=== PATIENT | female | born 1995 | race Caucasian/White ===

== ENCOUNTER 2020-09-24 20:55 | Emergency (ER) | payer MEDICAID, SELFPAY ==
[2020-09-24 21:46] VITALS: BP 121/84; PULSE 84; RESP 16; TEMP 36; O2SAT 100; BMI 32.3
--- NOTE | 2020-09-24 23:03 | ED.FEMALEGU ---
HPI - Female Genitourinary General Chief complaint: Urogenital-Female Stated complaint: Abd Pain Time Seen by Provider: 09/24/20 22:23 Source: patient Mode of arrival: ambulatory Limitations: no limitations History of Present Illness HPI Narrative: this is a 25-year-old female who presents with complaints of urinary burning for approximately 1 week and states that she was told today by a sexual partner she had 1 week ago that he noted he had some burning on urination and patient endorses that the sexual encounter was unprotected and wishes to be tested for UTI and as well as being treated for STI. Related Data Allergies Allergy/AdvReac Type Severity Reaction Status Date / Time No Known Allergies Allergy Verified 09/24/20 22:12 [No Known Allergies*] Review of Systems Review of Systems: Pertinent positives and negatives as stated in HPI 10 point review of systems is otherwise negative. PMFSH Past Medical History Source: nursing notes reviewed Medical History No known health problems Social History Social History Alcohol intake: never Smoking Status: Current every day smoker Smoked in Last 30 Days: No Use of substances other than those prescribed or required for medical reasons: No Advance Directives: No Advance Directives Information Provided: Yes Physical Exam Vital Signs: Vital Signs: Last Vital Signs Temp 96.8 F 09/24/20 21:46 Pulse 84 09/24/20 21:46 Resp 16 09/24/20 21:46 BP 121/84 09/24/20 21:46 Pulse Ox 100 09/24/20 21:46 Body Mass Index 32.3 VITAL SIGNS: Reviewed. GENERAL: Well developed, well nourished, in no acute distress. HEAD: Normocephalic/atraumatic, EYES: PERRLA, EOMI intact without pain, no nystagmus/pallor/icterus noted EARS: Ext canals without abnormality, TMs non-bulging and non-erythematous NOSE: Nares patent bilateral OROPHARYNX: no oral lesions noted, posterior pharynx clear and non-erythematous without noted tonsillar enlargement/erythema/exudates NECK: Supple, no adenopathy LUNGS: Normal breath sounds. No adventitious sounds or accessory muscle use. SpO2<100> CARDIOVASCULAR: Regular rate and rhythm without noted murmurs, no JVD or lower extremity edema. ABDOMEN: Soft, non-tender, non-distended with bowel sounds. No rigidity. No guarding. No palpable masses or hernias noted MUSCULOSKELETAL: No tenderness, deformities, or effusions noted on gross inspection. EXTREMITIES: No cyanosis, clubbing or edema. SKIN: Inspection of the skin reveals no rashes, ulcerations, jaundice, pallor, or petechiae. NEUROLOGIC: Alert and oriented x 4. Strength and sensation to light touch were grossly intact x 4. Course Course Course Narrative: This is a 25-year-old female with history and clinical presentation concerning for UTI, STI, but less likely ectopic however will rule out . Patient will be empirically treated for STI. Review of all investigations is negative for evidence of or UTI. [facility] - Female Genitourinary Lab Data Labs: Lab Results 09/24/20 Range/Units 23:28 Urine Color STRAW Urine Appearance CLEAR Urine pH 6.0 (5.0-8.0) Ur Specific [place] 1.010 (1.005-1.025) Urine Protein NEG (NEG-TRACE) MG/DL Urine Glucose (UA) NEG (NEG) MG/DL Urine Ketones NEG (NEG) MG/DL Urine Blood 1+ H (NEG) Urine Nitrite NEG (NEG) Ur Leukocyte Esterase NEG (NEG) Urine RBC 0 (0) /HPF Urine WBC 0-2 (0-4) /HPF Ur Squamous Epith Cells 2+ /LPF Urine Bacteria 1+ /LPF Urine Test NEGATIVE (NEGATIVE) Discharge Plan Discharge Clinical Impression: Dysuria Patient Disposition: Home, Self-Care Instructions: Dysuria (ED), Sexually Transmitted Diseases (ED) Additional Instructions: 1. You have been empirically treated for a sexually transmitted infection today. 2. You should not engage in any sexual activity until you have been called with the results of your tests from today. 3. You must notify any sexual partners if you are found to be positive. 4. This is strongly recommended that you follow-up with your primary care provider by calling the office to set up an appointment. The patient and/or family acknowledge understanding of results (as applicable), diagnosis, treatment plan, need for follow up, and symptoms that should prompt a return to the emergency room. Referrals: Eduardo Wallace MD [Primary Care Provider] - 2 days ( Follow-up on STI results)
[2020-09-24 23:35] LABS: Glucose Urine UA NEG (NEG); Leukocyte Esterase Urine NEG (NEG); Nitrite Urine NEG (NEG); Urine Blood 1+ (NEG); Urine Ketones NEG (NEG); Urine Protein NEG (NEG-TRACE)
[2020-09-24 23:39] LABS: Appearance Urine CLEAR; Color Urine STRAW; UPreg QC Valid YES; Urine Pregnancy NEGATIVE (NEGATIVE)
[2020-09-24] MEDS: Azithromycin 500 MG TABLET 1000 MG PO (23:43)
[2020-09-24 23:44] LABS: Bacteria Urine 1+ /LPF; RBC Urine 0 /HPF (0); Squamous Epithelial Cell Urine 2+ /LPF; WBC Urine 0-2 /HPF (0-4)
[2020-09-24] MEDS: cefTRIAXone sodium 250 MG, Lidocaine HCl 1 % MPF 0.9 ML IM (23:44)
[2020-09-25 01:40] LABS: CT PCR DETECTED (Not Detect.); NG PCR NOT DETECTED (Not Detect.)
== END 2020-09-25 00:07 | disposition home or self-care (01) ==
PROVIDERS: Emergency Provider Student in an Organized Health Care Education/Training Program; PCP Family Medicine
DX: R30.0 Dysuria (principal); F17.200 Nicotine dependence, unspecified, uncomplicated; Z71.6 Tobacco abuse counseling; Z20.2 Contact with and (suspected) exposure to infections with a predominantly sexual mode of transmission
CPT/HCPCS: 81001; 81025; 87491; 87591; 96372; 99284; J0696

== ENCOUNTER → 2021-01-11 10:39 | Outpatient (BNVA) | payer MEDICAID, SELFPAY | PROVIDERS: PCP General Practice; Visit Provider Psychiatry & Neurology Neurology ==

== ENCOUNTER → 2021-01-23 19:44 | Outpatient (REF) | payer MEDICAID, SELFPAY | LOC: HO.SL 19:44 | PROVIDERS: PCP General Practice; Visit Provider Psychiatry & Neurology Neurology | DX: Z13.89 Encounter for screening for other disorder (principal) ==

== ENCOUNTER 2023-03-23 17:02 | Emergency (ER) | payer OTHER, MEDICAID, SELFPAY ==
[2023-03-23 17:11] VITALS: BP 126/76; PULSE 96; RESP 20; TEMP 36.7; O2SAT 99; BMI 32.0
--- NOTE | 2023-03-23 17:14 | ED_ITS ---
HPI - General Adult General Chief complaint: Psychiatric Symptoms Stated complaint: Panic attack, SI, Hard time breathing Time Seen by Provider: 03/23/23 17:35 Source: patient Mode of arrival: ambulatory Limitations: no limitations History of Present Illness HPI narrative: 27-year-old female as medical history of insomnia, anxiety, depression, and panic attacks presents to the ED with suicidal ideation after panic attack today. She reports that she has had suicidal thoughts in the past that she has never done anything to hurt herself in the past. Reports that she is overwhelmed with work and there is a lot going on and relationships right now. She reports that if she were to go home she has things at home like knives and scissors that she would be to slit her wrists with in order to kill herself. Reports that she takes Cymbalta daily and she sees a therapist once a month. Denies visual, auditory or tactile hallucinations. Denies tobacco, drug or alcohol use. Reports she feels safe at home, lives with her parents and her sibling. No medical complaints Related Data Home Medications Medication Instructions Recorded Confirmed bupropion HCl 150 mg 24 hr tablet, 150 mg PO DAILY 03/23/23 03/23/23 extended release duloxetine 60 mg capsule,delayed 60 mg PO DAILY 03/23/23 03/23/23 release Allergies Allergy/AdvReac Type Severity Reaction Status Date / Time No Known Allergies Allergy Verified 03/23/23 17:18 [No Known Allergies*] Review of Systems Review of Systems: Constitutional : No Fever, No Chills ENT/Mouth : No Ear Pain, No Nasal Congestion, No sore throat Eyes: No Eye Pain, No Swelling, No Redness Cardiovascular : No Chest Pain, No SOB Respiratory : No Cough, No Sputum, No Dyspnea Gastrointestinal : No Nausea, No Vomiting, No Diarrhea, No Hematochezia, No Melena Genitourinary : No Dysuria, No Urinary Frequency, No Hematuria Musculoskeletal : No Myalgias Skin : No Skin Lesions, No rash Neuro : No Weakness, No Numbness, No Paresthesias, No Dizziness, No Headache Psych : positive Anxiety, positive Depression, positive SI/HI Heme/Lymph: No Lymphadenopathy Endocrine : No Polyuria, No Polydipsia All other systems reviewed and are negative Yes all other systems are reviewed and are negative PMFSH Past Medical History Attestation statement: The following information was validated with the patient. Source: old records reviewed and nursing notes reviewed Medical History No known health problems Social History Social History Alcohol intake: never Advance Directives: No Advance Directives Information Provided: Yes Healthcare Proxy: No Guardian: No Physical Exam ED Vital Signs: Vital Signs - 24 hr 03/23/23 17:11 Temperature 98.1 F Pulse Rate 96 Respiratory Rate 20 Blood Pressure 126/76 Pulse Oximetry 99 Oxygen Delivery Method Room Air BMI result Body Mass Index 32.0 VSS Appearance: Alert.? Oriented X3.? No acute distress.? Head: Normocephalic, atraumatic, no step-offs or deformities Eyes: Pupils equal, round and reactive to light.? CVS: Normal heart rate and rhythm.? Pulses normal.? Respiratory: No respiratory distress.? Breath sounds normal.? Abdomen: Soft and nontender.? Skin: Skin warm and dry.? Normal skin color.? Normal skin turgor.? Extremities: No lower extremity edema.? No calf ttp. 5/5 strength to bilateral upper and lower extremities Neuro: Oriented X 3.? No motor deficit.? No sensory deficit. CN 2-12 intact Const General: cooperative, well developed, alert and awake Nutritional Appearance: average body habitus Orientation/consciousness: patient oriented x3 Neuro General: patient oriented x3 Psych Mental Status: mental status grossly normal Speech and movement: Normal speech and movement present Affect: Sad affect present Attitude: cooperative Thought process: Normal thought process present Thought content: Suicidality present Insight: Good insight present (Psych) Judgement: Good judgement present (Psych) Course Course Course Narrative: RME triage 27 years old female with past medical history of depression, insomnia, panic attacks is here today for worsening symptoms and anxiety, feels overwhelmed. Reports thoughts of hurting self without actual plan. Patient feels very overwhelmed. Sees psychologist at [facility]. Called her provider today and never received call back for appointment. Patient is tearful. Patient denies any HI. Will walk patient to [facility] part. Will order basic lab work urine and drug screen. Patient is cooperative Reevaluation(s) Reevaluation #1: CBC within normal limits. Chemistry unremarkable. UA clean. Urine negative. Urine toxicology negative. Ethanol negative. COVID negative. At this time patient will be discharged home was evaluated by chest from the care team will set up outpatient providers, through [facility] with urgent referral to psych and therapy. Patient will be staying at her parent's house. At this time denies suicidal and homicidal ideation, feeling better. Reports good support system at home excited to go home. Agree with plan. Educated patient on diagnosis and treatment plan, answered all question, patient verbalizes understanding. At this time patient will be discharged home, advised to return with new or worsening symptoms. Educated on worrisome signs and symptoms and when to return. At this time I feel comfortable discharge home. Time: 22:11 Medical Decision Making Medical Decision Making [facility] Narrative: 27 year old female presents to the ED after a panic attack that promtped suicidal ideation. Denies V/A/T hallucinations or HI. PE: Oriented X 3.? No motor deficit.? No sensory deficit. CN 2-12 intact. Self reported SI with a plan. Ddx: suicidal ideation, panic disorder, anxiety, depression, bipolar disorder, mood disorder. Unlikely metabolic derangement Plan medical clearance and eval by care team Differential Diagnosis Differential Diagnoses: The differential diagnosis associated with the presentat ion includes Suicidal ideation, panic disorder, anxiety, depression, bipolar disorder, mood disorder. Unlikely metabolic derangement Admission/Observation Consideration of admission/observation: Escalation of care including a dmission/observation considered Lab Data [facility] Lab Attestation statement: I reviewed the patient's lab results. 03/23/23 18:24 03/23/23 18:24 Labs: Lab Results 03/23/23 03/23/23 03/23/23 Range/Units 18:24 18:24 19:14 WBC 7.1 (4.8-10.8) X10*3/uL RBC 4.55 (4.20-5.50) X10*6/uL Hgb 14.2 (12.0-16.0) g/dl Hct 40.9 (37.0-47.0) % MCV 89.9 (80.0-98.0) fL MCH 31.2 (27.0-33.0) pg MCHC 34.7 (31.0-35.0) g/dl RDW 12.9 (11.0-16.0) % Plt Count 310 (160-400) X10*3/uL MPV 9.9 (9.4-12.3) fL Immature Gran % (Auto) 0.4 (0.0-0.4) % Neut % (Auto) 54.6 (45-73) % Lymph % (Auto) 22.8 (20-40) % [place] % (Auto) 15.3 H (2-11) % Eos % (Auto) 6.1 H (0-4) % Baso % (Auto) 0.8 (0-2) % Lymph # (Auto) 1.6 (1.2-4.9) X10*3/uL [place] # (Auto) 1.1 (0.1-1.2) X10*3/uL Eos # (Auto) 0.4 (0.0-0.4) X10*3/uL Baso # (Auto) 0.1 (0.0-0.2) X10*3/uL Abs Immat Gran (auto) 0.03 (0.00-0.03) X10*3/uL Absolute Neuts (auto) 3.9 (2.0-8.3) x10*3/uL Absolute Nucleated RBC 0.000 (0.0-0.012) X10*3/uL Nucleated RBC % (auto) 0.0 (0.0-0.2) /100WBC Sodium 141 (135-145) mmol/L Potassium 4.5 (3.3-5.1) mmol/L Chloride 107 (96-108) mmol/L Carbon Dioxide 26 (22-29) mmol/L Anion Gap 13 (12-20) BUN 6 L (9-16) mg/dL Creatinine 0.74 (0.5-1.4) mg/dL Estim Creat Clear Calc 148.3 Estimated GFR > 60 Random Glucose 82 (60-115) mg/dL Calcium 9.8 (8.4-10.2) mg/dL Urine Color Yellow Urine Appearance Clear Urine pH 6.0 (5.0-9.0) Ur Specific [place] 1.010 (1.005-1.025) Urine Protein Negative (Neg-Trace) mg/dL Urine Glucose (UA) Negative (Negative) mg/dL Urine Ketones Negative (Negative) mg/dL Urine Blood Small (1+) H (Negative) Urine Nitrite Negative (Negative) Ur Leukocyte Esterase Negative (Negative) Urine RBC 0-2 (0-2) /HPF Urine WBC 0-5 (0-5) /HPF Ur Squamous Epith Cells 0-2 (0-2) /HPF Urine Bacteria None Seen (None Seen) Hyaline Casts 0-2 (0-2) /LPF Urine Test (NEGATIVE) Urine Opiates Screen (Not Detect) Urine Fentanyl Screen (Not Detect) Ur Barbiturates Screen (Not Detect) Ur Phencyclidine Scrn (Not Detect) Ur Amphetamines Screen (Not Detect) U Benzodiazepines Scrn (Not Detect) Urine Cocaine Screen (Not Detect) U Marijuana (THC) Screen (Not Detect) Ethyl Alcohol < 10 mg/dL COVID-19 ([place]) (Negative) COVID-19 Clin Com 03/23/23 03/23/23 03/23/23 Range/Units 19:14 19:14 19:15 WBC (4.8-10.8) X10*3/uL RBC (4.20-5.50) X10*6/uL Hgb (12.0-16.0) g/dl Hct (37.0-47.0) % MCV (80.0-98.0) fL MCH (27.0-33.0) pg MCHC (31.0-35.0) g/dl RDW (11.0-16.0) % Plt Count (160-400) X10*3/uL MPV (9.4-12.3) fL Immature Gran % (Auto) (0.0-0.4) % Neut % (Auto) (45-73) % Lymph % (Auto) (20-40) % [place] % (Auto) (2-11) % Eos % (Auto) (0-4) % Baso % (Auto) (0-2) % Lymph # (Auto) (1.2-4.9) X10*3/uL [place] # (Auto) (0.1-1.2) X10*3/uL Eos # (Auto) (0.0-0.4) X10*3/uL Baso # (Auto) (0.0-0.2) X10*3/uL Abs Immat Gran (auto) (0.00-0.03) X10*3/uL Absolute Neuts (auto) (2.0-8.3) x10*3/uL Absolute Nucleated RBC (0.0-0.012) X10*3/uL Nucleated RBC % (auto) (0.0-0.2) /100WBC Sodium (135-145) mmol/L Potassium (3.3-5.1) mmol/L Chloride (96-108) mmol/L Carbon Dioxide (22-29) mmol/L Anion Gap (12-20) BUN (9-16) mg/dL Creatinine (0.5-1.4) mg/dL Estim Creat Clear Calc Estimated GFR Random Glucose (60-115) mg/dL Calcium (8.4-10.2) mg/dL Urine Color Urine Appearance Urine pH (5.0-9.0) Ur Specific [place] (1.005-1.025) Urine Protein (Neg-Trace) mg/dL Urine Glucose (UA) (Negative) mg/dL Urine Ketones (Negative) mg/dL Urine Blood (Negative) Urine Nitrite (Negative) Ur Leukocyte Esterase (Negative) Urine RBC (0-2) /HPF Urine WBC (0-5) /HPF Ur Squamous Epith Cells (0-2) /HPF Urine Bacteria (None Seen) Hyaline Casts (0-2) /LPF Urine Test NEGATIVE (NEGATIVE) Urine Opiates Screen Not Detected (Not Detect) Urine Fentanyl Screen Not Detected (Not Detect) Ur Barbiturates Screen Not Detected (Not Detect) Ur Phencyclidine Scrn Not Detected (Not Detect) Ur Amphetamines Screen Not Detected (Not Detect) U Benzodiazepines Scrn Not Detected (Not Detect) Urine Cocaine Screen Not Detected (Not Detect) U Marijuana (THC) Screen Not Detected (Not Detect) Ethyl Alcohol mg/dL COVID-19 ([place]) Negative (Negative) COVID-19 Clin Com See Note Core Measures AMI core measures followed: Yes Measure exclusions: not indicated Discharge Plan Discharge Clinical Impression: Depression, Acute anxiety Patient Disposition: Admitted As Inpatient Additional Instructions: Take your medications as prescribed. If you were prescribed antibiotics today, it is important that you take your medication to their entirety, do not skip any doses, do not finish them early. Follow-up with your primary care provider this week. Return to the emergency department with new or worsening symptoms. Such as fevers, chills, chest pain, shortness of breath, nausea, vomiting, dizziness, headache, vision changes, lethargy In case of emergency call 911 Interventions: [place]-Suicide Risk Severity Scale Last Done: 03/23/23 22:10 ED Discharge Assessment Last Done: 03/23/23 22:10 Discharge Date/Time: 03/23/23 22:21
[2023-03-23 18:29] LABS: MANUAL DIFF FLAG NO
[2023-03-23 18:43] LABS: Anion Gap 13 (12-20); Blood Urea Nitrogen 6 mg/dL (9-16); Calcium 9.8 mg/dL (8.4-10.2); Carbon Dioxide 26 mmol/L (22-29); Chloride 107 mmol/L (96-108); Creatinine Clr Calc Pharmacy 148.3; Estimated Glomerular Filt Rate > 60; Glucose Random 82 mg/dL (60-115); Potassium 4.5 mmol/L (3.3-5.1); Sodium 141 mmol/L (135-145)
[2023-03-23 19:02] LABS: Basophils Absolute Auto 0.1 X10*3/uL (0.0-0.2); Basophils Percent Auto 0.8 % (0-2); Eosinophils Absolute Auto 0.4 X10*3/uL (0.0-0.4); Eosinophils Percent Auto 6.1 % (0-4); Hematocrit 40.9 % (37.0-47.0); Hemoglobin 14.2 g/dl (12.0-16.0); Imm Gran Abs Auto 0.03 X10*3/uL (0.00-0.03); Imm Gran Pct Auto 0.4 % (0.0-0.4); Lymphocytes Absolute Auto 1.6 X10*3/uL (1.2-4.9); Lymphocytes Percent Auto 22.8 % (20-40); Mean Corpuscular HGB Conc 34.7 g/dl (31.0-35.0); Mean Corpuscular Hemoglobin 31.2 pg (27.0-33.0); Mean Corpuscular Volume 89.9 fL (80.0-98.0); Mean Platelet Volume 9.9 fL (9.4-12.3); Monocytes Absolute Auto 1.1 X10*3/uL (0.1-1.2); Monocytes Percent Auto 15.3 % (2-11); Neutrophils Absolute Auto 3.9 x10*3/uL (2.0-8.3); Neutrophils Percent Auto 54.6 % (45-73); Platelet Count 310 X10*3/uL (160-400); Red Blood Count 4.55 X10*6/uL (4.20-5.50); Red Cell Distribution Width 12.9 % (11.0-16.0); White Blood Count 7.1 X10*3/uL (4.8-10.8)
[2023-03-23 19:37] LABS: Amphetamine Screen Urine Not Detected (Not Detect); Barbiturates, Urine Not Detected (Not Detect); Benzodiazepines Screen Urine Not Detected (Not Detect); Cannabinoid Screen Urine Not Detected (Not Detect); Cocaine Screen Urine Not Detected (Not Detect); Fentanyl, urine Not Detected (Not Detect); Opiate Screen Urine Not Detected (Not Detect); Phencyclidine Screen Urine Not Detected (Not Detect)
[2023-03-23 19:40] LABS: COVID-19 Test Negative (Negative); IDNOW Serial# 08D9AD1C
[2023-03-23 19:41] LABS: Ethanol < 10 mg/dL
[2023-03-23 19:48] LABS: UPreg QC Valid YES
[2023-03-23 19:49] LABS: Appearance Urine Clear; Color Urine Yellow; Glucose Urine UA Negative (Negative); Leukocyte Esterase Urine Negative (Negative); Nitrite Urine Negative (Negative); UMIC TRIGGER UA YES; Urine Blood Small (1+) (Negative); Urine Ketones Negative (Negative); Urine Protein Negative (Neg-Trace)
[2023-03-23 19:50] LABS: Urine Pregnancy NEGATIVE (NEGATIVE)
[2023-03-23 20:17] LABS: Bacteria Urine None Seen (None Seen); Hyaline Casts Urine 0-2 /LPF (0-2); RBC Urine 0-2 /HPF (0-2); Squamous Epithelial Cell Urine 0-2 /HPF (0-2); WBC Urine 0-5 /HPF (0-5)
--- NOTE | 2023-03-24 13:19 | MHC.CARE ---
CARE Team completed follow up call
--- NOTE | 2023-03-26 15:16 | MHC.CARE ---
care team attempted to complete follow up call. no answer
== END 2023-03-23 22:21 | disposition admitted as inpatient to this hospital (09) ==
PROVIDERS: Nurse Practitioner Family; Physician Assistant; Emergency Provider Internal Medicine; PCP General Practice
DX: R45.851 Suicidal ideations (principal); F32.A Depression, unspecified; F41.9 Anxiety disorder, unspecified; Z20.822 Contact with and (suspected) exposure to COVID-19; Z79.899 Other long term (current) drug therapy
CPT/HCPCS: 36415; 80048; 80307; 81001; 81025; 85025; 87635; 99283; 99284; S9485

== ENCOUNTER 2023-05-09 13:08 | Outpatient (REF) | payer MEDICAID, SELFPAY ==
--- NOTE | ~2023-05-09 | US_ITS ---
EXAMINATION: US DIAGNOSTIC ULTRASOUND BREAST, LEFT CLINICAL INFORMATION: 27-year-old with palpable area posterior outer left breast for approximately one month. No prior breast imaging. COMPARISON: None available. TECHNIQUE: Ultrasound left breast is targeted to the area of clinical concern using grayscale imaging and color Doppler without and with harmonics. Patient is able to point to the area of palpable fullness at time of imaging. FINDINGS: There is a solid circumscribed macrolobulated mass 3:00 position 9 cm from nipple corresponding to the palpable concern. The lesion measures approximately 2.7 x 2.2 cm. There is scattered internal color flow. No architectural abnormality or focal duct ectasia. Results are discussed with the patient at time of visit. Ultrasound-guided core sampling is recommended to confirm probable benign fibroadenoma. Results and recommendation called to medical social consultant (Lesly) for Agusto Nguyen NP on 05/09/2023. 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 ASSESSMENT: BI-RADS 4: Suspicious (subcategory 4A: Low suspicion for malignancy) RECOMMENDATION: Ultrasound-guided core sampling left breast mass. This patient's information was entered into a reminder system with a target due date for their next mammogram.
== END 2023-05-09 13:09 | disposition home or self-care (01) ==
LOC: HO.MAMMO 13:08
PROVIDERS: PCP General Practice; Visit Provider Emergency Medicine
DX: N63.21 Unspecified lump in the left breast, upper outer quadrant (principal)
CPT/HCPCS: 76642

== ENCOUNTER → 2023-05-16 15:27 | Outpatient (BNVA) | payer MEDICAID, SELFPAY | PROVIDERS: PCP General Practice; Visit Provider Surgery | DX: N63.25 Unspecified lump in the left breast, overlapping quadrants (principal); Z80.3 Family history of malignant neoplasm of breast | CPT/HCPCS: 99202 ==

== ENCOUNTER 2023-06-03 20:43 | Emergency (ER) | payer MEDICAID, SELFPAY ==
--- NOTE | ~2023-06-03 | CT_ITS ---
EXAMINATION: CT ABDOMEN AND PELVIS WITHOUT CONTRAST CLINICAL INFORMATION: Lower abdominal pain COMPARISON: None available. TECHNIQUE: Multidetector volumetric imaging was performed from the superior aspect of the liver through the pubic symphysis. Sagittal and coronal reformatted images were obtained on the technologist's workstation. This CT examination was performed using dose optimization techniques as appropriate, variously including the following: *Automated exposure control *Adjustment of mA and/or kV according to patient size (this includes techniques or standardized protocols for targeted exams where dose is matched to indication/reason for exam; i.e. extremities or head) *Use of iterative reconstruction technique DLP: 774 mGy-cm FINDINGS: LUNG BASES: The visualized lung bases are unremarkable. LIVER, GALLBLADDER, AND BILIARY TREE: The liver is normal in size, shape, and attenuation. No focal hepatic lesion or biliary ductal dilatation is present. The gallbladder is unremarkable with no evidence of radiopaque gallstones, gallbladder wall thickening, or obvious pericholecystic inflammatory changes. PANCREAS: Unremarkable. SPLEEN: Unremarkable. ADRENAL GLANDS: Unremarkable. KIDNEYS AND URETERS: The kidneys are normal in size, shape, and attenuation. Mild fullness of the right collecting system. There is no definite calculus seen cannot exclude a 0.1 cm calculus in the mid to lower ureter at the S1 level. BLADDER: Unremarkable. GASTROINTESTINAL TRACT: The stomach is unremarkable. Normal caliber small bowel. No obstruction. No colonic wall thickening or inflammation. Diminutive appendix. No free air or free fluid. ABDOMINAL WALL: No significant hernia is appreciated. LYMPH NODES: Normal. VASCULAR: Unremarkable. PELVIC VISCERA: The uterus and adnexa are unremarkable. OSSEOUS STRUCTURES: No acute or suspicious osseous abnormality. CT/CT abdomen pelvis wo IV con IMPRESSION: Mild fullness of the right collecting system. Cannot exclude a 0.1 cm calculus in the mid to lower ureter at the S1 level. Otherwise unremarkable CT. Fleischner guidelines were followed.
[2023-06-03 20:46] VITALS: BP 128/71; PULSE 108; RESP 18; TEMP 36.9; O2SAT 98; BMI 32.3
--- NOTE | 2023-06-03 20:46 | ED_ITS ---
HPI - Abdominal Pain General Chief Complaint: Abdominal Pain Stated Complaint: abdominal and back pain Time Seen by Provider: 06/03/23 22:24 Related Data Home Medications Medication Instructions Recorded Confirmed bupropion HCl 150 mg 24 hr tablet, 150 mg PO DAILY 03/23/23 05/16/23 extended release duloxetine 60 mg capsule,delayed 60 mg PO DAILY 03/23/23 05/16/23 release Allergies Allergy/AdvReac Type Severity Reaction Status Date / Time No Known Allergies Allergy Verified 05/16/23 15:47 [No Known Allergies*] FOR[facility]LY [facility] Past Medical History Medical History Family history of breast cancer Left breast mass No known health problems Social History Social History Alcohol intake: never Smoked in Last 30 Days: No Use of substances other than those prescribed or required for medical reasons: No Advance Directives: No Advance Directives Information Provided: Yes Physical Exam ED Vital Signs: BMI result Body Mass Index 32.3 Course Course Course Narrative: This is an RME: Additional HPI, ROS, PE not included below will be deferred to primary provider. Patient is a 27-year-old female who presents emergency for evaluation diffuse lower back pain x 2 weeks, yesterday began with lower ab dominal pain and urinary frequency. Denies fevers or chills. 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 last menstrual period 05/24/2023 Plan: Labs, urinalysis, hCG Medical Decision Making Lab Data 06/03/23 20:55 06/03/23 20:55 Labs: Lab Results 06/03/23 06/03/23 06/03/23 Range/Units 20:55 20:55 22:17 WBC 9.5 (4.8-10.8) X10*3/uL RBC 4.26 (4.20-5.50) X10*6/uL Hgb 13.3 (12.0-16.0) g/dl Hct 38.2 (37.0-47.0) % MCV 89.7 (80.0-98.0) fL MCH 31.2 (27.0-33.0) pg MCHC 34.8 (31.0-35.0) g/dl RDW 12.3 (11.0-16.0) % Plt Count 357 (160-400) X10*3/uL MPV 9.1 L (9.4-12.3) fL Immature Gran % (Auto) 0.3 (0.0-0.4) % Neut % (Auto) 65.9 (45-73) % Lymph % (Auto) 21.4 (20-40) % [place] % (Auto) 9.3 (2-11) % Eos % (Auto) 2.5 (0-4) % Baso % (Auto) 0.6 (0-2) % Lymph # (Auto) 2.0 (1.2-4.9) X10*3/uL [place] # (Auto) 0.9 (0.1-1.2) X10*3/uL Eos # (Auto) 0.2 (0.0-0.4) X10*3/uL Baso # (Auto) 0.1 (0.0-0.2) X10*3/uL Abs Immat Gran (auto) 0.03 (0.00-0.03) X10*3/uL Absolute Neuts (auto) 6.3 (2.0-8.3) x10*3/uL Absolute Nucleated RBC 0.000 (0.0-0.012) X10*3/uL Nucleated RBC % (auto) 0.0 (0.0-0.2) /100WBC Sodium 140 (135-145) mmol/L Potassium 3.8 (3.3-5.1) mmol/L Chloride 106 (96-108) mmol/L Carbon Dioxide 26 (22-29) mmol/L Anion Gap 12 (12-20) BUN 9 (9-16) mg/dL Creatinine 0.78 (0.5-1.4) mg/dL Estim Creat Clear Calc 141.3 Estimated GFR > 60 Random Glucose 107 (60-115) mg/dL Calcium 9.7 (8.4-10.2) mg/dL Total Bilirubin 0.5 (0.0-1.0) mg/dL AST 11 (5-31) U/L ALT 9 (0-31) U/L Alkaline Phosphatase 124 H (39-117) U/L Total Protein 7.3 (6.5-8.0) g/dL Albumin 4.3 (3.5-5.0) g/dL Lipase 31 (8-78) U/L Urine Color Yellow Urine Appearance Clear Urine pH 5.5 (5.0-9.0) Ur Specific [place] 1.020 (1.005-1.025) Urine Protein Negative (Neg-Trace) mg/dL Urine Glucose (UA) Negative (Negative) mg/dL Urine Ketones Negative (Negative) mg/dL Urine Blood Trace H (Negative) Urine Nitrite Negative (Negative) Ur Leukocyte Esterase Negative (Negative) Urine RBC 6-10 H (0-2) /HPF Urine WBC 0-5 (0-5) /HPF Ur Squamous Epith Cells 3-5 (0-2) /HPF Urine Bacteria Trace (None Seen) Hyaline Casts 0-2 (0-2) /LPF Urine Test (NEGATIVE) 06/03/23 Range/Units 22:17 WBC (4.8-10.8) X10*3/uL RBC (4.20-5.50) X10*6/uL Hgb (12.0-16.0) g/dl Hct (37.0-47.0) % MCV (80.0-98.0) fL MCH (27.0-33.0) pg MCHC (31.0-35.0) g/dl RDW (11.0-16.0) % Plt Count (160-400) X10*3/uL MPV (9.4-12.3) fL Immature Gran % (Auto) (0.0-0.4) % Neut % (Auto) (45-73) % Lymph % (Auto) (20-40) % [place] % (Auto) (2-11) % Eos % (Auto) (0-4) % Baso % (Auto) (0-2) % Lymph # (Auto) (1.2-4.9) X10*3/uL [place] # (Auto) (0.1-1.2) X10*3/uL Eos # (Auto) (0.0-0.4) X10*3/uL Baso # (Auto) (0.0-0.2) X10*3/uL Abs Immat Gran (auto) (0.00-0.03) X10*3/uL Absolute Neuts (auto) (2.0-8.3) x10*3/uL Absolute Nucleated RBC (0.0-0.012) X10*3/uL Nucleated RBC % (auto) (0.0-0.2) /100WBC Sodium (135-145) mmol/L Potassium (3.3-5.1) mmol/L Chloride (96-108) mmol/L Carbon Dioxide (22-29) mmol/L Anion Gap (12-20) BUN (9-16) mg/dL Creatinine (0.5-1.4) mg/dL Estim Creat Clear Calc Estimated GFR Random Glucose (60-115) mg/dL Calcium (8.4-10.2) mg/dL Total Bilirubin (0.0-1.0) mg/dL AST (5-31) U/L ALT (0-31) U/L Alkaline Phosphatase (39-117) U/L Total Protein (6.5-8.0) g/dL Albumin (3.5-5.0) g/dL Lipase (8-78) U/L Urine Color Urine Appearance Urine pH (5.0-9.0) Ur Specific [place] (1.005-1.025) Urine Protein (Neg-Trace) mg/dL Urine Glucose (UA) (Negative) mg/dL Urine Ketones (Negative) mg/dL Urine Blood (Negative) Urine Nitrite (Negative) Ur Leukocyte Esterase (Negative) Urine RBC (0-2) /HPF Urine WBC (0-5) /HPF Ur Squamous Epith Cells (0-2) /HPF Urine Bacteria (None Seen) Hyaline Casts (0-2) /LPF Urine Test NEGATIVE (NEGATIVE) Discharge Plan Discharge Clinical Impression: Abdominal pain Patient Disposition: Elopement Prescriptions: No Action bupropion HCl 150 mg tablet extended release 24 hr 150 mg PO DAILY duloxetine 60 mg capsule,delayed release(DR/EC) 60 mg PO DAILY Stand Alone Forms: Against Medical Advice Interventions: ED Discharge Assessment Last Done: 06/03/23 23:17 Discharge Date/Time: 06/03/23 23:17
[2023-06-03 20:58] LABS: MANUAL DIFF FLAG NO
[2023-06-03 20:59] LABS: Basophils Absolute Auto 0.1 X10*3/uL (0.0-0.2); Basophils Percent Auto 0.6 % (0-2); Eosinophils Absolute Auto 0.2 X10*3/uL (0.0-0.4); Eosinophils Percent Auto 2.5 % (0-4); Hematocrit 38.2 % (37.0-47.0); Hemoglobin 13.3 g/dl (12.0-16.0); Imm Gran Abs Auto 0.03 X10*3/uL (0.00-0.03); Imm Gran Pct Auto 0.3 % (0.0-0.4); Lymphocytes Percent Auto 21.4 % (20-40); Mean Corpuscular HGB Conc 34.8 g/dl (31.0-35.0); Mean Corpuscular Hemoglobin 31.2 pg (27.0-33.0); Mean Corpuscular Volume 89.7 fL (80.0-98.0); Mean Platelet Volume 9.1 fL (9.4-12.3); Monocytes Absolute Auto 0.9 X10*3/uL (0.1-1.2); Monocytes Percent Auto 9.3 % (2-11); Neutrophils Absolute Auto 6.3 x10*3/uL (2.0-8.3); Neutrophils Percent Auto 65.9 % (45-73); Platelet Count 357 X10*3/uL (160-400); Red Blood Count 4.26 X10*6/uL (4.20-5.50); Red Cell Distribution Width 12.3 % (11.0-16.0); White Blood Count 9.5 X10*3/uL (4.8-10.8)
[2023-06-03 21:14] LABS: Alanine Aminotransferase 9 U/L (0-31); Albumin Level 4.3 g/dL (3.5-5.0); Alkaline Phosphatase 124 U/L (39-117); Anion Gap 12 (12-20); Aspartate Amino Transferase 11 U/L (5-31); Bilirubin Total 0.5 mg/dL (0.0-1.0); Blood Urea Nitrogen 9 mg/dL (9-16); Calcium 9.7 mg/dL (8.4-10.2); Carbon Dioxide 26 mmol/L (22-29); Chloride 106 mmol/L (96-108); Creatinine Clr Calc Pharmacy 141.3; Estimated Glomerular Filt Rate > 60; Glucose Random 107 mg/dL (60-115); Potassium 3.8 mmol/L (3.3-5.1); Sodium 140 mmol/L (135-145); Total Protein 7.3 g/dL (6.5-8.0)
[2023-06-03 22:24] LABS: UPreg QC Valid YES; Urine Pregnancy NEGATIVE (NEGATIVE)
[2023-06-03 22:25] LABS: Appearance Urine Clear; Color Urine Yellow; Glucose Urine UA Negative (Negative); Leukocyte Esterase Urine Negative (Negative); Nitrite Urine Negative (Negative); PH 5.5 (5.0-9.0); UMIC TRIGGER UACC YES; Urine Blood Trace (Negative); Urine Ketones Negative (Negative); Urine Protein Negative (Neg-Trace)
[2023-06-03 22:27] LABS: Bacteria Urine Trace (None Seen); Hyaline Casts Urine 0-2 /LPF (0-2); WBC Urine 0-5 /HPF (0-5)
--- NOTE | 2023-06-03 22:29 | PC.NURSE ---
Pt refusing IV at this time, aware.
--- NOTE | 2023-06-03 22:35 | ED.ABDPAIN ---
HPI - Abdominal Pain General Chief Complaint: Abdominal Pain Stated Complaint: abdominal and back pain Time Seen by Provider: 06/03/23 22:24 Source: patient Mode of arrival: ambulatory Limitations: no limitations History of Present Illness HPI narrative: 27-year-old female came in for evaluation of back pain for 2 weeks, bilateral abdominal pain x1 day. Lower abdominal pain for 1 day, no nausea, no vomiting, no fever, no chills, declined chance of being , no vaginal bleeding, no vaginal discharge, patient recently diagnosed with BV that patient is receiving antibiotic. Related Data Home Medications Medication Instructions Recorded Confirmed bupropion HCl 150 mg 24 hr tablet, 150 mg PO DAILY 03/23/23 05/16/23 extended release duloxetine 60 mg capsule,delayed 60 mg PO DAILY 03/23/23 05/16/23 release Allergies Allergy/AdvReac Type Severity Reaction Status Date / Time No Known Allergies Allergy Verified 05/16/23 15:47 [No Known Allergies*] Review of Systems Review of Systems All other systems are reviewed and are negative Constitutional: Reports as per HPI and Reports no additional constitutional complaints Eyes: Reports as per HPI and Reports no additional eye complaints Reports system reviewed and no additional complaints, except as documented Cardiovascular: Reports as per HPI and Reports no additional cardiovascular complaints Respiratory: Reports as per HPI and Reports no additional respiratory complaints Gastrointestinal: Reports as per HPI and Reports no additional gastrointestinal complaints Genitourinary: Reports no additional female genitourinary complaints Musculoskeletal: Reports no additional musculoskeletal complaints Skin/Breast: Reports system reviewed and no additional complaints, except as docu Psychiatric: Reports no additional psychiatric complaints Endocrine: Reports no additional endocrine complaints Hematologic/Lymphatic: Reports no additional hematologic/lymphatic complaints Allergic/Immunologic: Reports no additional allergic/immunologic complaints Reports system reviewed and no additional complaints, except as documented and Reports Abnormal speech present [facility] Past Medical History Medical History Family history of breast cancer Left breast mass No known health problems Social History Social History Alcohol intake: never Smoked in Last 30 Days: No Use of substances other than those prescribed or required for medical reasons: No Advance Directives: No Advance Directives Information Provided: Yes Physical Exam ED Vital Signs: Vital Signs - 24 hr 06/03/23 20:46 Temperature 98.4 F Pulse Rate 108 H Respiratory Rate 18 Blood Pressure 128/71 Pulse Oximetry 98 Oxygen Delivery Method Room Air BMI result Body Mass Index 32.3 Vital signs have been reviewed as appeared to be correct. Blood pressure normal. Heart rate normal. Respiration rate normal. Temperature normal. Oxygen saturation normal. Appearance: Alert. Oriented X3. No acute distress. Head: Normal external exam. Normocephalic. Atraumatic. No Nogueira signs noted. No raccoon eyes noted Eyes: PERRLA. EOMI. Conjunctiva and sclera normal. Eyelids normal. ENT: TM's Normal. Pharynx normal. Uvula midline. Moist mucous membranes. No trismus noted. No drooling noted. No muffled voice noted. Neck: Normal inspection. Neck supple. FROM. No adenopathy. Thyroid Normal. No meningeal signs. No neck mass noted. CVS: Normal heart rate and rhythm. Heart sound normal. No murmurs noted. Pulses normal throughout. Respiratory: No respiratory distress. Painless inspiration. Breath sounds normal. No wheezes/rales/rhonchi noted. Chest nontender. No accessory muscle usage noted or decreased air movement noted. Abdomen: Soft, left lower quadrant tenderness, no guarding, no rebound tenderness Bowel sounds normal in all 4 quadrants. No distention noted. No organomegaly noted. No visible injury noted. Back: No CVA tenderness. Full range of motion noted. Skin: Skin warm and dry. Normal skin color. Normal skin turgor. No rashes/lesions/lacerations noted. Extremities: No lower extremity edema. Extremities exhibit normal range of motion. Extremities nontender. Neuro: Oriented X 3. Cranial nerve exam: II-XII are grossly intact No motor deficit. No sensory deficit. Reflexes normal. Course Course Course Narrative: 27-year-old female came in for evaluation of lower abdominal pain x1 day with unremarkable labs, patient left AMA before the results of the CT, CT abdomen pelvis was unremarkable. Medical Decision Making Differential Diagnosis Differential Diagnoses: The differential diagnosis associated with the presentation includes (Acute colitis, acute diverticulitis, acute appendicitis, renal stone, electrolyte abnormalities, severe anemia.) Admission/Observation Consideration of admission/observation: Escalation of care including admission/observation considered Lab Data MDM Lab Attestation statement: I reviewed the patient's lab results. 06/03/23 20:55 06/03/23 20:55 Labs: Lab Results 06/03/23 06/03/23 06/03/23 Range/Units 20:55 20:55 22:17 WBC 9.5 (4.8-10.8) X10*3/uL RBC 4.26 (4.20-5.50) X10*6/uL Hgb 13.3 (12.0-16.0) g/dl Hct 38.2 (37.0-47.0) % MCV 89.7 (80.0-98.0) fL MCH 31.2 (27.0-33.0) pg MCHC 34.8 (31.0-35.0) g/dl RDW 12.3 (11.0-16.0) % Plt Count 357 (160-400) X10*3/uL MPV 9.1 L (9.4-12.3) fL Immature Gran % (Auto) 0.3 (0.0-0.4) % Neut % (Auto) 65.9 (45-73) % Lymph % (Auto) 21.4 (20-40) % Real % (Auto) 9.3 (2-11) % Eos % (Auto) 2.5 (0-4) % Baso % (Auto) 0.6 (0-2) % Lymph # (Auto) 2.0 (1.2-4.9) X10*3/uL Real # (Auto) 0.9 (0.1-1.2) X10*3/uL Eos # (Auto) 0.2 (0.0-0.4) X10*3/uL Baso # (Auto) 0.1 (0.0-0.2) X10*3/uL Abs Immat Gran (auto) 0.03 (0.00-0.03) X10*3/uL Absolute Neuts (auto) 6.3 (2.0-8.3) x10*3/uL Absolute Nucleated RBC 0.000 (0.0-0.012) X10*3/uL Nucleated RBC % (auto) 0.0 (0.0-0.2) /100WBC Sodium 140 (135-145) mmol/L Potassium 3.8 (3.3-5.1) mmol/L Chloride 106 (96-108) mmol/L Carbon Dioxide 26 (22-29) mmol/L Anion Gap 12 (12-20) BUN 9 (9-16) mg/dL Creatinine 0.78 (0.5-1.4) mg/dL Estim Creat Clear Calc 141.3 Estimated GFR > 60 Random Glucose 107 (60-115) mg/dL Calcium 9.7 (8.4-10.2) mg/dL Total Bilirubin 0.5 (0.0-1.0) mg/dL AST 11 (5-31) U/L ALT 9 (0-31) U/L Alkaline Phosphatase 124 H (39-117) U/L Total Protein 7.3 (6.5-8.0) g/dL Albumin 4.3 (3.5-5.0) g/dL Lipase 31 (8-78) U/L Urine Color Yellow Urine Appearance Clear Urine pH 5.5 (5.0-9.0) Ur Specific [place] 1.020 (1.005-1.025) Urine Protein Negative (Neg-Trace) mg/dL Urine Glucose (UA) Negative (Negative) mg/dL Urine Ketones Negative (Negative) mg/dL Urine Blood Trace H (Negative) Urine Nitrite Negative (Negative) Ur Leukocyte Esterase Negative (Negative) Urine RBC 6-10 H (0-2) /HPF Urine WBC 0-5 (0-5) /HPF Ur Squamous Epith Cells 3-5 (0-2) /HPF Urine Bacteria Trace (None Seen) Hyaline Casts 0-2 (0-2) /LPF Urine Test (NEGATIVE) 06/03/23 Range/Units 22:17 WBC (4.8-10.8) X10*3/uL RBC (4.20-5.50) X10*6/uL Hgb (12.0-16.0) g/dl Hct (37.0-47.0) % MCV (80.0-98.0) fL MCH (27.0-33.0) pg MCHC (31.0-35.0) g/dl RDW (11.0-16.0) % Plt Count (160-400) X10*3/uL MPV (9.4-12.3) fL Immature Gran % (Auto) (0.0-0.4) % Neut % (Auto) (45-73) % Lymph % (Auto) (20-40) % Real % (Auto) (2-11) % Eos % (Auto) (0-4) % Baso % (Auto) (0-2) % Lymph # (Auto) (1.2-4.9) X10*3/uL Real # (Auto) (0.1-1.2) X10*3/uL Eos # (Auto) (0.0-0.4) X10*3/uL Baso # (Auto) (0.0-0.2) X10*3/uL Abs Immat Gran (auto) (0.00-0.03) X10*3/uL Absolute Neuts (auto) (2.0-8.3) x10*3/uL Absolute Nucleated RBC (0.0-0.012) X10*3/uL Nucleated RBC % (auto) (0.0-0.2) /100WBC Sodium (135-145) mmol/L Potassium (3.3-5.1) mmol/L Chloride (96-108) mmol/L Carbon Dioxide (22-29) mmol/L Anion Gap (12-20) BUN (9-16) mg/dL Creatinine (0.5-1.4) mg/dL Estim Creat Clear Calc Estimated GFR Random Glucose (60-115) mg/dL Calcium (8.4-10.2) mg/dL Total Bilirubin (0.0-1.0) mg/dL AST (5-31) U/L ALT (0-31) U/L Alkaline Phosphatase (39-117) U/L Total Protein (6.5-8.0) g/dL Albumin (3.5-5.0) g/dL Lipase (8-78) U/L Urine Color Urine Appearance Urine pH (5.0-9.0) Ur Specific [place] (1.005-1.025) Urine Protein (Neg-Trace) mg/dL Urine Glucose (UA) (Negative) mg/dL Urine Ketones (Negative) mg/dL Urine Blood (Negative) Urine Nitrite (Negative) Ur Leukocyte Esterase (Negative) Urine RBC (0-2) /HPF Urine WBC (0-5) /HPF Ur Squamous Epith Cells (0-2) /HPF Urine Bacteria (None Seen) Hyaline Casts (0-2) /LPF Urine Test NEGATIVE (NEGATIVE) Independent Interpretation I performed an independent interpretation of an: CT Scan (Abdomen and pelvis: No acute intra-abdominal pathology.) Radiology Impression Discussion of test interpretation with radiology: I have reviewed the radiologist's reading. Discharge Plan Discharge Clinical Impression: Abdominal pain Patient Disposition: Left Against Medical Advice Prescriptions: No Action bupropion HCl 150 mg tablet extended release 24 hr 150 mg PO DAILY duloxetine 60 mg capsule,delayed release(DR/EC) 60 mg PO DAILY Stand Alone Forms: Against Medical Advice Interventions: ED Discharge Assessment Last Done: 06/03/23 23:17 Discharge Date/Time: 06/03/23 23:17
[2023-06-03 22:42] LABS: Lipase 31 U/L (8-78)
== END 2023-06-03 23:17 | disposition left against medical advice (07) ==
PROVIDERS: Nurse Practitioner Family; Emergency Provider Emergency Medicine; PCP General Practice
DX: R10.30 Lower abdominal pain, unspecified (principal); Z79.899 Other long term (current) drug therapy
CPT/HCPCS: 36415; 74176; 80053; 81001; 81025; 83690; 85025; 99284

== ENCOUNTER 2023-06-22 07:41 | Outpatient (REF) | payer MEDICAID, SELFPAY ==
--- NOTE | ~2023-06-22 | US_ITS ---
PROCEDURE: ULTRASOUND-GUIDED LEFT BREAST BIOPSY CLINICAL INFORMATION: Mass left breast 3:00 axis, 9 cm from the nipple, for which biopsy was recommended. COMPARISON: 05/01/2023. TECHNIQUE: The details of the procedure, as well as the risks, benefits, and alternatives to the procedure were explained to the patient in detail and all of her questions were answered, after which, written informed consent was obtained. PROCEDURE: Prior to the procedure, sonography revealed a hypoechoic round circumscribed solid mass in the left breast 3:00 axis, 9 cm from the nipple, measuring 2.5 x 2.1 x 2.6 cm, with good through transmission and internal vascularity. A time-out was performed, the lesion intended for biopsy was targeted and the skin of the left breast was then prepped and draped in the usual sterile fashion. Using sonographic guidance, sterile technique, and 1% lidocaine without epinephrine for local anesthesia, a total of 3 adequate cores were obtained through the targeted area with a 14-gauge spring loaded achieve biopsy device. Due to the patient's age, and conspicuity of the mass, a biopsy clip was not placed. An appropriate sample was obtained. The patient tolerated the procedure well and, after assuring adequate hemostasis, was discharged in good condition after reviewing postbiopsy breast care instructions. Final pathology results are pending. US/US breast ndl core biopsy LT IMPRESSION: 1. Uncomplicated sonographically-guided core biopsy of the left breast 3:00 mass. 2. Final pathology results are pending. A separate report with final recommendations will be issued once these results are made available.
[2023-06-22] MEDS: Lidocaine HCl 1 % 20 ML VIAL 10 ML SUBCUT (08:54)
[2023-06-22] MEDS: Sodium Bicarbonate 8.4% 50 MEQ/50 ML VIAL SUBCUT (08:55)
== END 2023-06-22 07:42 | disposition home or self-care (01) ==
LOC: HO.MAMMO 07:41
PROVIDERS: PCP General Practice; Visit Provider Surgery
DX: N63.25 Unspecified lump in the left breast, overlapping quadrants (principal)
CPT/HCPCS: 19083; 88305

== ENCOUNTER → 2023-06-22 08:00 | Outpatient (BNV) | payer MEDICAID, SELFPAY | PROVIDERS: PCP General Practice; Visit Provider Radiology Diagnostic Radiology | DX: N63.20 Unspecified lump in the left breast, unspecified quadrant (principal) | CPT/HCPCS: 19083 ==

== ENCOUNTER 2023-06-26 08:40 | Outpatient (REF) | payer MEDICAID, SELFPAY ==
--- NOTE | ~2023-06-26 | XR_ITS ---
EXAMINATION: XR LUMBOSACRAL SPINE 2-3 views CLINICAL INFORMATION: Low back pain COMPARISON: None available. TECHNIQUE: Three views of the lumbosacral spine. FINDINGS: No evidence for acute lumbar compression fracture. There is disc space narrowing at L5-S1. Sacrum grossly intact. Pedicles and transverse processes appear unremarkable. XR/XR lumbar spine 2-3V IMPRESSION: No acute compression fracture. Disc space narrowing L5-S1.
== END 2023-06-26 08:41 | disposition home or self-care (01) ==
LOC: HO.HHCX 08:40
PROVIDERS: Visit Provider Internal Medicine Geriatric Medicine
DX: M54.50 Low back pain, unspecified (principal)
CPT/HCPCS: 72100

== ENCOUNTER 2023-11-08 13:10 | Outpatient (REF) | payer MEDICAID, SELFPAY ==
[2023-11-08 16:37] LABS: HCG Quantitative 53 mIU/mL
== END 2023-11-08 13:11 | disposition home or self-care (01) ==
LOC: HO.HHCL 13:10
PROVIDERS: Visit Provider Emergency Medicine
DX: N91.2 Amenorrhea, unspecified (principal)
CPT/HCPCS: 36415; 84702

== ENCOUNTER 2023-11-27 13:32 | Outpatient (REF) | payer MEDICAID, SELFPAY ==
[2023-11-27 16:01] LABS: MANUAL DIFF FLAG NO
[2023-11-27 16:05] LABS: Basophils Absolute Auto 0.1 X10*3/uL (0.0-0.2); Basophils Percent Auto 0.6 % (0-2); Eosinophils Absolute Auto 0.2 X10*3/uL (0.0-0.4); Eosinophils Percent Auto 1.9 % (0-4); Hematocrit 36.1 % (37.0-47.0); Hemoglobin 12.5 g/dl (12.0-16.0); Imm Gran Abs Auto 0.06 X10*3/uL (0.00-0.03); Imm Gran Pct Auto 0.5 % (0.0-0.4); Lymphocytes Absolute Auto 1.9 X10*3/uL (1.2-4.9); Lymphocytes Percent Auto 15.9 % (20-40); Mean Corpuscular HGB Conc 34.6 g/dl (31.0-35.0); Mean Corpuscular Hemoglobin 31.4 pg (27.0-33.0); Mean Corpuscular Volume 90.7 fL (80.0-98.0); Mean Platelet Volume 10.5 fL (9.4-12.3); Monocytes Percent Auto 8.6 % (2-11); Neutrophils Absolute Auto 8.8 x10*3/uL (2.0-8.3); Neutrophils Percent Auto 72.5 % (45-73); Platelet Count 312 X10*3/uL (160-400); Red Blood Count 3.98 X10*6/uL (4.20-5.50); Red Cell Distribution Width 12.6 % (11.0-16.0); White Blood Count 12.1 X10*3/uL (4.8-10.8)
[2023-11-27 16:27] LABS: Anion Gap 11 (12-20); Blood Urea Nitrogen 8 mg/dL (9-16); Calcium 9.4 mg/dL (8.4-10.2); Carbon Dioxide 23 mmol/L (22-29); Chloride 104 mmol/L (96-108); Estimated Glomerular Filt Rate > 60; Glucose Random 85 mg/dL (60-115); Potassium 3.2 mmol/L (3.3-5.1); Sodium 135 mmol/L (135-145)
[2023-11-27 16:47] LABS: TSH reflex Free T4 1.71 uIU/mL (0.32-4.0)
== END 2023-11-27 13:33 | disposition home or self-care (01) ==
LOC: HO.HHCL 13:32
PROVIDERS: Visit Provider Internal Medicine
DX: O26.891 Other specified pregnancy related conditions, first trimester (principal); R53.1 Weakness; Z3A.01 Less than 8 weeks gestation of pregnancy
CPT/HCPCS: 36415; 80048; 84443; 85025

== ENCOUNTER 2023-12-18 18:14 | Outpatient (REF) | payer OTHER, SELFPAY ==
[2023-12-20 00:08] LABS: C. trachomatis RNA TMA NOT DETECTED (NOT DETECTED); Candida glabrata RNA NOT DETECTED (NOT DETECTED); Candida species RNA NOT DETECTED (NOT DETECTED); N. gonorrhoeae RNA TMA NOT DETECTED (NOT DETECTED); Trichomonas vaginalis RNA NOT DETECTED (NOT DETECTED)
== END 2023-12-18 18:15 | disposition home or self-care (01) ==
LOC: HO.HHCLNP 18:14
PROVIDERS: Visit Provider General Practice
DX: N89.8 Other specified noninflammatory disorders of vagina (principal)
CPT/HCPCS: 36415; 81513; 87481; 87491; 87591; 87661

== ENCOUNTER 2024-03-27 19:46 | Outpatient (REF) | payer OTHER, SELFPAY | END 2024-03-27 19:47 | disposition home or self-care (01) | LOC: HO.HHCLNP 19:46 | PROVIDERS: Visit Provider Emergency Medicine | DX: R30.0 Dysuria (principal) | CPT/HCPCS: 87086 ==

== ENCOUNTER 2024-04-18 17:29 | Outpatient (REF) | payer MEDICAID, OTHER, SELFPAY | END 2024-04-18 17:30 | disposition home or self-care (01) | LOC: HO.HHCLNP 17:29 | PROVIDERS: Visit Provider Emergency Medicine | DX: O26.891 Other specified pregnancy related conditions, first trimester (principal); R30.0 Dysuria | CPT/HCPCS: 87086 ==

== ENCOUNTER 2024-09-08 14:37 | Outpatient (REF) | payer OTHER, SELFPAY ==
--- NOTE | ~2024-09-08 | US_ITS ---
EXAMINATION: US DIAGNOSTIC ULTRASOUND BREAST, RIGHT CLINICAL INFORMATION: 29-year-old female, Provider felt right breast lumps at 5:00 and 7:00. Patient is from 07/10/2024. Not currently breast feeding. COMPARISON: None relevant. TECHNIQUE: Ultrasound of the right breast is performed with real-time grande scale imaging and color Doppler. Right breast was examined from the 4:00 to 8:00 axis, to include the 2 areas of palpable concern, as indicated by the patient. FINDINGS: In the 5:00 axis right breast, 3 cm from the nipple, there is a complex heterogeneous partially cystic and isoechoic mass, cyst with low-level specular echoes within, and a suggestion of fat fluid levels. This measures 5.0 x 4.3 x 2.8 cm is most consistent with a galactocele by imaging appearance. There is good through transmission. It is wider than tall. There is scant internal color Doppler flow. This should involute overtime, and follow-up in 6 months recommended to ensure proper evolution. At the 7:00 axis, 6 cm from the nipple right breast, there is a smaller oval lesion with similar imaging characteristics as the above, measuring 2.0 x 2.0 x 0.7 cm. This is also consistent with a small galactocele. Six-month follow-up also recommended. There are no suspicious masses, architectural distortion, or abnormal shadowing. No additional cystic findings. US/US breast RT limited mamm only IMPRESSION: -Areas of palpable concern right breast 5:00 and 7:00 axes are consistent with galactoceles as described above. Recommend six-month follow-up targeted right breast ultrasound to ensure appropriate evolution/resolution. -No findings suspicious for malignancy. ASSESSMENT: BI-RADS 3: Probably Benign RECOMMENDATION: Diagnostic right ultrasound in 6 months. This patient's information was entered into a reminder system with a target due date for their next mammogram. Electronically signed by: Alen Perez MD 09/09/2024 09:46 AM EDT
== END 2024-09-08 14:38 | disposition home or self-care (01) ==
LOC: HO.MAMMO 14:37
PROVIDERS: PCP General Practice; Visit Provider General Practice
DX: N63.14 Unspecified lump in the right breast, lower inner quadrant (principal)
CPT/HCPCS: 76642

== ENCOUNTER → 2024-09-08 15:00 | Outpatient (BNV) | payer OTHER, SELFPAY | PROVIDERS: PCP General Practice; Visit Provider Radiology Diagnostic Radiology | DX: N63.15 Unspecified lump in the right breast, overlapping quadrants (principal) | CPT/HCPCS: 76642 ==

== ENCOUNTER 2024-10-21 08:15 | Outpatient (REF) | payer OTHER, SELFPAY ==
[2024-10-21 11:50] LABS: MANUAL DIFF FLAG NO
[2024-10-21 11:57] LABS: Basophils Absolute Auto 0.1 X10*3/uL (0.0-0.2); Basophils Percent Auto 0.8 % (0-2); Eosinophils Absolute Auto 0.2 X10*3/uL (0.0-0.4); Eosinophils Percent Auto 2.9 % (0-4); Hematocrit 38.2 % (37.0-47.0); Hemoglobin 13.3 g/dl (12.0-16.0); Imm Gran Abs Auto 0.03 X10*3/uL (0.00-0.03); Imm Gran Pct Auto 0.4 % (0.0-0.4); Lymphocytes Absolute Auto 1.6 X10*3/uL (1.2-4.9); Lymphocytes Percent Auto 20.3 % (20-40); Mean Corpuscular HGB Conc 34.8 g/dl (31.0-35.0); Mean Corpuscular Hemoglobin 30.7 pg (27.0-33.0); Mean Corpuscular Volume 88.2 fL (80.0-98.0); Mean Platelet Volume 10.1 fL (9.4-12.3); Monocytes Absolute Auto 0.5 X10*3/uL (0.1-1.2); Monocytes Percent Auto 7.1 % (2-11); Neutrophils Absolute Auto 5.3 x10*3/uL (2.0-8.3); Neutrophils Percent Auto 68.5 % (45-73); Platelet Count 339 X10*3/uL (160-400); Red Blood Count 4.33 X10*6/uL (4.20-5.50); Red Cell Distribution Width 13.6 % (11.0-16.0); White Blood Count 7.7 X10*3/uL (4.8-10.8)
[2024-10-21 12:13] LABS: Estimated Average Glucose 94 mg/dL; Hemoglobin A1C 99.5324 umol/L; Hemoglobin A1c % 4.9 % (<6.0); Total Hemoglobin (HGBA1C) 3340.8063 umol/L
[2024-10-21 12:31] LABS: Alanine Aminotransferase 38 U/L (0-31); Albumin Level 4.6 g/dL (3.5-5.0); Alkaline Phosphatase 122 U/L (39-117); Anion Gap 13 (12-20); Aspartate Amino Transferase 23 U/L (5-31); Bilirubin Total 1.1 mg/dL (0.0-1.0); Blood Urea Nitrogen 9 mg/dL (9-16); Calcium 9.7 mg/dL (8.4-10.2); Carbon Dioxide 25 mmol/L (22-29); Chloride 108 mmol/L (96-108); Estimated Glomerular Filt Rate > 60; Glucose Random 82 mg/dL (60-115); Lipase 23 U/L (8-78); Potassium 3.7 mmol/L (3.3-5.1); Sodium 142 mmol/L (135-145); Total Protein 7.6 g/dL (6.5-8.0)
[2024-10-22 08:17] LABS: HBS Num1 136.03 mIU/mL (0-7.99); HBc Num1 0.08 S/CO (0.00-0.79); HBsAGNum1 0.45 S/CO (0.00-0.99); HIV AB/AG Nonreactive (Nonreactive); HIV Num 1 0.05 S/CO (0.00-0.99); Hepatitis B Core Antibody Nonreactive (Nonreactive); Hepatitis B Surface Antigen Negative (Negative); ~HepC Num1 0.11 S/CO (0.00-0.79); ~Hepatitis B Surface Antibody REACTIVE (Nonreactive); ~Hepatitis C Antibody Nonreactive (Nonreactive)
[2024-10-22 08:26] LABS: Hepatitis A Antibody IgG Nonreactive (Nonreactive); ~Hepatitis A Antibody IgG 0.24 S/CO (0.00-0.99)
== END 2024-10-21 08:16 | disposition home or self-care (01) ==
LOC: HO.HHCL 08:15
PROVIDERS: Visit Provider Emergency Medicine
DX: R11.0 Nausea (principal); Z13.1 Encounter for screening for diabetes mellitus
CPT/HCPCS: 36415; 80053; 83036; 83690; 85025; 86704; 86706; 86708; 86803; 87340; 87389

== ENCOUNTER 2024-12-30 15:00 | Outpatient (REF) | payer OTHER, SELFPAY ==
--- NOTE | ~2024-12-30 | CT_ITS ---
EXAMINATION: CT HEAD WITHOUT CONTRAST CLINICAL INFORMATION: Persistent headache after head injury. COMPARISON: None available. TECHNIQUE: Contiguous axial imaging was performed from the skull base to vertex without intravenous administration of contrast. This CT examination was performed using dose optimization techniques as appropriate, variously including the following: *Automated exposure control *Adjustment of mA and/or kV according to patient size (this includes techniques or standardized protocols for targeted exams where dose is matched to indication/reason for exam; i.e. extremities or head) *Use of iterative reconstruction technique FINDINGS: There is no evidence of intracranial hemorrhage or extra-axial fluid collection. There is no mass effect, or edema. No CT evidence of acute territorial infarct. Ventricles, sulci, and cisterns are normal in size and configuration for patient age. No hydrocephalus. No midline shift. Negative hyperdense MCA sign. Negative insular ribbon sign. No significant white matter abnormality. Normal pituitary. Globes and orbital contents image normally. No extracranial soft tissue abnormalities. The paranasal sinuses, mastoid air cells, and tympanic cavities are normally aerated. No suspicious bony abnormalities. There are no acute fractures evident. CT/CT head/brain wo IV con IMPRESSION: No acute intracranial abnormality. No fracture evident. Electronically signed by: Alen Perez MD 12/30/2024 03:29 PM EST
--- OUTSIDE RECORDS SUMMARY | 2024-12-30 15:56 | XMS_ITS | Encounter Summary ---
Author Organization [employer] Address [address] [place] [address] Care Team Providers Care Transportation Supervisor Name Role Phone Faviola Da Silva MD Primary Care Provider [phone] Encounter Details Date Type Department Care Team (Late st Contact Info) Description 10/24/2024 Orders Only [facility] [address] [place], [place] [phone] Bon Arreaga MD [address] [place], [place] [phone] Elevated LFTs (Primary Dx) Social History Tobacco Use Types Packs/Day Years Used Date Smoking Tobacco: Never Smokeless Tobacco: Never Alcohol Use Standard Drinks/Week Comments Never 0 (1 standard drink = 0.6 oz pur e alcohol) Depression Answer Date Recorded Patient Health Questionnaire-9 Score 11 10/08/2024 Patient Health Questionnaire-9 Score 11 10/08/2024 Last PHQ-9: Questionnaire Data Not on file 1 12/08/2023 Housing Stability Answer Date Recorded What is your housing situation today? I have coral lezama 12/07/[address] you li ve. Do you have problems with any of the following? None of the above 12/07/2023 Food Insecurity Answer Date Recorded Within the past 12 months, y ou worried that your food would run out before you got money to buy more: Never True 12/07/2023 Within the past 12 months,th e food you bought just didn't last and you didn't have enough money to get more: Never True Transportation Answer Date Recorded In the past 12 months, has l ack of transportation kept you from medical appts, meetings, work or from getting things needed for daily living? Yes, it has kept me from medical appointments or getting medications. 12/18/2023 Utilities Answer Date Recorded In the past 12 months, has t he electric, gas, oil or water company threatened to shut off services in your home? No 12/07/2023 Depression Answer Date Recorded Patient Health Questionnaire-2 Score 4 10/08/2024 Comments No Sex and Gender Information Value Date Recorded Sex Assigned at Female 09/11/2022 10:16 AM EDT Legal Sex Female 10:16 AM EDT Gender Identity Female 09/11/2022 10:16 AM EDT Sexual Orientation Straight 09/11/2022 10 :16 AM EDT documented as of this encounter Plan of Treatment Upcoming Encounters Date Type Department Care Team (Late st Contact Info) Description 01/26/2025 2:00 PM EDT Office Visit [facility] MEDICINE [address] [place] [id number] Faviola Da Silva MD [address] [place] [phone] Scheduled Orders Name Type Priority Associated Diagnoses Orde r Schedule Hepatic Function Panel Lab Routine Elevated LFTs Expected: 10/24/2024 (Approximate), Expires: 10/24/2025 documented as of this encounter Visit Diagnoses Diagnosis Elevated LFTs- Primary Other abnormal blood chemistry documented in this encounter Additional Health Concerns Assessment Noted Time PHQ-9 Depression Total Score: 11 024 2:36 PM EST documented as of this encounter Care Teams Transportation Supervisor Relationship Specialty Start Date End Date Faviola Da Silva MD [address] [place] [phone] PCP - General Family Medicine 09/23/20 documented as of this encounter
--- OUTSIDE RECORDS SUMMARY | 2024-12-30 15:56 | XMS_ITS | Encounter Summary ---
Author Organization [employer] Address [address] [place] [address] Care Team Providers Care Repairer Typewriter Name Role Phone Faviola Da Silva MD Primary Care Provider [phone] Encounter Details Date Type Department Care Team (Late st Contact Info) Description 11/01/2022 Orders Only [facility] [address] [place], [place] [phone] Bon Arreaga MD [address] [facility] [place] [address] Bacterial vaginosis (Primary Dx); Candidal vulvovaginitis Social History Tobacco Use Types Packs/Day Years Used Date Smoking Tobacco: Never Smokeless Tobacco: Never Alcohol Use Standard Drinks/Week Comments Never 0 (1 standard drink = 0.6 oz pur e alcohol) Depression Answer Date Recorded Patient Health Questionnaire-2 Score 0 10/23/2022 Comments Unknown Sex and Gender Information Value Date Recorded Sex Assigned at Female 09/11/2022 10:16 AM EDT Legal Sex Female 10:16 AM EDT Gender Identity Female 09/11/2022 10:16 AM EDT Sexual Orientation Straight 09/11/2022 10 :16 AM EDT COVID-19 Exposure Response Date Recorded In the last 10 days, have yo u been in contact with someone who was confirmed or suspected to have Coronavirus/COVID-19? No / Unsure 10/23/2022 1:37 PM EST documented as of this encounter Plan of Treatment Upcoming Encounters Date Type Department Care Team (Late st Contact Info) Description 01/26/2025 2:00 PM EDT Office Visit [facility] [address] [place] [address] Faviola Da Silva MD [address] [place] [address] documented as of this encounter Visit Diagnoses Diagnosis Bacterial vaginosis- Primary Unspecified vaginitis and vulvovaginitis Candidal vulvovaginitis Candidiasis of vulva and vagina documented in this encounter Care Teams Repairer Typewriter Relationship Specialty Start Date End Date Faviola Da Silva MD [address] [place] [address] PCP - General Family Medicine 09/23/20 documented as of this encounter
--- OUTSIDE RECORDS SUMMARY | 2024-12-30 15:56 | XMS_ITS | Encounter Summary ---
Author Organization [employer] Address [address] [place] [address] Care Team Providers Care Sprinkler Fitter Name Role Phone Faviola Da Silva MD Primary Care Provider [phone] Encounter Details Date Type Department Care Team ([facility] st Contact Info) Description 10/01/[address] [facility] MED[facility] [address] [place], [place] [phone] Faviola Da Silva MD [address] [place], [place] [phone] Social History Tobacco Use Types Packs/Day Years Used Date Smoking Tobacco: Never Smokeless Tobacco: Never Alcohol Use Standard Drinks/Week Comments Never 0 (1 standard drink = 0.6 oz pur e alcohol) Depression Answer Date Recorded Patient Health Questionnaire-9 Score 0 12/18/2023 Patient Health Questionnaire-9 Score 0 12/18/2023 Last PHQ-9: Questionnaire Data Not on file 0 12/18/2023 Housing Stability Answer Date Recorded What is [...] Date Recorded Patient Health Questionnaire-2 Score 0 12/18/2023 Comments No Sex and Gender Information Value [...] Description 01/26/2025 2:00 PM EDT Office Visit [facility] [address] [place] [phone] Faviola Da Silva MD [address] [place] [phone] documented as of this encounter Visit Diagnoses Not on filedocumented in this encounter Additional Health Concerns Assessment Noted Time PHQ-9 Depression Total Score: 0 12/18/19 24 10:46 AM EST documented as of this encounter Care Teams Sprinkler Fitter Relationship Specialty Start Date End Date Faviola Da Silva MD [address] [place] [phone] PCP - General Family Medicine 09/23/20 documented as of this encounter
--- OUTSIDE RECORDS SUMMARY | 2024-12-30 15:56 | XMS_ITS | Encounter Summary ---
Author Organization [employer] Address [address] [place] [address] Care Team Providers Care Concrete Products Machine Operator Name Role Phone Faviola Da Silva MD Primary Care Provider [phone] Encounter Details Date Type Department Care Team ([facility] st Contact Info) Description 09/03/2023 Orders Only [facility] [address] [place], [place] [phone] Faviola Da Silva MD [address] [place], [place] [phone] Social History Tobacco Use Types Packs/Day Years Used Date Smoking Tobacco: Never Smokeless Tobacco: Never Alcohol Use Standard Drinks/Week Comments Never 0 (1 standard drink = 0.6 oz pur e alcohol) Housing Stability Answer Date Recorded What is your housing situation today? I have coral lezama 08/27/[address] you li ve. Do you have problems with any of the following? None of the above 08/27/2023 Food Insecurity Answer Date Recorded Within the past 12 months, y ou worried that your food would run out before you got money to buy more: Never True 08/27/2023 Within the past 12 months,th e food you bought just didn't last and you didn't have enough money to get more: Never True Transportation Answer Date Recorded In the past 12 months, has l ack of transportation kept you from medical appts, meetings, work or from getting things needed for daily living? No 08/27/2023 Utilities Answer Date Recorded In the past 12 months, has t he electric, gas, oil or water company threatened to shut off services in your home? No 08/27/2023 Depression Answer Date Recorded Patient Health Questionnaire-2 [...] Description 01/26/2025 2:00 PM EDT Office Visit [facility] [address] [place] [address] Faviola Da Silva MD [address] [place] [phone] documented as of this encounter Visit Diagnoses Not on filedocumented in this encounter Care Teams Concrete Products Machine Operator Relationship Specialty Start Date End Date Faviola Da Silva MD [address] [place] [phone] PCP - General Family Medicine 09/23/20 documented as of this encounter
--- OUTSIDE RECORDS SUMMARY | 2024-12-30 15:57 | XMS_ITS | Encounter Summary ---
Author Organization [employer] Address [address] 7[address] [place] [address] Care Team Providers Care Hearing Impaired Teacher Name Role Phone Faviola Da Silva MD Primary Care Provider [phone] Encounter Details Date Type Department Care Team (Late st Contact Info) Description 12/10/2024 3:40 PM EST Office Visit [facility] [address] [place], [place] [phone] Bon Arreaga MD [address] [place], [place] [phone] Influenza-like symptoms (Primary Dx); Viral URI Social History Tobacco Use Types Packs/Day Years [...] Patient Health Questionnaire-2 Score 4 10/08/2024 Comments Unknown Sex and Gender Information Value Date Recorded Sex Assigned at Female 09/11/2022 10:16 AM EDT Legal Sex Female 10:16 AM EDT Gender Identity Female 09/11/2022 10:16 AM EDT Sexual Orientation Straight 09/11/2022 10 :16 AM EDT documented as of this encounter Last Filed Vital Signs Vital Sign Reading Time Taken Comments Blood Pressure 111/67 12/10/2024 3:45 PM EST Pulse 118 12/10/2024 3:45 PM EST Temperature 37.9 ??C (100.3 ??F) 12/10/2024 4:[address] Respiratory Rate 18 12/10/2024 3:45 PM EST Oxygen Saturation 98% 12/10/2024 3:45 PM EST Inhaled Oxygen Concentration - - Weight 103 kg (227 lb 9.6 oz) 12/10/2024 3:45 PM EST Height - - Body Mass Index 32.66 11/24/2024 2:36 PM EST documented in this encounter Progress Notes * Bon Arreaga MD - 12/10/2024 3:40 PM EST Subjective Patient ID: Abby Monte is a 29 y.o. female. HPI Last night Abby had onset of abd pain; at 2AM had nausea and vomited stomach contents. This AM when she woke she had soft stool. Has persistent nausea today with no further vomiting or abd pain; drinking liquids. Tactile fever. Has headache now, feels generalized weakness. No cough, sore throat, UTI sx.. 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 LMP=now. Has Nexplanon. Works at [facility] [employer] [employer] [employer]. Never smoked. The following portions of the chart were reviewed this encounter and updated as appropriate: Tobacco Allergies Meds Problems Med Hx Surg Hx Fam Hx Review of Systems Constitutional: Positive for fatigue and fever. Respiratory: Negative for shortness of breath. Cardiovascular: Negative for chest pain. Gastrointestinal: Positive for abdominal pain, nausea and vomiting. Skin: Negative for rash. Neurological: Positive for headaches. Objective Physical Exam Constitutional: Appearance: Normal appearance. HENT: Right Ear: Tympanic membrane, ear canal and external ear normal. Left Ear: Tympanic membrane, ear canal and external ear normal. Nose: Nose normal. Mouth/Throat: Mouth: Mucous membranes are moist. Pharynx: Oropharynx is clear. Eyes: Conjunctiva/sclera: Conjunctivae normal. Pupils: Pupils are equal, round, and reactive to light. Cardiovascular: Rate and Rhythm: Normal rate and regular rhythm. Heart sounds: No murmur heard. Pulmonary: Effort: Pulmonary effort is normal. Breath sounds: Normal breath sounds. Abdominal: General: Abdomen is flat. Palpations: Abdomen is soft. Tenderness: There is abdominal tenderness (minimal RUQ). Musculoskeletal: General: Normal range of motion. Cervical back: No tenderness. Skin: Findings: No rash. Neurological: Mental Status: She is alert. Gait: Gait is intact. Psychiatric: Mood and Affect: Mood normal. Behavior: Behavior normal. Procedures Assessment/Plan Diagnoses and all orders for this visit: Influenza-like symptoms Negative rapid Covid, RSV, and Influenza tests. Presumptive viral illness. Cholecystitis appears unlikely. Given acetaminophen and Zofran in [facility]. Prescribed ac - acetaminophen (Tylenol) tablet 975 mg - ondansetron ODT (Zofran-ODT) disintegrating tablet 4 mg Viral URI - POCT Rapid COVID Ag - POCT RSV (ID NOW rapid molecular) - Influenza A (ID NOW Rapid Molecular) - Influenza B (ID NOW Rapid Molecular) Other orders - acetaminophen (Tylenol) 325 MG tablet; Take 2 tablets (650 mg) by mouth every 6 (six) hours if needed for moderate pain, headaches or fever. documented in this encounter Plan of Treatment Upcoming Encounters Date Type Department Care Team (Late st Contact Info) Description 01/26/2025 2:00 PM EDT Office Visit [facility] [address] [place] [address] Faviola Da Silva MD [address] [place] [address] documented as of this encounter Procedures Procedure Name Priority Date/Time Associated Diagnosis Comments POCT INFLUENZA B (ID NOW RAPID MOLECULAR) Routine 12/10/2024 3:39 PM EST Viral URI POCT INFLUENZA A (ID NOW RAPID MOLECULAR) Routine 12/10/2024 3:39 PM EST Viral URI POCT RAPID COVID ANTIGEN Routine 12/10/2024 3:39 PM EST Viral URI POCT RSV (ID NOW RAPID MOLECULAR) Routine 12/10/2024 3:39 PM EST Viral URI documented in this encounter Results * Influenza B (ID NOW Rapid Molecular) (12/10/2024 3:39 PM EST[facility] Negative Negative, Indeterminate [facility] Swab 12/10/2024 3:39 PM EST Bon Arreaga MD POINT OF CARE TEST ENTER/EDIT OR DERABLES Final Result [facility] [address] [place] [phone] * Influenza A (ID NOW Rapid Molecular) (12/10/2024 3:39 PM EST) [facility] Influenza A Negative Negative, Indeterminate [facility] Swab 12/10/2024 3:39 PM EST Bon Arreaga MD POINT OF CARE TEST ENTER/EDIT OR DERABLES Final Result Performing Organization Address [facility] Co de Phone Number [facility] [address] [place] [phone] * POCT RSV (ID NOW rapid molecular) (12/10/2024 3:39 PM EST) RSV Rapid Ag POC Negative Negative [facility] Swab 12/10/2024 3:39 PM EST us oBn Arreaga MD POINT OF CARE TEST ENTER/EDIT OR DERABLES Final Result Performing Organization Address [facility] Co de Phone Number [facility] [address] [place] [phone] * POCT Rapid COVID Ag (12/10/2024 3:39 PM EST) Rapid COVID Ag Negative [facility] Swab 12/10/2024 3:39 PM EST Bon Arreaga MD POINT OF CARE TEST ENTER/EDIT OR DERABLES Final Result Performing Organization Address [facility] de Phone Number [facility] [address] [place] [phone] documented in this encounter Visit Diagnoses Diagnosis Influenza-like symptoms- Primary Other general symptoms Viral URI Acute upper respiratory infections of unspecified site documented in this encounter Administered Medications Inactive Administered Medications - up to 3 most recent administrations Medication Order MAR Action Action Date Dose Rate Site acetaminophen (Tylenol) tablet 975 mg 975 mg, Oral, Once, On Sun12/10/24 at 1630, For 1 doseIndications:Influenza-like symptoms Given 12/10/2024 4:30 PM EST 975 mg ondansetron ODT (Zofran-ODT) disintegrating tablet 4 mg 4 mg, Oral, Once, On Sun12/10/24 at 1630, For 1 doseIndications:Influenza-like symptoms Given 12/10/2024 4:30 PM EST 4 mg documented in this encounter Additional Health Concerns Assessment Noted Time PHQ-9 Depression Total Score: 11 024 2:36 PM EST documented as of this encounter Care Teams Hearing Impaired Teacher Relationship Specialty Start Date End Date Faviola Da Silva MD [address] [place] [address] PCP - General Family Medicine 09/23/20 documented as of this encounter
--- OUTSIDE RECORDS SUMMARY | 2024-12-30 15:57 | XMS_ITS | Clinical Summary ---
Author Organization [employer] Address [address] [place] [address] Care Team Providers Care Wicker Molded Candles Name Role Phone Faviola Da Silva MD Primary Care Provider [phone] Surgical History Surgery Date Site/Laterality Comments OTHER SURGICAL HISTORY Left PROCEDURE: BREAST MASS CORE BIOPSY SPCMN PATHOLGY EXAM Medical History Medical History Date Comments Left breast mass DX:Left breast mass; COMMENT: biopsy fibroadenoma Maternal varicella, non-immune D X:Maternal varicella, non-immune Family History Relation Name Status Comments Father Alive Mother Alive Social History Tobacco Use Types Packs/Day Years Used Date Smoking Tobacco: Never Smokeless Tobacco: Never Alcohol Use Standard Drinks/Week Comments Not Currently 0 (1 standard drink = 0.6 oz pur e alcohol) Comments Unknown Sex and Gender Information Value Date Recorded Sex Assigned at Not on file Legal Sex Female 1:37 PM EDT Gender Identity Not on file Sexual Orientation Not on file Obstetrics History Plan of Treatment Health Maintenance Due Date Last Done Comments DTaP,Tdap,and Td Vaccines (1 - Tdap) 2015 Hepatitis B Vaccines (1 of 3 - 19+ 3-dose series) 2015 Cervical Cancer Screening: P ap Smear 2017 Cholesterol Screening (Lipid Panel) 06/04/2024 Depression Screening 06/04/2024 HIV Screening 06/04/2024 Hepatitis C Screening 06/04/2024 Social Influencers of Health Screening 06/04/2024 COVID-19 Vaccine ( - 2023-2 5 season) 2024 Influenza Vaccine (#1) 2024 Varicella Vaccines Aged Out 2024 No longer eligible based on patient's age to complete this topic HIB Vaccines Aged Out No longer eligi ble based on patient's age to complete this topic HPV Vaccines Aged Out No longer eligi ble based on patient's age to complete this topic Hepatitis A Vaccines Aged Out No long er eligible based on patient's age to complete this topic IPV Vaccines Aged Out No longer eligi ble based on patient's age to complete this topic MMR Vaccines Aged Out No longer eligi ble based on patient's age to complete this topic Meningococcal ACWY Vaccine Aged Out N o longer eligible based on patient's age to complete this topic Meningococcal B Vacine Aged Out No lo nger eligible based on patient's age to complete this topic Pneumococcal Vaccine: Pediat rics (0 to 5 Years) and At-Risk Patients (6 to 64 Years) Aged Out No longer eligi ble based on patient's age to complete this topic RSV Immunization Patients Un heather 20 months Aged Out No longer eligible b ased on patient's age to complete this topic Care Teams Wicker Molded Candles Relationship Specialty Start Date End Date Faviola Da Silva MD [address] [place] [phone] PCP - General 06/27/24
--- OUTSIDE RECORDS SUMMARY | 2024-12-30 15:57 | XMS_ITS | Encounter Summary ---
Author Organization [employer] Address [address]t [place] [address] Care Team Providers Care Filing Writer Name Role Phone Faviola Da Silva MD Primary Care Provider [phone] Encounter Details Date Type Department Care Team (Late st Contact Info) Description 12/30/2024 Telephone [facility] [address] [place], [place] [phone] Bon Arreaga MD [address] [place], [place] [phone] Social History Tobacco Use Types Packs/Day Years [...] AM EDT documented as of this encounter Miscellaneous Notes * Telephone Encounter - Bon Arreaga MD - 12/30/2024 3:51 PM EST I notified Abby of today's normal head CT scan report. documented in this encounter Plan of Treatment Upcoming Encounters Date Type Department Care Team (Late st Contact Info) Description 01/26/2025 2:00 PM EDT Office Visit [facility] [address] [place], [place] [phone] Faviola Da Silva MD [address] [place] [address] documented as of this encounter Visit Diagnoses Not on filedocumented in this encounter Additional Health Concerns Assessment Noted Time PHQ-9 Depression Total Score: 11 024 2:36 PM EST documented as of this encounter Care Teams Filing Writer Relationship Specialty Start Date End Date Faviola Da Silva MD [address] [place], [place] [phone] PCP - General Family Medicine 09/23/20 documented as of this encounter
--- OUTSIDE RECORDS SUMMARY | 2024-12-30 15:57 | XMS_ITS | Encounter Summary ---
Author Organization [employer] [facility] Address [address] 7t [place] [address] Care Team Providers Care Tool Chaser Name Role Phone Faviola Da Silva MD Primary Care Provider [phone] Reason for Referral * Imaging (Urgent) - Authorized Specialty Diagnoses / Procedures Referred By Contac t Referred To Contact Radiology Diagnoses Concussion without loss of consciousness, initial encounter Procedures CT Head w/o Contrast Bon Coronel MD [address] [place] [address] Phone: tel: fax: [address] Phone: tel: fax: Referral ID Status Reason Start Date Expiration Date V isits Requested Visits Authorized [id number] Authorized 12/15/2024 12/15/2025 1 1 Encounter Details Date Type Department Care Team (Late st Contact Info) Description 12/03/2024 Orders Only [facility] [address] [place] [address] [phone] Bon Coronel MD [address] [place] [address] [phone] Concussion without loss of consciousness, initial encounter (Primary Dx) Social History Tobacco Use Types [...] Description 01/26/2025 2:00 PM EDT Office Visit [facility] [address] [place] [address] Faviola Da Silva MD [address] [place] [address] documented as of this encounter Procedures Procedure Name Priority Date/Time Associated Diagnosis Comments CT HEAD WO CONTRAST Urgent 12/30/2024 3 :07 PM EST Concussion without loss of consciousness, initial encounter documented in this encounter Results * CT Head w/o Contrast (12/30/2024 3:07 PM EST) Anatomical Region Laterality Modality Head, Neck Computed Tomogra phy 12/30/2024 3:07 PM EST Narrative 12/30/2024 3:32 PM EST ? [facility] ?[address] ?[place] [address] ? CT Scan Report ? Signed ? Patient: Monte,Abby M ?MR#: [id number] ?? [id number] ? : 1995 ?Acct:[id number] ? Age/Sex: 29 / F ?ADM Date: 12/30/24 ? Loc: HO.CT ? Attending Dr: Bon Coronel MD ? Ordering Physician: BON CORONEL MD ?? Date of Service: 12/30/24 ?? Procedure(s): CT head/brain wo IV con ?? Accession Number(s): [id number] ? cc: BON CORONEL MD; Faviola Da Silva ? Report Number: ?? [id number]: Total DLP = ??790.00 mGy-cm ?? EXAMINATION: ?? CT HEAD WITHOUT CONTRAST ? CLINICAL INFORMATION: ?? Persistent headache after head injury. ? COMPARISON: ?? None available. ? TECHNIQUE: ?? Contiguous axial imaging was performed from the skull base to vertex ?? without intravenous administration of contrast. ? This CT examination was performed using dose optimization techniques as ?? appropriate, variously including the following: ?? *Automated exposure control ?? *Adjustment of mA and/or kV according to patient size (this includes ?? techniques or standardized protocols for targeted exams where dose is ?? matched to indication/reason for exam; i.e. extremities or head) ?? *Use of iterative reconstruction technique ? FINDINGS: ?? There is no evidence of intracranial hemorrhage or extra-axial fluid ?? collection. ?? There is no mass effect, or edema. No CT evidence of acute territorial ?? infarct. ?? Ventricles, sulci, and cisterns are normal in size and configuration ?? for patient age. No hydrocephalus. No midline shift. ?? Negative hyperdense MCA sign. Negative insular ribbon sign. ? No significant white matter abnormality. ?? Normal pituitary. ? Globes and orbital contents image normally. ?? No extracranial soft tissue abnormalities. ? The paranasal sinuses, mastoid air cells, and tympanic cavities are ?? normally aerated. ?? No suspicious bony abnormalities. There are no acute fractures evident. ? CT/CT head/brain wo IV con ?? IMPRESSION: ?? No acute intracranial abnormality. No fracture evident. ? Electronically signed by: ??Alen Perez MD ??12/30/2024 03:29 PM EST RP ? Dictated By: ?Alen Perez MD ? Signed By: ?<Electronically signed by Alen Perez MD in OV> ?12/30/24 1529 ? DD/ 1507 ? TD/TT: 12/30/24 1521 ? Binder [employer]ch: ? Procedure Note [employer], Image - 12/30/[address] [place] [address] [address] Scan Report Signed Patient: Abby Monte MMR#: [id number] : 1995Acct:[id number] Age/Sex: 29 / FADM Date: 12/30/24 Loc: HO.CT Attending Dr: Bon Coronel MD Ordering Physician: BON CORONEL MD Date of Service: 12/30/24 Procedure(s): CT head/brain wo IV con Accession Number(s): [id number] cc: BNO CORONEL MD; Faviola Da Silva Report Number: [id number]: Total DLP = 790.00 mGy-cm EXAMINATION: CT HEAD WITHOUT CONTRAST CLINICAL INFORMATION: Persistent headache after head injury. COMPARISON: None available. TECHNIQUE: Contiguous axial imaging was performed from the skull base to vertex without intravenous administration of contrast. This CT examination was performed using dose optimization techniques as appropriate, variously including the following: *Automated exposure control *Adjustment of mA and/or kV according to patient size (this includes techniques or standardized protocols for targeted exams where dose is matched to indication/reason for exam; i.e. extremities or head) *Use of iterative reconstruction technique FINDINGS: There is no evidence of intracranial hemorrhage or extra-axial fluid collection. There is no mass effect, or edema. No CT evidence of acute territorial infarct. Ventricles, sulci, and cisterns are normal in size and configuration for patient age. No hydrocephalus. No midline shift. Negative hyperdense MCA sign. Negative insular ribbon sign. No significant white matter abnormality. Normal pituitary. Globes and orbital contents image normally. No extracranial soft tissue abnormalities. The paranasal sinuses, mastoid air cells, and tympanic cavities are normally aerated. No suspicious bony abnormalities. There are no acute fractures evident. CT/CT head/brain wo IV con IMPRESSION: No acute intracranial abnormality. No fracture evident. Electronically signed by: Alen Perez MD 12/30/2024 03:29 PM EST RP Dictated By: Alen Perez MD Signed By: <Electronically signed by Alen Perez MD in OV> 12/30/24 1529 DD/ 1507 TD/TT: 12/30/24 1521 [employer]ch: Bon Coronel MD IMG CT PROCEDURES Edited Result - Final documented in this encounter Visit Diagnoses Diagnosis Concussion without loss of consciousness, initial encounter- Primary documented in this encounter Additional Health Concerns Assessment Noted Time PHQ-9 Depression Total Score: 11 024 2:36 PM EST documented as of this encounter Care Teams Tool Chaser Relationship Specialty Start Date End Date Faviola Da Silva MD [address] [place] [address] PCP - General Family Medicine 09/23/20 documented as of this encounter
--- OUTSIDE RECORDS SUMMARY | 2024-12-30 15:57 | XMS_ITS | Encounter Summary ---
Author Organization [employer] Address [address] [place] [address] Care Team Providers Care Director On Air Name Role Phone Faviola Da Silva MD Primary Care Provider [phone] Encounter Details Date Type Department Care Team (Latest Contact Info) Description 12/10/2024 Travel Social History Tobacco Use Types Packs/Day Years [...] is your housing situation today? I have coralaudelia lezama 12/07/[address] you [...] Description 01/26/2025 2:00 PM EDT Office Visit [facility] [address] [place] [address] Faviola Da Silva MD [address] [place] [address] documented as of this encounter Visit Diagnoses Not on filedocumented in this encounter Additional Health Concerns Assessment Noted Time PHQ-9 Depression Total Score: 11 024 2:36 PM EST documented as of this encounter Care Teams Director On Air Relationship Specialty Start Date End Date Faviola Da Silva MD [address] [place] [address] [phone] PCP - General Family Medicine 09/23/20 documented as of this encounter
--- OUTSIDE RECORDS SUMMARY | 2024-12-30 15:57 | XMS_ITS | Encounter Summary ---
Author Organization [employer] Address [address] [place] [address] Care Team Providers Care Field Professional Name Role Phone Faviola Da Silva MD Primary Care Provider [phone] Encounter Details Date Type Department Care Team (Late st Contact Info) Description 08/27/[address] [facility] [address] [place], [place] [phone] Faviola Da Silva MD [address] [place], [place] [phone] Social History Tobacco Use Types Packs/Day Years [...] 01/26/2025 2:00 PM EDT Office Visit [facility] [address] [place], [place] [phone] Faviola Da Silva MD [address] [place] [phone] documented as of this encounter Procedures Procedure Name Priority Date/Time Associated Diagnosis Comments US BREAST BIOPSY LEFT Routine 06/22/2023 documented in this encounter Results * US Breast Biopsy Left (06/22/2023) Anatomical Region Laterality Modality Ultrasound Narrative 06/22/2023 While a fibroadenoma is favored, a phyllodes tumor cannot entirely be ruled out due to the prominent stromal component; no atypia or malignancy is identified us Historical Provider MD VILLASENOR US PROCEDURES Final R esult documented in this encounter Visit Diagnoses Not on filedocumented in this encounter Care Teams Field Professional Relationship Specialty Start Date End Date Faviola Da Silva MD [address] [place] [phone] PCP - General Family Medicine 09/23/20 documented as of this encounter
--- OUTSIDE RECORDS SUMMARY | 2024-12-30 15:57 | XMS_ITS | Encounter Summary ---
Author Organization [facility] Address [address] [place] [address] [address] [place] [address] Care Team Providers Care Cork Tipper Name Role Phone Faviola Da Silva MD Primary Care Provider [phone] Reason for Visit * Reason Comments Chart update mammo Encounter Details Date Type Department Care Team (Late st Contact Info) Description 07/04/2023 Abstract [facility] [address] [place] [address] [phone] Lesly Win Social History Tobacco Use Types Packs/Day Years [...] Description 01/26/2025 2:00 PM EDT Office Visit [facility] [address] [place] [address] [phone] Faviola Da Silva MD [address] [place] [address] [phone] documented as of this encounter Visit Diagnoses Not on filedocumented in this encounter Care Teams Cork Tipper Relationship Specialty Start Date End Date Faviola Da Silva MD [address] [place] [address] PCP - General Family Medicine 09/23/20 documented as of this encounter
--- OUTSIDE RECORDS SUMMARY | 2024-12-30 15:57 | XMS_ITS | Clinical Summary ---
Author Organization [employer] Address [address] [facility] [address] [place] [address] Care Team Providers Care Business Relations Manager Name Role Phone Faviola Da Silva MD Primary Care Provider [phone] Allergies No known active allergies Medications * This document contains information received from the source organization and may not represent a complete record from that organization. Spacer/Aero-Hold ing Chambers (OptiChamber Violet) [facility] OptiChamber Violet [facility] spacer Q4h prn 022 Active hydrocortisone (Anusol-HC) 2.5 % rectal cream Insert 1 application into the rectum in the morning. 022 Active loratadine (Claritin) 10 MG tabletIndication s:Nasal congestion Take 1 tablet (10 mg) by mouth in the morning. 30 tablet 023 Active Vit-Fe Fumarate-FA ( Vitamins) 28-0.8 MG tabletIndication s:7 weeks gestation of Take 1 tablet by mouth Once per day. 90 tablet 3 024 Active acetaminophen (Tylenol 8 Hour) 650 MG ER tablet Take 1 tablet (650 mg) by mouth every 8 (eight) hours if needed for mild pain. Do not crush, chew, or split. 60 tablet 024 Active buPROPion SR (Wellbutrin SR) 200 MG 12 hr tablet Take 1 tablet (200 mg) by mouth 2 times daily. Do not crush, chew, or split. 180 tablet 3 024 2024 Active etonogestrel-elu ting (Nexplanon) 68 mg contraceptive implant 1 each by Implant route 1 (one) time. Active cyclobenzaprine (Flexeril) 10 MG tablet Take 1 tablet (10 mg) by mouth 3 times daily for 10 days. 30 tablet 025 Active naproxen (Naprosyn) 500 MG tablet Take 1 tablet (500 mg) by mouth 2 times daily. Take at the first sign of bleeding 60 tablet 2 025 2024 Active ibuprofen 600 MG tablet Take 1 tablet (600 mg) by mouth if needed in the morning, at noon, and at bedtime for moderate pain, fever or headaches. 90 tablet 025 Active acetaminophen (Tylenol) 325 MG tablet Take 2 tablets (650 mg) by mouth every 6 (six) hours if needed for moderate pain, headaches or fever. 40 tablet 025 Active acetaminophen (Tylenol) 325 MG tablet Take 650 mg by mouth every 6 (six) hours if needed. 024 2024 Discontinued(R eorder (will not trigger notification to Pharmacy)) Hospital, Clinic, or Other Facility Administered Medication Ordered Dose Route Frequency Start Date End Date Status acetaminophen (Tylenol) tablet 975 mgIndications:Influenza-lik e symptoms 975 mg PO Once 12/10/2024 12/10/2024 Ended ondansetron ODT (Zofran-ODT) disintegrating tablet 4 mgIndications:Influenza-lik e symptoms 4 mg PO Once 12/10/2024 12/10/2024 Ended Active Problems Problem Noted Date Diagnosed Date Severe episode of recurrent major depressive disorder, without psychotic features 08/21/2024 Mass of lower inner quadrant of right breast 08/2024 Vaginal discharge 12/18/2023 Routine physical examination 12/18/2023 Weakness 11/27/2023 Assessment & Plan (11/27/2023 1:36 PM EST): Likely due to Work up ordered today , patient will be contacted with results Acne vulgaris 07/18/2023 Assessment & Plan (07/18/2023 3:04 PM EDT): With current intentions, will avoid oral medications as many of them are contra-indicated during , or will hinder (such as OCP) - benzoyl peroxide 10% wash - Clindamycin lotion twice daily - continue PNV daily H/O left breast biopsy 05/23/2023 Post depression 05/23/2023 Assessment & Plan (10/13/2024 12:02 PM EST): Increase Wellbutrin dose to 200mg BID from 150mg BID Begin treatment at 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 Patient will benefit from continuing to engage in psychopharmacology service and engage in therapy once it begins. At this time Abby Monte meets criteria for Visit Diagnoses: Problem List Items Addressed This Visit Other Major depressive disorder with single episode, in partial remission (CMS/HCC) Patient ready to address current needs Yes Strengths include reaching out for help. PLAN: 1. Follow up with [facility]: Not recommended for follow-up 2. Patient goal is to engage in services. 3. Behavioral Recommendations a. Patient will communicate with psychiatrist b. Patient will utilize [facility], if symptoms worsen c. 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 Date Type Department Care Team Description 12/30/2024 Telephone [facility] [address] [place] [phone] Bon Coronel MD 12/10/2024 3:40 PM EST Office Visit [facility] [address] [place] [phone] Bon Coronel MD Influenza-like symptoms (Primary Dx); Viral URI 12/10/2024 Travel 12/03/2024 Orders Only [facility] [address] [address] Bon Coronel MD Concussion without loss of consciousness, initial encounter (Primary Dx) 11/24/2024 2:30 PM EST Office Visit [address] [address] Faviola Da Silva MD Severe episode of recurrent major depressive disorder, without psychotic features (CMS/HCC) 11/24/2024 Travel 11/21/2024 Orders Only [facility] [address] [address] Bon Coronel MD 11/14/2024 Orders Only [facility] [address] [place] [phone] Rose Tompkins MD 10/24/2024 Orders Only [facility] [address] [address] Bon Coronel MD Elevated LFTs (Primary Dx) 10/20/2024 8:40 AM EST Office Visit [facility] [address] [address] Bon Coronel MD Nausea (Primary Dx); Insomnia, unspecified type 10/20/2024 Travel 10/13/2024 11:30 AM EST Office Visit [address] [address] Faviola Da Silva MD Post depression (Primary Dx) 10/13/2024 Travel 10/02/2024 2:05 PM EST Immunization [address] [address] Fadumo Barcenas LPN Encounter for immunization (Primary Dx) 10/01/2024 Orders Only [address] [address] Faviola Da Silva MD from Last 3 Months Immunizations Name Administration Dates Next Due DTaP 07/13/2000, 7,01/15/1997,11/18,1996 HPV, Quadrivalent 06/03/2008,02/07/2008,11/30/19 08 Hep B, Adolescent or Pediatric 02/12/1997,1995,1996 Hep B, adult 06/06/2019,01/27/2019,12/27/2018 Hib (HbOC) 10/24/1997, 7,1996,09/12 Influenza Injectable Quadriv alant Preservative Free IIV4 MDCK 08/07/2023,08/01/2022,08/02/2021,07/21 Influenza injectable quadriv alent preservative free 10/11/2016 Influenza live intranasal qu adrivalent LIAV4 09/29/2014 Influenza, Split (incl. joy fied surface antigen) 08/15/2013 Influenza, seasonal, injecta ble, preservative free 10/02/2024 MMR 07/13/2000,08/12/1997 Meningococcal MCV4P ACYW-135 03/14/2013,11/18/19 08 Moderna Covid-19 Vaccine 12+ 09/23/2021,12/01/19 21,11/03/2020 OPV 07/13/2000, 7,1996,09/12 TD (adult), 2 Lf tetanus tox oid, preservative free, adsorbed 12/06/2018,11/18/2007 Tdap 10/20/2016,11/18/2007 Varicella 2024,08/15/2013,09/14/1997 Social History Tobacco Use Types Packs/Day Years Used Date Smoking Tobacco: Never Smokeless Tobacco: Never Tobacco Cessation:Counseling Given: Not Answered Alcohol Use Standard Drinks/Week Comments Never 0 [...] Orientation Straight 09/11/2022 10 :16 AM EDT Last Filed Vital Signs Vital Sign Reading [...] 9.6 oz) 12/10/2024 3:45 PM EST Height 177.8 cm (5' 10 ) 11/24/2024 2:36 PM EST Body Mass Index 32.66 11/24/2024 2:36 PM EST Plan of Treatment Upcoming Encounters Date Type Department Care Team (Late st Contact Info) Description 01/26/2025 2:00 PM EDT Office Visit [facility] [address] [place] [address] Faviola Da Silva MD [address] [place] [address] Health Maintenance Due Date Last Done Comments Alcohol/Substance Use Screening 2008 Pap Smear 2017 COVID-19 Vaccine ( season) 2024 09/23/2021, 12/01/2020, 11/03/2020 Diagnostic Breast Imaging 10/09/20242023, 05/09/2023, 05/09/2023, Additional history exists Mammogram 10/09/2024 09/08/2024, 04/13, 05/09/2023, Additional history exists SDOH Screening 12/18/2024 12/18/2023 Depression Monitoring (PHQ-9) 04/07/2025 10/08/2024, 10/08/2024 Family Planning (PISQ) 09/04/2025 09/04/2024 Depression Screening 10/08/2025 10/08/2024, 07/31/20 24 Tobacco Screening 12/10/2025 12/10/2024 DTaP/Tdap/Td Vaccines (10 - Td or Tdap) 12/06/2028 12/06/2018, 10/20/2016, 11/18/2007, Additional history exists Zoster Vaccines (1 of 2) 2046 RSV Patients and Patients Aged 60 years or older (1 - 1-dose 75+ series) 2071 HIB Vaccines Completed 10/24/1997, 01/10, 1996, Additional history exists IPV Vaccines Completed 07/13/2000, 04/1997, 1996, Additional history exists HPV Vaccines Completed 06/03/2008, 01/11, 11/30/2007 Meningococcal Vaccine Completed 03/14/2013, 008 Hepatitis B Vaccines Completed 06/06/2019, 01/27/2019, 12/27/2018, Additional history exists Influenza Vaccine Completed 10/02/2024, , 08/01/2022, Additional history exists HIV Screening Completed 10/21/2024 Hepatitis C Screening Completed 10/21/2024, 020 Hepatitis A Vaccines Aged Out No long er eligible based on patient's age to complete this topic Pneumococcal Vaccine: Pediatrics (0 to 5 Years) and At-Risk Patients (6 to 49) Years) Aged Out No longer eligible based on patient's age to complete this topic RSV under 20 months Aged Out No longe r eligible based on patient's age to complete this topic Rotavirus Vaccines Aged Out No longer eligible based on patient's age to complete this topic Procedures Procedure Name Priority Date/Time Associated Diagnosis Comments CT HEAD WO CONTRAST Urgent 12/30/2024 3 :07 PM EST Concussion without loss of consciousness, initial encounter POCT INFLUENZA B (ID NOW RAPID MOLECULAR) Routine 12/10/2024 3:39 PM EST Viral URI POCT INFLUENZA A (ID NOW RAPID MOLECULAR) Routine 12/10/2024 3:39 PM EST Viral URI POCT RSV (ID NOW RAPID MOLECULAR) Routine 12/10/2024 3:39 PM EST Viral URI POCT RAPID COVID ANTIGEN Routine 12/10/2024 3:39 PM EST Viral URI HIV 1/2 ANTIGEN/ANTIBODY, FOURTH GENERATION W/RFL Routine 10/21/2024 8:20 AM EST Nausea HEPATITIS C AB W/REFL TO HCV RNA, QN, PCR Routine 10/21/2024 8:20 AM EST Nausea HEPATITIS B SURFACE ANTIGEN, EIA Routine 10/21/2024 8:20 AM EST Nausea HEPATITIS B SURFACE ANTIBODY, QUALITATIVE Routine 10/21/2024 8:20 AM EST Nausea HEPATITIS A ANTIBODY, TOTAL Routine 10/21/2024 8:20 AM EST Nausea HEPATITIS B CORE AB TOTAL Routine 10/21/2024 8:20 AM EST Nausea HEMOGLOBIN A1C Routine 10/21/2024 8:20 AM EST Nausea LIPASE Routine 10/21/2024 8:20 AM EST Nausea COMPREHENSIVE METABOLIC PANEL Routine 10/21/2024 8:20 AM EST Nausea CBC WITH AUTO DIFFERENTIAL Routine 10/21/2024 8:20 AM EST Nausea BI US BREAST LIMITED RIGHT Routine 09/08/2024 3:00 PM EDT from Last 3 Months or Most Recently Relevant to Health Maintenance Results * CT Head w/o Contrast (12/30/2024 3:07 PM EST) Anatomical Region Laterality Modality Head, Neck Computed Tomogra phy 12/30/2024 3:07 PM EST Narrative 12/30/2024 3:32 PM EST ? [facility] ?[address] ?[place] [address] ? CT Scan Report ? Signed ? Patient: Abby Monte ?MR#: [id number] ?? [id number] ? : 1995 ?Acct:[id number] ? Age/Sex: 29 / F ?ADM Date: 12/30/24 ? Loc: HO.CT ? Attending Dr: Bon Coronel MD ? Ordering Physician: BON CORONEL MD ?? Date of Service: 12/30/24 ?? Procedure(s): CT head/brain wo IV con ?? Accession Number(s): [id number] ? cc: BON CORONEL MD; Faviola Da Silva ? Report Number: ?? [id number]: Total DLP = ??790.00 mGy-cm ?? EXAMINATION: [...] DD/ 1507 ? TD/TT: 12/30/24 1521 ? Medical Leader: ? Procedure Note Rodney, Image - 12/30/[address] [address] [address] Scan Report Signed Patient: Abby Monte MMR#: [id number] : 1995Acct:[id number] Age/Sex: 29 / FADM Date: 12/30/24 Loc: HO.CT Attending Dr: Bon Coronel MD Ordering Physician: BON CORONEL MD Date of Service: 12/30/24 Procedure(s): CT head/brain wo IV con Accession Number(s): [id number] cc: BON CORONEL MD; Faviola Da Silva Report Number: [id number]: Total DLP = 790.00 mGy-cm EXAMINATION: CT [...] Alen Perez MD 12/30/2024 03:29 PM EST Dictated By: Alen Perez MD Signed By: <Electronically signed by Alen Perez MD in OV> 12/30/24 1529 DD/ 1507 TD/TT: 12/30/24 1521 Medical Leader: us Bon Coronel MD IMG CT PROCEDURES Edited Result - Final * Influenza B (ID NOW Rapid Molecular) (12/10/2024 3:39 PM EST) Influenza B Negative Negative, Indeterminate [facility] Swab 12/10/2024 3:3 9 PM EST us Bon Coronel MD POINT OF CARE TEST ENTER/EDIT OR DERABLES Final Result [facility] [address] [place] [phone] * Influenza A (ID NOW Rapid Molecular) (12/10/2024 3:39 PM EST) [facility] Influenza A Negative Negative, Indeterminate [facility] Swab 12/10/2024 3:39 PM EST us Bon Coronel MD POINT OF CARE TEST ENTER/EDIT OR DERABLES Final Result Performing Organization Address [facility] Co de Phone Number [facility] [address] [place] [address] [phone] * POCT Rapid COVID Ag (12/10/2024 3:39 PM EST) [facility] Rapid COVID Ag Negative [facility] Swab 12/10/2024 3:39 PM EST us Bon Coronel MD POINT OF CARE TEST ENTER/EDIT OR DERABLES Final Result Performing Organization Address [facility] Co de Phone Number [facility] [address] [place] [phone] * POCT RSV (ID NOW rapid molecular) (12/10/2024 3:39 PM EST) [facility] RSV Rapid Ag POC Negative Negative [facility] Swab 12/10/2024 3:39 PM EST us Bon Coronel MD POINT OF CARE TEST ENTER/EDIT OR DERABLES Final Result Performing Organization Address [facility] de Phone Number [facility] [address] [place] [phone] * CBC auto differential (10/21/2024 8:20 AM EST) [facility] White Blood Count 7.7 4.8 - 10.8 X10*3/uL [facility] Red Blood Count 4.33 4.20 - 5.50 X10*6/uL [facility] Hemoglobin 13.3 12.0 - 16.0 g/dl [facility] Hematocrit 38.2 37.0 - 47.0 % [facility] Mean Corpuscular Volume 88.2 80.0 - 98.0 fL [facility] Mean Corpuscular Hemoglobin 30.7 27.0 - 33.0 pg [facility] Mean Corpuscular HGB Conc 34.8 31.0 - 35.0 g/dl [facility] Red Cell Distribution Width 13.6 11.0 - 16.0 % [facility] Platelet Count 339 160 - 400 X10*3/uL [facility] Mean Platelet Volume 10.1 9.4 - 12.3 fL [facility] Neutrophils Percent Auto 68.5 45 - 73 % [facility] Imm Gran Pct Auto 0.4 0.0 - 0.4 % [facility] Lymphocytes Percent Auto 20.3 20 - 40 % [facility] Monocytes Percent Auto 7.1 2 - 11 % [facility] Eosinophils Percent Auto 2.9 0 - 4 % [facility] Basophils Percent Auto 0.8 0 - 2 % [facility] NRBC Pct Auto 0.0 0.0 - 0.2 /100WBC [facility] Neutrophils Absolute Auto 5.3 2.0 - 8.3 x10*3/uL [facility] Imm Gran Abs Auto 0.03 0.00 - 0.03 X10*3/uL [facility] Lymphocytes Absolute Auto 1.6 1.2 - 4.9 X10*3/uL [facility] Monocytes Absolute Auto 0.5 0.1 - 1.2 X10*3/uL [facility] Eosinophils Absolute Auto 0.2 0.0 - 0.4 X10*3/uL [facility] Basophils Absolute Auto 0.1 0.0 - 0.2 X10*3/uL [facility] NRBC Abs Auto 0.000 0.0 - 0.012 X10*3/uL [facility] Blood Venous blood specimen / Unknown 10/21/2024 8:20 AM EST 10/21/2024 11:46 AM EST us Bon Coronel MD LAB BLOOD ORDERABLES Final Resul t Performing Organization Address [facility] Phone Number [facility] [address] [place] [phone] * Hepatitis C Antibody with Reflex to HCV, RNA, Quantitative, Real-Time PCR (10/21/2024 8:20 AM EST) Hepatitis C Antibody Nonreactive Nonreactive [facility] Comment:Antibodies to HCV no t detected; does not exclude early acuteHCV infection. Blood Venous blood specimen / Unknown 10/21/2024 8:20 AM EST 10/21/2024 11:46 AM EST us Bon Coronel MD LAB BLOOD ORDERABLES Final Resul t Performing Organization Address [facility] Phone Number [facility] [address] [place] [phone] * Hepatitis A Antibody, Total (10/21/2024 8:20 AM EST) Hepatitis A Antibody IgG Nonreactive Nonreactive [facility] Blood Venous blood specimen / Unknown 10/21/2024 8:20 AM EST 10/21/2024 11:46 AM EST us Bon Coronel MD LAB BLOOD ORDERABLES Final Resul t Performing Organization Address [facility] Phone Number [facility] [address] [place] [phone] * Hepatitis B surface antigen, EIA (10/21/2024 8:20 AM EST) Hepatitis B Surface Ag Negative Negative [facility] Blood Venous blood specimen / Unknown 10/21/2024 8:20 AM EST 10/21/2024 11:46 AM EST Result Mabel Coronel MD LAB BLOOD ORDERABLES Final Resul t Performing Organization Address [facility] Co de Phone Number [facility] [address] [place] [phone] * Hepatitis B Core Antibody, Total (10/21/2024 8:20 AM EST) Hepatitis B Core Antibody Nonreactive Nonreactive [facility] Blood Venous blood specimen / Unknown 10/21/2024 8:20 AM EST 10/21/2024 11:46 AM EST us Bon Coronel MD LAB BLOOD ORDERABLES Final Resul t Performing Organization Address [facility] de Phone Number [facility] [address] [place] [phone] * HIV-1/2 Antigen and Antibodies, Fourth Generation, with Reflexes (10/21/2024 8:20 AM EST) HIV AB/AG Nonreactive Nonreactive [facility] Comment:HIV-1 p24 Ag and/or HIV-1/HIV-2 Ab not detected.A test result that is nonreactive does not exclude thepossibility of exposure to or infection with HIV-1 and/orHIV-2. Nonreactive results in this assay for individualswith prior exposure to HIV-1 and/or HIV-2 may be due toantigen and antibody levels that are below the limit ofdetection of this assay.The ForeSeeniApprenda HIV Ag/Ab Combo assay result andsupplemental assay results should be interpreted inconjunction with the patient's clinical presentation,history and other laboratory results. If the results areinconsistent with clinical evidence, additional testing issuggested to confirm the result. Blood Venous blood specimen / Unknown 10/21/2024 8:20 AM EST 10/21/2024 11:46 AM EST us Bon Coronel MD LAB BLOOD ORDERABLES Final Resul t Performing Organization Address [facility] Co de Phone Number [facility] [address] [place] [phone] * Hepatitis B Surface Antibody, Qualitative (10/21/2024 8:20 AM EST) ~Hepatitis B Surface Antibody REACTIVE Nonreactive [facility] Comment:REACTIVE: > 11.99 mI U/mL Blood Venous blood specimen / Unknown 10/21/2024 8:20 AM EST 10/21/2024 11:46 AM EST us Bon Coronel MD LAB BLOOD ORDERABLES Final Resul t Performing Organization Address [facility] de Phone Number [facility] [address] [place] [phone] * Lipase (10/21/2024 8:20 AM EST) Lipase 23 8 - 78 U/L [facility] Blood Venous blood specimen / Unknown 10/21/2024 8:20 AM EST 10/21/2024 11:46 AM EST us Bon Coronel MD LAB BLOOD ORDERABLES Final Resul t Performing Organization Address [facility] Phone Number [facility] [address] [place] [phone] * Hemoglobin A1c (10/21/2024 8:20 AM EST) Hemoglobin A1c 4.9 <6.0 % [facility] Comment:Hemoglobin A1C Refer ence Range Adults: 4.8 - 6.0 % Non diabetic: < 6.0 % Goal: < 7.0 %Additional Action Suggested: > 8.0 %Note: Hemoglobin A1c results are invalid for patients with abnormal amounts of HbF. Blood transfusions may impact the HbA1c concentration in the patient sample. Estimated Average Glucose 94 mg/dL [facility] Comment:eAG = Estimated ave rage glucose which is %A1C expressed asaverage glucose, using the formula of the A2E-EokzfhwWrgesjn Glucose study (ADAG), Diabetes Care, Vol.31,#8,2007 Blood Venous blood specimen / Unknown 10/21/2024 8:20 AM EST 10/21/2024 11:46 AM EST us Bon Coronel MD LAB BLOOD ORDERABLES Final Resul t [facility] [address] [place] [phone] * (ABNORMAL) Comprehensive Metabolic Panel (10/21/2024 8:20 AM EST) Sodium 142 135 - 145 mmol/L [facility] Potassium 3.7 3.3 - 5.1 mmol/L [facility] Chloride 108 96 - 108 mmol/L [facility] Carbon Dioxide 25 22 - 29 mmol/L [facility] Anion Gap 13 12 - 20 [facility] Urea Nitrogen (BUN) 9 9 - 16 mg/dL [facility] Creatinine, Serum 0.84 0.5 - 1.4 mg/dL [facility] Estimated Glomerular Filt Rate >60 [facility] Comment:Chronic Kidney Disea se: Estimated GFR < 60 mL/min/[id number] Kidney Disease: Estimated GFR < 15 mL/min/1.73m2 Glucose 82 60 - 115 mg/dL [facility] Calcium 9.7 8.4 - 10.2 mg/dL [facility] Bilirubin, Total 1.1(H) 0.0 - 1.0 mg/dL [facility] Aspartate Amino Transferase 23 5 - 31 U/L [facility] Alanine Aminotransferase 38(H) 0 - 31 U/L [facility] Total Protein 7.6 6.5 - 8.0 g/dL [facility] Albumin Level 4.6 3.5 - 5.0 g/dL [facility] Alkaline Phosphatase 122(H) 39 - 117 U/L [facility] Blood Venous blood specimen / Unknown 10/21/2024 8:20 AM EST 10/21/2024 11:46 AM EST us Bon Coronel MD LAB BLOOD ORDERABLES Final Resul t [facility] [address] [place] [address] [phone] * BI US Breast Limited Right (09/08/2024 3:00 PM EDT) Anatomical Region Laterality Modality Breast Right Ultrasound 09/08/2024 3:00 PM EDT Narrative 09/09/2024 9:49 AM EDT ? [facility] [place] ? [address] ?[place] [address] ? Ultrasound Report ? Signed ? Patient: Monte,Abby M ?MR#: [id number] ?? [id number] ? : 1995 ?Acct:[id number] ? Age/Sex: 29 / F ?ADM Date: 09/08/24 ? Loc: HO.MAMMO ? Attending Dr: Faviola Da Silva MD ? Ordering Physician: Faviola Da Silva ?? Date of Service: 09/08/24 ?? Procedure(s): US breast RT limited mamm only ?? Accession Number(s): [id number] ? cc: Faviola Da Silva ? EXAMINATION: ?? US DIAGNOSTIC ULTRASOUND BREAST, RIGHT ? CLINICAL INFORMATION: ? 29-year-old female, Provider felt right breast lumps at 5:00 and 7:00. ?? Patient is from 07/10/2024. Not currently breast feeding. ? COMPARISON: ?? None relevant. ? TECHNIQUE: ?? Ultrasound of the right breast is performed with real-time grande scale ?? imaging and color Doppler. Right breast was examined from the 4:00 to ?? 8:00 axis, to include the 2 areas of palpable concern, as indicated by ?? the patient. ? FINDINGS: ?? In the 5:00 axis right breast, 3 cm from the nipple, there is a complex ?? heterogeneous partially cystic and isoechoic mass, cyst with low-level ?? specular echoes within, and a suggestion of fat fluid levels. This ?? measures 5.0 x 4.3 x 2.8 cm is most consistent with a galactocele by ?? imaging appearance. There is good through transmission. It is wider ?? than tall. There is scant internal color Doppler flow. This should ?? involute overtime, and follow-up in 6 months recommended to ensure ?? proper evolution. ? At the 7:00 axis, 6 cm from the nipple right breast, there is a smaller ?? oval lesion with similar imaging characteristics as the above, ?? measuring 2.0 x 2.0 x 0.7 cm. This is also consistent with a small ?? galactocele. Six-month follow-up also recommended. ? There are no suspicious masses, architectural distortion, or abnormal ?? shadowing. No additional cystic findings. ? US/US breast RT limited mamm only ?? IMPRESSION: ?? -Areas of palpable concern right breast 5:00 and 7:00 axes are ?? consistent with galactoceles as described above. Recommend six-month ?? follow-up targeted right breast ultrasound to ensure appropriate ?? evolution/resolution. ? -No findings suspicious for malignancy. ? ASSESSMENT: ? BI-RADS 3: Probably Benign ? RECOMMENDATION: ?? Diagnostic right ultrasound in 6 months. ? This patient's information was entered into a reminder system with a ?? target due date for their next mammogram. ? Electronically signed by: ??Alen Perez MD ??09/09/2024 09:46 AM EDT RP ? Dictated By: ?Alen Perez MD ? Signed By: ?<Electronically signed by Alen Perez MD in OV> ?09/09/24 0946 ? DD/ 1500 ? TD/TT: 09/08/24 1511 ? Medical Leader: ? Procedure Note Marimar Stevens - 09/09/2024 [facility] [address] [place] [address] Ultrasound Report Signed Patient: Abby Monte MMR#: [id number] : 1995Acct:[id number] Age/Sex: 29 / FADM Date: 09/08/24 Loc: [facility] Attending Dr: Faviola Da Silva MD Ordering Physician: Faviola Da Silva Date of Service: 09/08/24 Procedure(s): US breast RT limited mamm only Accession Number(s): [id number] cc: Faviola Da Silva EXAMINATION: US DIAGNOSTIC ULTRASOUND BREAST, RIGHT CLINICAL INFORMATION: 29-year-old female, Provider felt right breast lumps at 5:00 and 7:00. Patient is from 07/10/2024. Not currently breast feeding. COMPARISON: None relevant. TECHNIQUE: Ultrasound of the right breast is performed with real-time grande scale imaging and color Doppler. Right breast was examined from the 4:00 to 8:00 axis, to include the 2 areas of palpable concern, as indicated by the patient. FINDINGS: In the 5:00 axis right breast, 3 cm from the nipple, there is a complex heterogeneous partially cystic and isoechoic mass, cyst with low-level specular echoes within, and a suggestion of fat fluid levels. This measures 5.0 x 4.3 x 2.8 cm is most consistent with a galactocele by imaging appearance. There is good through transmission. It is wider than tall. There is scant internal color Doppler flow. This should involute overtime, and follow-up in 6 months recommended to ensure proper evolution. At the 7:00 axis, 6 cm from the nipple right breast, there is a smaller oval lesion with similar imaging characteristics as the above, measuring 2.0 x 2.0 x 0.7 cm. This is also consistent with a small galactocele. Six-month follow-up also recommended. There are no suspicious masses, architectural distortion, or abnormal shadowing. No additional cystic findings. US/US breast RT limited mamm only IMPRESSION: -Areas of palpable concern right breast 5:00 and 7:00 axes are consistent with galactoceles as described above. Recommend six-month follow-up targeted right breast ultrasound to ensure appropriate evolution/resolution. -No findings suspicious for malignancy. ASSESSMENT: BI-RADS 3: Probably Benign RECOMMENDATION: Diagnostic right ultrasound in 6 months. This patient's information was entered into a reminder system with a target due date for their next mammogram. Electronically signed by: Alen Perez MD 09/09/2024 09:46 AM EDT Dictated By: Alen Perez MD Signed By: <Electronically signed by Alen Perez MD in OV> 09/09/24 0946 DD/ 1500 TD/TT: 09/08/24 1511 Medical Leader: us Faviola Da Silva MD [facility] US PROCEDURES Edited Resul t - Final from Last 3 Months or Most Recently Relevant to Health Maintenance Insurance [facility] [id number] , [address] [place] [address] [place] [address] [place] [facility] [address] [place], [place] Care Teams Business Relations Manager Relationship Specialty Start Date End Date Faviola Da Silva MD [address] [place] [address] PCP - General Family Medicine 11/12/20
--- OUTSIDE RECORDS SUMMARY | 2024-12-30 15:57 | XMS_ITS | Encounter Summary ---
Author Organization [employer] Address [address] [facility] 7t [place] [address] Care Team Providers Care Rural Sociologist Name Role Phone Faviola Da Silva MD Primary Care Provider [phone] Reason for Visit * Reason Comments [facility] Encounter Details Date Type Department Care Team (Late Contact Info) Description 05/09/2023 Abstract [facility] [address] [place] [address] [phone] Faviola Da Silva MD [address] [place] [address] [phone] Social History Tobacco Use Types Packs/Day Years [...] suspected to have Coronavirus/COVID-19? No / Unsure 04/16/2023 11:38 AM EDT documented as of this encounter Plan of Treatment Upcoming Encounters Date Type Department Care Team (Late Contact Info) Description 01/26/2025 2:00 PM EDT Office Visit [facility] [address] [place] [address] [place] [address] Faviola Da Silva MD [address] [place] [address] documented as of this encounter Visit Diagnoses Not on filedocumented in this encounter Care Teams Rural Sociologist Relationship Specialty Start Date End Date Faviola Da Silva MD [address] [place] [address] PCP - General Family Medicine 09/23/20 documented as of this encounter
--- OUTSIDE RECORDS SUMMARY | 2024-12-30 15:57 | XMS_ITS | Encounter Summary ---
Author Organization [employer] [facility] Address [address] [place] [address] 7t [place] [address] Care Team Providers Care Supervisor Hand Workers Name Role Phone Faviola Da Silva MD Primary Care Provider [phone] Encounter Details Date Type Department Care Team (Late st Contact Info) Description 06/05/2023 Abstract [facility] [address] [place] [address] [phone] Faviola Da Silva MD [address] [place] [address] [phone] Social History Tobacco Use Types Packs/Day Years [...] Description 01/26/2025 2:00 PM EDT Office Visit [facility] [address] [place] [address] [phone] Faviola Da Silva MD [address] [place] [phone] documented as of this encounter Visit Diagnoses Not on filedocumented in this encounter Care Teams Supervisor Hand Workers Relationship Specialty Start Date End Date Faviola Da Silva MD [address] [place] [address] PCP - General Family Medicine 09/23/20 documented as of this encounter
== END 2024-12-30 15:01 | disposition home or self-care (01) ==
LOC: HO.CT 15:00
PROVIDERS: PCP General Practice; Visit Provider Emergency Medicine
DX: S06.0X0A Concussion without loss of consciousness, initial encounter (principal)
CPT/HCPCS: 70450

== ENCOUNTER → 2024-12-30 15:01 | Outpatient (BNV) | payer OTHER, SELFPAY | PROVIDERS: PCP General Practice; Visit Provider Radiology Diagnostic Radiology | DX: R51.9 Headache, unspecified (principal); S09.90XA Unspecified injury of head, initial encounter | CPT/HCPCS: 70450 ==

== ENCOUNTER 2025-01-26 08:26 | Outpatient (REF) | payer OTHER, SELFPAY ==
--- NOTE | ~2025-01-26 | XR_ITS ---
EXAMINATION: XR SACRUM COCCYX 2 OR MORE VIEWS HISTORY: fall COMPARISON: There are no prior studies for comparison. FINDINGS: Three views of the sacrum and coccyx are submitted. Osseous mineralization is normal. No fracture or lytic lesion is seen. The sacroiliac joints are maintained. XR/XR sacrum coccyx min 2V IMPRESSION: Unremarkable examination of the sacrum and coccyx. Electronically signed by: Wes Johnson MD 01/26/2025 08:46 AM EDT
--- OUTSIDE RECORDS SUMMARY | 2025-01-26 08:43 | XMS_ITS | Clinical Summary ---
Author Organization [employer] Address [address] [facility] 7t [place] [address] Care Team Providers Care Procedure Tech Name Role Phone Faviola Da Silva MD Primary Care Provider [phone] Allergies No known active allergies Medications * This document contains information received from the source organization and may not represent a complete record from that organization. Spacer/Aero-Hold ing Chambers (OptiChamber Violet) [facility]Ch[facility] Violet [facility] spacer Q4h prn 022 Active hydrocortisone (Anusol-HC) 2.5 % rectal cream Insert 1 application into the rectum in the morning. 022 Active buPROPion SR (Wellbutrin SR) 200 MG 12 hr tablet Take 1 tablet (200 mg) by mouth 2 times daily. Do not crush, chew, or split. 180 tablet 3 024 2024 Active etonogestrel-elu ting (Nexplanon) 68 mg contraceptive implant 1 each by Implant route 1 (one) time. Active ibuprofen 600 MG tablet Take 1 tablet (600 mg) by mouth if needed in the morning, at noon, and at bedtime for moderate pain, fever or headaches. 90 tablet 025 Active acetaminophen (Tylenol) 325 MG tablet Take 2 tablets (650 mg) by mouth every 6 (six) hours if needed for moderate pain, headaches or fever. 40 tablet 025 Active diclofenac (Cataflam) 50 MG tabletIndication s:Pain in the coccyx Take 1 tablet (50 mg) by mouth 3 times daily. May take 2 tablets for loading dose on day 1, then TID dosing 90 tablet 025 2024 Active acetaminophen (Tylenol 8 Hour) 650 MG ER tabletIndication s:Pain in the coccyx Take 1 tablet (650 mg) by mouth every 8 (eight) hours if needed for mild pain. Do not crush, chew, or split. 60 tablet 025 Active loratadine (Claritin) 10 MG tabletIndication s:Nasal congestion Take 1 tablet (10 mg) by mouth in the morning. 30 tablet 023 2024 Discontinued(M ed list cleanup (will not trigger notification to Pharmacy)) Vit-Fe Fumarate-FA ( Vitamins) 28-0.8 MG tabletIndication s:7 weeks gestation of Take 1 tablet by mouth Once per day. 90 tablet 3 024 2024 Discontinued(M ed list cleanup (will not trigger notification to Pharmacy)) acetaminophen (Tylenol 8 Hour) 650 MG ER tablet Take 1 tablet (650 mg) by mouth every 8 (eight) hours if needed for mild pain. Do not crush, chew, or split. 60 tablet 024 2024 Discontinued(R eorder (will not trigger notification to Pharmacy)) cyclobenzaprine (Flexeril) 10 MG tablet Take 1 tablet (10 mg) by mouth 3 times daily for 10 days. 30 tablet 025 2024 Discontinued(M ed list cleanup (will not trigger notification to Pharmacy)) naproxen (Naprosyn) 500 MG tablet Take 1 tablet (500 mg) by mouth 2 times daily. Take at the first sign of bleeding 60 tablet 2 025 2024 Discontinued Active Problems Problem Noted Date Diagnosed Date [...] BID from 150mg BID Begin treatment at [facility] for OP Located PPD support group and [...] for help. PLAN: 1. Follow up with C: Not recommended for follow-up 2. Patient goal is to engage in services. 3. Behavioral Recommendations a. Patient will communicate with psychiatrist b. Patient will utilize [facility], if symptoms worsen c. 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 Overview (10/13/2022): Non immune to hepatitis B and non immune to hepatitis A per previous EHR Overweight 12/09/2018 Intermittent vertigo 04/05/2018 Weight gain 04/05/2018 Encounters Date Type Department Care Team Description 01/19/2025 1:40 PM EDT Office Visit [facility] [address] [address] Carter Bryan MD Nasal congestion (Primary Dx); COVID-19 01/08/2025 4:00 PM EST [facility] [address] [address] Brook Aguilera NP Pain in the coccyx (Primary Dx) 12/30/2024 Telephone [facility] [address] [address] Bon Coronel MD 12/10/2024 3:40 PM EST [facility] [address] [address] Bon Coronel MD Influenza-like symptoms (Primary Dx); Viral URI 12/10/2024 Travel 12/03/2024 Orders Only [facility] [address] [address] Bon Coronel MD Concussion without loss of consciousness, initial encounter (Primary Dx) 11/24/2024 2:30 PM EST Office Visit [address] [address] Faviola Da Silva MD Severe episode of recurrent major depressive disorder, without psychotic features (CMS/[facility]) 11/24/2024 Travel 11/21/2024 [facility] [address] [address] Bon Coronel MD 11/14/2024 Orders Only [facility] [address] [place], [place] [phone] Rose Tompkins MD from Last 3 Months Immunizations Name [...] your housing situation today? I have coral sing 12/07/[address] you li [...] Sign Reading Time Taken Comments Blood Pressure 116/74 01/19/2025 12:58 PM EDT Pulse 112 01/19/2025 12:58 PM EDT Temperature 36.9 ??C (98.4 ??F) 01/19/2025 12:58 PM E DT Respiratory Rate 19 01/19/2025 12:58 PM EDT Oxygen Saturation 99% 01/19/2025 12:58 PM EDT Inhaled Oxygen Concentration - - Weight 107 kg (236 lb) 01/08/2025 3:37 PM EST Height 177.8 cm (5' 10 ) 01/08/2025 3:37 PM EST Body Mass Index 33.86 01/08/2025 3:37 PM EST Plan of Treatment Health Maintenance Due Date Last Done Comments Alcohol/Substance Use Screening 2008 Pap Smear 2017 COVID-19 Vaccine ( season) 2024 09/23/2021, 12/01/2020, 11/03/2020 Diagnostic Breast Imaging 10/09/20242023, 05/09/2023, 05/09/2023, Additional history exists Mammogram 10/09/2024 09/08/2024, 04/13, 05/09/2023, Additional history exists SDOH Screening 12/18/2024 12/18/2023 Depression Monitoring (PHQ-9) 04/07/2025 10/08/2024, 10/08/2024 Family Planning (PISQ) 09/04/2025 09/04/2024 Depression Screening 10/08/2025 10/08/2024, 07/31/20 Tobacco Screening 12/10/2025 12/10/2024 DTaP/Tdap/Td Vaccines (10 [...] Routine 12/10/2024 3:39 PM EST Viral URI HEPATITIS C AB W/REFL TO HCV RNA, QN, PCR Routine 10/21/2024 8:20 AM EST Nausea HIV 1/2 ANTIGEN/ANTIBODY, FOURTH GENERATION W/RFL Routine 10/21/2024 8:20 AM EST Nausea BI US BREAST LIMITED RIGHT Routine 09/08/2024 3:00 PM EDT from Last 3 Months or Most Recently Relevant to Health Maintenance Results * CT Head w/o Contrast (12/30/2024 3:07 PM EST) Anatomical Region Laterality Modality Head, Neck Computed Tomogra phy 12/30/2024 3:07 PM EST Narrative 12/30/2024 3:32 PM EST ? [facility] ?[address] ?[place] [address] ? CT Scan Report ? Signed ? Patient: Abby Monte ?MR#: [id number] ?? [id number] ? : 1995 ?Acct:[id number] ? Age/Sex: 29 / F ?ADM Date: 12/30/ ? Loc: HO.CT ? Attending Dr: Bon Coronel MD ? Ordering Physician: BON CORONEL MD ?? Date of Service: 12/30/24 ?? Procedure(s): CT head/brain wo IV con ?? Accession Number(s): [id number] ? cc: BON CORONEL MD; Faviola Da Silva ? Report Number: ?? [id number]: Total DLP = ??790.00 mGy-cm ?? EXAMINATION: [...] DD/ 1507 ? TD/TT: 12/30/24 1521 ? Menhaden Vessel Pilot: ? Procedure Note Marimar Stevens - 12/30/[address] [address] [place] Scan Report Signed Patient: Abby Mnote [facility]#: [id number] : 1995Acct:[id number] Age/Sex: 29 / FADM Date: 12/30/24 Loc: HO.CT Attending Dr: Bon Coronel MD Ordering Physician: BON CORONEL MD Date of Service: 12/30/24 Procedure(s): CT head/brain wo IV con Accession Number(s): [id number] cc: BON CORONEL MD; Faviola Da Silva Report Number: [id number]: Total DLP = 790.00 mGy-cm EXAMINATION: CT [...] 12/30/24 1529 DD/ 1507 TD/TT: 12/30/24 1521 Menhaden Vessel Pilot: Bon Coronel MD IM CT PROCEDURES Edited Result - Final * Influenza B (ID NOW Rapid Molecular) (12/10/2024 3:39 PM EST) Pathologist [facility] Influenza B Negative Negative, Indeterminate [facility] Swab 12/10/2024 3:39 PM EST us Bon Coronel MD POINT OF CARE TEST ENTER/EDIT OR DERABLES Final Result Performing Organization Address [facility] Co de Phone Number [facility] [address] [place] [phone] * Influenza A (ID NOW Rapid Molecular) (12/10/2024 3:39 PM EST) Influenza A Negative Negative, Indeterminate [facility] Swab 12/10/2024 3:39 PM EST us Bon Coronel MD POINT OF CARE TEST ENTER/EDIT OR DERABLES Final Result Performing Organization Address [facility] Co de Phone Number [facility] [address] [place] [phone] * POCT Rapid COVID Ag (12/10/2024 3:39 PM EST) Rapid COVID Ag Negative [facility] Swab 12/10/2024 3:39 PM EST us Bon Coronel MD POINT OF CARE TEST ENTER/EDIT OR DERABLES Final Result Performing Organization Address [facility] Co de Phone Number [facility] [address] [place] [phone] * POCT RSV (ID NOW rapid molecular) (12/10/2024 3:39 PM EST) RSV Rapid Ag POC Negative Negative [facility] Swab 12/10/2024 3:39 PM EST us Bon Coronel MD POINT OF CARE TEST ENTER/EDIT OR DERABLES Final Result Performing Organization Address [facility] Co de Phone Number [facility] [address] [place] [phone] * Hepatitis C Antibody with Reflex [...] ORDERABLES Final Resul t Performing Organization Address [facility]/ZIP Co de Phone Number [facility] [address] [place] [phone] * HIV-1/2 Antigen and Antibodies, Fourth Generation, with Reflexes (10/21/2024 8:20 AM EST) HIV AB/AG Nonreactive Nonreactive [facility] Comment:HIV-1 p24 Ag and/or HIV-1/HIV-2 Ab not detected.A test result that is nonreactive does not exclude thepossibility of exposure to or infection with HIV-1 and/orHIV-2. Nonreactive results in this assay for individualswith prior exposure to HIV-1 and/or HIV-2 may be due toantigen and antibody levels that are below the limit ofdetection of this assay.[employer] HIV Ag/Ab Combo assay result andsupplemental assay results should be interpreted inconjunction with the patient's clinical presentation,history and other laboratory results. If the results areinconsistent with clinical evidence, additional testing issuggested to confirm the result. Blood Venous blood specimen / Unknown 10/21/2024 8:20 AM EST 10/21/2024 11:46 AM EST us Bon Coronel MD LAB BLOOD ORDERABLES Final Resul t Performing Organization Address City/[facility]/ZIP Co de Phone Number [facility] [address] [place] [phone] * BI US Breast Limited Right (09/08/2024 3:00 PM EDT) Anatomical Region Laterality Modality Breast Right Ultrasound 09/08/2024 3:00 PM EDT Narrative 09/09/2024 9:49 AM EDT ? [facility] ? [address] ?[place], [place] [address] ? Ultrasound Report ? Signed ? Patient: Monte,Abby M ?MR#: [id number] ?? [id number] ? : 1995 ?Acct:[id number] ? Age/Sex: 29 / F ?ADM Date: 09/08/24 ? Loc: HO.MAMMO ? Attending Dr: Faviola Da Silva MD ? Ordering Physician: Faviola Da Silva ?? Date of Service: 09/08/24 ?? Procedure(s): US breast RT limited mamm only ?? Accession Number(s): [id number] ? cc: Faviola Da Silva ? EXAMINATION: [...] DD/ 1500 ? TD/TT: 09/08/24 1511 ? Menhaden Vessel Pilot: ? Procedure Note Rodney, Image - 09/09/2024 [place] [facility] [address] [place] [address] Ultrasound Report Signed Patient: Abby Monte [facility]#: [id number] : 1995Acct:[id number] Age/Sex: 29 / FADM Date: 09/08/24 Loc: HO.MAMMO Attending Dr: Faviola Da Silva MD Ordering Physician: Faviola Da Silva Date of Service: 09/08/24 Procedure(s): US breast RT limited mamm only Accession Number(s): [id number] cc: Faviola Da Silva EXAMINATION: US DIAGNOSTIC [...] 09/09/24 0946 DD/ 1500 TD/TT: 09/08/24 1511 [place] Vessel Pilot: us Faviola Da Silva MD IMG US PROCEDURES Edited Resul t - Final from Last 3 Months or Most Recently Relevant to Health Maintenance Insurance [facility] [address] [place] Care Teams Procedure Tech Relationship Specialty Start Date End Date Faviola Da Silva MD [address] [place] [address] [place] [address] PCP - General Family Medicine 09/23/20
--- OUTSIDE RECORDS SUMMARY | 2025-01-26 08:43 | XMS_ITS | Encounter Summary ---
Author Organization [employer] Address [address] [facility] 7t [place] [address] Care Team Providers Care Stiff Leg Derrick Operator Name Role Phone Faviola Da Silva MD Primary Care Provider [phone] Encounter Details Date Type Department Care Team ([facility] st Contact Info) Description 11/01/2022 Orders Only [facility] [address] [place], [place] [phone] Bon Arreaga MD [address] [place] [address] Bacterial vaginosis (Primary Dx); Candidal vulvovaginitis Social [...] as of this encounter Plan of Treatment Not on file documented as of this encounter Visit Diagnoses Diagnosis Bacterial vaginosis- Primary Unspecified vaginitis and vulvovaginitis Candidal vulvovaginitis Candidiasis of vulva and vagina documented in this encounter Care Teams Stiff Leg Derrick Operator Relationship Specialty Start Date End Date Faviola Da Silva MD [address] [place] [address] PCP - General Family Medicine 09/23/20 documented as of this encounter
--- OUTSIDE RECORDS SUMMARY | 2025-01-26 08:43 | XMS_ITS | Encounter Summary ---
Author Organization [employer] Address [address] 7[address] [place] [address] Care Team Providers Care Mender Hand Name Role Phone Faviola Da Silva MD Primary Care Provider [phone] Encounter Details Date Type Department Care Team (Late st Contact Info) Description 10/24/2024 Orders Only [facility] 230 [place], [place] [phone] Bon Arreaga MD [address] [place], [place] [phone] Elevated LFTs (Primary Dx) Social History Tobacco [...] as of this encounter Plan of Treatment Scheduled Orders Name Type Priority Associated Diagnoses Orde r Schedule Hepatic Function Panel Lab Routine Elevated LFTs Expected: 10/24/2024 (Approximate), Expires: 10/24/2025 documented as of this encounter Visit Diagnoses Diagnosis Elevated LFTs- Primary Other abnormal blood chemistry documented in this encounter Additional Health Concerns Assessment Noted Time PHQ-9 Depression Total Score: 11 024 2:36 PM EST documented as of this encounter Care Teams Mender Hand Relationship Specialty Start Date End Date Faviola Da Silva MD [address] [place] [address] PCP - General Family Medicine 09/23/20 documented as of this encounter
--- OUTSIDE RECORDS SUMMARY | 2025-01-26 08:43 | XMS_ITS | Encounter Summary ---
Author Organization [employer] Address [address] 7[address] [place] [address] Care Team Providers Care Decorating Machine Tender Name Role Phone Faviola Da Silva MD Primary Care Provider [phone] Encounter Details Date Type Department Care Team ([facility] st Contact Info) Description 09/03/2023 Orders Only [facility] 230 [place], [place] [phone] Faviola Da Silva MD 230 [place], [place] [phone] Social History Tobacco Use Types Packs/Day Years [...] on filedocumented in this encounter Care Teams Decorating Machine Tender Relationship Specialty Start Date End Date Faviola Da Silva MD [address] [place] [id number] PCP - General Family Medicine 09/23/20 documented as of this encounter
--- OUTSIDE RECORDS SUMMARY | 2025-01-26 08:43 | XMS_ITS | Encounter Summary ---
Author Organization [employer] Address [address] [facility] 7t [place] [address] Care Team Providers Care Senior Application Programmer Name Role Phone Faviola Da Silva MD Primary Care Provider [phone] Reason for Visit * Reason Comments Nasal Congestion Encounter Details Date Type Department Care Team ([facility] st Contact Info) Description 01/19/2025 1:40 PM EDT Office Visit [facility] [address] [place] [phone] Name, MD Carter 230 [place], [place] [phone] Nasal congestion (Primary Dx); COVID-19 Social History Tobacco Use Types Packs/Day Years [...] EDT Inhaled Oxygen Concentration - - Weight - - Height - - Body Mass Index - - documented in this encounter Progress Notes * Carter Bryan MD - 01/19/2025 1:40 PM EDT Subjective Patient ID: Abby Monte is a 29 y.o. female who presents for Nasal Congestion. Patient comes for a sick visit. She has nasal congestion and malaise since of last week. She explains to me her baby tested positive for COVID on Sunday and she tested positive for COVID today. She does not have any fever, chills, sore throat, cough, chest pain, shortness of breath. Her only symptoms so far have been nasal congestion and sneezing. Review of Systems Constitutional: Positive for fatigue. Negative for chills and fever. HENT: Positive for rhinorrhea. Negative for sore throat. Respiratory: Negative for cough, shortness of breath and wheezing. Cardiovascular: Negative for chest pain, palpitations and leg swelling. Visit Vitals BP 116/74 (BP Location: Left arm, Patient Position: Sitting, BP Cuff Size: Large adult) Pulse (!) 112 Temp 98.4 ??F (36.9 ??C) (Oral) Resp 19 SpO2 99% OB Status Unknown Smoking Status Never Objective Physical Exam Constitutional: Appearance: Normal appearance. Cardiovascular: Rate and Rhythm: Normal rate and regular rhythm. Heart sounds: No murmur heard. No gallop. Pulmonary: Effort: Pulmonary effort is normal. No respiratory distress. Breath sounds: Normal breath sounds. No wheezing. Musculoskeletal: Right lower leg: No edema. Left lower leg: No edema. Neurological: Mental Status: She is alert. Assessment/Plan Diagnoses and all orders for this visit: Nasal congestion Comments: Patient with exposure to COVID. Mild symptoms. She is not interested in Paxlovid. I recommended fluids, rest, Tylenol at home if needed, I will give her a note for work. She is recommended to mask athome until she test negative for COVID. She has home testing to check daily. She will return to work when she is COVID-negative. COVID-19 documented in this encounter Plan of Treatment Not on file documented as of this encounter Visit Diagnoses Diagnosis Nasal congestion- Primary Other diseases of nasal cavity and sinuses COVID-19 documented in this encounter Additional Health Concerns Assessment Noted Time PHQ-9 Depression Total Score: 11 10/08/ 024 2:36 PM EST documented as of this encounter Care Teams Senior Application Programmer Relationship Specialty Start Date End Date Faviola Da Silva MD [address] [place] [id number] PCP - General Family Medicine 09/23/20 documented as of this encounter
--- OUTSIDE RECORDS SUMMARY | 2025-01-26 08:43 | XMS_ITS | Encounter Summary ---
Author Organization [employer] Address [address] [facility] 7t [place] [address] Care Team Providers Care Dental Secretary Name Role Phone Faviola Da Silva MD Primary Care Provider [phone] Encounter Details Date Type Department Care Team ([facility] st Contact Info) Description 10/01/2024 Orders Only [facility] 230 [place], [place] [phone] Faviola Da Silva MD 230 [place], [place] [phone] Social History Tobacco Use Types Packs/Day Years [...] documented as of this encounter Care Teams Dental Secretary Relationship Specialty Start Date End Date Faviola Da Silva MD [address] [place] [address] PCP - General Family Medicine 09/23/20 documented as of this encounter
--- OUTSIDE RECORDS SUMMARY | 2025-01-26 08:43 | XMS_ITS | Encounter Summary ---
Author Organization [employer] Address [address] [facility] 7t [place] [address] Care Team Providers Care Manager Port Name Role Phone Faviola Da Silva MD Primary Care Provider [phone] Reason for Visit * Reason Comments Back Pain Encounter Details Date Type Department Care Team ([facility] st Contact Info) Description 01/08/2025 4:00 PM EST Office Visit [facility] 230 [place], [place] [phone] Brook Aguilera NP [address] [place], [place] [phone] Pain in the coccyx (Primary Dx) Social History Tobacco Use Types [...] Sign Reading Time Taken Comments Blood Pressure 125/72 01/08/2025 3:37 PM EST Pulse 87 01/08/2025 3:37 PM EST Temperature 36.8 ??C (98.2 ??F) 01/08/2025 3:37 PM ES T Respiratory Rate 16 01/08/2025 3:37 PM EST Oxygen Saturation 98% 01/08/2025 3:37 PM EST Inhaled Oxygen Concentration - - Weight 107 kg (236 lb) 01/08/2025 3:37 PM EST Height 177.8 cm (5' 10 ) 01/08/2025 3:37 PM EST Body Mass Index 33.86 01/08/2025 3:37 PM EST documented in this encounter Progress Notes * Brook Aguilera NP - 01/08/2025 4:00 PM EST SUBJECTIVE: Abby Monte is a 29 y.o. female who presents to the [facility] for a sick visit. Denies recent illness, injury, or hospitalization. Back Pain Pertinent negatives include no abdominal pain, chest pain, dysuria, fever, headaches or weakness. Abby reports falling down stairs cascading down stairs on her buttocks on 12/28. She has been taking naproxen 500 mg two times daily, tried warm and cold compress, and icy hot with very minimal relief. Pain is aching 8/10 at its worst, usually by the end of the day after sitting and walking most of the day. Denies presence of pain when she arises in the morning. Has pain with both sitting and walking. Denies pain in her lower back and changes in urinary or bowel habits. Review of Systems Constitutional: Negative. Negative for chills and fever. Respiratory: Negative for chest tightness and shortness of breath. Cardiovascular: Negative for chest pain. Gastrointestinal: Negative for abdominal pain, constipation, diarrhea and nausea. Genitourinary: Negative for dysuria. Musculoskeletal: Positive for back pain. Negative for arthralgias, myalgias and neck pain. Skin: Negative. Negative for rash and wound. Neurological: Negative for weakness, light-headedness and headaches. Psychiatric/Behavioral: Negative for behavioral problems, confusion, decreased concentration and suicidal ideas. OBJECTIVE: Visit Vitals BP 125/72 (BP Location: Left arm, Patient Position: Sitting, BP Cuff Size: Large adult) Pulse 87 Temp 98.2 ??F (36.8 ??C) (Temporal) Resp 16 Ht 5' 10 (1.778 m) Wt 236 lb (107 kg) SpO2 98% BMI 33.86 kg/m?? OB Status Unknown Smoking Status Never BSA 2.3 m?? Patient Active Problem List Diagnosis Intermittent vertigo [...] of lower inner quadrant of right breast Physical Exam Vitals reviewed. Constitutional: General: She is not in acute distress. Appearance: Normal appearance. She is not ill-appearing. HENT: Head: Normocephalic and atraumatic. Right Ear: External ear normal. Left Ear: External ear normal. Nose: Nose normal. Eyes: General: No scleral icterus. Extraocular Movements: Extraocular movements intact. Pulmonary: Effort: Pulmonary effort is normal. No respiratory distress. Musculoskeletal: General: Normal range of motion. Cervical back: Normal range of motion. Comments: Reports of pain with palpation of sacral region Neurological: General: No focal deficit present. Mental Status: She is alert and oriented to person, place, and time. Gait: Gait normal. Psychiatric: Mood and Affect: Mood normal. Behavior: Behavior normal. Assessment/Plan Diagnoses and all orders for this visit: Pain in the coccyx Comments: -x-ray ordered to r/o fracture given pain resulting from trauma -trial diclofenac in lieu of naproxen supplementing with tylenol. medication side effects were reviewed -pain may be due to soft tissue bruising resulting from fall as well -red flags and ED precautions reviewed -consider PT for sacroiliac joint strengthing with persistent pain Orders: - diclofenac (Cataflam) 50 MG tablet; Take 1 tablet (50 mg) by mouth 3 times daily. May take 2 tablets for loading dose on day 1, then TID dosing - XR Sacrum Coccyx 2+ Views; Future - acetaminophen (Tylenol 8 Hour) 650 MG ER tablet; Take 1 tablet (650 mg) by mouth every 8 (eight) hours if needed for mild pain. Do not crush, chew, or split. documented in this encounter Plan of Treatment Scheduled Orders Name Type Priority Associated Diagnoses Orde r Schedule XR Sacrum Coccyx 2+ Views Imaging Routine Pain in the coccyx Expected: 01/08/2025, Expires: 01/08/2026 documented as of this encounter Visit Diagnoses Diagnosis Pain in the coccyx- Primary Other disorder of coccyx documented in this encounter Additional Health Concerns Assessment Noted Time PHQ-9 Depression Total Score: 11 024 2:36 PM EST documented as of this encounter Care Teams Manager Port Relationship Specialty Start Date End Date Faviola Da Silva MD [address] [place] [phone] PCP - General Family Medicine 09/23/20 documented as of this encounter
--- OUTSIDE RECORDS SUMMARY | 2025-01-26 08:44 | XMS_ITS | Encounter Summary ---
Author Organization [employer] Address [address] [place] [address] 7 [place] [address] Care Team Providers Care Navy Airspace Officer Name Role Phone Faviola Da Silva MD Primary Care Provider Encounter Details Date Type Department Care Team (Late st Contact Info) Description 06/05/2023 [facility] 230 [place], [place] [phone] Faviola Da Silva MD 230 [place], [place] [phone] Social History Tobacco Use Types Packs/Day Years [...] on filedocumented in this encounter Care Teams Navy Airspace Officer Relationship Specialty Start Date End Date Faviola Da Silva MD 230 [place] [address] PCP - General Family Medicine 09/23/20 documented as of this encounter
--- OUTSIDE RECORDS SUMMARY | 2025-01-26 08:44 | XMS_ITS | Encounter Summary ---
Author Organization [employer] [facility] Address [address] [place] [address] 7 [place] [address] Care Team Providers Care Commercial Collections Specialist Name Role Phone Faviola Da Silva MD Primary Care Provider [phone] Reason for Visit * Reason Comments Chart update mammo Encounter Details Date Type Department Care Team ([facility] st Contact Info) Description 07/04/2023 Abstract [facility] 230 [place], [place] [phone] Lesly Win Social History Tobacco Use Types [...] on filedocumented in this encounter Care Teams Commercial Collections Specialist Relationship Specialty Start Date End Date Faviola Da Silva MD 230 [place], [place] [phone] PCP - General Family Medicine 09/23/20 documented as of this encounter
--- OUTSIDE RECORDS SUMMARY | 2025-01-26 08:44 | XMS_ITS | Clinical Summary ---
Author Organization [employer] Address [address] [place] [address] Care Team Providers Care Machine Featheredger And Reducer Name Role Phone Faviola Da Silva MD Primary Care Provider [phone] Surgical History Surgery Date Site/Laterality Comments OTHER [...] age to complete this topic Care Teams Machine Featheredger And Reducer Relationship Specialty Start Date End Date Faviola Da Silva MD [address] [place] [id number] PCP - General 06/27/24
--- OUTSIDE RECORDS SUMMARY | 2025-01-26 08:44 | XMS_ITS | Encounter Summary ---
Author Organization [employer] Address [address] 7t [place] [address] Care Team Providers Care Qual Research Manager Name Role Phone Faviola Da Silva MD Primary Care Provider [phone] Encounter Details Date Type Department Care Team (Late st Contact Info) Description 12/30/2024 Telephone [facility] [address] [place], [place] [phone] Bon Arreaga MD 230 [place], [place] [phone] Social History Tobacco Use Types Packs/Day Years [...] documented as of this encounter Care Teams Qual Research Manager Relationship Specialty Start Date End Date Faviola Da Silva MD 230 [place] [address] PCP - General Family Medicine 09/23/20 documented as of this encounter
--- OUTSIDE RECORDS SUMMARY | 2025-01-26 08:44 | XMS_ITS | Encounter Summary ---
Author Organization [employer] Address [address] [facility] [facility] [facility] [address] [place] [address] Care Team Providers Care Drawbridge Tender Name Role Phone Faviola Da Silva MD Primary Care Provider [phone] Encounter Details Date Type Department Care Team (Late st Contact Info) Description 08/27/2023 Abstract [facility] 230 [place], [place] [phone] Faviola Da Silva MD 230 [place], [place] [phone] Social History Tobacco Use Types Packs/Day Years [...] on file documented as of this encounter Procedures Procedure [...] on filedocumented in this encounter Care Teams Drawbridge Tender Relationship Specialty Start Date End Date Faviola Da Silva MD [address] [place] [id number] PCP - General Family Medicine 09/23/20 documented as of this encounter
--- OUTSIDE RECORDS SUMMARY | 2025-01-26 08:44 | XMS_ITS | Encounter Summary ---
Author Organization [employer] Address [address] [place] [address] 7t [place] [address] Care Team Providers Care Group Activities Aide Name Role Phone Faviola Da Silva MD Primary Care Provider [phone] Reason for Visit * Reason Comments [facility] Encounter Details Date Type Department Care Team ([facility] st Contact Info) Description 05/09/2023 Abstract [facility] 230 [place], [place] [phone] Faviola Da Silva MD 230 [place] [address] Social History Tobacco Use Types Packs/Day Years [...] on filedocumented in this encounter Care Teams Group Activities Aide Relationship Specialty Start Date End Date Faviola Da Silva MD 230 [place] [address] PCP - General Family Medicine 09/23/20 documented as of this encounter
== END 2025-01-26 08:27 | disposition home or self-care (01) ==
LOC: HO.HHCX 08:26
PROVIDERS: Visit Provider Nurse Practitioner
DX: M53.3 Sacrococcygeal disorders, not elsewhere classified (principal)
CPT/HCPCS: 72220

== ENCOUNTER → 2025-01-26 08:26 | Outpatient (BNV) | payer OTHER, SELFPAY | PROVIDERS: Visit Provider Radiology Diagnostic Radiology | DX: M54.50 Low back pain, unspecified (principal); W19.XXXA Unspecified fall, initial encounter | CPT/HCPCS: 72220 ==

== ENCOUNTER 2025-03-09 07:54 | Outpatient (REF) | payer OTHER, SELFPAY ==
--- NOTE | ~2025-03-09 | US_ITS ---
EXAMINATION: US DIAGNOSTIC ULTRASOUND BREAST, RIGHT CLINICAL INFORMATION: 29-year-old female with right breast follow-up ultrasound for 2 solid masses.. COMPARISON: Comparison is made with relevant prior imaging. TECHNIQUE: Ultrasound of the breast is performed with real-time grande scale imaging and color Doppler. FINDINGS: Targeted color Doppler ultrasound scanning in the area of previously seen solid mass at 5:00 3 cm from the nipple demonstrates a hypoechoic oval circumscribed parallel solid mass at 5:00 3 cm from nipple measuring 41 x 19 x 31 mm. Targeted color Doppler ultrasound at 7:00 6 cm from nipple demonstrates a hypoechoic oval parallel circumscribed solid mass measuring 17 x 9 x 18 mm. Both these masses have not significantly changed in size from prior ultrasound 6 months ago but given the large size of the mass at 5:00 3 cm from the nipple ultrasound guided core needle biopsy was recommended and offered to the patient. Results are discussed with the patient at time of visit. US/US breast RT limited mamm only IMPRESSION: Solid irregular masses at 5:00 3 cm from nipple measuring up to 41 mm. Ultrasound guided core needle biopsy was recommended given the large size. The findings and recommendations were discussed with the patient the procedure will be scheduled. Solid mass at 7:00 6 cm from the nipple. Ultrasound guided core needle biopsy versus six-month follow-up was offered to the patient. The patient prefers ultrasound guided core needle biopsy at this time. The findings and recommendations were discussed with patient the procedure will be scheduled. ASSESSMENT: BI-RADS 4: Suspicious RECOMMENDATION: Biopsy Electronically signed by: Krys Garica DO 03/09/2025 10:58 AM EDT
--- OUTSIDE RECORDS SUMMARY | 2025-03-09 07:58 | XMS_ITS | Encounter Summary ---
Author Organization [employer] Address [address] [facility] 7t [place] [address] Care Team Providers Care Early Childhood Aide Classroom Name Role Phone Faviola Da Silva MD Primary Care Provider [phone] Encounter Details Date Type Department Care Team ([facility] st Contact Info) Description 10/01/2024 Orders Only [facility] 230 [place], [place] [phone] Faviola Da Silva MD 230 [place], [place] [phone] Social History Tobacco Use Types Packs/Day Years [...] Care Team (Late st Contact Info) Description 05/04/2025 9:45 AM EDT Office Visit [facility] 230 [place] [address] BagleyDayna FNP 230 [place] [address] documented as of this encounter Visit Diagnoses Not on filedocumented in this encounter Additional Health Concerns Assessment Noted Time PHQ-9 Depression Total Score: 0 12/18/19 24 10:46 AM EST documented as of this encounter Care Teams Early Childhood Aide Classroom Relationship Specialty Start Date End Date Faviola Da Silva MD 230 [place] [address] PCP - General Family Medicine 09/23/20 documented as of this encounter
--- OUTSIDE RECORDS SUMMARY | 2025-03-09 07:58 | XMS_ITS | Clinical Summary ---
Author Organization [employer] Address 75 [facility] 7t [place] [address] Care Team Providers Care Staff Field Engineer Name Role Phone Faviola Da Silva MD Primary Care Provider [phone] Allergies No known active allergies Medications * This document contains information received from the source organization and may not represent a complete record from that organization. Spacer/Aero-Hold ing Chambers (OptiChamber Violet) [facility] Opti[facility]amber Violet [facility] spacer Q4h prn 022 Active hydrocortisone [...] or fever. 40 tablet 025 Active acetaminophen (Tylenol 8 Hour) 650 MG ER tabletIndication s:Pain in the coccyx Take 1 tablet (650 mg) by mouth every 8 (eight) hours if needed for mild pain. Do not crush, chew, or split. 60 tablet 025 Active hydrOXYzine HCl (Atarax) 25 MG tabletIndication s:Anxiety Take 1-2 tablets by oral route as needed up to four times daily for anxiety 90 tablet 1 025 Active diclofenac (Cataflam) 50 MG tabletIndication s:Pain in the coccyx Take 1 tablet (50 mg) by mouth 3 times daily. May take 2 tablets for loading dose on day 1, then TID dosing 90 tablet 025 2024 acetaminophen (Tylenol 8 Hour) 650 MG ER tabletIndication s:Pain in the coccyx Take 1 tablet (650 mg) by mouth every 8 (eight) hours if needed for mild pain. Do not crush, chew, or split. 60 tablet 025 2024 Discontinued(R eorder (will not trigger notification to Pharmacy)) Active Problems Problem Noted Date Diagnosed Date [...] BID from 150mg BID Begin treatment at [facility] for OP Located PPD support group and [...] for help. PLAN: 1. Follow up with [facility]: Not recommended for follow-up 2. Patient goal is to engage in services. 3. Behavioral Recommendations a. Patient will communicate with psychiatrist b. Patient will utilize [facility], if symptoms worsen c. 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 Overview (10/13/2022): Non immune to hepatitis B and non immune to hepatitis A per previous EHR Overweight 12/09/2018 Intermittent vertigo 04/05/2018 Weight gain 04/05/2018 Encounters Date Type Department Care Team Description 02/25/2025 5:20 PM EDT Office Visit [facility] [address] [place] [address] Marydel, DaynaTREE Anxiety (Primary Dx) 02/25/2025 Travel 02/17/2025 Refill [facility] [address] [place] [phone] Brook Aguilera NP Pain in the coccyx 01/19/2025 1:40 PM EDT Office Visit [facility] [address] [place] [phone] Name, MD Carter Nasal congestion (Primary Dx); COVID-19 01/08/2025 4:00 PM EST Office Visit [facility] [address] [place] [address] Brook Aguilera NP Pain in the coccyx (Primary Dx) 12/30/2024 Telephone [facility] [address] [place] [phone] Bon Coronel MD 12/10/2024 3:40 PM EST Office Visit [facility] [address] [place] [address] Bno Coronel MD Influenza-like symptoms (Primary Dx); Viral URI 12/10/2024 Travel from Last 3 Months Immunizations Name Administration [...] 08 Moderna Covid-19 Vaccine 12+ 09/23/2021,12/01/19 21,11/03/2020 OPV, Trivalent 07/13/2000, 7,1996,09/12 TD (adult), 2 Lf tetanus [...] Sign Reading Time Taken Comments Blood Pressure 123/76 02/25/2025 5:17 PM EDT Pulse 91 02/25/2025 5:17 PM EDT Temperature 36.2 ??C (97.1 ??F) 02/25/2025 5:17 PM ED T Respiratory Rate 20 02/25/2025 5:17 PM EDT Oxygen Saturation 99% 02/25/2025 5:17 PM EDT Inhaled Oxygen Concentration - - Weight 108 kg (237 lb) 02/25/2025 5:17 PM EDT Height 177.8 cm (5' 10 ) 02/25/2025 5:17 PM EDT Body Mass Index 34.01 02/25/2025 5:17 PM EDT Plan of Treatment Upcoming Encounters Date Type Department Care Team (Late st Contact Info) Description 05/04/2025 9:45 AM EDT Office Visit [facility] [address] [place] [address] Marydel, Dayna, INSECT CONTROL AIDE [address] [place] [address] Health Maintenance Due Date Last Done Comments Alcohol/Substance Use Screening 2008 Pap Smear 2017 COVID-19 Vaccine ( season) 2024 09/23/2021, 12/01/2020, 11/03/2020 Diagnostic Breast Imaging 10/09/20242023, 05/09/2023, 05/09/2023, Additional history exists Mammogram 10/09/2024 09/08/2024, 04/13, 05/09/2023, Additional history exists SDOH Screening 12/18/2024 12/18/2023 Depression Monitoring 04/07/2025 10/08/2024, 024 Family Planning (PISQ) 09/04/2025 09/04/2024 Depression Screening 10/08/2025 10/08/2024, 07/31/20 24 Tobacco Screening 02/25/2026 02/25/2025 DTaP/Tdap/Td Vaccines (10 - Td or Tdap) [...] Procedure Name Priority Date/Time Associated Diagnosis Comments XR SACRUM COCCYX 2+ VIEWS Routine 01/26/2025 8:26 AM EDT Pain in the coccyx CT HEAD WO CONTRAST Urgent 12/30/2024 3 [...] Recently Relevant to Health Maintenance Results * XR Sacrum Coccyx 2+ Views (01/26/2025 8:26 AM EDT) Anatomical Region Laterality Modality Sacrum, Coccyx Radiographic Constanza ging 01/26/2025 8:26 AM EDT Narrative 01/26/2025 8:49 AM EDT ?[facility] ?[address] ?[place] [address] ?XRay Report ? Signed ? Patient: Abby Monte ?MR#: [id number] ?? [id number] ? : 1995 ?Acct:[id number] ? Age/Sex: 29 / F ?ADM Date: 01/26/25 ? Loc: HO.HHCX ? Attending Acacia Aguilera ? Ordering Physician: Brook Aguilera ?? Date of Service: 01/26/25 ?? Procedure(s): XR sacrum coccyx min 2V ?? Accession Number(s): [id number] ? cc: Brook Aguilera ? EXAMINATION: ??XR SACRUM COCCYX 2 OR MORE VIEWS ? HISTORY: fall ? COMPARISON: There are no prior studies for comparison. ? FINDINGS: ??Three views of the sacrum and coccyx are submitted. Osseous ?? mineralization is normal. No fracture or lytic lesion is seen. The ?? sacroiliac joints are maintained. ? XR/XR sacrum coccyx min 2V ?? IMPRESSION: ?? Unremarkable examination of the sacrum and coccyx. ? Electronically signed by: ??Wes Johnson MD ??01/26/2025 08:46 AM EDT ?? RP ? Dictated By: ?Wes Johnson MD ? Signed By: ?<Electronically signed by Wes Johnson MD in OV> ?01/26/25 0846 ? DD/ 0826 ? TD/TT: 01/26/25 0842 ? Braille Duplicating Machine Operator: ? Procedure Note Donotuseinterpreter, Image - 01/26/[address] [address] XRay Report Signed Patient: Abby Monte MMR#: [id number] : 1995Acct:[id number] Age/Sex: 29 / FADM Date: 01/26/25 Loc: HO.HHCX Attending Dr: Brook Aguilera Ordering Physician: Brook Aguilera Date of Service: 01/26/25 Procedure(s): XR sacrum coccyx min 2V Accession Number(s): [id number] cc: Brook Aguilera EXAMINATION: XR SACRUM COCCYX 2 OR MORE VIEWS HISTORY: fall COMPARISON: There are no prior studies for comparison. FINDINGS: Three views of the sacrum and coccyx are submitted. Osseous mineralization is normal. No fracture or lytic lesion is seen. The sacroiliac joints are maintained. XR/XR sacrum coccyx min 2V IMPRESSION: Unremarkable examination of the sacrum and coccyx. Electronically signed by: Wes Johnson MD 01/26/2025 08:46 AM EDT Dictated By: Wes Johnson MD Signed By: <Electronically signed by Wes Johnson MD in OV> 01/26/25 0846 DD/ 0826 TD/TT: 01/26/25 0842 Braille Duplicating Machine Operator: us Brook Aguilera SALES OPERATIONS ASSISTANT IMG XR PROCEDURES Final Result * CT Head w/o Contrast (12/30/2024 3:07 PM EST) Anatomical Region Laterality Modality Head, Neck Computed Tomogra phy 12/30/2024 3:07 PM EST Narrative 12/30/2024 3:32 PM EST ? [facility] ?[address] ?[place] [address] ? CT Scan Report ? Signed ? Patient: Monte,Abby M ?MR#: [id number] ?? [id number] ? : 1995 ?Acct:[id number] ? Age/Sex: 29 / F ?ADM Date: 12/30/24 ? Loc: HO.CT ? Attending Dr: Bon Coronel MD ? Ordering Physician: BON CORONEL MD ?? Date of Service: 12/30/24 ?? Procedure(s): CT head/brain wo IV con ?? Accession Number(s): [id number] ? cc: BON CORONEL MD; Faviola Da Silva ? Report Number: ?? [id number]: Total DLP = ??790.00 mGy-cm ?? EXAMINATION: [...] DD/ 1507 ? TD/TT: 12/30/24 1521 ? Braille Duplicating Machine Operator: ? Procedure Note Donotuseinterpreter, Image - 12/30/[address] [address] [address] Scan Report Signed Patient: Abby Monte MMR#: [id number] : 1995Acct:[id number] Age/Sex: 29 / FADM Date: 12/30/24 Loc: HO.CT Attending Dr: Bon Coronel MD Ordering Physician: BON CORONEL MD Date of Service: 12/30/24 Procedure(s): CT head/brain wo IV con Accession Number(s): [id number] cc: BON CORONEL MD; Faviola Da Silva Report Number: [id number]: Total DLP = 790.00 mGy-cm EXAMINATION: CT [...] 12/30/24 1529 DD/ 1507 TD/TT: 12/30/24 1521 Braille Duplicating Machine Operator: Bon Coronel MD IMG CT PROCEDURES Edited Result - Final * Influenza B (ID NOW Rapid Molecular) (12/10/2024 3:39 PM EST) Pathologist [facility] Influenza B Negative Negative, Indeterminate [facility] Swab 12/10/2024 3:39 PM EST us Bon Coronel MD POINT OF CARE TEST ENTER/EDIT OR DERABLES Final Result Performing Organization Address [facility] de Phone Number [facility] [address] [place] [phone] * Influenza A (ID NOW Rapid Molecular) (12/10/2024 3:39 PM EST) [facility] Influenza A Negative Negative, Indeterminate [facility] Swab 12/10/2024 3:39 PM EST Bon Coronel MD POINT OF CARE TEST ENTER/EDIT OR DERABLES Final Result Performing Organization Address [facility] Co de Phone Number [facility] [address] [place] [phone] * POCT Rapid COVID Ag (12/10/2024 3:39 PM EST) Rapid COVID Ag Negative [facility] Swab 12/10/2024 3:39 PM EST us Bon Coronel MD POINT OF CARE TEST ENTER/EDIT OR DERABLES Final Result Performing Organization Address [facility] Co de Phone Number [facility] [address] [place] [phone] * POCT RSV (ID NOW rapid molecular) (12/10/2024 3:39 PM EST) [facility] RSV Rapid Ag POC Negative Negative [facility] Swab 12/10/2024 3:39 PM EST us Bon Coronel MD POINT OF CARE TEST ENTER/EDIT OR DERABLES Final Result Performing Organization Address [facility]/ZIP Co de Phone Number [facility] [address] [place] [phone] * Hepatitis C Antibody with Reflex to HCV, RNA, Quantitative, Real-Time PCR (10/21/2024 8:20 AM EST) [facility] Hepatitis C Antibody Nonreactive Nonreactive [facility] Comment:Antibodies to HCV no t detected; does not exclude early acuteHCV infection. Blood Venous blood specimen / Unknown 10/21/2024 8:20 AM EST 10/21/2024 11:46 AM EST us Bon Coronel MD LAB BLOOD ORDERABLES Final Resul t Performing Organization Address [facility] Co de Phone Number [facility] [address] [place] [phone] * HIV-1/2 Antigen and Antibodies, Fourth Generation, with Reflexes (10/21/2024 8:20 AM EST) [facility] HIV AB/AG Nonreactive Nonreactive [facility] Comment:HIV-1 p24 Ag and/or HIV-1/HIV-2 Ab not detected.A test result that is nonreactive does not exclude thepossibility of exposure to or infection with HIV-1 and/orHIV-2. Nonreactive results in this assay for individualswith prior exposure to HIV-1 and/or HIV-2 may be due toantigen and antibody levels that are below the limit ofdetection of this assay.The [employer] HIV Ag/Ab Combo assay result andsupplemental assay results should be interpreted inconjunction with the patient's clinical presentation,history and other laboratory results. If the results areinconsistent with clinical evidence, additional testing issuggested to confirm the result. Blood Venous blood specimen / Unknown 10/21/2024 8:20 AM EST 10/21/2024 11:46 AM EST us Bon Coronel MD LAB BLOOD ORDERABLES Final Resul t [facility] [address] [place] [phone] * BI US Breast Limited Right (09/08/2024 3:00 PM EDT) Anatomical Region Laterality Modality Breast Right Ultrasound 09/08/2024 3:00 PM EDT Narrative 09/09/2024 9:49 AM EDT ? [facility] ? [address] ?[place] [address] ? Ultrasound Report ? Signed ? Patient: Abby Monte ?MR#: [id number] ?? [id number] ? : 1995 ?Acct:[id number] ? Age/Sex: 29 / F ?ADM Date: 09/08/24 ? Loc: HO.MAMMO ? Attending Dr: Faviola Da Silva MD ? Ordering Physician: Faviola Da Silva ?? Date of Service: 09/08/24 ?? Procedure(s): US breast RT limited mamm only ?? Accession Number(s): [id number] ? cc: Faviola Da Silva ? EXAMINATION: [...] DD/ 1500 ? TD/TT: 09/08/24 1511 ? Braille Duplicating Machine Operator: ? Procedure Note Marimar Stevens - 09/09/2024 De[facility] [address] [place], [place] [address] Ultrasound Report Signed Patient: Abby Monte [facility]#: [id number] : 1995Acct:[id number] Age/Sex: 29 / FADM Date: 09/08/24 Loc: HO.MAMMO Attending Dr: Faviola Da Silva MD Ordering Physician: Faviola Da Silva Date of Service: 09/08/24 Procedure(s): US breast RT limited mamm only Accession Number(s): [id number] cc: Faviola Da Silva EXAMINATION: US DIAGNOSTIC [...] 09/09/24 0946 DD/ 1500 TD/TT: 09/08/24 1511 Braille Duplicating Machine Operator: Faviola Da Silva MD [facility] PROCEDURES Edited Resul t - Final from Last 3 Months or Most Recently Relevant to Health Maintenance Insurance [facility] [id number] [place] Care Teams Staff Field Engineer Relationship Specialty Start Date End Date Faviola Da Silva MD [address] [place] [phone] PCP - General Family Medicine 09/23/20
--- OUTSIDE RECORDS SUMMARY | 2025-03-09 07:58 | XMS_ITS | Encounter Summary ---
Author Organization [employer] Address 75 [facility] 7t [place] [address] Care Team Providers Care Foundation Relations Director Name Role Phone Faviola Da Silva MD Primary Care Provider [phone] Encounter Details Date Type Department Care Team (Late st Contact Info) Description 11/01/2022 Orders Only [facility] [address] [place], [place] [phone] Bon Arreaga MD 230 [facility] [place] [address] Bacterial vaginosis (Primary Dx); Candidal vulvovaginitis Social [...] Description 05/04/2025 9:45 AM EDT Office Visit [facility] [address] [place] [address] [place], Dayna, RESUME WRITER [address] [place], [place] [phone] documented as of this encounter Visit Diagnoses Diagnosis Bacterial vaginosis- Primary Unspecified vaginitis and vulvovaginitis Candidal vulvovaginitis Candidiasis of vulva and vagina documented in this encounter Care Teams Foundation Relations Director Relationship Specialty Start Date End Date Faviola Da Silva MD [address] [place] [address] PCP - General Family Medicine 09/23/20 documented as of this encounter
--- OUTSIDE RECORDS SUMMARY | 2025-03-09 07:58 | XMS_ITS | Clinical Summary ---
Author Organization [employer] Address [address] [place] [address] Care Team Providers Care Math Specialist Name Role Phone Faviola Da Silva MD Primary Care Provider [phone] Surgical History Surgery Date Site/Laterality Comments OTHER [...] - 2023-2 5 season) 2024 Influenza Vaccine (Season Ended) 2025 Varicella Vaccines Aged Out 2024 No longer [...] age to complete this topic Meningococcal B Vaccine Aged Out No l onger eligible based on patient's age to complete this topic Pneumococcal Vaccine: Pediat rics (0 to 5 Years) and At-Risk Patients (6 to 64 Years) Aged Out No longer eligi ble based on patient's age to complete this topic RSV Immunization Patients Un heather 20 months Aged Out No longer eligible b ased on patient's age to complete this topic Care Teams Math Specialist Relationship Specialty Start Date End Date Faviola Da Silva MD [address] [place] [address] PCP - General 06/27/24
--- OUTSIDE RECORDS SUMMARY | 2025-03-09 07:58 | XMS_ITS | Encounter Summary ---
Author Organization [employer] Address 75 [facility] 7t [place] [address] Care Team Providers Care Platform Stapler Name Role Phone Faivola Da Silva MD Primary Care Provider [phone] Reason for Visit * Reason Comments [facility] Encounter Details Date Type Department Care Team (Late Contact Info) Description 05/09/2023 Abstract [facility] MEDICINE [address] [place] [phone] Faviola Da Silva MD [address] [place] [address] [phone] Social History Tobacco Use Types Packs/Day Years [...] Department Care Team (Late Contact Info) Description 05/04/2025 9:45 AM EDT Office Visit [facility] [address] [place] [address] [place] [address] HughesDayna, PROJECT ANALYST [address] [place] [address] documented as of this encounter Visit Diagnoses Not on filedocumented in this encounter Care Teams Platform Stapler Relationship Specialty Start Date End Date Faviola Da Silva MD [address] [place] [address] PCP - General Family Medicine 09/23/20 documented as of this encounter
--- OUTSIDE RECORDS SUMMARY | 2025-03-09 07:58 | XMS_ITS | Encounter Summary ---
Author Organization [employer] Address [address] [facility] [address] 7t [place] [address] Care Team Providers Care Consumer Analyst Name Role Phone Faviola Da Silva MD Primary Care Provider [phone] Encounter Details Date Type Department Care Team (Late st Contact Info) Description 08/27/2023 Abstract [facility] [address] [place], [place] [phone] Faviola Da Silva MD [address] [place], [place] [phone] Social History Tobacco Use Types Packs/Day Years [...] Description 05/04/2025 9:45 AM EDT Office Visit [facility] [address] [place] [address] YuriDayna limon FNP [address] [place], [place] [phone] documented as of this encounter Procedures Procedure [...] on filedocumented in this encounter Care Teams Consumer Analyst Relationship Specialty Start Date End Date Faviola Da Silva MD [address] [place] [phone] PCP - General Family Medicine 09/23/20 documented as of this encounter
--- OUTSIDE RECORDS SUMMARY | 2025-03-09 07:58 | XMS_ITS | Encounter Summary ---
Author Organization [facility] Address [address] [place] [address] 7t [place] [address] Care Team Providers Care Tire Spotter Name Role Phone Faviola Da Silva MD Primary Care Provider Encounter Details Date Type Department Care Team (Late st Contact Info) Description 06/05/2023 Abstract [facility] MEDICINE [address] [place], [place] [phone] Faviola Da Silva MD [address] [place], [place] [phone] Social History Tobacco Use Types Packs/Day Years [...] Description 05/04/2025 9:45 AM EDT Office Visit [facility] MEDICINE [address] [place], [place] [phone] [place] Dayna, [facility] [address] [place], [place] [phone] documented as of this encounter Visit Diagnoses Not on filedocumented in this encounter Care Teams Tire Spotter Relationship Specialty Start Date End Date Faviola Da Silva MD [address] [place] [address] PCP - General Family Medicine 09/23/20 documented as of this encounter
--- OUTSIDE RECORDS SUMMARY | 2025-03-09 07:58 | XMS_ITS | Encounter Summary ---
Author Organization [employer] Address [address] [facility] [address] 7t [place] [address] Care Team Providers Care Powerhouse Helper Name Role Phone Faviola Da Silva MD Primary Care Provider [phone] Encounter Details Date Type Department Care Team ([facility] st Contact Info) Description 09/03/2023 Orders Only [facility] MEDICINE [address] [place], [place] [phone] Faviola Da Silva MD [address] [place], [place] [phone] Social History Tobacco Use Types Packs/Day Years [...] Description 05/04/2025 9:45 AM EDT Office Visit [facility] MEDICINE [address] [place] [address] Dayna Welch FNP [address] [place] [address] documented as of this encounter Visit Diagnoses Not on filedocumented in this encounter Care Teams Powerhouse Helper Relationship Specialty Start Date End Date Faviola Da Silva MD [address] [place] [phone] PCP - General Family Medicine 09/23/20 documented as of this encounter
--- OUTSIDE RECORDS SUMMARY | 2025-03-09 07:58 | XMS_ITS | Encounter Summary ---
Author Organization [employer] Address [address] [facility] [address] 7t [place] [address] Care Team Providers Care Stunt Man Name Role Phone Faviola Da Silva MD Primary Care Provider [phone] Encounter Details Date Type Department Care Team (Late st Contact Info) Description 10/24/2024 Orders Only [facility] [address] [place], [place] [phone] Bon Arreaga MD [address] [place], [place] [phone] Elevated LFTs (Primary Dx) Social History Tobacco [...] Description 05/04/2025 9:45 AM EDT Office Visit [facility] [address] [place] [address] [place] Dayna [facility] [address] [place] [address] Scheduled Orders Name Type Priority Associated Diagnoses Orde r Schedule Hepatic Function Panel Lab Routine Elevated LFTs Expected: 10/24/2024 (Approximate), Expires: 10/24/2025 documented as of this encounter Visit Diagnoses Diagnosis Elevated LFTs- Primary Other abnormal blood chemistry documented in this encounter Additional Health Concerns Assessment Noted Time PHQ-9 Depression Total Score: 11 024 2:36 PM EST documented as of this encounter Care Teams Stunt Man Relationship Specialty Start Date End Date Faviola Da Silva MD [address] [place] [address] PCP - General Family Medicine 09/23/20 documented as of this encounter
--- OUTSIDE RECORDS SUMMARY | 2025-03-09 07:58 | XMS_ITS | Encounter Summary ---
Author Organization [employer] [facility] Address [address] [place] [address] 7 [place] [address] Care Team Providers Care Medicaid Business Analyst Name Role Phone Faviola Da Silva MD Primary Care Provider [phone] Reason for Visit * Reason Comments Chart update mammo Encounter Details Date Type Department Care Team (Late st Contact Info) Description 07/04/2023 Abstract [facility] [address] [place] [address] [phone] Lesly Win Social History Tobacco Use Types [...] Description 05/04/2025 9:45 AM EDT Office Visit [facility] [address] [place], [place] [phone] Garro[place]alesDayna limon FNP [address] [place], [place] [phone] documented as of this encounter Visit Diagnoses Not on filedocumented in this encounter Care Teams Medicaid Business Analyst Relationship Specialty Start Date End Date Faviola Da Silva MD [address] [place] [address] PCP - General Family Medicine 09/23/20 documented as of this encounter
== END 2025-03-09 07:55 | disposition home or self-care (01) ==
LOC: HO.MAMMO 07:54
PROVIDERS: PCP General Practice; Visit Provider General Practice
DX: N63.15 Unspecified lump in the right breast, overlapping quadrants (principal)
CPT/HCPCS: 76642

== ENCOUNTER → 2025-03-09 08:00 | Outpatient (BNV) | payer OTHER, SELFPAY | PROVIDERS: PCP General Practice; Visit Provider Internal Medicine | DX: R92.8 Other abnormal and inconclusive findings on diagnostic imaging of breast (principal) | CPT/HCPCS: 76642 ==

== ENCOUNTER 2025-03-25 08:26 | Outpatient (AMB) | payer OTHER, SELFPAY ==
--- OUTSIDE RECORDS SUMMARY | 2025-03-25 08:38 | XMS_ITS | Encounter Summary ---
Author Organization [employer] Address [address] [place] [address] 7 [place] [address] Care Team Providers Care Neurology Physician Assistant Name Role Phone Faviola Da Silva MD Primary Care Provider Reason for Visit * Reason Comments Chart update mammo Encounter Details Date Type Department Care Team (Late st Contact Info) Description 07/04/2023 Abstract [facility] [address] [place], [place] [phone] Lesly Win Social History Tobacco Use Types [...] Description 05/04/2025 9:45 AM EDT Office Visit [facility] [address] [place], [place] [phone] [place] [facility] [address] [place], [place] [phone] documented as of this encounter Visit Diagnoses Not on filedocumented in this encounter Care Teams Neurology Physician Assistant Relationship Specialty Start Date End Date Faviola Da Silva MD [address] [place] [address] PCP - General Family Medicine 09/23/20 documented as of this encounter
--- OUTSIDE RECORDS SUMMARY | 2025-03-25 08:38 | XMS_ITS | Clinical Summary ---
Author Organization [employer] Address [address] [facility] 7t [place] [address] Care Team Providers Care Wheel Assembler Name Role Phone Faviola Da Silva MD Primary Care Provider [phone] Allergies No known active allergies Medications * This document contains information received from the source organization and may not represent a complete record from that organization. Spacer/Aero-Holdi ng Chambers (OptiChamber Violet) [facility] OptiChamber Violet [facility] spacer Q4h prn 2 Active hydrocortisone (Anusol-HC) 2.5 % rectal cream Insert 1 application into the rectum in the morning. 2 Active buPROPion SR (Wellbutrin SR) 200 MG 12 hr tablet Take 1 tablet (200 mg) by mouth 2 times daily. Do not crush, chew, or split. 180 tablet 3 4 025 Active etonogestrel-elut ing (Nexplanon) 68 mg contraceptive implant 1 each by Implant route 1 (one) time. Active ibuprofen 600 MG tablet Take 1 tablet (600 mg) by mouth if needed in the morning, at noon, and at bedtime for moderate pain, fever or headaches. 90 tablet 5 Active acetaminophen (Tylenol) 325 MG tablet Take 2 tablets (650 mg) by mouth every 6 (six) hours if needed for moderate pain, headaches or fever. 40 tablet 5 Active acetaminophen (Tylenol 8 Hour) 650 MG ER tabletIndications :Pain in the coccyx Take 1 tablet (650 mg) by mouth every 8 (eight) hours if needed for mild pain. Do not crush, chew, or split. 60 tablet 5 Active hydrOXYzine HCl (Atarax) 25 MG tabletIndications :Anxiety Take 1-2 tablets by oral route as needed up to four times daily for anxiety 90 tablet 1 5 Active Active Problems Problem Noted Date Diagnosed Date [...] BID from 150mg BID Begin treatment at [facility] for OP Located PPD support group and [...] c. 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 Overview (10/13/2022): Non immune to hepatitis B and non immune to hepatitis A per previous EHR Overweight 12/09/2018 Intermittent vertigo 04/05/2018 Weight gain 04/05/2018 Encounters Date Type Department Care Team Description 03/09/2025 Orders Only [facility] [address] [place] [address] Faviola Da Silva MD 02/25/2025 5:20 PM EDT Office Visit [facility] [address] [address] [place], Dayna, WOODWORKING MACHINE OFFBEARER Anxiety (Primary Dx) 02/25/2025 Travel 02/17/2025 Refill [facility] [address] [address] Brook Aguilera NP Pain in the coccyx 01/19/2025 1:40 PM EDT [facility] [address] [address] Carter Bryan MD Nasal congestion (Primary Dx); COVID-19 01/08/2025 4:00 PM EST [facility] [address] [address] Brook Aguilera NP Pain in the coccyx (Primary Dx) 12/30/2024 Telephone [facility] [address] [address] Bon Coronel MD from Last 3 Months Immunizations Immunization Administration Dates Next Due DTaP 07/13/2000, 7,01/15/1997,11/18,1996 [...] ACYW-135 03/14/2013,11/18/19 08 Moderna Covid-19 Vaccine 12+ 09/23/2021,12/01/19,11/03/2020 OPV, Trivalent 07/13/2000, 7,1996,09/12 TD (adult), 2 [...] Description 05/04/2025 9:45 AM EDT Office Visit [facility] [address] [place] [address] [place] Dayna [facility] [address] [place] [address] Health Maintenance Due Date Last Done Comments Alcohol/Substance Use Screening 2008 Pap Smear 2017 COVID-19 Vaccine ( season) 2024 09/23/2021, 12/01/2020, 11/03/2020 SDOH Screening 12/18/2024 12/18/2023 Diagnostic Breast Imaging 04/08/20252024, 09/08/2024, 05/09/2023, Additional history exists Mammogram 04/08/2025 03/09/2025, 08/13, 05/09/2023, Additional history exists Family Planning (PISQ) 09/04/2025 09/04/2024 Depression Screening [...] Procedure Name Priority Date/Time Associated Diagnosis Comments BI US BREAST LIMITED RIGHT Routine 03/09/2025 8:00 AM EDT XR SACRUM COCCYX 2+ VIEWS Routine 01/26/2025 8:26 AM EDT Pain in the coccyx CT HEAD WO CONTRAST Urgent 12/30/2024 3 :07 PM EST Concussion without loss of consciousness, initial encounter HEPATITIS C AB W/REFL TO HCV RNA, QN, PCR Routine 10/21/2024 8:20 AM EST Nausea HIV 1/2 ANTIGEN/ANTIBODY, FOURTH GENERATION W/RFL Routine 10/21/2024 8:20 AM EST Nausea from Last 3 Months or Most Recently Relevant to Health Maintenance Results * BI US Breast Limited Right (03/09/2025 8:00 AM EDT) Anatomical Region Laterality Modality Breast Right Ultrasound 03/09/2025 8:00 AM EDT Narrative 03/09/2025 11:00 AM EDT ? [facility] [place] ? [address] [facility] ?[place] [address] ? Ultrasound Report ? Signed ? Patient: Monte,Abby M ?MR#: [id number] ?? [id number] ? : 1995 ?Acct:[id number] ? Age/Sex: 29 / F ?ADM Date: 04/28/25 ? Loc: HO.MAMMO ? Attending Dr: Faviola Da Silva MD ? Ordering Physician: Faviola Da Silva ?? Date of Service: 03/09/25 ?? Procedure(s): US breast RT limited mamm only ?? Accession Number(s): [id number] ? cc: Faviola Da Silva ? EXAMINATION: ?? US DIAGNOSTIC ULTRASOUND BREAST, RIGHT ? CLINICAL INFORMATION: ? 29-year-old female with right breast follow-up ultrasound for 2 solid ?? masses.. ? COMPARISON: ?? Comparison is made with relevant prior imaging. ? TECHNIQUE: ?? Ultrasound of the breast is performed with real-time grande scale imaging ?? and color Doppler. ? FINDINGS: ?? Targeted color Doppler ultrasound scanning in the area of previously ?? seen solid mass at 5:00 3 cm from the nipple demonstrates a hypoechoic ?? oval circumscribed parallel solid mass at 5:00 3 cm from nipple ?? measuring 41 x 19 x 31 mm. ? Targeted color Doppler ultrasound at 7:00 6 cm from nipple demonstrates ?? a hypoechoic oval parallel circumscribed solid mass measuring 17 x 9 x ?? 18 mm. ?? Both these masses have not significantly changed in size from prior ?? ultrasound 6 months ago but given the large size of the mass at 5:00 3 ?? cm from the nipple ultrasound guided core needle biopsy was recommended ?? and offered to the patient. ? Results are discussed with the patient at time of visit. ? US/US breast RT limited mamm only ?? IMPRESSION: ?? Solid irregular masses at 5:00 3 cm from nipple measuring up to 41 mm. ?? Ultrasound guided core needle biopsy was recommended given the large ?? size. The findings and recommendations were discussed with the patient ?? the procedure will be scheduled. ? Solid mass at 7:00 6 cm from the nipple. Ultrasound guided core needle ?? biopsy versus six-month follow-up was offered to the patient. The ?? patient prefers ultrasound guided core needle biopsy at this time. The ?? findings and recommendations were discussed with patient the procedure ?? will be scheduled. ? ASSESSMENT: ? BI-RADS 4: Suspicious ? RECOMMENDATION: ?? Biopsy ? Electronically signed by: ??Krys Garcia DO ??03/09/2025 10:58 AM EDT ?? RP ? Dictated By: ?Krys Garcia DO ? Signed By: ?<Electronically signed by Krys Garcia, DO in OV> ? 03/09/25 1058 ? DD/ 0800 ? TD/TT: 03/09/25 0840 ? Machine Hoop Maker: ? Procedure Note Rodney, Marimar - 03/09/2025 [facility] [address] [place], [place] [address] Ultrasound Report Signed Patient: Abby Monte MMR#: [id number] : 1995Acct:[id number] Age/Sex: 29 / FADM Date: 03/09/25 Loc: HO.MAMMO Attending Dr: Faviola Da Silva MD Ordering Physician: Faviola Da Silva Date of Service: 03/09/25 Procedure(s): US breast RT limited mamm only Accession Number(s): [id number] cc: Faviola Da Silva EXAMINATION: US DIAGNOSTIC ULTRASOUND BREAST, RIGHT CLINICAL INFORMATION: 29-year-old female with right breast follow-up ultrasound for 2 solid masses.. COMPARISON: Comparison is made with relevant prior imaging. TECHNIQUE: Ultrasound of the breast is performed with real-time grande scale imaging and color Doppler. FINDINGS: Targeted color Doppler ultrasound scanning in the area of previously seen solid mass at 5:00 3 cm from the nipple demonstrates a hypoechoic oval circumscribed parallel solid mass at 5:00 3 cm from nipple measuring 41 x 19 x 31 mm. Targeted color Doppler ultrasound at 7:00 6 cm from nipple demonstrates a hypoechoic oval parallel circumscribed solid mass measuring 17 x 9 x 18 mm. Both these masses have not significantly changed in size from prior ultrasound 6 months ago but given the large size of the mass at 5:00 3 cm from the nipple ultrasound guided core needle biopsy was recommended and offered to the patient. Results are discussed with the patient at time of visit. US/US breast RT limited mamm only IMPRESSION: Solid irregular masses at 5:00 3 cm from nipple measuring up to 41 mm. Ultrasound guided core needle biopsy was recommended given the large size. The findings and recommendations were discussed with the patient the procedure will be scheduled. Solid mass at 7:00 6 cm from the nipple. Ultrasound guided core needle biopsy versus six-month follow-up was offered to the patient. The patient prefers ultrasound guided core needle biopsy at this time. The findings and recommendations were discussed with patient the procedure will be scheduled. ASSESSMENT: BI-RADS 4: Suspicious RECOMMENDATION: Biopsy Electronically signed by: Krys Garcia DO 03/09/2025 10:58 AM EDT Dictated By: Krys Garcia DO Signed By: <Electronically signed by Krys Garcia DO in OV> 03/09/25 1058 DD/ 0800 TD/TT: 03/09/25 0840 Machine Hoop Maker: us Faviola Da Silva MD IMG US PROCEDURES Final Result * XR Sacrum Coccyx 2+ Views (01/26/2025 8:26 AM EDT) Anatomical Region Laterality Modality Sacrum, Coccyx Radiographic Constanza ging 01/26/2025 8:26 AM EDT Narrative 01/26/2025 8:49 AM EDT ?[facility] ?[address] ?[place] [address] ?XRay Report ? Signed ? Patient: Lavell,Abby Soto ?MR#: [id number] ?? [id number] ? : 1995 ?Acct:[id number] ? Age/Sex: 29 / F ?ADM Date: 01/26/25 ? Loc: HO.HHCX ? Attending Dr: Brook Aguilera ? Ordering Physician: Brook Aguilera ?? Date of Service: 01/26/25 ?? Procedure(s): XR sacrum coccyx min 2V ?? Accession Number(s): [id number] ? cc: Brook Aguilera ? EXAMINATION: ??XR [...] DD/ 0826 ? TD/TT: 01/26/25 0842 ? Machine Hoop Maker: ? Procedure Note Rodney, Image - 03/17/2025 [facility] [address] [place] [address] XRay Report Signed Patient: Abby Monte MMR#: [id number] : 1995Acct:[id number] Age/Sex: 29 / FADM Date: 01/26/25 [facility] Dr: Brook Aguilera Ordering Physician: Brook Aguilera Date of Service: 01/26/25 Procedure(s): XR sacrum coccyx min 2V Accession Number(s): [id number] cc: Brook Aguilera EXAMINATION: XR SACRUM COCCYX [...] Wes Johnson MD 01/26/2025 08:46 AM EDT RP Dictated By: Wes Johnson MD Signed By: <Electronically signed by Wes Johnson MD in OV> 01/26/25 0846 DD/ 0826 TD/TT: 01/26/25 0842 Machine Hoop Maker: Brook Aguilera WAX BLENDER IMG XR PROCEDURES Final Result * CT Head w/o Contrast (12/30/2024 3:07 PM EST) Anatomical Region Laterality Modality Head, Neck Computed Tomogra phy 12/30/2024 3:07 PM EST Narrative 12/30/2024 3:32 PM EST ? [facility] ?[address] ?[place] [address] ? CT Scan Report ? Signed ? Patient: Monte,Abby M ?MR#: [id number] ?? [id number] ? : 1995 ?Acct:[id number] ? Age/Sex: 29 / F ?ADM Date: 02/18/25 ? Loc: HO.CT ? Attending Dr: Bon Coronel MD ? Ordering Physician: BON CORONEL MD ?? Date of Service: 12/30/24 ?? Procedure(s): CT head/brain wo IV con ?? Accession Number(s): [id number] ? cc: BON CORONEL MD; Faviola Da Silva ? Report Number: ?? [id number]: Total DLP = ??790.00 mGy-cm ?? EXAMINATION: [...] DD/ 1507 ? TD/TT: 12/30/24 1521 ? Machine Hoop Maker: ? Procedure Note Donotuseinterpreter, Image - 12/30/[address] [address] CT Scan Report Signed Patient: Abby Monte MMR#: [id number] : 1995Acct:[id number] Age/Sex: 29 / FADM Date: 12/30/24 Loc: HO.CT Attending Dr: Bon Coronel MD Ordering Physician: BON CORONEL MD Date of Service: 12/30/24 Procedure(s): CT head/brain wo IV con Accession Number(s): [id number] cc: BON CORONEL MD; Faviola Da Silva Report Number: [id number]: Total DLP = 790.00 mGy-cm EXAMINATION: CT [...] by: Alen Perez MD 12/30/2024 03:29 PM [facility] Dictated By: Alen Perez MD Signed By: <Electronically signed by Alen Perez MD in OV> 12/30/24 1529 DD/ 1507 TD/TT: 12/30/24 1521 Machine Hoop Maker: us Bon Coronel MD IMG CT PROCEDURES Edited Result - Final * Hepatitis C Antibody with Reflex to HCV, RNA, Quantitative, Real-Time PCR (10/21/2024 8:20 AM EST) Hepatitis C Antibody Nonreactive Nonreactive [facility] Comment:Antibodies to HCV no t detected; does not exclude early acuteHCV infection. Blood Venous blood specimen / Unknown 10/21/2024 8:20 AM EST 10/21/2024 11:46 AM EST us Bon Coronel MD LAB BLOOD ORDERABLES Final Resul t [facility] [address] [place] [phone] * HIV-1/2 Antigen and Antibodies, Fourth Generation, with Reflexes (10/21/2024 8:20 AM EST) HIV AB/AG Nonreactive Nonreactive [facility] Comment:HIV-1 p24 Ag and/or HIV-1/HIV-2 Ab not detected.A test result that is nonreactive does not exclude thepossibility of exposure to or infection with HIV-1 and/orHIV-2. Nonreactive results in this assay for individualswith prior exposure to HIV-1 and/or HIV-2 may be due toantigen and antibody levels that are below the limit ofdetection of this assay.The [employer] HIV Ag/Ab Combo assay result andsupplemental assay results should be interpreted inconjunction with the patient's clinical presentation,history and other laboratory results. If the results areinconsistent with clinical evidence, additional testing issuggested to confirm the result. Blood Venous blood specimen / Unknown 10/21/2024 8:20 AM EST 10/21/2024 11:46 AM EST us Bon Coronel MD LAB BLOOD ORDERABLES Final Resul t [facility] [address] [facility] [place] [address] [phone] from Last 3 Months or Most Recently Relevant to Health Maintenance Insurance [facility] [id number] , [address] [place] [address] [place] Care Teams Wheel Assembler Relationship Specialty Start Date End Date Faviola Da Silva MD [address] [place] [address] [place] [address] PCP - General Family Medicine 09/23/20
--- OUTSIDE RECORDS SUMMARY | 2025-03-25 08:38 | XMS_ITS | Encounter Summary ---
Author Organization [employer] Address [address] [facility] 7t [place] [address] Care Team Providers Care Residential Energy Auditor Name Role Phone Faviola Da Silva MD Primary Care Provider [phone] Encounter Details Date Type Department Care Team (Late st Contact Info) Description 11/01/2022 Orders Only [facility] [address] [place], [place] [phone] Bon Arreaga MD [address] [place], [place] [phone] Bacterial vaginosis (Primary Dx); Candidal vulvovaginitis Social [...] Office Visit [facility] [address] [place] [address] Yuri, Dayna, BRANCH LENDING OFFICER [address] [place], [place] [phone] documented as of this encounter Visit Diagnoses Diagnosis Bacterial vaginosis- Primary Unspecified vaginitis and vulvovaginitis Candidal vulvovaginitis Candidiasis of vulva and vagina documented in this encounter Care Teams Residential Energy Auditor Relationship Specialty Start Date End Date Faviola Da Silva MD [address] [place], [place] [phone] PCP - General Family Medicine 09/23/20 documented as of this encounter
--- OUTSIDE RECORDS SUMMARY | 2025-03-25 08:38 | XMS_ITS | Encounter Summary ---
Author Organization [employer] Address [address] 7t [place] [address] Care Team Providers Care Clothes Separator Name Role Phone Faviola Da Silva MD Primary Care Provider [phone] Encounter Details Date Type Department Care Team ([facility] st Contact Info) Description 10/24/2024 Orders Only [facility] [address] [place], [place] [phone] Bon Arreaga MD [address] [place], [place] [phone] Elevated LFTs (Primary Dx) Social History Tobacco [...] Description 05/04/2025 9:45 AM EDT Office Visit [facility] [address] [place] [address] [place] Dayna, [facility] [address] [place] [address] Scheduled Orders Name Type Priority Associated Diagnoses Orde r Schedule Hepatic Function Panel Lab Routine Elevated LFTs Expected: 10/24/2024 (Approximate), Expires: 10/24/2025 documented as of this encounter Visit Diagnoses Diagnosis Elevated LFTs- Primary Other abnormal blood chemistry documented in this encounter Additional Health Concerns Assessment Noted Time PHQ-9 Depression Total Score: 11 024 2:36 PM EST documented as of this encounter Care Teams Clothes Separator Relationship Specialty Start Date End Date Faviola Da Silva MD [address] [place] [address] PCP - General Family Medicine 09/23/20 documented as of this encounter
--- OUTSIDE RECORDS SUMMARY | 2025-03-25 08:38 | XMS_ITS | Encounter Summary ---
Author Organization [employer] Address [address] [facility] [address] 7t [place] [address] Care Team Providers Care Mason Liner Name Role Phone Faviola Da Silva MD Primary Care Provider [phone] Encounter Details Date Type Department Care Team (Late st Contact Info) Description 08/27/2023 Abstract [facility] [address] [place], [place] [phone] Faviola Da Silva MD [address] [place], [place] [phone] Social History Tobacco Use Types Packs/Day Years [...] Description 05/04/2025 9:45 AM EDT Office Visit [facility] [address] [place] [address] [place] Vista[place] FNP [address] [place], [place] [phone] documented as of this encounter Procedures Procedure [...] on filedocumented in this encounter Care Teams Mason Liner Relationship Specialty Start Date End Date Faviola Da Silva MD [address] [place] [phone] PCP - General Family Medicine 09/23/20 documented as of this encounter
--- OUTSIDE RECORDS SUMMARY | 2025-03-25 08:38 | XMS_ITS | Encounter Summary ---
Author Organization [employer] Address [address] [facility] [address] 7[address] [place] [address] Care Team Providers Care Digital Performance Analyst Name Role Phone Faviola Da Silva MD Primary Care Provider [phone] Encounter Details Date Type Department Care Team ([facility] st Contact Info) Description 10/01/2024 Orders Only [facility] [address] [place], [place] [phone] Faviola Da Silva MD [address] [place], [place] [phone] Social History Tobacco Use Types Packs/Day Years [...] Description 05/04/2025 9:45 AM EDT Office Visit [facility] [address] [place] [address] [place] FNP [address] [place] [address] documented as of this encounter Visit Diagnoses Not on filedocumented in this encounter Additional Health Concerns Assessment Noted Time PHQ-9 Depression Total Score: 0 12/18/19 24 10:46 AM EST documented as of this encounter Care Teams Digital Performance Analyst Relationship Specialty Start Date End Date Faviola Da Silva MD [address] [place] [address] PCP - General Family Medicine 09/23/20 documented as of this encounter
--- OUTSIDE RECORDS SUMMARY | 2025-03-25 08:38 | XMS_ITS | Encounter Summary ---
Author Organization [employer] Address [address] [facility] 7t [place] [address] Care Team Providers Care Station Repairer Name Role Phone Faviola Da Silva MD Primary Care Provider [phone] Reason for Visit * Reason Comments [facility] Encounter Details Date Type Department Care Team (Late st Contact Info) Description 05/09/2023 Abstract [facility] [address] [place] [address] [phone] Faviola Da Silva MD [address] [place] [phone] Social History Tobacco Use Types Packs/Day Years [...] Description 05/04/2025 9:45 AM EDT Office Visit [facility] [address] [place] [phone] PrideDayna, SOCIAL AND HUMAN SERVICES ASSISTANT [address] [place], [place] [phone] documented as of this encounter Visit Diagnoses Not on filedocumented in this encounter Care Teams Station Repairer Relationship Specialty Start Date End Date Faviola Da Silva MD [address] [place], [place] [phone] PCP - General Family Medicine 09/23/20 documented as of this encounter
--- OUTSIDE RECORDS SUMMARY | 2025-03-25 08:38 | XMS_ITS | Encounter Summary ---
Author Organization [employer] Address [address] [facility] 7t [place] [address] Care Team Providers Care Embedded Systems Software Engineer Name Role Phone Faviola Da Silva MD Primary Care Provider [phone] Encounter Details Date Type Department Care Team (Late st Contact Info) Description 06/05/2023 Abstract [facility] [address] [place] [address] [phone] Faviola Da Silva MD [address] [place], [place] [phone] Social History Tobacco Use Types Packs/Day Years [...] Description 05/04/2025 9:45 AM EDT Office Visit [facility] 230 [place] [address] WakefieldDayna FNP 230 [place], [place] [phone] documented as of this encounter Visit Diagnoses Not on filedocumented in this encounter Care Teams Embedded Systems Software Engineer Relationship Specialty Start Date End Date Faviola Da Silva MD 230 [place] [address] PCP - General Family Medicine 09/23/20 documented as of this encounter
--- OUTSIDE RECORDS SUMMARY | 2025-03-25 08:38 | XMS_ITS | Clinical Summary ---
Author Organization [employer] it[employer] Address [address] [place] [address] Care Team Providers Care Leather Sponger Name Role Phone Faviola Da Silva MD Primary Care Provider [phone] Surgical History Surgery Date Site/Laterality Comments OTHER [...] age to complete this topic Care Teams Leather Sponger Relationship Specialty Start Date End Date Faviola Da Silva MD 230 [place] [address] PCP - General 06/27/24
--- OUTSIDE RECORDS SUMMARY | 2025-03-25 08:38 | XMS_ITS | Encounter Summary ---
Author Organization [employer] Address [address] [facility] [address] 7t [place] [address] Care Team Providers Care Handy Man Name Role Phone Faviola Da Silva MD Primary Care Provider [phone] Encounter Details Date Type Department Care Team ([facility] st Contact Info) Description 09/03/2023 Orders Only [facility] 230 [place], [place] [phone] Faviola Da Silva MD 230 [place], [place] [phone] Social History Tobacco Use Types Packs/Day Years [...] Office Visit [facility] 230 [place] [address] KarthausDayna limon FNP 230 [place] [address] documented as of this encounter Visit Diagnoses Not on filedocumented in this encounter Care Teams Handy Man Relationship Specialty Start Date End Date Faviola Da Silva MD [address] [place] [address] PCP - General Family Medicine 09/23/20 documented as of this encounter
[2025-03-25 08:42] VITALS: BP 119/69; PULSE 104; BMI 34.1
--- NOTE | 2025-03-25 08:42 | A.OFFVIS_ITS ---
Vital Signs 03/25/25 08:42 Height 5 ft 10 in Weight 238 lb BMI 34.1 BP 119/69 Blood Pressure Location Rt brachial Position Sitting Pulse 104 H Intake Visit Reasons: Biopsy rt breast, 5'oclock and 7'oclock mass Intake Note: Patient referred by [facility] for Rt br bx, 5 o'clock and 7 o'clock mass. Rt br US: 03-09-2025 Supervisor Public Health Nursing Required: No Accompanied by: Self / Same As Patient Allergies No Known Allergies [No Known Allergies*] Allergy (Verified 03/25/25 08:43) Medication List - Last Reconciled 03/25/25 by Aden Fernández MD bupropion HCl XL 150 mg PO DAILY duloxetine 60 mg PO DAILY HPI HPI Biopsy rt breast, 5'oclock and 7'oclock mass: Details: [age] year old female. She states that she felt a lump on the medial aspect of her right breast near the nipple starting about 9 months ago after she had delivered a baby. She says that this has not increased in size. She describes some discomfort. She denies any skin changes or nipple changes. She had mentioned this to her primary care physician so she was sent for an ultrasound which showed 2 masses in the right breast. An ultrasound biopsy was therefore recommended by the radiologist There was note of a solid irregular mass at the 5 o'clock position 41 x 19 x 31 mm in size. There was a 2nd mass at the 7 o'clock position measuring 17 x 9 x 18 mm. Her menarche was at age of 13. Her 1st was at age of 20. She had 2 pregnancies. She has regular periods She says her maternal grand mother had breast cancer past her 60s. Her grandmother and also had breast cancer around the age. She had a maternal aunt who had breast cancer in her 50s. [facility] Medical History Breast mass, right Family history of breast cancer Left breast mass No known health problems Social History Alcohol intake: never Female Reproductive History Menstrual Age of Menarche: 13 Review of Systems Const Denies chills and Denies fever(s) Card Denies chest pain, Denies dyspnea and Denies dyspnea on exertion Resp Denies cough, Denies dyspnea and Denies dyspnea on exertion GI Denies hematochezia and Denies change in bowel habits Denies hematuria Musc Denies back pain and Denies limited range of motion Neuro Denies focal weakness and Denies convulsions Psych Denies depression and Denies mood swings Physical Exam Vital Signs: Last Vital Signs Pulse 104 H 03/25/25 08:42 BP 119/69 03/25/25 08:42 BMI result Body Mass Index 34.1 Const General: comfortable and no acute distress Nutritional Appearance: obese Orientation/consciousness: patient oriented x3 Neck Neck: Yes no lymphadenopathy Chest Other: Very large and pendulous breasts, I am unable to palpate for the masses seen on the ultrasound on the right breast; no axillary lymphadenopathy; no nipple or skin changes Resp Auscultation: clear to auscultation bilaterally Cardio Rhythm: regular rhythm GI Palpation (GI): Soft to palpation, nontender and no guarding Neuro General: patient oriented x3 Assessment & Plan Assessment & Plan (1) Breast mass, right: Code(s): N63.10 - Unspecified lump in the right breast, unspecified quadrant Category: Medical Plan: She has 2 right breast masses as described above. An ultrasound biopsy had been recommended by the radiologist. I explained to her the technique of this procedure. I we will see her in the office thereafter to review the path re port. She says she understands the plan well. Orders: Orders US breast ndl core biopsy RT 03/24/25 N63.10 - Unspecified lump in the right breast, unspecified quadrant US breast ndl core bio ea add 03/24/25 N63.10 - Unspecified lump in the right breast, unspecified quadrant Coding Level of Care Code New Pt Level 3 (70615) Diagnoses Breast mass, right N63.10
== END 2025-03-25 08:44 | disposition home or self-care (01) ==
LOC: HO.HGS 08:26
PROVIDERS: PCP General Practice; Visit Provider Surgery
DX: N63.10 Unspecified lump in the right breast, unspecified quadrant (principal)
CPT/HCPCS: 99213

== ENCOUNTER 2025-03-25 08:49 | Outpatient (REF) | payer OTHER, SELFPAY ==
--- NOTE | ~2025-03-25 | MM_ITS ---
PROCEDURE: ULTRASOUND-GUIDED RIGHT BREAST BIOPSY CLINICAL INFORMATION: 2 hypoechoic solid masses in the right breast COMPARISON: Prior's on PACS. TECHNIQUE: The details of the procedure, as well as the risks, benefits, and alternatives to the procedure were explained to the patient in detail and all of her questions were answered, after which, written informed consent was obtained. PROCEDURE: Site 1 5:00 3 cm from the nipple: Prior to the procedure, sonography revealed a solid irregular hypoechoic mass at 5:00 3 cm from the nipple measuring up to 41 mm.. A time-out was performed, the lesion intended for biopsy was targeted and the skin of the right breast was then prepped and draped in the usual sterile fashion. Using sonographic guidance, sterile technique, and 1% lidocaine without epinephrine for local anesthesia, a total of 5 cores were obtained through the targeted area with a 14-gauge biopsy device. At the completion of tissue sampling, a single butterfly metallic clip was deposited at the biopsy site. An appropriate sample was obtained. Site 2 mass at 7:00 6 cm from the nipple: Prior to the procedure, sonography revealed solid mass at 7:00 6 7 m from the nipple. A time-out was performed, the lesion intended for biopsy was targeted and the skin of the right breast was then prepped and draped in the usual sterile fashion. Using sonographic guidance, sterile technique, and 1% lidocaine without epinephrine for local anesthesia, a total of 4 cores were obtained through the targeted area with a 14-gauge biopsy device. At the completion of tissue sampling, a single coil metallic clip was deposited at the biopsy site. An appropriate sample was obtained. The postprocedure 2-view direct digital mammogram reveals satisfactory positioning of the biopsy clips. The patient tolerated the procedure well and, after assuring adequate hemostasis, was discharged in good condition after reviewing postbiopsy breast care instructions. Final pathology results are pending. MM/MM tomosynthesis diagnostic RT IMPRESSION: 1. Uncomplicated sonographically-guided core biopsy of the right breast at 2 sites breast. The 2-view direct digital postprocedure mammogram reveals satisfactory positioning of the biopsy clips. 2. Final pathology results are pending. A separate report with final recommendations will be issued once these results are made available. Electronically signed by: Krys Garcia DO 03/25/2025 11:07 AM EDT RP
--- OUTSIDE RECORDS SUMMARY | 2025-03-25 09:11 | XMS_ITS | Encounter Summary ---
Author Organization [employer] Address 75 [facility] 7t [place] [address] Care Team Providers Care Die Cast Patternmaker Name Role Phone Faviola Da Silva MD Primary Care Provider [phone] Reason for Visit * Reason Comments [facility] Encounter Details Date Type Department Care Team (Late st Contact Info) Description 05/09/2023 Abstract [facility] MEDICINE [address] [place] [address] [phone] Faviola Da Silva MD [address] [place] [address] [phone] Social History Tobacco Use Types Packs/Day Years [...] Description 05/04/2025 9:45 AM EDT Office Visit [facility] MED[facility] [address] [place] [address] PittsburghDayna, USER EXPERIENCE RESEARCHER 230 [place], [place] [phone] documented as of this encounter Visit Diagnoses Not on filedocumented in this encounter Care Teams Die Cast Patternmaker Relationship Specialty Start Date End Date Faviola Da Silva MD 230 [place], [place] [phone] PCP - General Family Medicine 09/23/20 documented as of this encounter
--- OUTSIDE RECORDS SUMMARY | 2025-03-25 09:11 | XMS_ITS | Encounter Summary ---
Author Organization [employer] Address [address] [facility] [address] 7t [place] [address] Care Team Providers Care Correctional Treatment Specialist Name Role Phone Faviola Da Silva MD Primary Care Provider [phone] Encounter Details Date Type Department Care Team ([facility] st Contact Info) Description 09/03/2023 Orders Only [facility] MEDICINE 230 [place], [place] [phone] Faviola Da Silva MD 230 [place], [place] [phone] Social History Tobacco Use Types Packs/Day Years [...] [facility] 230 [place] [address] [place]Dayna limon FNP 230 [place] [address] documented as of this encounter Visit Diagnoses Not on filedocumented in this encounter Care Teams Correctional Treatment Specialist Relationship Specialty Start Date End Date Faviola Da Silva MD 230 [place] [address] PCP - General Family Medicine 09/23/20 documented as of this encounter
--- OUTSIDE RECORDS SUMMARY | 2025-03-25 09:11 | XMS_ITS | Encounter Summary ---
Author Organization [employer] Address [address] [facility] [address] 7t [place] [address] Care Team Providers Care Plant Reliability Engineer Name Role Phone Faviola Da Silva MD Primary Care Provider [phone] Encounter Details Date Type Department Care Team ([facility] st Contact Info) Description 10/01/2024 Orders Only [facility] MEDICINE 230 [place], [place] [phone] Faviola Da Silva MD 230 [place], [place] [phone] Social History Tobacco Use Types Packs/Day Years [...] 05/04/2025 9:45 AM EDT Office Visit [facility] 230 [place] [address] [place]Dayna FNP 230 [place] [address] documented as of this encounter Visit Diagnoses Not on filedocumented in this encounter Additional Health Concerns Assessment Noted Time PHQ-9 Depression Total Score: 0 12/18/19 24 10:46 AM EST documented as of this encounter Care Teams Plant Reliability Engineer Relationship Specialty Start Date End Date Faviola Da Silva MD 230 [place] [address] PCP - General Family Medicine 09/23/20 documented as of this encounter
--- OUTSIDE RECORDS SUMMARY | 2025-03-25 09:11 | XMS_ITS | Encounter Summary ---
Author Organization [employer] Address [address] [facility] 7t [place] [address] Care Team Providers Care Nurse Epidemiologist Name Role Phone Faviola Da Silva MD Primary Care Provider [phone] Encounter Details Date Type Department Care Team (Late st Contact Info) Description 11/01/2022 Orders Only [facility] [address] [place], [place] [phone] Bon Arreaga MD 230 [place], [place] [phone] Bacterial vaginosis (Primary Dx); Candidal vulvovaginitis Social [...] 9:45 AM EDT Office Visit [facility]INE 230 [place] [address] Yuri, Dayna, DATA TRANSCRIBER 230 [place], [place] [phone] documented as of this encounter Visit Diagnoses Diagnosis Bacterial vaginosis- Primary Unspecified vaginitis and vulvovaginitis Candidal vulvovaginitis Candidiasis of vulva and vagina documented in this encounter Care Teams Nurse Epidemiologist Relationship Specialty Start Date End Date Faviola Da Silva MD 230 [place], [place] [phone] PCP - General Family Medicine 09/23/20 documented as of this encounter
--- OUTSIDE RECORDS SUMMARY | 2025-03-25 09:11 | XMS_ITS | Clinical Summary ---
Author Organization [employer] Address [address] [place] [address] Care Team Providers Care Dishwasher Name Role Phone Faviola Da Silva MD Primary Care Provider [phone] Surgical History Surgery Date Site/Laterality Comments OTHER [...] age to complete this topic Care Teams Dishwasher Relationship Specialty Start Date End Date Faviola Da Silva MD 230 [place] [address] PCP - General 06/27/24
--- OUTSIDE RECORDS SUMMARY | 2025-03-25 09:11 | XMS_ITS | Clinical Summary ---
Author Organization [employer] Address 75 [facility] 7t [place] [address] Care Team Providers Care Program Mgr Name Role Phone Faviola Da Silva MD Primary Care Provider [phone] Allergies No known active allergies Medications * This document contains information received from the source organization and may not represent a complete record from that organization. Spacer/Aero-Holdi ng Chambers (OptiChamber Violet) [facility] OptiChamber Violet [facility] spacer Q4h prn 2 Active hydrocortisone (Anusol-HC) [...] BID from 150mg BID Begin treatment at [facility] for OP Located PPD support group [...] c. 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 Overview (10/13/2022): Non immune to hepatitis B and non immune to hepatitis A per previous EHR Overweight 12/09/2018 Intermittent vertigo 04/05/2018 Weight gain 04/05/2018 Encounters Date Type Department Care Team Description 03/09/2025 Orders Only [facility] [address] [place] [address] Faviola Da Silva MD 02/25/2025 5:20 PM EDT Office Visit [facility] [address] [address] Harper, Dayna, LEATHER PARTS MATCHER Anxiety (Primary Dx) 02/25/2025 Travel 02/17/2025 Refill [facility] [address] [address] Brook Aguilera NP Pain in the coccyx 01/19/2025 1:40 PM EDT [facility] [address] [address] Carter Bryan MD Nasal congestion (Primary Dx); COVID-19 01/08/2025 4:00 PM EST [facility] [address] [address] Brook Aguilera NP Pain in the coccyx (Primary Dx) 12/30/2024 Telephone [facility] [address] [address] Bon Coronel MD from Last 3 Months [...] Description 05/04/2025 9:45 AM EDT Office Visit [facility] 230 [place] [address] Harper Dayna [facility] 230 [place] [address] Health Maintenance Due Date Last Done Comments [...] EDT Narrative 03/09/2025 11:00 AM EDT ? [facility] [place] ? [facility] ?[place] [address] ? Ultrasound Report ? Signed ? Patient: Monte,Abby M ?MR#: [id number] ?? [id number] ? : 1995 ?Acct:[id number] ? Age/Sex: 29 / F ?ADM Date: 04/28/25 ? Loc: HO.MAMMO ? Attending Dr: Faviola Da Silva MD ? Ordering Physician: Faviola Da Silva ?? Date of Service: 03/09/25 ?? Procedure(s): US breast RT limited mamm only ?? Accession Number(s): [id number] ? cc: Faviola Da Silva ? EXAMINATION: [...] DD/ 0800 ? TD/TT: 03/09/25 0840 ? Maintenance Mechanic Technician: ? Procedure Note Rodney, Marimar - 03/09/2025 [address] [address] [place], [place] [address] Ultrasound Report Signed Patient: Abby Monte MMR#: [id number] : 1995Acct:[id number] Age/Sex: 29 / FADM Date: 03/09/25 Loc: HO.MAMMO Attending Dr: Faviola Da Silva MD Ordering Physician: Faviola Da Silva Date of Service: 03/09/25 Procedure(s): US breast RT limited mamm only Accession Number(s): [id number] cc: Faviola Da Silva EXAMINATION: US DIAGNOSTIC [...] 03/09/25 1058 DD/ 0800 TD/TT: 03/09/25 0840 Maintenance Mechanic Technician: us Faviola Da Silva MD IMG US PROCEDURES Final Result * XR Sacrum Coccyx 2+ Views (01/26/2025 8:26 AM EDT) Anatomical Region Laterality Modality Sacrum, Coccyx Radiographic Constanza ging 01/26/2025 8:26 AM EDT Narrative 01/26/2025 8:49 AM EDT ?[facility] ?[address] ?[place] [address] ?XRay Report ? Signed ? Patient: Lavell,Abby Soto ?MR#: [id number] ?? [id number] ? : 1995 ?Acct:[id number] ? Age/Sex: 29 / F ?ADM Date: 01/26/25 ? Loc: HO.HHCX ? Attending Dr: Brook Aguilera ? Ordering Physician: Brook Aguilera ?? Date of Service: 01/26/25 ?? Procedure(s): XR sacrum coccyx min 2V ?? Accession Number(s): [id number] ? cc: Brook Aguilera ? EXAMINATION: ??XR [...] DD/ 0826 ? TD/TT: 01/26/25 0842 ? Maintenance Mechanic Technician: ? Procedure Note Rodney, Image - 03/17/2025 [facility] [address] [place] [address] XRay Report Signed Patient: Abby Monte MMR#: [id number] : 1995Acct:[id number] Age/Sex: 29 / FADM Date: 01/26/25 [facility] Dr: Brook Aguilera Ordering Physician: Brook Aguilera Date of Service: 01/26/25 Procedure(s): XR sacrum coccyx min 2V Accession Number(s): [id number] cc: Brook Aguilera EXAMINATION: XR SACRUM COCCYX [...] 01/26/25 0846 DD/ 0826 TD/TT: 01/26/25 0842 Maintenance Mechanic Technician: Brook Aguilera LEGAL CASHIER IMG XR PROCEDURES Final Result * CT Head w/o Contrast (12/30/2024 3:07 PM EST) Anatomical Region Laterality Modality Head, Neck Computed Tomogra phy 12/30/2024 3:07 PM EST Narrative 12/30/2024 3:32 PM EST ? [facility] ?[address] ?[place] [address] ? CT Scan Report ? Signed ? Patient: Monte,Abby M ?MR#: [id number] ?? [id number] ? : 1995 ?Acct:[id number] ? Age/Sex: 29 / F ?ADM Date: 02/18/25 ? Loc: HO.CT ? Attending Dr: Bon Coroenl MD ? Ordering Physician: BON CORONEL MD ?? Date of Service: 12/30/24 ?? Procedure(s): CT head/brain wo IV con ?? Accession Number(s): [id number] ? cc: BON CORONEL MD; Faviola Da Silva ? Report Number: ?? [id number]: Total DLP = ??790.00 mGy-cm ?? EXAMINATION: [...] DD/ 1507 ? TD/TT: 12/30/24 1521 ? Maintenance Mechanic Technician: ? Procedure Note Donotuseinterpreter, Image - 12/30/[address] [address] [address] Scan Report Signed Patient: Abby Monte MMR#: [id number] : 1995Acct:[id number] Age/Sex: 29 / FADM Date: 12/30/24 Loc: HO.CT Attending Dr: Bon Coronel MD Ordering Physician: BON CORONEL MD Date of Service: 12/30/24 Procedure(s): CT head/brain wo IV con Accession Number(s): [id number] cc: BON CORONEL MD; Faviola Da Silva Report Number: [id number]: Total DLP = 790.00 mGy-cm EXAMINATION: CT [...] 03:29 PM [facility] Dictated By: Alen Perez MD Signed By: <Electronically signed by Alen Perez MD in OV> 12/30/24 1529 DD/ 1507 TD/TT: 12/30/24 1521 Maintenance Mechanic Technician: us Bon Coronel MD IMG CT PROCEDURES Edited Result - Final * Hepatitis C Antibody with Reflex to HCV, RNA, Quantitative, Real-Time PCR (10/21/2024 8:20 AM EST) Hepatitis C Antibody Nonreactive Nonreactive [facility] Comment:Antibodies to HCV no t detected; does not exclude early acuteHCV infection. Blood Venous blood specimen / Unknown 10/21/2024 8:20 AM EST 10/21/2024 11:46 AM EST us Bon Coronel MD LAB BLOOD ORDERABLES Final Resul t [facility] [address] [place] [phone] * HIV-1/2 Antigen and Antibodies, Fourth Generation, with Reflexes (10/21/2024 8:20 AM EST) HIV AB/AG Nonreactive Nonreactive [facility] Comment:HIV-1 p24 Ag and/or HIV-1/HIV-2 Ab not detected.A test result that is nonreactive does not exclude thepossibility of exposure to or infection with HIV-1 and/orHIV-2. Nonreactive results in this assay for individualswith prior exposure to HIV-1 and/or HIV-2 may be due toantigen and antibody levels that are below the limit ofdetection of this assay.The [employer] HIV Ag/Ab Combo assay result andsupplemental assay results should be interpreted inconjunction with the patient's clinical presentation,history and other laboratory results. If the results areinconsistent with clinical evidence, additional testing issuggested to confirm the result. Blood Venous blood specimen / Unknown 10/21/2024 8:20 AM EST 10/21/2024 11:46 AM EST us Bon Coronel MD LAB BLOOD ORDERABLES Final Resul t [facility] [address] [facility] [place] [address] [phone] from Last 3 Months or Most Recently Relevant to Health Maintenance Insurance [facility] [id number] , [address] [place] [address] [place] Care Teams Program Mgr Relationship Specialty Start Date End Date Faviola Da Silva MD [address] [place] [address] [place] [address] PCP - General Family Medicine 09/23/20
--- OUTSIDE RECORDS SUMMARY | 2025-03-25 09:11 | XMS_ITS | Encounter Summary ---
Author Organization [employer] Address [address] [facility] [address] 7t [place] [address] Care Team Providers Care Metal Sander Name Role Phone Faviola Da Silva MD Primary Care Provider [phone] Encounter Details Date Type Department Care Team ([facility] st Contact Info) Description 10/24/2024 Orders Only [facility] 230 [place], [place] [phone] Bon Arreaga MD 230 [place], [place] [phone] Elevated LFTs (Primary Dx) Social History Tobacco [...] Description 05/04/2025 9:45 AM EDT Office Visit [facility] MEDICINE 230 [place] [address] [place] Dayna, [facility] 230 [place] [address] Scheduled Orders Name Type Priority Associated Diagnoses Orde r Schedule Hepatic Function Panel Lab Routine Elevated LFTs Expected: 10/24/2024 (Approximate), Expires: 10/24/2025 documented as of this encounter Visit Diagnoses Diagnosis Elevated LFTs- Primary Other abnormal blood chemistry documented in this encounter Additional Health Concerns Assessment Noted Time PHQ-9 Depression Total Score: 11 024 2:36 PM EST documented as of this encounter Care Teams Metal Sander Relationship Specialty Start Date End Date Faviola Da Silva MD [address] [place] [address] PCP - General Family Medicine 09/23/20 documented as of this encounter
--- OUTSIDE RECORDS SUMMARY | 2025-03-25 09:12 | XMS_ITS | Encounter Summary ---
Author Organization [employer] Address [address] [place] [address] 7 [place] [address] Care Team Providers Care Income Tax Return Preparer Name Role Phone Faviola Da Silva MD Primary Care Provider [phone] Reason for Visit * Reason Comments Chart update mammo Encounter Details Date Type Department Care Team (Late st Contact Info) Description 07/04/2023 Abstract [facility] MEDICINE 230 [place], [place] [phone] Lesly Win Social History Tobacco Use Types [...] Office Visit [facility] MEDICINE 230 [place], [place] [phone] BaldwinDayna [facility] 230 [place], [place] [phone] documented as of this encounter Visit Diagnoses Not on filedocumented in this encounter Care Teams Income Tax Return Preparer Relationship Specialty Start Date End Date Faviola Da Silva MD 230 [place] [address] PCP - General Family Medicine 09/23/20 documented as of this encounter
--- OUTSIDE RECORDS SUMMARY | 2025-03-25 09:12 | XMS_ITS | Encounter Summary ---
Author Organization [employer] Address [address] [facility] [address] 7t [place] [address] Care Team Providers Care Utility Spray Operator Name Role Phone Faviola Da Silva MD Primary Care Provider [phone] Encounter Details Date Type Department Care Team (Late st Contact Info) Description 08/27/2023 Abstract [facility] MEDICINE [address] [place], [place] [phone] Faviola Da Sliva MD 230 [place], [place] [phone] Social History Tobacco Use Types Packs/Day Years [...] Description 05/04/2025 9:45 AM EDT Office Visit [facility] MEDICINE [address] [place] [address] JalDayna FNP 230 [place], [place] [phone] documented as of this encounter Procedures Procedure [...] on filedocumented in this encounter Care Teams Utility Spray Operator Relationship Specialty Start Date End Date Faviola Da Silva MD [address] [place] [phone] PCP - General Family Medicine 09/23/20 documented as of this encounter
--- OUTSIDE RECORDS SUMMARY | 2025-03-25 09:12 | XMS_ITS | Encounter Summary ---
Author Organization [employer] Address [address] [facility] 7t [place] [address] Care Team Providers Care Chiropractic Assistant Name Role Phone Faviola Da Silva MD Primary Care Provider [phone] Encounter Details Date Type Department Care Team (Late st Contact Info) Description 06/05/2023 Abstract [facility] [address] [place] [address] [phone] Faviola Da Silva MD [address] [place], [place] [phone] Social History Tobacco Use Types Packs/Day Years [...] Description 05/04/2025 9:45 AM EDT Office Visit [facility] 230 [place] [address] [place]Day[place] FNP [address] [place], [place] [phone] documented as of this encounter Visit Diagnoses Not on filedocumented in this encounter Care Teams Chiropractic Assistant Relationship Specialty Start Date End Date Faviola Da Silva MD [address] [place] [address] PCP - General Family Medicine 09/23/20 documented as of this encounter
[2025-03-25] MEDS: Sodium Bicarbonate 8.4% 50 MEQ/50 ML VIAL SUBCUT (10:33)
[2025-03-25] MEDS: Lidocaine HCl 1 % 20 ML VIAL 18 ML SUBCUT (10:34)
== END 2025-03-25 08:50 | disposition home or self-care (01) ==
LOC: HO.MAMMO 08:49
PROVIDERS: PCP General Practice; Visit Provider Surgery
DX: N63.13 Unspecified lump in the right breast, lower outer quadrant (principal); N63.14 Unspecified lump in the right breast, lower inner quadrant
CPT/HCPCS: 19083; 19084; 77061; 77065; 88305; A4648; J2003

== ENCOUNTER → 2025-03-25 10:00 | Outpatient (BNV) | payer OTHER, SELFPAY | PROVIDERS: PCP General Practice; Visit Provider Internal Medicine | DX: N63.15 Unspecified lump in the right breast, overlapping quadrants (principal) | CPT/HCPCS: 19083; 19084; 77065 ==

== ENCOUNTER 2025-04-16 13:41 | Outpatient (AMB) | payer OTHER, SELFPAY ==
--- NOTE | 2025-04-16 13:50 | A.OFFVIS_ITS ---
Vital Signs 04/16/25 14:02 Weight 238 lb BP not taken reason Patient Refused Intake Visit Reasons: s/p Biopsy rt breast, 5'oclock and 7'oclock mass Intake Note: Patient here s/p Rt br bx, 5o'clock and 7o'clock mass from 03-25-2025. Reports bx site healing well. Patient c/o: no concerns. Reports bx site healing well. Orthotic Practitioner Required: No Accompanied by: Self / Same As Patient Allergies No Known Allergies [No Known Allergies*] Allergy (Verified 04/16/25 13:53) Medication List - Last Reconciled 04/16/25 by Aden Fernández MD bupropion HCl XL 150 mg PO DAILY duloxetine 60 mg PO DAILY HPI HPI s/p Biopsy rt breast, 5'oclock and 7'oclock mass: Details: I had seen her in the office last month because of breast masses. I had ordered for an ultrasound guided biopsy for these 2 masses on the right breast She says she tolerated the procedure well. She denies any complaints currently. [facility] Medical History Breast mass, right Family history of breast cancer Left breast mass No known health problems Social History Alcohol intake: never Female Reproductive History Menstrual Age of Menarche: 13 Review of Systems Const Denies chills and Denies fever(s) Card Denies chest pain, Denies dyspnea and Denies dyspnea on exertion Resp Denies cough, Denies dyspnea and Denies dyspnea on exertion GI Denies hematochezia and Denies change in bowel habits Denies hematuria Musc Denies back pain and Denies limited range of motion Neuro Denies focal weakness and Denies convulsions Psych Denies depression and Denies mood swings Physical Exam Const General: comfortable and no acute distress Chest Other: Large pendulous breasts, no obvious palpable mass, no nipple or skin changes Resp Effort & Inspection: normal respiratory effort Assessment & Plan Assessment & Plan (1) Breast mass, right: Code(s): N63.10 - Unspecified lump in the right breast, unspecified quadrant Category: Medical Plan: She had ultrasound biopsy of 2 masses on the right breast last month. Her path report showed dermal fibrosis line by benign epithelium. I explained to her the benign nature of this pathology. 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 She has notices any changes or increasing size, she can come back to the office to be re-evaluated. She is comfortable with the plan. 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
--- OUTSIDE RECORDS SUMMARY | 2025-04-16 16:12 | XMS_ITS | Encounter Summary ---
Author Organization [employer] Address [address] [facility] [address] 7t [place] [address] Care Team Providers Care Windows Application Developer Name Role Phone Faviola Da Silva MD Primary Care Provider [phone] Encounter Details Date Type Department Care Team ([facility] st Contact Info) Description 09/03/2023 Orders Only [facility] [address] [place], [place] [phone] Faviola Da Silva MD 230 [place], [place] [phone] Social History Tobacco Use Types Packs/Day Years [...] Description 05/04/2025 9:45 AM EDT Office Visit [facility] [address] [place] [address] Dayna Welch FNP [address] [place] [address] documented as of this encounter Visit Diagnoses Not on filedocumented in this encounter Care Teams Windows Application Developer Relationship Specialty Start Date End Date Faviola Da Silva MD [address] [place] [phone] PCP - General Family Medicine 09/23/20 documented as of this encounter
== END 2025-04-16 14:01 | disposition home or self-care (01) ==
LOC: HO.HGS 13:41
PROVIDERS: PCP General Practice; Visit Provider Surgery
DX: N63.10 Unspecified lump in the right breast, unspecified quadrant (principal)
CPT/HCPCS: 99213

== ENCOUNTER 2025-06-03 13:21 | Outpatient (REF) | payer OTHER, SELFPAY ==
--- OUTSIDE RECORDS SUMMARY | 2025-06-03 13:52 | XMS_ITS | Clinical Summary ---
Author Organization [employer] Address [address] [place] [address] Care Team Providers Care Single Pointed Operator Name Role Phone Faviola Da Silva MD Primary Care Provider [phone] Surgical History Surgery Date Site/Laterality Comments OTHER [...] Smear 2017 Cholesterol Screening (Lipid Panel) 06/04/2024 HIV Screening 06/04/2024 Hepatitis C Screening 06/04/2024 Social Influencers of Health Screening 06/04/2024 COVID-19 Vaccine ( - 2023-2 5 season) 2024 Depression Screening 11/12/2024 Influenza Vaccine (#1) 2025 Varicella Vaccines Aged Out 2024 No [...] 5 Years) and At-Risk Patients (6 to 49 Years) Aged Out No longer eligi ble based on patient's age to complete this topic RSV Immunization Patients Un heather 20 months Aged Out No longer eligible b ased on patient's age to complete this topic Care Teams Single Pointed Operator Relationship Specialty Start Date End Date Faviola Da Silva MD [address] [place] [address] PCP - General 06/27/24
[2025-06-03 16:34] LABS: MANUAL DIFF FLAG NO
[2025-06-03 16:38] LABS: Hematocrit 37.7 % (37.0-47.0); Hemoglobin 12.8 g/dl (12.0-16.0); Imm Gran Abs Auto 0.04 X10*3/uL (0.00-0.03); Imm Gran Pct Auto 0.4 % (0.0-0.4); Lymphocytes Absolute Auto 2.0 X10*3/uL (1.2-4.9); Mean Corpuscular HGB Conc 34.0 g/dl (31.0-35.0); Mean Corpuscular Hemoglobin 30.3 pg (27.0-33.0); Mean Corpuscular Volume 89.1 fL (80.0-98.0); NRBC Abs Auto 0.000 X10*3/uL (0.0-0.012); NRBC Pct Auto 0.0 /100WBC (0.0-0.2); Platelet Count 357 X10*3/uL (160-400); Red Blood Count 4.23 X10*6/uL (4.20-5.50); White Blood Count 9.1 X10*3/uL (4.8-10.8)
[2025-06-03 16:57] LABS: Alanine Aminotransferase 26 U/L (0-31); Albumin Level 4.7 g/dL (3.5-5.0); Alkaline Phosphatase 124 U/L (39-117); Anion Gap 12 (12-20); Aspartate Amino Transferase 20 U/L (5-31); Blood Urea Nitrogen 9 mg/dL (9-16); Calcium 9.1 mg/dL (8.4-10.2); Carbon Dioxide 26 mmol/L (22-29); Chloride 107 mmol/L (96-108); Estimated Glomerular Filt Rate > 60; Magnesium 2.2 mg/dL (1.6-2.6); Potassium 3.5 mmol/L (3.3-5.1); Sodium 141 mmol/L (135-145); Total Protein 7.1 g/dL (6.5-8.0)
[2025-06-03 17:24] LABS: Folate 7.3 ng/mL (> or = 4.0); Vitamin B12 205 pg/mL (200-900)
== END 2025-06-03 13:22 | disposition home or self-care (01) ==
LOC: HO.HHCL 13:21
PROVIDERS: Emergency Medicine; PCP General Practice; Visit Provider Internal Medicine
DX: R42 Dizziness and giddiness (principal); R79.89 Other specified abnormal findings of blood chemistry
CPT/HCPCS: 36415; 80053; 80076; 82248; 82306; 82607; 82746; 83735; 84443; 85025; 85652

== ENCOUNTER 2025-08-14 10:56 | Outpatient (REF) | payer OTHER, SELFPAY ==
--- NOTE | ~2025-08-14 | US_ITS ---
CLINICAL HISTORY: ELEVATED ALK PHOS --- Additional Notes or Special Instructions: US LIVER per order US abdomen limited Comparison: None provided Findings: The visualized pancreas is normal. The aorta and inferior vena cava are normal caliber. The appearance of the liver suggests fatty infiltration. There is no intrahepatic bile duct dilatation. The common duct is 4.0 mm in diameter. There are gallstones. The gallbladder is otherwise normal. There is no sonographic Allen sign. The main portal vein is antegrade. The right kidney is 12.9 cm in length. No ascites. IMPRESSION: 1. Cholelithiasis. 2. Hepatic steatosis This document has been electronically signed by: Theron Santoyo MD on 08/15/2025 09:11:05
--- OUTSIDE RECORDS SUMMARY | 2025-08-14 12:15 | XMS_ITS | Encounter Summary ---
Author Organization [employer] Address [address] [facility] [address] 7t [place] [address] Care Team Providers Care Weaving Inspector Name Role Phone Faviola Da Silva MD Primary Care Provider [phone] Encounter Details Date Type Department Care Team ([facility] Contact Info) Description 04/17/2025 Orders Only [facility] [address] [place], [place] [phone] Faviola Da Silva MD 230 [place], [place] [phone] Social History Tobacco Use Types Packs/Day Years [...] Care Team (Late st Contact Info) Description 09/14/2025 1:30 PM EST Office Visit [facility] [address] [place] [phone] Faviola Da Silva MD [address] [place] [address] documented as of this encounter Visit Diagnoses Not on filedocumented in this encounter Additional Health Concerns Assessment Noted Time PHQ-9 Depression Total Score: 11 024 2:36 PM EST documented as of this encounter Care Teams Weaving Inspector Relationship Specialty Start Date End Date Faviola Da Silva MD [address] [place] [address] [phone] PCP - General Family Medicine 09/23/20 documented as of this encounter
--- OUTSIDE RECORDS SUMMARY | 2025-08-14 12:15 | XMS_ITS | Clinical Summary ---
Author Organization [employer] Address [address] [place] [address] Care Team Providers Care Broom Handle Dipper Name Role Phone Faviola Da Silva MD Primary Care Provider [phone] Surgical History Surgery Date Site/Laterality Comments OTHER [...] Cervical Cancer Screening: P ap Smear 2017 HPV Vaccines (1 - 3-dose SCD M series) 2023 Cholesterol Screening (Lipid Panel) 06/04/2024 HIV Screening 06/04/2024 Hepatitis C Screening 06/04/2024 Social Influencers of Health Screening 06/04/2024 Depression Screening 11/12/2024 COVID-19 Vaccine ( - 2023-2 5 season) 2025 Influenza Vaccine (#1) 2025 RSV Immunization Adult Patie nts (1 - 1-dose 75+ series) 2071 Varicella Vaccines Aged Out 2024 No longer [...] age to complete this topic Care Teams Broom Handle Dipper Relationship Specialty Start Date End Date Faviola Da Silva MD [address] [place] [phone] PCP - General 06/27/24
--- OUTSIDE RECORDS SUMMARY | 2025-08-14 12:15 | XMS_ITS | Encounter Summary ---
Author Organization [employer] Address [address] [facility] 7t [place] [address] Care Team Providers Care Community Health Outreach Worker Name Role Phone Faviola Da Silva MD Primary Care Provider [phone] Encounter Details Date Type Department Care Team ([facility] Contact Info) Description 11/01/2022 Orders Only [facility] MED & PEDS [address] [place] [address] Bon Arreaga MD [address] [place] [address] Bacterial vaginosis (Primary Dx); Candidal vulvovaginitis Social [...] Upcoming Encounters Date Type Department Care Team ([facility] Contact Info) Description 09/14/2025 1:30 PM EST Office Visit [facility] 230 [place] [address] Faviola Da Silva MD [address] [place] [address] documented as of this encounter Visit Diagnoses Diagnosis Bacterial vaginosis- Primary Unspecified vaginitis and vulvovaginitis Candidal vulvovaginitis Candidiasis of vulva and vagina documented in this encounter Care Teams Community Health Outreach Worker Relationship Specialty Start Date End Date Faviola Da Silva MD [address] [place] [address] PCP - General Family Medicine 09/23/20 documented as of this encounter
--- OUTSIDE RECORDS SUMMARY | 2025-08-14 12:15 | XMS_ITS | Encounter Summary ---
Author Organization [employer] Address [address] [facility] [address] 7t [place] [address] Care Team Providers Care Escalator Attendant Name Role Phone Faviola Da Silva MD Primary Care Provider [phone] Encounter Details Date Type Department Care Team ([facility] Contact Info) Description 08/27/2023 Abstract [facility]INE [address] [place], [place] [phone] Faviola Da Silva MD 230 [place], [place] [phone] Social History Tobacco Use Types Packs/Day Years [...] Description 09/14/2025 1:30 PM EST Office Visit [facility] [address] [place], [place] [phone] Faviola Da Silva MD [address] [place] [address] [phone] documented as of this encounter Procedures Procedure [...] on filedocumented in this encounter Care Teams Escalator Attendant Relationship Specialty Start Date End Date Faviola Da Silva MD [address] [place] [phone] PCP - General Family Medicine 09/23/20 documented as of this encounter
--- OUTSIDE RECORDS SUMMARY | 2025-08-14 12:15 | XMS_ITS | Encounter Summary ---
Author Organization [employer] Address [address] [facility] [address] 7t [place] [address] Care Team Providers Care Business Analysis Specialist Name Role Phone Faviola Da Silva MD Primary Care Provider [phone] Encounter Details Date Type Department Care Team ([facility] Contact Info) Description 09/03/2023 Orders Only [facility]INE 230 [place], [place] [phone] Faviola Da Silva MD [address] [place], [place] [phone] Social History Tobacco Use Types Packs/Day Years [...] Description 09/14/2025 1:30 PM EST Office Visit [facility] [address] [place] [address] Faviola Da Silva MD [address] [place] [address] [phone] documented as of this encounter Visit Diagnoses Not on filedocumented in this encounter Care Teams Business Analysis Specialist Relationship Specialty Start Date End Date Faviola Da Silva MD [address] [place] [phone] PCP - General Family Medicine 09/23/20 documented as of this encounter
--- OUTSIDE RECORDS SUMMARY | 2025-08-14 12:15 | XMS_ITS | Encounter Summary ---
Author Organization [employer] Address [address] [facility] [address] 7t [place] [address] Care Team Providers Care Yard Coupler Name Role Phone Faviola Da Silva MD Primary Care Provider [phone] Encounter Details Date Type Department Care Team ([facility] Contact Info) Description 10/24/2024 Orders Only [facility] 230 [place] [address] Bon Arreaga MD [address] [place] [address] Elevated LFTs (Primary Dx) Social History Tobacco [...] Description 09/14/2025 1:30 PM EST Office Visit [facility]INE [address] [place] [address] Faviola aD Silva MD 230 [place] [address] documented as of this encounter Procedures Procedure Name Priority Date/Time Associated Diagnosis Comments HEPATIC FUNCTION PANEL Routine 06/03/2025 1:28 PM EDT Elevated LFTs documented in this encounter Results * Hepatic Function Panel (06/03/2025 1:28 PM EDT) Bilirubin, Direct 0.2 0.0 - 0.5 mg/dL [facility] Blood Venous blood specimen / Unknown 06/03/2025 1:28 PM EDT 06/03/2025 4:28 PM EDT us Bon Arreaga MD LAB BLOOD ORDERABLES Final Resul t [facility] [address] [place] [address] [phone] documented in this encounter Visit Diagnoses Diagnosis Elevated LFTs- Primary Other abnormal blood chemistry documented in this encounter Additional Health Concerns Assessment Noted Time PHQ-9 Depression Total Score: 11 024 2:36 PM EST documented as of this encounter Care Teams Yard Coupler Relationship Specialty Start Date End Date Faviola Da Silva MD [address] [place] [address] PCP - General Family Medicine 09/23/20 documented as of this encounter
--- OUTSIDE RECORDS SUMMARY | 2025-08-14 12:15 | XMS_ITS | Encounter Summary ---
Author Organization [employer] Address [address] [place] [address] 7 [place] [address] Care Team Providers Care Paper Roll Machine Operator Name Role Phone Faviola Da Silva MD Primary Care Provider [phone] Encounter Details Date Type Department Care Team (Late Contact Info) Description 06/05/2023 Abstract [facility]INE [address] [place] [address] [phone] Faviola Da Silva MD [address] [place] [address] [phone] Social History Tobacco Use Types Packs/Day Years [...] Description 09/14/2025 1:30 PM EST Office Visit [facility] [address] [place] [address] [phone] Faviola Da Silva MD [address] [place] [address] [phone] documented as of this encounter Visit Diagnoses Not on filedocumented in this encounter Care Teams Paper Roll Machine Operator Relationship Specialty Start Date End Date Faviola Da Silva MD 230 [place] [address] PCP - General Family Medicine 09/23/20 documented as of this encounter
--- OUTSIDE RECORDS SUMMARY | 2025-08-14 12:15 | XMS_ITS | Encounter Summary ---
Author Organization [employer] Address [address] [place] [address] [place] [address] Care Team Providers Care Flooring Sales Manager Name Role Phone Faviola Da Silva MD Primary Care Provider [phone] Reason for Visit * Reason Comments Chart update mammo Encounter Details Date Type Department Care Team ([facility] Contact Info) Description 07/04/2023 Abstract [facility] [address] [place] [address] Lesly Win Social History Tobacco Use Types [...] Upcoming Encounters Date Type Department Care Team ([facility] Contact Info) Description 09/14/2025 1:30 PM EST Office Visit [facility] [address] [place] [address] [phone] Faviola Da Silva MD [address] [place] [address] documented as of this encounter Visit Diagnoses Not on filedocumented in this encounter Care Teams Flooring Sales Manager Relationship Specialty Start Date End Date Faviola Da Silva MD [address] [place] [address] PCP - General Family Medicine 09/23/20 documented as of this encounter
--- OUTSIDE RECORDS SUMMARY | 2025-08-14 12:15 | XMS_ITS | Encounter Summary ---
Author Organization [employer] Address [address] [place] [address] 7 [place] [address] Care Team Providers Care Infusion Pharmacist Name Role Phone Faviola Da Silva MD Primary Care Provider [phone] Reason for Visit * Reason Comments [facility] Encounter Details Date Type Department Care Team (Late Contact Info) Description 05/09/2023 Abstract [facility] MEDICINE [address] [place] [phone] Faviola Da Silva MD [address] [place] [address] Social History Tobacco Use Types Packs/Day Years [...] Department Care Team (Late Contact Info) Description 09/14/2025 1:30 PM EST Office Visit [facility] [address] [place] [address] Faviola Da Silva MD [address] [place] [address] documented as of this encounter Visit Diagnoses Not on filedocumented in this encounter Care Teams Infusion Pharmacist Relationship Specialty Start Date End Date Faviola Da Silva MD [address] [place] [address] PCP - General Family Medicine 09/23/20 documented as of this encounter
--- OUTSIDE RECORDS SUMMARY | 2025-08-14 12:15 | XMS_ITS | Encounter Summary ---
Author Organization [employer] Address [address] [place] [address] [place] [address] Care Team Providers Care Information Systems Technician Name Role Phone Faviola Da Silva MD Primary Care Provider [phone] Reason for Referral * Imaging (Routine) - Authorized Specialty Diagnoses / Procedures Referred By Contac t Referred To Contact Radiology Diagnoses Elevated alkaline phosphatase level Procedures US LIVER Denny Plascencia MD [address] [place] [address] Phone: tel: fax: [address] Phone: tel: fax: Referral ID Status Reason Start Date Expiration Date V isits Requested Visits Authorized [id number] Authorized 06/08/2025 06/08/2026 1 1 Encounter Details Date Type Department Care Team (Late st Contact Info) Description 06/08/2025 Orders Only [facility] MED & PEDS [address] [place], [place] [phone] Denny Plascencia MD [address] [place], [place] [phone] Dizziness (Primary Dx); Elevated alkaline phosphatase level Social History Tobacco Use Types Packs/Day Years [...] Description 09/14/2025 1:30 PM EST Office Visit [facility] MEDICINE [address] [place] [address] Faviola Da Silva MD [address] [place] [address] Scheduled Orders Name Type Priority Associated Diagnoses Orde r Schedule Methylmalonic Acid Lab Routine Dizziness Expected: 06/08/2025 (Approximate), Expires: 06/08/2026 Homocysteine Lab Routine Dizziness Expected: 06/08/2025 (Approximate), Expires: 06/08/2026 LIVER Imaging Routine Elevated alkaline phosphatase level Expected: 06/08/2025, Expires: 06/08/2026 documented as of this encounter Visit Diagnoses Diagnosis Dizziness- Primary Dizziness and giddiness Elevated alkaline phosphatase level documented in this encounter Additional Health Concerns Assessment Noted Time PHQ-9 Depression Total Score: 11 10/08/ 024 2:36 PM EST documented as of this encounter Care Teams Information Systems Technician Relationship Specialty Start Date End Date Faviola Da Silva MD [address] [place] [phone] PCP - General Family Medicine 09/23/20 documented as of this encounter
--- OUTSIDE RECORDS SUMMARY | 2025-08-14 12:15 | XMS_ITS | Encounter Summary ---
Author Organization [employer] Address [address] [facility] [address] 7[address] [place] [address] Care Team Providers Care [employer] Name Role Phone Faviola Da Silva MD Primary Care Provider [phone] Encounter Details Date Type Department Care Team ([facility] Contact Info) Description 10/01/2024 Orders Only [facility] MED[facility]INE [address] [place], [place] [phone] Faviola Da Silva MD [address] [place], [place] [phone] Social History Tobacco Use Types Packs/Day Years [...] Description 09/14/2025 1:30 PM EST Office Visit [facility] MED[facility]INE [address] [place] [phone] Faviola Da Silva MD [address] [place] [phone] documented as of this encounter Visit Diagnoses Not on filedocumented in this encounter Additional Health Concerns Assessment Noted Time PHQ-9 Depression Total Score: 0 12/18/19 24 10:46 AM EST documented as of this encounter Care Teams [employer] Relationship Specialty Start Date End Date Faviola Da Silva MD [address] [place] [phone] PCP - General Family Medicine 09/23/20 documented as of this encounter
--- OUTSIDE RECORDS SUMMARY | 2025-08-14 12:15 | XMS_ITS | Clinical Summary ---
Author Organization [employer] Address [address] [facility] [address] [place] [address] Care Team Providers Care Glued Wood Tester Name Role Phone Faviola Da Silva MD Primary Care Provider [phone] Allergies No known active allergies Medications * This document contains information received from the source organization and may not represent a complete record from that organization. buPROPion SR (Wellbutrin SR) 200 MG 12 hr tablet Take 1 tablet (200 mg) by mouth 2 times daily. Do not crush, chew, or split. 180 tablet 3 4 10/13/20 25 Active etonogestrel-eluti ng (Nexplanon) 68 mg contraceptive implant 1 each by Implant route 1 (one) time. Active ibuprofen 600 MG tablet Take 1 tablet (600 mg) by mouth if needed in the morning, at noon, and at bedtime for moderate pain, fever or headaches. 90 tablet 5 Active acetaminophen (Tylenol 8 Hour) 650 MG ER tabletIndications: Pain in the coccyx Take 1 tablet (650 mg) by mouth every 8 (eight) hours if needed for mild pain. Do not crush, chew, or split. 60 tablet 5 Active hydrOXYzine HCl (Atarax) 25 MG tabletIndications: Anxiety Take 1-2 tablets by oral route as needed up to four times daily for anxiety 90 tablet 1 5 Active loratadine (Claritin) 10 MG tablet Take 1 tablet (10 mg) by mouth Once per day. 90 tablet 3 5 04/17/20 26 Active Ibuprofen 200 MG/10ML suspensionIndicati ons:Hand, foot and mouth disease Take 20 mL by mouth every 6 (six) hours if needed (pain). 273 mL 5 Active mineral oil-hydrophilic petrolatum (Aquaphor) ointment Apply topically if needed for dry skin. 396 g 5 05/22/20 26 Active cholecalciferol (Vitamin D-3) 25 MCG (1000 UT) tabletIndications: Vitamin D deficiency Take 1 tablet (25 mcg) by mouth Once per day. 60 tablet 3 5 Active Tirzepatide-Weight Management (Zepbound) 2.5 MG/0.5ML solution auto-injector Inject 0.5 mL (2.5 mg) under the skin 1 (one) time per week. 2.5 mL 2 5 Active Active Problems Problem Noted Date Diagnosed Date Class 1 obesity due to exces s calories with body mass index (BMI) of 34.0 to 34.9 in adult 06/02/2025 Assessment & Plan (06/19/2025 2:45 PM EDT): BMI 34 No weight loss with life style changes Patient interested in weight loss medication Reviewed indications for pharmacotherapy with patient - treatment for patient w/ obesity or a patient with a BMI > 27 w/ CV risk factors who have failed lifestyle modifications alone. are always prescribed in combination with ongoing lifestyle modification; and will be titrated up from the lowest dose. Discussed weight loss medication - Zepbound No contraindications identified: , POCT Urine Negative, no history of thyroid cancer or MEN1 or 2. Reviewed mechanism of action with patient. Discussed side effects with patient: Stomach pain, nausea, vomiting. Recommended to decrease soda and sugary beverage consumption. Recommended at least 20 g per meal of protein to assist with satiety. Recommended at least 150 min/week of moderate intensity exercise. Patient advised to stop medication if become although insurance requests prescription from synthetic filament spinner, there are none in our service area that are accepting referrals for weight management due to lack of availability Severe episode of recurrent major depressive disorder, without psychotic features (CMS/HCC) 08/21/2024 Mass of lower inner quadrant of right breast 08/2024 Acne vulgaris 07/18/2023 Assessment & Plan (07/18/2023 [...] BID from 150mg BID Begin treatment at [facility] for OP Located PPD support group and writing group If desired, we can apply for FMLA for those things under dx of depression Current episode of major dep ressive disorder [...] for help. PLAN: 1. Follow up with [facility]: Not recommended for follow-up 2. Patient goal is to engage in services. 3. Behavioral Recommendations a. Patient will communicate with psychiatrist b. Patient will utilize HC, if symptoms worsen c. 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 10/13/2022 Overview (10/13/2022): Non immune to hepatitis B and non immune to hepatitis A per previous EHR Intermittent vertigo 04/05/2018 Resolved Problems Problem Noted Date Diagnosed Date Resolved Date Vaginal discharge 12/18/2023 05/22/2025 Routine physical examination 12/18/2023 05/22/2025 Weakness 11/27/2023 05/22/2025 Assessment & Plan (11/27/2023 1:36 PM EST): Likely due to Work up ordered today , patient will be contacted with results Candidal vulvovaginitis 11/01/202205/12 Bacterial vaginosis 10/24/2022 05/22/20 Overweight 12/09/2018 06/02/2025 Weight gain 04/05/2018 05/22/2025 Encounters Date Type Department Care Team Description 06/19/2025 8:40 AM EDT Office Visit [facility] [address] [place] [address] [phone] Faviola Da Silva MD Class 1 obesity due to excess calories with serious comorbidity and body mass index (BMI) of 34.0 to 34.9 in adult (Primary Dx) 06/19/2025 Telephone [facility] MEDICINE [address] [place] [address] [phone] Faviola Da Silva MD Prior Authorization ([facility] Request: Zepbound) 06/19/2025 Travel 06/15/2025 Orders Only [facility] [address] [place] [address] [phone] Bon Arreaga MD 06/12/2025 Telephone [facility] [address] [place] [address] [phone] Daniel Polanco MD 06/08/2025 Orders Only [facility] MED & PEDS [address] [place] [address] Denny Plascencia MD Dizziness (Primary Dx); Elevated alkaline phosphatase level 06/01/2025 7:40 PM EDT Office Visit [facility] [address] [place] [address] [phone] Denny Plascencia MD Vitamin D deficiency (Primary Dx); Intermittent vertigo; Dizziness 06/01/2025 Travel 05/22/2025 10:20 AM EDT Office Visit [facility] [address] [place] [phone] Faviola Da Silva MD Hand, foot and mouth disease (Primary Dx) 05/22/2025 Travel from Last 3 Months Immunizations Immunization Administration [...] Sign Reading Time Taken Comments Blood Pressure 130/76 06/19/2025 9:29 AM EDT Pulse 92 06/19/2025 9:29 AM EDT Temperature 36.1 C (97 F) 06/19/2025 9:29 AM EDT Respiratory Rate 17 06/19/2025 9:29 AM EDT Oxygen Saturation 98% 06/19/2025 9:29 AM EDT Inhaled Oxygen Concentration - - Weight 109 kg (240 lb 8 oz) 06/19/2025 9:29 AM E DT Height 177.8 cm (5' 10 ) 06/19/2025 9:29 AM EDT Body Mass Index 34.51 06/19/2025 9:29 AM EDT Plan of Treatment Upcoming Encounters Date Type Department Care Team (Late st Contact Info) Description 09/14/2025 1:30 PM EST Office Visit [facility] MEDICINE [address] [place] [phone] Faviola Da Silva MD [address] [place] [address] Health Maintenance Due Date Last Done Comments Disability Screening 1996 Alcohol/Substance Use Screening 2008 Pap Smear 2017 SDOH Screening 12/18/2024 12/18/2023 Depression Monitoring 04/07/2025 10/08/2024, 024 COVID-19 Vaccine ( season) 2025 09/23/2021, 12/01/2020, 11/03/2020 Influenza Vaccine (#1) 2025 , 08/07/2023, 08/01/2022, Additional history exists Lipid Panel 07/16/2025 07/16/2020 Family Planning (PISQ) 09/04/2025 09/04/2024 Mammogram 03/25/2026 03/25/2025, 02/11, 09/08/2024, Additional history exists Tobacco Screening 06/19/2026 06/19/2025 DTaP/Tdap/Td Vaccines (10 - Td or Tdap) [...] Completed 06/06/2019, 01/27/2019, 12/27/2018, Additional history exists HIV Screening Completed 10/21/2024 Hepatitis C Screening Completed 10/21/2024, 020 Hepatitis A Vaccines Aged Out No long er eligible based on patient's age to complete this topic Meningococcal B Vaccine Aged Out No l onger eligible based on patient's age to complete this topic Pneumococcal Vaccine: Pediatrics (0 to 5 Years) and At-Risk Patients (6 to 49) Years Aged Out No longer eligible based on patient's age to complete this topic RSV under 20 months Aged Out No longe r eligible based on patient's age to complete this topic Rotavirus Vaccines Aged Out No longer eligible based on patient's age to complete this topic Procedures Procedure Name Priority Date/Time Associated Diagnosis Comments MAGNESIUM Routine 06/03/2025 1:28 PM EDT Intermittent vertigo Dizziness SED RATE BY MODIFIED WESTERGREN Routine 06/03/2025 1:28 PM EDT Intermittent vertigo Dizziness VITAMIN B12/FOLATE, SERUM PANEL Routine 06/03/2025 1:28 PM EDT Intermittent vertigo VITAMIN D,25-OH,TOTAL,IA Routine 06/03/2025 1:28 PM EDT Intermittent vertigo TSH W/REFLEX TO FT4 Routine 06/03/2025 1 :28 PM EDT Intermittent vertigo COMPREHENSIVE METABOLIC PANEL Routine 06/03/2025 1:28 PM EDT Intermittent vertigo CBC WITH AUTO DIFFERENTIAL Routine 06/03/2025 1:28 PM EDT Intermittent vertigo HEPATIC FUNCTION PANEL Routine 1:28 PM EDT Elevated LFTs POCT HEMOGLOBIN Routine 06/01/2025 5:50 PM EDT Intermittent vertigo BI MAMMOGRAM DIAGNOSTIC TOMOSYNTHESIS RIGHT Routine 03/25/2025 10:00 AM EDT HEPATITIS C AB W/REFL TO HCV RNA, QN, PCR Routine 10/21/2024 8:20 AM EST Nausea HIV 1/2 ANTIGEN/ANTIBODY, FOURTH GENERATION W/RFL Routine 10/21/2024 8:20 AM EST Nausea LIPID PANEL, STANDARD Routine 07/16/2020 1:59 PM EDT from Last 3 Months or Most Recently Relevant to Health Maintenance Results * (ABNORMAL) Vitamin D, 25-Hydroxy, Total, Immunoassay (06/03/2025 1:28 PM EDT) Vitamin D 25-OH Total 19.4(L) >30 ng/mL [facility] Comment: Health Based Reference Values*< 20 ng/mL Kzmimzdol42-82 ng/mL Insufficient> 30 ng/mL Sufficient*Landon ROMERO. N Engl J Med. 2007;357:266-280There is no well-established upper level of normal vitamin Dlevels. Some laboratories use 50 ng/mL as an upper limit ofnormal. However, toxicity is patient-dependent and may occurat any level. Careful correlation with the patient'spresentation is necessary and, if there is concern forvitamin D toxicity, treatment should be consideredirrespective of the serum level.Care must be taken in interpreting Vitamin D results fromdifferent laboratories and methodologies. Published datademonstrated that results from patients undergoinghemodialysis may show a negative bias when tested withvarious automated 25-OH vitamin D assays when compared toLC-MS/MS.When testing samples from patients whose predominant form ofVitamin D is Vitamin D2, such as patients receiving VitaminD2 supplementation, results that are subtherapeutic shouldbe confirmed with another method such as LC-MS/MS. Blood Venous blood specimen / Unknown 06/03/2025 1:28 PM EDT 06/03/2025 4:28 PM EDT us Denny Plascencia MD LAB BLOOD ORDERABLES Final Result [facility] [address] [place] [address] [phone] * Vitamin B12/Folate, Serum Panel (06/03/2025 1:28 PM EDT) Vitamin B12 205 200 - 900 pg/mL [facility] Comment:NORMAL 200-900 PG/ML INDETERMINATE 160-199 PG/ML DEFICIENT < 160 PG/ML Folate 7.3 > or = 4.0 ng/mL [facility] Comment:Reference Values:> o r = 4.0 ng/mL< 4.0 ng/mL suggests folate deficiency Methotrexate, aminopterin and folinic acid(leucovorin) are chemotherapeutic agents whose molecularstructures are similar to folate; therefore, the Architectfolate assay cannot be used for patients using these drugs. Blood Venous blood specimen / Unknown 06/03/2025 1:28 PM EDT 06/03/2025 4:28 PM EDT Denny Plascencia MD LAB BLOOD ORDERABLES Final Result Performing Organization Address [facility] Co de Phone Number [facility] [address] [place] [address] [phone] * TSH W/Reflex to FT4 (06/03/2025 1:28 PM EDT) [facility] TSH reflex Free T4 1.16 0.32 - 4.0 uIU/mL [facility] Blood Venous blood specimen / Unknown 06/03/2025 1:28 PM EDT 06/03/2025 4:28 PM EDT Denny Plascencia MD LAB BLOOD ORDERABLES Final Result Performing Organization Address City/[facility] Co de Phone Number [facility] [address] [place] [address] [phone] * (ABNORMAL) CBC auto differential (06/03/2025 1:28 PM EDT) [facility] White Blood Count 9.1 4.8 - 10.8 X10*3/uL [facility] Red Blood Count 4.23 4.20 - 5.50 X10*6/uL [facility] Hemoglobin 12.8 12.0 - 16.0 g/dl [facility] Hematocrit 37.7 37.0 - 47.0 % [facility] Mean Corpuscular Volume 89.1 80.0 - 98.0 fL [facility] Mean Corpuscular Hemoglobin 30.3 27.0 - 33.0 pg [facility] Mean Corpuscular HGB Conc 34.0 31.0 - 35.0 g/dl [facility] Red Cell Distribution Width 13.0 11.0 - 16.0 % [facility] Platelet Count 357 160 - 400 X10*3/uL [facility] Mean Platelet Volume 9.9 9.4 - 12.3 fL [facility] Neutrophils Percent Auto 67.0 45 - 73 % [facility] Imm Gran Pct Auto 0.4 0.0 - 0.4 % [facility] Lymphocytes Percent Auto 22.3 20 - 40 % [facility] Monocytes Percent Auto 7.2 2 - 11 % [facility] Eosinophils Percent Auto 2.3 0 - 4 % [facility] Basophils Percent Auto 0.8 0 - 2 % [facility] NRBC Pct Auto 0.0 0.0 - 0.2 /100WBC [facility] Neutrophils Absolute Auto 6.1 2.0 - 8.3 x10*3/uL [facility] Imm Gran Abs Auto 0.04(H) 0.00 - 0.03 X10*3/uL [facility] Lymphocytes Absolute Auto 2.0 1.2 - 4.9 X10*3/uL [facility] Monocytes Absolute Auto 0.7 0.1 - 1.2 X10*3/uL [facility] Eosinophils Absolute Auto 0.2 0.0 - 0.4 X10*3/uL [facility] Basophils Absolute Auto 0.1 0.0 - 0.2 X10*3/uL [facility] NRBC Abs Auto 0.000 0.0 - 0.012 X10*3/uL [facility] Blood Venous blood specimen / Unknown 06/03/2025 1:28 PM EDT 06/03/2025 4:28 PM EDT us Denny Plascencia MD LAB BLOOD ORDERABLES Final Result Performing Organization Address [facility] Co de Phone Number [facility] [address] [place] [address] [phone] * Sed Rate by Modified Nickergren (06/03/2025 1:28 PM EDT) Erythrocyte Sedimentation Rate 13 0 - 20 MM/HR [facility] Comment:Patients with polycy themia and many hemoglobin abnormalitiesmay have depressed sed rates whereas patients with anemiamay have elevated sed rates. Blood Venous blood specimen / Unknown 06/03/2025 1:28 PM EDT 06/03/2025 4:28 PM EDT us Denny Plascencia MD LAB BLOOD ORDERABLES Final Result Performing Organization Address [facility] Co de Phone Number [facility] [address] [place] [address] [phone] * Magnesium (06/03/2025 1:28 PM EDT) Magnesium 2.2 1.6 - 2.6 mg/dL [facility] Blood Venous blood specimen / Unknown 06/03/2025 1:28 PM EDT 06/03/2025 4:28 PM EDT us Denny Plascencia MD LAB BLOOD ORDERABLES Final Result Performing Organization Address [facility] Co de Phone Number [facility] [address] [place] [address] [phone] * Hepatic Function Panel (06/03/2025 1:28 PM EDT) Bilirubin, Direct 0.2 0.0 - 0.5 mg/dL [facility] Blood Venous blood specimen / Unknown 06/03/2025 1:28 PM EDT 06/03/2025 4:28 PM EDT us Bon Arreaga MD LAB BLOOD ORDERABLES Final Resul t Performing Organization Address City/[facility]/ZIP Co de Phone Number [facility] [address] [place] [address] [phone] * (ABNORMAL) Comprehensive Metabolic Panel (06/03/2025 1:28 PM EDT) Sodium 141 135 - 145 mmol/L [facility] Potassium 3.5 3.3 - 5.1 mmol/L [facility] Chloride 107 96 - 108 mmol/L [facility] Carbon Dioxide 26 22 - 29 mmol/L [facility] Anion Gap 12 12 - 20 [facility] Urea Nitrogen (BUN) 9 9 - 16 mg/dL [facility] Creatinine, Serum 0.79 0.5 - 1.4 mg/dL [facility] Estimated Glomerular Filt Rate >60 [facility] Comment:Chronic Kidney Disea se: Estimated GFR < 60 mL/min/[id number] Kidney Disease: Estimated GFR < 15 mL/min/1.73m2 Glucose 74 60 - 115 mg/dL [facility] Calcium 9.1 8.4 - 10.2 mg/dL [facility] Bilirubin, Total 0.6 0.0 - 1.0 mg/dL [facility] Aspartate Amino Transferase 20 5 - 31 U/L [facility] Alanine Aminotransferase 26 0 - 31 U/L [facility] Total Protein 7.1 6.5 - 8.0 g/dL [facility] Albumin Level 4.7 3.5 - 5.0 g/dL [facility] Alkaline Phosphatase 124(H) 39 - 117 U/L [facility] Blood Venous blood specimen / Unknown 06/03/2025 1:28 PM EDT 06/03/2025 4:28 PM EDT us Denny Plascencia MD LAB BLOOD ORDERABLES Final Result Performing Organization Address City/[facility]/ZIP Co de Phone Number [facility] [address] [place] [phone] * POCT Hemoglobin (06/01/2025 5:50 PM EDT) Hemoglobin 13.8 12.0 - 15.0 QC Media Lot # [id number] Lot# Expiration Date [id number] Blood 06/01/2025 5:50 PM EDT Denny Plascencia MD POINT OF CARE TEST ENTER/ED IT ORDERABLES Final Result * BI Mammogram Diagnostic Tomosynthesis Right (03/25/2025 10:00 AM EDT) Anatomical Region Laterality Modality Breast Right Mammography 03/25/2025 10:0 0 AM EDT Narrative 03/25/2025 11:10 AM EDT [address] [place] [address] Mammography Report Signed with Addenda Patient: Abby Monte MR#: [id number] : 1995 Acct:[id number] Age/Sex: 29 / F ADM Date: 03/25/25 Loc: HO.MAMMO Attending Dr: Aden Fernández MD Ordering Physician: Aden Fernández MD Results: 1Neg ative Date of Service: 03/25/25 Follow Up: 1 Year From Orig ina Mammogram Procedure(s): MM tomosynthesis diagnostic RT Accession Number(s): [id number] cc: Faviola Da Silva; Aden Fernández MD ADDENDUM ADDENDUM #1 ADDENDUM: Right breast 5:00 ultrasound guided core needle biopsy mass: Benign breast tissue with stromal fibrosis enlarged spaces lined by benign epithelium. Site 2 right breast 7:00 mass ultrasound guided core needle biopsy: Benign breast tissue with stromal fibrosis and large spaces. lined by benign epithelium. Both masses are benign and concordant. Recommend clinical follow-up. Electronically signed by: Krys Garcia DO 03/31/2025 04:04 PM EDT Addendum Dictated By: Krys Garcia DO Addendum Signed By: <Electronically signed by Krys Garcia DO in OV> 03/31/25 1604 Addendum Cosigned By: DD/ TD/TT: 03/25/25 PROCEDURE: ULTRASOUND-GUIDED RIGHT BREAST BIOPSY CLINICAL INFORMATION: 2 hypoechoic solid masses in the right breast COMPARISON: Prior's on PACS. TECHNIQUE: The details of the procedure, as well as the risks, benefits, and alternatives to the procedure were explained to the patient in detail and all of her questions were answered, after which, written informed consent was obtained. PROCEDURE: Site 1 5:00 3 cm from the nipple: Prior to the procedure, sonography revealed a solid irregular hypoechoic mass at 5:00 3 cm from the nipple measuring up to 41 mm.. A time-out was performed, the lesion intended for biopsy was targeted and the skin of the right breast was then prepped and draped in the usual sterile fashion. Using sonographic guidance, sterile technique, and 1% lidocaine without epinephrine for local anesthesia, a total of 5 cores were obtained through the targeted area with a 14-gauge biopsy device. At the completion of tissue sampling, a single butterfly metallic clip was deposited at the biopsy site. An appropriate sample was obtained. Site 2 mass at 7:00 6 cm from the nipple: Prior to the procedure, sonography revealed solid mass at 7:00 6 7 m from the nipple. A time-out was performed, the lesion intended for biopsy was targeted and the skin of the right breast was then prepped and draped in the usual sterile fashion. Using sonographic guidance, sterile technique, and 1% lidocaine without epinephrine for local anesthesia, a total of 4 cores were obtained through the targeted area with a 14-gauge biopsy device. At the completion of tissue sampling, a single coil metallic clip was deposited at the biopsy site. An appropriate sample was obtained. The postprocedure 2-view direct digital mammogram reveals satisfactory positioning of the biopsy clips. The patient tolerated the procedure well and, after assuring adequate hemostasis, was discharged in good condition after reviewing postbiopsy breast care instructions. Final pathology results are pending. MM/MM tomosynthesis diagnostic RT IMPRESSION: 1. Uncomplicated sonographically-guided core biopsy of the right breast at 2 sites breast. The 2-view direct digital postprocedure mammogram reveals satisfactory positioning of the biopsy clips. 2. Final pathology results are pending. A separate report with final recommendations will be issued once these results are made available. Electronically signed by: Krys Garcia DO 03/25/2025 11:07 AM EDT RP Dictated By: Krys Garcia DO Signed By: <Electronically signed by Krys Garcia DO in OV> 03/25/25 1107 DD/ 1000 TD/TT: 03/25/25 1040 Wire Harness Assembler: Procedure Note Donotuseinterpreter, Image - [facility] [address] [place] [address] Mammography Report Signed with Addenda Patient: Abby Monte [facility]#: [id number] : 1995Acct:[id number] Age/Sex: FADM Date: 03/25/25 Loc: HO.MAMMO Attending Dr: Aden Fernández MD Ordering Physician: Aden Fernández MDResults: 1Neg ative Date of Service: 03/25/25Follow Up: 1 Year From Orig inal Mammogram Procedure(s): MM tomosynthesis diagnostic RT Accession Number(s): [id number] cc: Faviola Da Silva; Aden Fernández MD ADDENDUM ADDENDUM #1 ADDENDUM: Right breast 5:00 ultrasound guided core needle biopsy mass: Benign breast tissue with stromal fibrosis enlarged spaces lined by benign epithelium. Site 2 right breast 7:00 mass ultrasound guided core needle biopsy: Benign breast tissue with stromal fibrosis and large spaces. lined by benign epithelium. Both masses are benign and concordant. Recommend clinical follow-up. Electronically signed by: Krys Garcia DO 03/31/2025 04:04 PM EDT RP Addendum Dictated By: Krys Garcia DO Addendum Signed By: <Electronically signed by DO Miri in OV> 03/31/25 1604 Addendum Cosigned By: DD/ TD/TT: 03/25/25 PROCEDURE: ULTRASOUND-GUIDED RIGHT BREAST BIOPSY CLINICAL INFORMATION: 2 hypoechoic solid masses in the right breast COMPARISON: Prior's on PACS. TECHNIQUE: The details of the procedure, as well as the risks, benefits, and alternatives to the procedure were explained to the patient in detail and all of her questions were answered, after which, written informed consent was obtained. PROCEDURE: Site 1 5:00 3 cm from the nipple: Prior to the procedure, sonography revealed a solid irregular hypoechoic mass at 5:00 3 cm from the nipple measuring up to 41 mm.. A time-out was performed, the lesion intended for biopsy was targeted and the skin of the right breast was then prepped and draped in the usual sterile fashion. Using sonographic guidance, sterile technique, and 1% lidocaine without epinephrine for local anesthesia, a total of 5 cores were obtained through the targeted area with a 14-gauge biopsy device. At the completion of tissue sampling, a single butterfly metallic clip was deposited at the biopsy site. An appropriate sample was obtained. Site 2 mass at 7:00 6 cm from the nipple: Prior to the procedure, sonography revealed solid mass at 7:00 6 7 m from the nipple. A time-out was performed, the lesion intended for biopsy was targeted and the skin of the right breast was then prepped and draped in the usual sterile fashion. Using sonographic guidance, sterile technique, and 1% lidocaine without epinephrine for local anesthesia, a total of 4 cores were obtained through the targeted area with a 14-gauge biopsy device. At the completion of tissue sampling, a single coil metallic clip was deposited at the biopsy site. An appropriate sample was obtained. The postprocedure 2-view direct digital mammogram reveals satisfactory positioning of the biopsy clips. The patient tolerated the procedure well and, after assuring adequate hemostasis, was discharged in good condition after reviewing postbiopsy breast care instructions. Final pathology results are pending. MM/MM tomosynthesis diagnostic RT IMPRESSION: 1. Uncomplicated sonographically-guided core biopsy of the right breast at 2 sites breast. The 2-view direct digital postprocedure mammogram reveals satisfactory positioning of the biopsy clips. 2. Final pathology results are pending. A separate report with final recommendations will be issued once these results are made available. Electronically signed by: Krys Garcia DO 03/25/2025 11:07 AM EDT Dictated By: Krys Garcia DO Signed By: <Electronically signed by Krys Garcia DO in OV> 03/25/25 1107 DD/ 1000 TD/TT: 03/25/25 1040 Wire Harness Assembler: [facility] External Provider IMG BI PROCEDURES Edited Result - Final * Hepatitis C Antibody with Reflex to HCV, RNA, Quantitative, Real-Time PCR (10/21/2024 8:20 AM EST) Hepatitis C Antibody Nonreactive Nonreactive [facility] Comment:Antibodies to HCV no t detected; does not exclude early acuteHCV infection. Blood Venous blood specimen / Unknown 10/21/2024 8:20 AM EST 10/21/2024 11:46 AM EST Bon Arreaga MD LAB BLOOD ORDERABLES Final Resul t [facility] [address] [place] [phone] * HIV-1/2 Antigen and Antibodies, Fourth Generation, with Reflexes (10/21/2024 8:20 AM EST) HIV AB/AG Nonreactive Nonreactive [facility] Comment:HIV-1 p24 Ag and/or HIV-1/HIV-2 Ab not detected.A test result that is nonreactive does not exclude thepossibility of exposure to or infection with HIV-1 and/orHIV-2. Nonreactive results in this assay for individualswith prior exposure to HIV-1 and/or HIV-2 may be due toantigen and antibody levels that are below the limit ofdetection of this assay.The [employer] HIV Ag/Ab Combo assay result andsupplemental assay results should be interpreted inconjunction with the patient's clinical presentation,history and other laboratory results. If the results areinconsistent with clinical evidence, additional testing issuggested to confirm the result. Blood Venous blood specimen / Unknown 10/21/2024 8:20 AM EST 10/21/2024 11:46 AM EST us Bon Arreaga MD LAB BLOOD ORDERABLES Final Resul t [facility] [address] [place] [phone] * (ABNORMAL) LIPID PANEL, STANDARD (07/16/2020 1:59 PM EDT) LDL Cholesterol 60 mg/dL (calc) [facility] Comment: Reference range: <100 Desirable range <100 mg/dL for primary prevention; <70 mg/dL for patients with CHD or diabetic patients with > or = 2 CHD risk factors. LDL-C is now calculated using the Sheron calculation, which is a validated novel method providing better accuracy than the Friedewald equation in the estimation of LDL-C. Holger ARREOLA et al. ALBERTO. 2013;310(19): 1878-2615 (http://education.[employer]/faq/UHV953) Non-HDL Cholesterol 79 <130 mg/dL (calc) [facility] Comment: For patients with diabetes plus 1 major ASCVD risk factor, treating to a non-HDL-C goal of <100 mg/dL (LDL-C of <70 mg/dL) is considered a therapeutic option. Cholesterol, Total 121 <200 mg/dL [facility] Chol/HDLC Ratio 2.9 <5.0 (calc) [facility] Triglycerides 105 <150 mg/dL [facility] HDL Cholesterol 42(L) > OR = 50 mg/dL [facility] Non-HDL Cholesterol 79 <130 mg/dL (calc) [facility] Comment: For patients with diabetes plus 1 major ASCVD risk factor, treating to a non-HDL-C goal of <100 mg/dL (LDL-C of <70 mg/dL) is considered a therapeutic option. Chol/HDLC Ratio 2.9 <5.0 (calc) [facility] Cholesterol, Total 121 <200 mg/dL [facility] LDL Cholesterol 60 mg/dL (calc) [facility] Comment: Reference range: <100 Desirable range <100 mg/dL for primary prevention; <70 mg/dL for patients with CHD or diabetic patients with > or = 2 CHD risk factors. LDL-C is now calculated using the Sheron calculation, which is a validated novel method providing better accuracy than the Friedewald equation in the estimation of LDL-C. Holger ARREOLA et al. ALBERTO. 2013;310(19): 6871-9785 (http://education.[employer]/faq/JVF557) Triglycerides 105 <150 mg/dL [facility] HDL Cholesterol 42(L) > OR = 50 mg/dL [facility] 07/16/2020 1:59 PM EDT us Eduardo Wallace MD LAB BLOOD ORDERABLES Final Resul t [facility] [address] from Last 3 Months or Most Recently Relevant to Health Maintenance Insurance [facility] , [address] [address] Care Teams Glued Wood Tester Relationship Specialty Start Date End Date Faviola Da Silva MD [address] [place] [phone] PCP - General Family Medicine 09/23/20
== END 2025-08-14 10:57 | disposition home or self-care (01) ==
LOC: HO.US 10:56
PROVIDERS: PCP General Practice; Visit Provider Internal Medicine
DX: R74.8 Abnormal levels of other serum enzymes (principal)
CPT/HCPCS: 76705

== ENCOUNTER → 2025-08-14 11:00 | Outpatient (BNV) | payer OTHER, SELFPAY | PROVIDERS: PCP General Practice; Visit Provider Specialist | DX: K80.20 Calculus of gallbladder without cholecystitis without obstruction (principal); K76.0 Fatty (change of) liver, not elsewhere classified | CPT/HCPCS: 76705 ==

== ENCOUNTER 2025-09-14 16:58 | Outpatient (REF) | payer OTHER, SELFPAY ==
--- OUTSIDE RECORDS SUMMARY | 2025-09-14 13:30 | XMS_ITS | Encounter Summary ---
Author Organization [employer] Address [address] [facility] 7 [place] [address] Care Team Providers Care Loading Dock Hand Name Role Phone Faviola Da Silva MD Primary Care Provider [phone] Reason for Visit * Reason Comments Annual Exam Encounter Details Date Type Department Care Team ([facility] st Contact Info) Description 09/14/2025 1:30 PM EST Office Visit [facility] [address] [place] [address] Faviola Da Silva MD [address] [place] [address] Class 1 obesity due to excess calories with serious comorbidity and body mass index (BMI) of 34.0 to 34.9 in adult (Primary Dx); Screening for cervical cancer Social History Tobacco Use Types Packs/Day Years [...] Sign Reading Time Taken Comments Blood Pressure 90/64 09/14/2025 1:49 PM EST Pulse 94 09/14/2025 1:49 PM EST Temperature 37 C (98.6 F) 09/14/2025 1:49 PM EST Respiratory Rate 20 09/14/2025 1:49 PM EST Oxygen Saturation 99% 09/14/2025 1:49 PM EST Inhaled Oxygen Concentration - - Weight 108 kg (238 lb) 09/14/2025 1:49 PM EST Height 177.8 cm (5' 10 ) 09/14/2025 1:49 PM EST Body Mass Index 34.15 09/14/2025 1:49 PM EST documented in this encounter Plan of Treatment Scheduled Orders Name Type Priority Associated Diagnoses Orde r Schedule Lipid Panel, Standard Lab Routine Class 1 obesity due to excess calories with serious comorbidity and body mass index (BMI) of 34.0 to 34.9 in adult Expected: 09/14/2025 (Approximate), Expires: 09/14/2026 HPV DNA (16, 18, Other High Risk), PCR, Vaginal Self-Collected Lab Routine Screening for cervical cancer Expected: 09/14/2025 (Approximate), Expires: 09/14/2026 documented as of this encounter Visit Diagnoses Diagnosis Class 1 obesity due to excess calories with serious comorbidity and body mass index (BMI) of 34.0 to 34.9 in adult- Primary Screening for cervical cancer Screening for malignant neoplasm of the cervix documented in this encounter Additional Health Concerns Assessment Noted Time PHQ-9 Depression Total Score: 11 024 2:36 PM EST documented as of this encounter Care Teams Loading Dock Hand Relationship Specialty Start Date End Date Faviola Da Silva MD [address] [place] [phone] PCP - General Family Medicine 09/23/20 documented as of this encounter
--- OUTSIDE RECORDS SUMMARY | 2025-09-14 17:20 | XMS_ITS | Encounter Summary ---
Author Organization [employer] Address [address] [place] [address] 7 [place] [address] Care Team Providers Care Billing Analyst Name Role Phone Faviola Da Silva MD Primary Care Provider [phone] Encounter Details Date Type Department Care Team (Late st Contact Info) Description 06/05/2023 Abstract [facility] MED[facility]INE [address] [place], [place] [phone] Faviola Da Silva MD [address] [place], [place] [phone] Social History Tobacco Use Types Packs/Day Years [...] on filedocumented in this encounter Care Teams Billing Analyst Relationship Specialty Start Date End Date Faviola Da Silva MD [address] [place], [place] [phone] PCP - General Family Medicine 09/23/20 documented as of this encounter
--- OUTSIDE RECORDS SUMMARY | 2025-09-14 17:20 | XMS_ITS | Encounter Summary ---
Author Organization [employer] Address [address] [facility] [address] 7[address] [place] [address] Care Team Providers Care Naval Architect Name Role Phone Faviola Da Silva MD Primary Care Provider [phone] Encounter Details Date Type Department Care Team (Latest Contact Info) Description 09/14/2025 Travel Social History Tobacco Use Types Packs/Day [...] documented as of this encounter Care Teams Naval Architect Relationship Specialty Start Date End Date Faviola Da Silva MD [address] [place] [address] PCP - General Family Medicine 09/23/20 documented as of this encounter
--- OUTSIDE RECORDS SUMMARY | 2025-09-14 17:20 | XMS_ITS | Encounter Summary ---
Author Organization [employer] Address [address] [facility] 7t [place] [address] Care Team Providers Care Adzing And Boring Machine Operator Name Role Phone Faviola Da Silva MD Primary Care Provider [phone] Encounter Details Date Type Department Care Team ([facility] Contact Info) Description 08/17/2025 Results Follow-Up [facility] [address] [place], [place] [phone] Denny Plascencia MD [address] [place] [address] US Abdomen Limited Social History Tobacco Use Types Packs/Day Years [...] as of this encounter Miscellaneous Notes * Result Encounter Note - Faviola Da Silva MD - 08/17/2025 8:54 AM EDT Good morning Dr. Plascencia! You are welcome to refer her to general surgery and see if they will offer her a venice, and I will also check in with her about how she is feeling. * Result Encounter Note - Denny Plascencia MD - 08/17/2025 8:32 AM EDT Good morning. The US of Ms Abby Monte shows Cholelithiasis. Can I send her to General surgery or would you rather follow up with her? documented in this encounter Plan of Treatment Not on file documented as of this encounter Visit Diagnoses Not on filedocumented in this encounter Additional Health Concerns Assessment Noted Time PHQ-9 Depression Total Score: 11 024 2:36 PM EST documented as of this encounter Care Teams Adzing And Boring Machine Operator Relationship Specialty Start Date End Date Faviola Da Silva MD [address] [place] [address] PCP - General Family Medicine 09/23/20 documented as of this encounter
--- OUTSIDE RECORDS SUMMARY | 2025-09-14 17:20 | XMS_ITS | Encounter Summary ---
Author Organization [employer] Address [address] [facility] [address] [address] [place] [address] Care Team Providers Care Telephone Installer Name Role Phone Faviola Da Silva MD Primary Care Provider [phone] Encounter Details Date Type Department Care Team ([facility] Contact Info) Description 04/17/2025 Orders Only [facility] MED[facility]INE [address] [place], [place] [phone] Faviola Da Silva MD [address] [place], [place] [phone] Social History Tobacco Use Types Packs/Day Years [...] is your housing situation today? I have coarl lezama 12/07/[address] you [...] documented as of this encounter Care Teams Telephone Installer Relationship Specialty Start Date End Date Faviola Da Silva MD [address] [place] [address] PCP - General Family Medicine 09/23/20 documented as of this encounter
--- OUTSIDE RECORDS SUMMARY | 2025-09-14 17:20 | XMS_ITS | Encounter Summary ---
Author Organization [employer] Address [address] [place] [address] 7 [place] [address] Care Team Providers Care Transferrer Name Role Phone Faviola Da Silva MD Primary Care Provider [phone] Reason for Visit * Reason Comments [facility] [place] Encounter Details Date Type Department Care Team ([facility] Contact Info) Description 05/09/2023 Abstract [facility] MEDICINE [address] [place] [address] Faviola Da Silva MD [address] [place] [address] Social History Tobacco Use Types Packs/Day Years [...] on filedocumented in this encounter Care Teams Transferrer Relationship Specialty Start Date End Date Faviola Da Silva MD [address] [place] [address] PCP - General Family Medicine 09/23/20 documented as of this encounter
--- OUTSIDE RECORDS SUMMARY | 2025-09-14 17:20 | XMS_ITS | Encounter Summary ---
Author Organization [employer] Address [address] [facility] [address] [place] [address] Care Team Providers Care Studio Operations Engineer In Charge Name Role Phone Faviola Da Silva MD Primary Care Provider [phone] Encounter Details Date Type Department Care Team ([facility] Contact Info) Description 08/24/2025 Orders Only [facility]INE [address] [place], [place] [phone] Faviola Da Silva MD [address] [place], [place] [phone] Social History Tobacco Use Types Packs/Day Years [...] documented as of this encounter Care Teams Studio Operations Engineer In Charge Relationship Specialty Start Date End Date Faviola Da Silva MD [address] [place] [phone] PCP - General Family Medicine 09/23/20 documented as of this encounter
--- OUTSIDE RECORDS SUMMARY | 2025-09-14 17:20 | XMS_ITS | Encounter Summary ---
Author Organization [employer] Address [address] [place] [address] 7 [place] [address] Care Team Providers Care Semiconductor Wafers Etch Operator Name Role Phone Faviola Da Silva MD Primary Care Provider [phone] Reason for Visit * Reason Comments Chart update mammo Encounter Details Date Type Department Care Team ([facility] Contact Info) Description 07/04/2023 Abstract [facility] [address] [place] [address] Lesly Win Social History Tobacco Use Types [...] on filedocumented in this encounter Care Teams Semiconductor Wafers Etch Operator Relationship Specialty Start Date End Date Faviola Da Silva MD [address] [place], [place] [phone] PCP - General Family Medicine 09/23/20 documented as of this encounter
--- OUTSIDE RECORDS SUMMARY | 2025-09-14 17:20 | XMS_ITS | Encounter Summary ---
Author Organization [employer] Address [address] [facility] [address] [place] [address] Care Team Providers Care Die Designer Apprentice Name Role Phone Faviola Da Silva MD Primary Care Provider [phone] Encounter Details Date Type Department Care Team ([facility] Contact Info) Description 08/27/2023 Abstract [facility] [address] [place], [place] [phone] Faviola Da Silva MD [address] [place], [place] [phone] Social History Tobacco Use Types Packs/Day Years [...] filedocumented in this encounter Care Teams Die Designer Apprentice Relationship Specialty Start Date End Date Faviola Da Silva MD [address] [place] [phone] PCP - General Family Medicine 09/23/20 documented as of this encounter
--- OUTSIDE RECORDS SUMMARY | 2025-09-14 17:20 | XMS_ITS | Clinical Summary ---
Author Organization [employer] Address 75 [facility] 7t [place] [address] Care Team Providers Care Oil Gauger Name Role Phone Faviola Da Silva MD Primary Care Provider [phone] Allergies No known active allergies Medications * This document contains information received from the source organization and may not represent a complete record from that organization. buPROPion SR (Wellbutrin SR) 200 MG 12 hr tablet Take 1 tablet (200 mg) by mouth 2 times daily. Do not crush, chew, or split. 180 tablet 3 10/13/20 24 025 Active etonogestrel-elut ing (Nexplanon) 68 mg contraceptive implant 1 each by Implant route 1 (one) time. Active acetaminophen (Tylenol 8 Hour) 650 MG ER tabletIndications :Pain in the coccyx Take 1 tablet (650 mg) by mouth every 8 (eight) hours if needed for mild pain. Do not crush, chew, or split. 60 tablet 02/19/20 25 Active hydrOXYzine HCl (Atarax) 25 MG tabletIndications :Anxiety Take 1-2 tablets by oral route as needed up to four times daily for anxiety 90 tablet 1 02/26/20 25 Active loratadine (Claritin) 10 MG tablet Take 1 tablet (10 mg) by mouth Once per day. 90 tablet 3 04/17/20 25 026 Active Ibuprofen 200 MG/10ML suspensionIndicat ions:Hand, foot and mouth disease Take 20 mL by mouth every 6 (six) hours if needed (pain). 273 mL 05/22/20 25 Active mineral oil-hydrophilic petrolatum (Aquaphor) ointment Apply topically if needed for dry skin. 396 g 05/22/20 25 026 Active cholecalciferol (Vitamin D-3) 25 MCG (1000 UT) tabletIndications :Vitamin D deficiency Take 1 tablet (25 mcg) by mouth Once per day. 60 tablet 3 06/01/20 25 Active topiramate (Topamax) 25 MG tablet Take 1 tablet (25 mg) by mouth at bedtime. 90 tablet 08/24/20 25 026 Active phentermine 15 MG capsule Take 1 capsule (15 mg) by mouth before breakfast. 30 capsule 08/24/20 25 025 Active ibuprofen 800 MG tabletIndications :Chronic pain of right knee Take 1 tablet (800 mg) by mouth 3 times daily. 90 tablet 09/01/20 25 025 Active Diclofenac Sodium (Voltaren Arthritis Pain) 1 % gelIndications:Ch ronic pain of right knee Apply to affected areas twice daily. 150 g 1 09/01/20 25 Active neomycin-polymyxi n-hydrocortisone (Cortisporin) 3.5-18097-[address] 3 DROPS IN THE LEFT EAR THREE TIMES DAILY FOR 7 DAYS 06/12/20 Active ibuprofen 600 MG tablet Take 1 tablet (600 mg) by mouth if needed in the morning, at noon, and at bedtime for moderate pain, fever or headaches. 90 tablet 12/03/19 025 Discontinued Tirzepatide-Weigh t Management (Zepbound) 2.5 MG/0.5ML solution auto-injector Inject 0.5 mL (2.5 mg) under the skin 1 (one) time per week. 2.5 mL 2 06/19/20 Discontinued acetaminophen (Tylenol Extra Strength) 500 MG tabletIndications :Chronic pain of right knee Take 1 tablet (500 mg) by mouth every 8 (eight) hours if needed for mild pain for up to 10 days. 30 tablet 09/01/20 25 025 Active Problems Problem Noted Date Diagnosed Date [...] if become although insurance requests prescription from stock replenisher, there are none in our service area that are accepting referrals for weight management due to lack of availability Severe episode of recurrent major depressive disorder, without psychotic features ([facility]/HCC) 08/21/2024 Mass of lower inner quadrant of [...] BID from 150mg BID Begin treatment at [facility] for OP Located PPD support group and writing group If desired, we can apply for [place] for those things under dx of depression [...] for help. PLAN: 1. Follow up with [facility]: Not recommended for follow-up 2. Patient goal is to engage in services. 3. Behavioral Recommendations a. Patient will communicate with psychiatrist b. Patient will utilize CB, if symptoms worsen c. Patient will reach [...] Candidal vulvovaginitis 11/01/202205/12 Bacterial vaginosis 10/24/2022 05/22/20 25 Overweight 12/09/2018 06/02/2025 Weight gain 04/05/2018 05/22/2025 Encounters Date Type Department Care Team Description 09/14/2025 1:30 PM EST Office Visit [facility] [address] [place] [address] Faviola Da Silva MD Class 1 obesity due to excess calories with serious comorbidity and body mass index (BMI) of 34.0 to 34.9 in adult (Primary Dx); Screening for cervical cancer 09/14/2025 Travel 09/07/2025 Travel 09/07/2025 Patient Outreach [facility] [address] [place] [address] Faviola Da Silva MD Pre-visit Planning (Pre visit planning LVM ) 09/01/2025 4:40 PM EDT Office Visit [facility] [address] [place] [address] Charissa Wilson CNP Chronic pain of right knee (Primary Dx); Dislocation of right knee, initial encounter 09/01/2025 Travel 08/24/2025 Orders Only [facility] [address] [place] [address] Faviola Da Silva MD 08/21/2025 11:45 AM EDT Immunization [address] [address] Janett Leija RN Encounter for immunization 08/21/2025 Travel 08/17/2025 Results Follow-Up [facility] [address] [place] [address] Denny Plascencia MD US Abdomen Limited 08/14/2025 Orders Only [facility] [address] [place] [address] Denny Plascencia MD 06/19/2025 8:40 AM EDT Office Visit [facility] [address] [address] Faviola Da Silva MD Class 1 obesity due to excess calories with serious comorbidity and body mass index (BMI) of 34.0 to 34.9 in adult (Primary Dx) 06/19/[address] [address] Faviola Da Silva MD Prior Authorization ([facility] Request: Zepbound) 06/19/2025 Travel 06/15/2025 Orders Only [facility] [address] [place] [address] Bon Arreaga MD from Last 3 Months Immunizations Immunization [...] 08/15/2013 Influenza, seasonal, injecta ble, preservative free 08/21/2025,10/02/2024 MMR 07/13/2000,08/12/1997 Meningococcal MCV4P [id number]-135 03/14/2013,11/18/19 08 [...] Mass Index 34.15 09/14/2025 1:49 PM EST Plan of Treatment Health Maintenance Due Date Last Done Comments Alcohol/Substance Use Screening 2008 Family Planning (PISQ) 2011 Pap Smear 2017 SDOH Screening 12/18/2024 12/18/2023 Depression Monitoring 04/07/2025 10/08/2024, 024 COVID-19 Vaccine ( season) 2025 09/23/2021, 12/01/2020, 11/03/2020 Lipid Panel 07/16/2025 07/16/2020 Mammogram 03/25/2026 03/25/2025, 02/11, 09/08/2024, Additional history exists Tobacco Screening 09/01/2026 09/01/2025 Disability Screening 09/07/2026 09/07/2025 DTaP/Tdap/Td Vaccines (10 - Td or Tdap) [...] 10/21/2024 Hepatitis C Screening Completed 10/21/2024, 020 Influenza Vaccine Completed 08/21/2025, , 08/07/2023, Additional history exists Hepatitis A Vaccines Aged Out No long [...] Name Priority Date/Time Associated Diagnosis Comments US ABDOMEN LIMITED Routine 08/15/2025 9: 11 AM EDT BI MAMMOGRAM DIAGNOSTIC TOMOSYNTHESIS RIGHT Routine 03/25/2025 10:00 AM EDT HEPATITIS C AB W/REFL TO HCV RNA, QN, PCR Routine 10/21/2024 8:20 AM EST Nausea HIV 1/2 ANTIGEN/ANTIBODY, FOURTH GENERATION W/RFL Routine 10/21/2024 8:20 AM EST Nausea LIPID PANEL, STANDARD Routine 07/16/2020 1:59 PM EDT from Last 3 Months or Most Recently Relevant to Health Maintenance Results * US Abdomen Limited (08/15/2025 9:11 AM EDT) Anatomical Region Laterality Modality Abdomen Ultrasound 08/15/2025 9:11 AM EDT Narrative 08/15/2025 9:12 AM EDT [place] [address] Ultrasound Report Signed Patient: Abby Monte MR#: [id number] : 1995 Acct:[id number] Age/Sex: 30 / F ADM Date: 08/14/25 Loc: HO.US Attending Dr: Denny Plascencia MD Ordering Physician: Denny Plascencia MD Date of Service: 08/14/25 Procedure(s): US abdomen limited Accession Number(s): [id number] cc: Denny Plascencia MD; Faviola Da Silva Reason for Exam: ELEVATED ALK PHOS CLINICAL HISTORY: ELEVATED ALK PHOS --- Additional Notes or Special Instructions: US LIVER per order US abdomen limited Comparison: None provided Findings: The visualized pancreas is normal. The aorta and inferior vena cava are normal caliber. The appearance of the liver suggests fatty infiltration. There is no intrahepatic bile duct dilatation. The common duct is 4.0 mm in diameter. There are gallstones. The gallbladder is otherwise normal. There is no sonographic Allen sign. The main portal vein is antegrade. The right kidney is 12.9 cm in length. No ascites. IMPRESSION: 1. Cholelithiasis. 2. Hepatic steatosis This document has been electronically signed by: Theron Santoyo MD on 08/15/2025 09:11:05 Dictated By: Theron Santoyo MD Signed By: <Electronically signed by Theron Santoyo MD in OV> 08/15/25911 DD/ 0 TD/TT: 08/15/25910 Wellness Director: Procedure Note Rodney, Image - 08/15/2025 [place] [address] Ultrasound Report Signed Patient: Abby Monte MMR#: [id number] : 1995Acct:[id number] Age/Sex: 30 / FADM Date: 08/14/25 Loc: HO.US Attending Dr: Denny Plascencia MD Ordering Physician: Denny Plascencia MD Date of Service: 08/14/25 Procedure(s): US abdomen limited Accession Number(s): [id number] cc: Denny Plascencia MD; Faviola Da Silva Reason for Exam: ELEVATED ALK PHOS CLINICAL HISTORY: ELEVATED ALK PHOS --- Additional Notes or SpecialInstructions: US LIVER per order US abdomen limited Comparison: None provided Findings: The visualized pancreas is normal. The aorta and inferior vena cava are normal caliber. The appearance of the liver suggests fatty infiltration. There is no intrahepatic bile duct dilatation. The common duct is 4.0 mm in diameter. There are gallstones. The gallbladder is otherwise normal. There is no sonographic Allen sign. The main portal vein is antegrade. The right kidney is 12.9 cm in length. No ascites. IMPRESSION: 1. Cholelithiasis. 2. Hepatic steatosis This document has been electronically signed by: Theron Santoyo MD on 08/15/2025 09:11:05 Dictated By: Theron Santoyo MD Signed By: <Electronically signed by Theron Santoyo MD in OV> 08/15/25911 DD/ 0 TD/TT: 08/15/25910 Wellness Director: us Denny Plascencia MD IMG US PROCEDURES Edited Re sult - Final * BI Mammogram Diagnostic Tomosynthesis Right (03/25/2025 10:00 AM EDT) Anatomical Region Laterality Modality Breast Right Mammography 03/25/2025 10:0 0 AM EDT Narrative 03/25/2025 11:10 AM EDT [facility] [address] [place] [address] Mammography Report Signed with Jeri Patient: Abby Monte MR#: [id number] : 1995 Acct:[id number] Age/Sex: 29 / F ADM Date: 03/25/25 Loc: HO.MAMMO Attending Dr: Aden Fernández MD Ordering Physician: Aden Fernández MD Results: 1Neg ative Date of Service: 03/25/25 Follow Up: 1 Year From Orig inal Mammogram Procedure(s): MM tomosynthesis diagnostic RT Accession Number(s): [id number] cc: Faviola Da Silva; Aden Fernández MD [...] 03/25/25 1107 DD/ 1000 TD/TT: 03/25/25 1040 Wellness Director: Procedure Note Donotuseinterpreter, Image - 03/31/2025 [place] [facility] [address] [place], [place] [address] Mammography Report Signed with Addaravind Patient: Abby Monte [facility]#: [id number] : 1995Acct:[id number] Age/Sex: 29 / FADM Date: 03/25/25 Loc: HO.MAMMO Attending Dr: Aden Fernández MD Ordering Physician: Aden Fernández MDResults: 1Neg ative Date of Service: 03/25/25Follow Up: 1 Year From Orig ina Mammogram Procedure(s): MM tomosynthesis diagnostic RT Accession Number(s): [id number] cc: Faviola Da Silva; Aden Fernández MD [...] Recommend clinical follow-up. Electronically signed by: Krys Gracia DO 03/31/2025 04:04 PM EDT Addendum Dictated [...] 03/25/25 1107 DD/ 1000 TD/TT: 03/25/25 1040 Wellness Director: [facility] External Provider IMG BI PROCEDURES Edited Result - Final * Hepatitis C Antibody with Reflex to HCV, RNA, Quantitative, Real-Time PCR (10/21/2024 8:20 AM EST) Pathologist [facility] Hepatitis C Antibody Nonreactive Nonreactive [facility] Comment:Antibodies to HCV no t detected; does not exclude early acuteHCV infection. Blood Venous blood specimen / Unknown 10/21/2024 8:20 AM EST 10/21/2024 11:46 AM EST us Bon Arreaga MD LAB BLOOD ORDERABLES Final Resul t Performing Organization Address City/[facility]/ZIP Co de Phone Number [facility] [address] [place] [phone] * HIV-1/2 Antigen and Antibodies, Fourth Generation, with Reflexes (10/21/2024 8:20 AM EST) [facility] HIV AB/AG Nonreactive Nonreactive [facility] Comment:HIV-1 p24 Ag and/or HIV-1/HIV-2 Ab not detected.A test result that is nonreactive does not exclude thepossibility of exposure to or infection with HIV-1 and/orHIV-2. Nonreactive results in this assay for individualswith prior exposure to HIV-1 and/or HIV-2 may be due toantigen and antibody levels that are below the limit ofdetection of this assay.The [employer] HIV Ag/Ab Combo assay result andsupplemental assay results should be interpreted inconjunction with the patient's clinical presentation,history and other laboratory results. If the results areinconsistent with clinical evidence, additional testing issuggested to confirm the result. Blood Venous blood specimen / Unknown 10/21/2024 8:20 AM EST 10/21/2024 11:46 AM EST us Bon Arreaga MD LAB BLOOD ORDERABLES Final Resul t Performing Organization Address City/[facility]/ZIP Co de Phone Number [facility] [address] [place] [phone] * (ABNORMAL) LIPID PANEL, STANDARD (07/16/2020 1:59 PM EDT) [facility] LDL Cholesterol 60 mg/dL (calc) [facility] Comment: Reference range: <100 Desirable range <100 mg/dL for primary prevention; <70 mg/dL for patients with CHD or diabetic patients with > or = 2 CHD risk factors. LDL-C is now calculated using the Holger-Macedo calculation, which is a validated novel method providing better accuracy than the Friedewald equation in the estimation of LDL-C. Holger SS et al. ALBERTO. 2013;310(19): 6289-9388 (http://education.[employer]/faq/SZX307) Non-HDL Cholesterol 79 <130 mg/dL (calc) [facility] Comment: For patients with diabetes plus 1 major ASCVD risk factor, treating to a non-HDL-C goal of <100 mg/dL (LDL-C of <70 mg/dL) is considered a therapeutic option. Cholesterol, Total 121 <200 mg/dL [facility] Chol/HDLC Ratio 2.9 <5.0 (calc) [facility] Triglycerides 105 <150 mg/dL [facility] HDL Cholesterol 42(L) > OR [...] factors. LDL-C is now calculated using the Holger-Macedo calculation, which is a validated novel method providing better accuracy than the Friedewald equation in the estimation of LDL-C. Holger SS et al. ALBERTO. 2013;310(19): 8092-0372 (http://education.[employer]/faq/VYZ359) Triglycerides 105 <150 mg/dL [facility] HDL Cholesterol 42(L) > OR = 50 mg/dL [facility] 07/16/2020 1:59 PM EDT us Eduardo Wallace MD LAB BLOOD ORDERABLES Final Resul t [facility] [address] from Last 3 Months or Most Recently Relevant to Health Maintenance Insurance [facility] [id number] , [address] [place] [address] Care Teams Oil Gauger Relationship Specialty Start Date End Date Faviola Da Silva MD [address] [place] [address] PCP - General Family Medicine 09/23/20
--- OUTSIDE RECORDS SUMMARY | 2025-09-14 17:20 | XMS_ITS | Encounter Summary ---
Author Organization [employer] Address [address] [facility] [address] 7[address] [place] [address] Care Team Providers Care Fiber Optic Splicer Name Role Phone Faviola Da Silva MD Primary Care Provider [phone] Encounter Details Date Type Department Care Team ([facility] Contact Info) Description 10/24/2024 Orders Only [facility] [address] [place] [address] Bon Arreaga MD [address] [place] [address] Elevated LFTs (Primary Dx) Social History Tobacco [...] Bilirubin, Direct 0.2 0.0 - 0.5 mg/dL [facility] Blood Venous blood specimen / Unknown 06/03/2025 1:28 PM EDT 06/03/2025 4:28 PM EDT us Bon Arreaga MD LAB BLOOD ORDERABLES Final Resul t [facility] [address] [place] [address] [phone] documented in this encounter Visit Diagnoses Diagnosis Elevated LFTs- Primary Other abnormal blood chemistry documented in this encounter Additional Health Concerns Assessment Noted Time PHQ-9 Depression Total Score: 11 024 2:36 PM EST documented as of this encounter Care Teams Fiber Optic Splicer Relationship Specialty Start Date End Date Faviola Da Silva MD [address] [place] [address] PCP - General Family Medicine 09/23/20 documented as of this encounter
--- OUTSIDE RECORDS SUMMARY | 2025-09-14 17:20 | XMS_ITS | Encounter Summary ---
Author Organization [employer] Address [address] [place] [address] [address] [place] [address] Care Team Providers Care Shirt Closer Name Role Phone Faviola Da Silva MD Primary Care Provider [phone] Reason for Referral * Imaging (Routine) - Closed Specialty Diagnoses / Procedures Referred By Contnereyda franco Referred To Contact Radiology Diagnoses Elevated alkaline phosphatase level Procedures US LIVER Denny Plascencia MD [address] [place] [address] Phone: tel: fax: [address] Phone: tel: fax: Referral ID Status Reason Start Date Expiration Date Visits Re quested Visits Authorized [id number] Closed 06/08/2025 06/08/2026 1 1 Encounter Details Date Type Department Care Team (Late st Contact Info) Description 06/08/2025 Orders Only [facility] [address] [place], [place] [phone] Denny Plascencia MD [address] [place], [place] [phone] Dizziness (Primary Dx); Elevated alkaline phosphatase level [...] Routine Dizziness Expected: 06/08/2025 (Approximate), Expires: 06/08/2026 US LIVER Imaging Routine Elevated alkaline phosphatase level Expected: 06/08/2025, Expires: 06/08/2026 documented as of this encounter Visit Diagnoses Diagnosis Dizziness- Primary Dizziness and giddiness Elevated alkaline phosphatase level documented in this encounter Additional Health Concerns Assessment Noted Time PHQ-9 Depression Total Score: 11 024 2:36 PM EST documented as of this encounter Care Teams Shirt Closer Relationship Specialty Start Date End Date Faviola Da Silva MD [address] [place] [address] PCP - General Family Medicine 09/23/20 documented as of this encounter
--- OUTSIDE RECORDS SUMMARY | 2025-09-14 17:20 | XMS_ITS | Encounter Summary ---
Author Organization [employer] Address [address] [facility] [facility] [address] 7[address] [place] [address] Care Team Providers Care Car Dealer Name Role Phone Faviola Da Silva MD Primary Care Provider [phone] Encounter Details Date Type Department Care Team ([facility] Contact Info) Description 10/01/2024 Orders Only [facility] [address] [place], [place] [phone] Faviola Da Silva MD [address] [place], [place] [phone] Social History Tobacco Use Types Packs/Day Years [...] documented as of this encounter Care Teams Car Dealer Relationship Specialty Start Date End Date Faviola Da Silva MD [address] [place] [phone] PCP - General Family Medicine 09/23/20 documented as of this encounter
--- OUTSIDE RECORDS SUMMARY | 2025-09-14 17:20 | XMS_ITS | Encounter Summary ---
Author Organization [employer] Address [address] [facility] [facility] [address] [place] [address] Care Team Providers Care Web Press Roll Tender Name Role Phone Faviola Da Silva MD Primary Care Provider [phone] Encounter Details Date Type Department Care Team ([facility] Contact Info) Description 09/03/2023 Orders Only [facility] [address] [place], [place] [phone] Faviola Da Silva MD [address] [place], [place] [phone] Social History Tobacco Use Types Packs/Day Years [...] on filedocumented in this encounter Care Teams Web Press Roll Tender Relationship Specialty Start Date End Date Faviola Da Silva MD [address] [place] [phone] PCP - General Family Medicine 09/23/20 documented as of this encounter
--- OUTSIDE RECORDS SUMMARY | 2025-09-14 17:20 | XMS_ITS | Encounter Summary ---
Author Organization [employer] Address [address] [facility] 7t [place] [address] Care Team Providers Care Clerk Travel Reservations Name Role Phone Faviola Da Silva MD Primary Care Provider [phone] Encounter Details Date Type Department Care Team ([facility] Contact Info) Description 11/01/2022 Orders Only [facility] [address] [place] [address] Bon Arreaga MD [address] [place] [address] Bacterial vaginosis (Primary Dx); Candidal vulvovaginitis Social [...] vagina documented in this encounter Care Teams Clerk Travel Reservations Relationship Specialty Start Date End Date Faviola Da Silva MD [address] [place] [address] PCP - General Family Medicine 09/23/20 documented as of this encounter
== END 2025-09-14 16:59 | disposition home or self-care (01) ==
LOC: HO.HHCLNP 16:58
PROVIDERS: Visit Provider General Practice
DX: Z12.4 Encounter for screening for malignant neoplasm of cervix (principal); Z11.51 Encounter for screening for human papillomavirus (HPV)
CPT/HCPCS: 36415; 87626

== ENCOUNTER 2025-09-26 14:14 | Outpatient (REF) | payer OTHER, SELFPAY ==
--- NOTE | ~2025-09-26 | MR_ITS ---
CLINICAL HISTORY: s p R knee dislocation Exam: Nonenhanced MRI of the right knee. Comparison: None. Findings: Menisci: Meniscal signal intensities appear maintained, with no evidence of meniscal tears. Ligaments: Anterior and posterior cruciate ligaments appear intact. Medial and lateral collateral ligaments appear intact. Osseous structures: There is lateral patellar tilting or subluxation. There is reported history of knee dislocation. There is mild bone marrow edema involving the patella both at its medial aspect (15; 14-12), and centrally with subchondral cysts (15; 10). Findings compatible with sequela of patellar chondromalacia and likely transient lateral patellar dislocation. There is no definable impaction injury of the lateral margin of the lateral femoral condyle. Cartilage: There is cartilaginous irregularity and thinning involving the patellar cartilage, compatible with chondromalacia. Remaining cartilage thicknesses appear maintained. Joint space and soft tissues: Dliopxmc-yx-cxexo joint effusion. The medial patellar retinaculum appears to be grossly intact. A popliteal fossa cyst extends over a craniocaudad distance of 3.9 cm and measures up to 15 mm cross-sectional dimension. Impression: 1. Likely sequela of mild transient lateral patellar dislocation or subluxation. No significant impaction injury of the lateral femoral condyle is appreciated. 2. Sequela of patellofemoral chondromalacia. Mfmmfpgg-pi-qplbt joint effusion. This document has been electronically signed by: Myles Alejandre MD on 09/26/2025 15:48:29
== END 2025-09-26 14:15 | disposition home or self-care (01) ==
LOC: HO.MRI 14:14
PROVIDERS: PCP General Practice
DX: S83.104A Unspecified dislocation of right knee, initial encounter (principal)
CPT/HCPCS: 73721

== ENCOUNTER → 2025-09-26 14:21 | Outpatient (BNV) | payer OTHER, SELFPAY | PROVIDERS: PCP General Practice; Visit Provider Radiology Diagnostic Radiology | DX: M22.41 Chondromalacia patellae, right knee (principal); M25.461 Effusion, right knee | CPT/HCPCS: 73721 ==

== ENCOUNTER 2025-10-02 09:10 | Outpatient (REF) | payer OTHER, SELFPAY ==
--- NOTE | ~2025-10-02 | XR_ITS ---
EXAMINATION: XR KNEE, RIGHT CLINICAL INFORMATION: M17.11 - Unilateral primary osteoarthritis, right knee COMPARISON: Right knee MRI September 26, 2025 TECHNIQUE: AP standing bilateral, sunrise, and lateral views of the right knee. FINDINGS: There is mild medial subluxation of distal femur in the knee joint line. There are small marginal osteophytes involving the medial joint line and patellofemoral joint. There is a small amount of joint fluid. There is an osteochondral body measuring 8 x 14 mm in the suprapatellar pouch. On prior MRI, this was seen in the anterior joint line. Joint spaces are preserved. XR/XR knee RT 3V IMPRESSION: Mild x-ray changes of osteoarthritis. There is a loose body. On prior MRI, there was an osteochondral fragment located in the anterior intercondylar notch. On the current x-ray, it is visible in the suprapatellar pouch. It measures approximately 8 x 14 mm. Electronically signed by: Dejan Marrufo MD 10/02/2025 12:28 PM BOB
--- OUTSIDE RECORDS SUMMARY | 2025-10-05 10:07 | XMS_ITS | Encounter Summary ---
Author Organization [employer] Address [address] [facility] 7t [place] [address] Care Team Providers Care Folder Seamer Automatic Name Role Phone Faviola Da Silva MD Primary Care Provider [phone] Encounter Details Date Type Department Care Team ([facility] Contact Info) Description 08/17/2025 Results Follow-Up [facility] CHC MED & PEDS [address], [place] [phone] Denny Plascencia MD [address] [place] [address] US Abdomen Limited Social History Tobacco Use [...] documented as of this encounter Care Teams Folder Seamer Automatic Relationship Specialty Start Date End Date Faviola Da Silva MD [address] [place] [address] PCP - General Family Medicine 09/23/20 documented as of this encounter
--- OUTSIDE RECORDS SUMMARY | 2025-10-05 10:07 | XMS_ITS | Clinical Summary ---
Author Organization [employer] Address [address] [place] [address] Care Team Providers Care Spring Floor Service Worker Name Role Phone Faviola Da Silva MD Primary Care Provider [phone] Surgical History Surgery Date Site/Laterality Comments OTHER [...] age to complete this topic Care Teams Spring Floor Service Worker Relationship Specialty Start Date End Date Faviola Da Silva MD [address] [place] [address] PCP - General 06/27/24
--- OUTSIDE RECORDS SUMMARY | 2025-10-05 10:07 | XMS_ITS | Encounter Summary ---
Author Organization [employer] Address [address] [place] [address] 7 [place] [address] Care Team Providers Care Community Nurse Name Role Phone Faviola Da Silva MD Primary Care Provider [phone] Encounter Details Date Type Department Care Team (Late st Contact Info) Description 06/05/2023 Abstract [facility] MEDICINE 230 [place], [place] [phone] Faviola Da Silva MD 230 [place], [place] [phone] Social History Tobacco Use Types Packs/Day Years [...] on filedocumented in this encounter Care Teams Community Nurse Relationship Specialty Start Date End Date Faviola Da Silva MD [address] [place], [place] [phone] PCP - General Family Medicine 09/23/20 documented as of this encounter
--- OUTSIDE RECORDS SUMMARY | 2025-10-05 10:07 | XMS_ITS | Encounter Summary ---
Author Organization [employer] Address [address] [place] [address] 7 [place] [address] Care Team Providers Care Computer Network Engineer Name Role Phone Faviola Da Silva MD Primary Care Provider [phone] Reason for Referral * Imaging (Routine) - Closed Specialty Diagnoses / Procedures Referred By Contnereyda franco Referred To Contact Radiology Diagnoses Elevated alkaline phosphatase level Procedures US LIVER Denny Plascencia MD [address] [place] [address] Phone: tel: fax: [address] [address] Phone: tel: fax: Referral ID Status Reason Start Date Expiration Date Visits Re quested Visits Authorized [id number] Closed 06/08/2025 06/08/2026 1 1 Encounter Details Date Type Department Care Team (Late st Contact Info) Description 06/08/2025 Orders Only [facility] CH[facility] MED & PEDS [address] [place], [place] [phone] Denny Plascencia MD [address] [place], [place] [phone] Dizziness (Primary Dx); Elevated alkaline phosphatase level [...] documented as of this encounter Care Teams Computer Network Engineer Relationship Specialty Start Date End Date Faviola Da Silva MD 230 [place] [address] PCP - General Family Medicine 09/23/20 documented as of this encounter
--- OUTSIDE RECORDS SUMMARY | 2025-10-05 10:07 | XMS_ITS | Encounter Summary ---
Author Organization [employer] Address [address] [facility] [address] 7t [place] [address] Care Team Providers Care Boiler Repairman Name Role Phone Faviola Da Silva MD Primary Care Provider [phone] Encounter Details Date Type Department Care Team ([facility] Contact Info) Description 08/24/2025 Orders Only [facility] MEDICINE [address] [place], [place] [phone] Faviola Da Silva MD [address] [place], [place] [phone] Social History Tobacco Use Types Packs/Day Years [...] documented as of this encounter Care Teams Boiler Repairman Relationship Specialty Start Date End Date Faviola Da Silva MD [address] [place] [address] PCP - General Family Medicine 09/23/20 documented as of this encounter
--- OUTSIDE RECORDS SUMMARY | 2025-10-05 10:07 | XMS_ITS | Encounter Summary ---
Author Organization [employer] Address [address] [facility] [address] 7t [place] [address] Care Team Providers Care Filter Pulp Washer Name Role Phone Faviola Da Silva MD Primary Care Provider [phone] Encounter Details Date Type Department Care Team ([facility] Contact Info) Description 10/01/2024 Orders Only [facility] MEDICINE [address] [place], [place] [phone] Faviola Da Silva MD [address] [place], [place] [phone] Social History Tobacco Use Types Packs/Day Years [...] documented as of this encounter Care Teams Filter Pulp Washer Relationship Specialty Start Date End Date Faviola Da Silva MD [address] [place] [address] PCP - General Family Medicine 09/23/20 documented as of this encounter
--- OUTSIDE RECORDS SUMMARY | 2025-10-05 10:07 | XMS_ITS | Encounter Summary ---
Author Organization [employer] Address [address] [facility] [address] 7t [place] [address] Care Team Providers Care Scrummaster Name Role Phone Faviola Da Silva MD Primary Care Provider [phone] Encounter Details Date Type Department Care Team ([facility] Contact Info) Description 10/24/2024 Orders Only [facility] [address] [place] [address] oBn Arreaga MD [address] [place] [address] Elevated LFTs (Primary Dx) Social History Tobacco [...] Bilirubin, Direct 0.2 0.0 - 0.5 mg/dL [facility] Blood Venous blood specimen / Unknown 06/03/2025 1:28 PM EDT 06/03/2025 4:28 PM EDT us Bon Arreaga MD LAB BLOOD ORDERABLES Final Resul t [facility] [address] [place] [address] [phone] documented in this encounter Visit Diagnoses Diagnosis Elevated LFTs- Primary Other abnormal blood chemistry documented in this encounter Additional Health Concerns Assessment Noted Time PHQ-9 Depression Total Score: 11 024 2:36 PM EST documented as of this encounter Care Teams Scrummaster Relationship Specialty Start Date End Date Faviola Da Silva MD [address] [place] [address] PCP - General Family Medicine 09/23/20 documented as of this encounter
--- OUTSIDE RECORDS SUMMARY | 2025-10-05 10:07 | XMS_ITS | Encounter Summary ---
Author Organization [employer] Address [address] [place] [address] 7 [place] [address] Care Team Providers Care Wash Driller Helper Name Role Phone Faviola Da Silva MD Primary Care Provider [phone] Reason for Visit * Reason Comments Chart update mammo Encounter Details Date Type Department Care Team ([facility] Contact Info) Description 07/04/2023 Abstract [facility] MEDICINE [address] [place] [address] Lesly Win Social History Tobacco Use Types [...] on filedocumented in this encounter Care Teams Wash Driller Helper Relationship Specialty Start Date End Date Faviola Da Silva MD [address] [place], [place] [phone] PCP - General Family Medicine 09/23/20 documented as of this encounter
--- OUTSIDE RECORDS SUMMARY | 2025-10-05 10:07 | XMS_ITS | Encounter Summary ---
Author Organization [employer] Address [address] [facility] [address] 7t [place] [address] Care Team Providers Care Patent Prosecution Paralegal Name Role Phone Faviola Da Silva MD Primary Care Provider [phone] Encounter Details Date Type Department Care Team ([facility] Contact Info) Description 04/17/2025 Orders Only [facility] MEDICINE [address] [place], [place] [phone] Faviola Da Silva MD [address] [place], [place] [phone] Social History Tobacco Use Types Packs/Day Years [...] documented as of this encounter Care Teams Patent Prosecution Paralegal Relationship Specialty Start Date End Date Faviola Da Silva MD [address] [place] [address] PCP - General Family Medicine 09/23/20 documented as of this encounter
--- OUTSIDE RECORDS SUMMARY | 2025-10-05 10:07 | XMS_ITS | Encounter Summary ---
Author Organization [employer] Address [address] [facility] [facility] [address] 7t [place] [address] Care Team Providers Care Supervisor Heavy Equipment Name Role Phone Faviola Da Silva MD Primary Care Provider [phone] Encounter Details Date Type Department Care Team ([facility] Contact Info) Description 08/27/2023 Abstract [facility] MEDICINE [address] [place], [place] [phone] Faviola Da Silva MD [address] [place], [place] [phone] Social History Tobacco Use Types Packs/Day Years [...] filedocumented in this encounter Care Teams Supervisor Heavy Equipment Relationship Specialty Start Date End Date Faviola Da Silva MD [address] [place] [address] PCP - General Family Medicine 09/23/20 documented as of this encounter
--- OUTSIDE RECORDS SUMMARY | 2025-10-05 10:07 | XMS_ITS | Encounter Summary ---
Author Organization [employer] Address [address] [facility] [address] [facility] [address]t [place] [address] Care Team Providers Care Blocking Machine Tender Name Role Phone Faviola Da Silva MD Primary Care Provider Encounter Details Date Type Department Care Team ([facility] Contact Info) Description 09/03/2023 Orders Only [facility] MEDICINE 230 [place], [place] [phone] Faviola Da Silva MD 230 [place], [place] [phone] Social History Tobacco Use Types Packs/Day Years [...] on filedocumented in this encounter Care Teams Blocking Machine Tender Relationship Specialty Start Date End Date Faviola Da Silva MD [address] [place] [address] PCP - General Family Medicine 09/23/20 documented as of this encounter
--- OUTSIDE RECORDS SUMMARY | 2025-10-05 10:07 | XMS_ITS | Clinical Summary ---
Author Organization [employer] Address [address] [facility] 7t [place] [address] Care Team Providers Care Supervisor Silvering Department Name Role Phone Faviola Da Silva MD Primary Care Provider [phone] Allergies No known active allergies Medications * [...] 09/01/20 25 Active neomycin-polymyx in-hydrocortison e (Cortisporin) 3.5-13361-[address] 3 DROPS IN THE [...] if become although insurance requests prescription from revenue cycle analyst, there are none in our service area [...] BID from 150mg BID Begin treatment at [facility] for OP Located PPD support group and [...] Department Care Team Description 09/28/2025 Results Follow-Up [facility] [address] [place] [address] Charissa Wilson CNP MR Knee w/o Contrast Right 09/15/2025 Telephone [facility] [address] [place] [address] Faviola Da Silva MD Call Back Request 09/14/2025 1:30 PM EST Office Visit [facility] [address] [place] [address] Faviola Da Silva MD Class [...] 09/14/2025 Travel 09/07/2025 Travel 09/07/2025 Patient Outreach [facility] [address] [place] [address] Faviola Da Silva MD Pre-visit Planning (Pre visit planning LVM ) 09/01/2025 4:40 PM EDT Office Visit [facility] [address] [place] [address] hCarissa Wilson CNP Chronic pain of right knee (Primary Dx); Dislocation of right knee, initial encounter 09/01/2025 Travel 08/24/2025 Orders Only [facility] [address] [place] [address] Faviola Da Silva MD 08/21/2025 11:45 AM EDT Immunization [facility] [address] [place] [address] Janett Leija RN Encounter for immunization 08/21/2025 Travel 08/17/2025 Results Follow-Up [facility] [address] [place] [address] Denny Plascencia MD US Abdomen Limited 08/14/2025 Orders Only [facility] [address] [place] [address] Denny Plascencia MD from Last 3 Months [...] PM EST Narrative 09/26/2025 3:50 PM EST [place] [address] Magnetic Resonance Report Signed with Jeri Patient: Abby Monte MR#: [id number] : 1995 Acct:[id number] Age/Sex: 30 / F ADM Date: 09/26/25 Loc: HO.MRI Attending Dr: Charissa Wilson OPERATIONS LEAD Ordering Physician: Charissa Wilson NP Date of Service: 09/26/25 Procedure(s): MR knee RT wo con Accession Number(s): [id number] cc: Faviola Da Silva; Charissa Wilson NP [...] appear maintained. Joint space and soft tissues: Qctdbedd-sk-hcdtm joint effusion. The medial patellar retinaculum appears to be grossly intact. A popliteal fossa cyst extends over a craniocaudad distance of 3.9 cm and measures up to 15 mm cross-sectional dimension. Impression: 1. Likely sequela of mild transient lateral patellar dislocation or subluxation. No significant impaction injury of the lateral femoral condyle is appreciated. 2. Sequela of patellofemoral chondromalacia. Aimaawfl-se-fggjz joint effusion. This document has been electronically signed by: Myles Alejandre MD on 09/26/2025 15:48:29 Dictated By: Myles Alejandre MD Signed By: <Electronically signed by Myles Alejandre MD in OV> 09/26/251548 DD/ 47 TD/TT: 09/26/251547 Grain Drier: Procedure Note Donotuseinterpreter, Image - 09/26/2025 [place] [address] Magnetic Resonance Report Signed with Addenda Patient: Abby Monte [facility]#: [id number] : 1995Acct:[id number] Age/Sex: 30 / FADM Date: 09/26/25 Loc: HO.MRI Attending Dr: Charissa Wilson OPERATIONS LEAD Ordering Physician: Charissa Wilson NP Date of Service: 09/26/25 Procedure(s): MR knee RT wo con Accession Number(s): [id number] cc: Faviola Da Silva; Charissa Wilson NP [...] appear maintained. Joint space and soft tissues: Pjxfeech-be-ugudw joint effusion. The medial patellar retinaculum appears to be grossly intact. A popliteal fossa cyst extends over a craniocaudad distance of 3.9 cm and measures up to 15 mm cross-sectional dimension. Impression: 1. Likely sequela of mild transient lateral patellar dislocation or subluxation. No significant impaction injury of the lateral femoral condyle is appreciated. 2. Sequela of patellofemoral chondromalacia. Yczienek-sq-ginvp joint effusion. This document has been electronically signed by: Myles Alejandre MD on 09/26/2025 15:48:29 Dictated By: Myles Alejandre MD Signed By: <Electronically signed by Myles Alejandre MD in OV> 09/26/25 1549 DD/ 1548 TD/TT: 09/26/25 1548 Grain Drier: Charissa [facility] MRI PROCEDURES Edited Result - Final * HPV DNA (16, 18, Other High Risk), PCR, Vaginal Self-Collected (09/14/2025 2:04 PM EST) HPV 16 DNA Not Detected Not Detected [facility] HPV 18 DNA Not Detected Not Detected [facility] HPV, Other Not Detected Not Detected [facility] Comment:Other HR HPV DNA inc ludes the following genotypes:31,33,35,39,45,51,52,56,58,59,66,68.Methodology: Polymerase Chain Reaction (PCR)THIS TEST WAS PERFORMED AT:[id number] [place] [address]SSNCTVKLENIN GODINEZ MD,PHD ThinPrep vial Vaginal structure / Unknown 09/14/2025 2:04 PM EST 09/16/2025 11:33 AM EST us Faviola Da Silva MD LAB BODY FLUIDS AND STOOLS ORD ERABLES Final Result [facility] [address] [place] [phone] * US Abdomen Limited (08/15/2025 9:11 AM EDT) Anatomical Region Laterality Modality Abdomen Ultrasound 08/15/2025 9:11 AM EDT Narrative 08/15/2025 9:12 AM EDT [address] [address] Ultrasound Report Signed Patient: Abby Monte MR#: [id number] : 1995 Acct:[id number] Age/Sex: 30 / F ADM Date: 08/14/25 Loc: HO.US Attending Dr: Denny Plascencia MD Ordering Physician: Denny Plascencia MD Date of Service: 08/14/25 Procedure(s): US abdomen limited Accession Number(s): [id number] cc: Denny Plascencia MD; Faviola Da Silva [...] in OV> 08/15/25911 DD/ 0 TD/TT: 08/15/25910 Grain Drier: Procedure Note Donotuseinterpreter, Image - 08/15/[address] [address] Ultrasound Report Signed Patient: Abby Monte MMR#: [id number] : 1995Acct:[id number] Age/Sex: 30 / FADM Date: 08/14/25 Loc: HO.US Attending Dr: Denny Plascencia MD Ordering Physician: Denny Plascencia MD Date of Service: 08/14/25 Procedure(s): US abdomen limited Accession Number(s): [id number] cc: Denny Plascencia MD; Faviola Da Silva [...] in OV> 08/15/25911 DD/ 0 TD/TT: 08/15/25910 Grain Drier: Denny Plascencia MD IMG US PROCEDURES Edited Re sult - Final * BI Mammogram Diagnostic Tomosynthesis Right (03/25/2025 10:00 AM EDT) Anatomical Region Laterality Modality Breast Right Mammography 03/25/2025 10:0 0 AM EDT Narrative 03/25/2025 11:10 AM EDT [facility] [address] [place] [address] Mammography Report Signed with Jeri Patient: Abby Monte MR#: [id number] : 1995 Acct:[id number] Age/Sex: 29 / F ADM Date: 03/25/25 Loc: HO.MAMMO Attending Dr: Aden Fernández MD Ordering Physician: Aden Fernández MD Results: 1Neg ative Date of Service: 03/25/25 Follow Up: 1 Year From [facility] Mammogram Procedure(s): MM tomosynthesis diagnostic RT Accession Number(s): [id number] cc: Faviola Da Silva; Aden Fernández MD [...] 03/25/25 1107 DD/ 1000 TD/TT: 03/25/25 1040 Grain Drier: Procedure Note Donotuseinterpreter, Image - 03/31/2025 [facility] [address] [place] [address] Mammography Report Signed with Jeri Patient: Abby Monte MMR#: [id number] : 1995Acct:[id number] Age/Sex: 29 FADM Date: 03/25/25 Loc: HO.MAMMO Attending Dr: Aden Fernández MD Ordering Physician: Aden Fernández MDResults: 1Neg ative Date of Service: 03/25/25Follow Up: 1 Year From Orig inal Mammogram Procedure(s): MM tomosynthesis diagnostic RT Accession Number(s): [id number] cc: Faviola Da Silva; Aden Fernández MD [...] 03/25/25 1107 DD/ 1000 TD/TT: 03/25/25 1040 Grain Drier: [facility] External Provider IMG BI PROCEDURES Edited Result - Final * Hepatitis C Antibody with Reflex to HCV, RNA, Quantitative, Real-Time PCR (10/21/2024 8:20 AM EST) Hepatitis C Antibody Nonreactive Nonreactive [facility] Comment:Antibodies to HCV no t detected; does not exclude early acuteHCV infection. Blood Venous blood specimen / Unknown 10/21/2024 8:20 AM EST 10/21/2024 11:46 AM EST Bon Arreaga MD LAB BLOOD ORDERABLES Final Resul t [facility] [address] [place] [phone] * HIV-1/2 Antigen and Antibodies, Fourth Generation, with Reflexes (10/21/2024 8:20 AM EST) Pathologist [facility] HIV AB/AG Nonreactive Nonreactive [facility] Comment:HIV-1 p24 Ag and/or HIV-1/HIV-2 Ab not detected.A test result that is nonreactive does not exclude thepossibility of exposure to or infection with HIV-1 and/orHIV-2. Nonreactive results in this assay for individualswith prior exposure to HIV-1 and/or HIV-2 may be due toantigen and antibody levels that are below the limit ofdetection of this assay.The [employer] HIV Ag/Ab Combo assay result andsupplemental assay results should be interpreted inconjunction with the patient's clinical presentation,history and other laboratory results. If the results areinconsistent with clinical evidence, additional testing issuggested to confirm the result. Blood Venous blood specimen / Unknown 10/21/2024 8:20 AM EST 10/21/2024 11:46 AM EST us Bon Arreaga MD LAB BLOOD ORDERABLES Final Resul t [facility] [address] [place] [phone] * (ABNORMAL) LIPID PANEL, STANDARD (07/16/2020 1:59 PM EDT) Pathologist [facility] LDL Cholesterol 60 mg/dL (calc) [facility] Comment: Reference range: <100 Desirable range <100 mg/dL for primary prevention; <70 mg/dL for patients with CHD or diabetic patients with > or = 2 CHD risk factors. LDL-C is now calculated using the Holger-Remington calculation, which is a validated novel method providing better accuracy than the Friedewald equation in the estimation of LDL-C. Holger ARREOLA et al. ALBERTO. 2013;310(19): 4999-5343 (http://education.[employer]/faq/EJO198) Non-HDL Cholesterol 79 <130 mg/dL (calc) [facility] Comment: For patients with diabetes [...] LDL-C. Holger SS et al. ALBERTO. 2013;310(19): 5997-3999 (http://education.[employer].com/faq/YMA495) Triglycerides 105 <150 mg/dL [facility] HDL Cholesterol 42(L) > OR = 50 mg/dL [facility] 07/16/2020 1:59 PM EDT us Eduardo Wallace MD LAB BLOOD ORDERABLES Final Resul t [facility] [address] from Last 3 Months or Most Recently Relevant to Health Maintenance Insurance [employer] [id number] [place] [address] Care Teams Supervisor Silvering Department Relationship Specialty Start Date End Date Faviola Da Silva MD [address] [place] [address] PCP - General Family Medicine 09/23/20
--- OUTSIDE RECORDS SUMMARY | 2025-10-05 10:07 | XMS_ITS | Encounter Summary ---
Author Organization [employer] Address [address] [facility] 7t [place] [address] Care Team Providers Care Paving Inspector Name Role Phone Faviola Da Silva MD Primary Care Provider [phone] Encounter Details Date Type Department Care Team ([facility] Contact Info) Description 11/01/2022 Orders Only [facility] [address] [place] [address] Bon Arreaga MD [address] [place] [address] Bacterial vaginosis (Primary Dx); Candidal vulvovaginitis Social [...] vagina documented in this encounter Care Teams Paving Inspector Relationship Specialty Start Date End Date Faviola Da Silva MD [address] [place] [address] PCP - General Family Medicine 09/23/20 documented as of this encounter
--- OUTSIDE RECORDS SUMMARY | 2025-10-05 10:07 | XMS_ITS | Encounter Summary ---
Author Organization [employer] Address [address] [place] [address] [address] [place] [address] Care Team Providers Care Crime Victim Specialist Name Role Phone Faviola Da Silva MD Primary Care Provider [phone] Reason for Visit * Reason Comments [facility] Encounter Details Date Type Department Care Team ([facility] Contact Info) Description 05/09/2023 Abstract [facility] [address] [place] [address] Faviola Da Silva MD [address] [place] [address] Social History Tobacco Use Types Packs/Day Years [...] on filedocumented in this encounter Care Teams Crime Victim Specialist Relationship Specialty Start Date End Date Faviola Da Silva MD [address] [place] [address] PCP - General Family Medicine 09/23/20 documented as of this encounter
== END 2025-10-02 09:11 | disposition home or self-care (01) ==
LOC: HO.HOSX 09:10
PROVIDERS: Visit Provider Physician Assistant
DX: M17.11 Unilateral primary osteoarthritis, right knee (principal)
CPT/HCPCS: 73562

== ENCOUNTER 2025-10-02 11:44 | Outpatient (AMB) | payer OTHER, SELFPAY ==
--- NOTE | 2025-10-02 11:49 | MHC.OFFVIS ---
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 Patient was referred by [facility], at their visit she noted that her knee dislocated at home. MRI was performed. At today's visit she states her pain is located at the anterior aspect of knee. Hx of dislocation since age 14. States this most recent dislocation in August has caused her the most pain. She has attended PT in the past. 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 She states she was walking and when she suddenly stopped and turned the patella dislocated. She states it has been happening since 14 yo. She states since the initial incident it dislocated every few months. With the initial incident, she saw an orthopedist and was sent to PT which did not help. Over the years she did not seek treatment. She states when she patella dislocates, she is able to reduce it on her own. After her most recent episode, her PCP ordered an MRI and referred her to our offie for ortho eval. She mentions since the recent incident, she feels there is something that gets stuck in the front of her knee joint. She states she is able to manipulate her knee and it resolves. [facility] Medical History Breast mass, right Family history of breast cancer Left breast mass No known health problems Social History Alcohol intake: never Female Reproductive History Menstrual Age of Menarche: 13 Review of Systems Const All systems reviewed & are unremarkable except as noted in HPI and below Physical Exam Vital Signs: BMI result Body Mass Index 34.1 Const General: cooperative and no acute distress Orientation/consciousness: patient oriented x3 Resp Effort & Inspection: normal respiratory effort and able to speak in complete sentences Cardio Peripheral pulses: Peripheral pulses 2+ throughout Neuro General: patient oriented x3 Extrem Other: Right knee normal to inspection. No erythema or joint effusion She has full flexion and extension with crepitus No retropatellar tenderness No pain with patellar grind No laxity Calf supple non tender, NVI. Results Reviewed Results Reviewed: XR knee RT 3V IMPRESSION: Mild x-ray changes of osteoarthritis. There is a loose body. On prior MRI, there was an osteochondral fragment located in the anterior intercondylar notch. On the current x-ray, it is visible in the suprapatellar pouch. It measures approximately 8 x 14 mm. Impression: 1. Likely sequela of mild transient lateral patellar dislocation or subluxation. No significant impaction injury of the lateral femoral condyle is appreciated. 2. Sequela of patellofemoral chondromalacia. Dknhoxqo-go-rryly joint effusion. ADDENDUMThis document has been electronically signed by: Myles Alejandre MD on 09/26/2025 15:48:29 ADDENDUM: Addendum: In addition, there is a loose body within anterior knee joint space measuring 12 x 10 mm (15; 19), by 8 mm (16; 15 and 17; 15). This is nonspecific and could represent an osteochondral fragment, although no definable donor site identified. Assessment & Plan Assessment & Plan (1) Dislocation of right patella: Code(s): S83.004A - Unspecified dislocation of right patella, initial encounter Category: Medical Plan: I explained to the patient the findings on her imaging studies and treatment options. I explained there is likely a loose body which may be a result of a chondral injury from recurrent dislocations. This may cause the sensation of catching or locking in the knee and if this does cause pain and/or limitations we can discuss surgical intervention. I did explain the MRI did not show any ligamentous injury which would be causing her instability; therefore, the type of surgery she may benefit from would be an arthroscopic removal of loose body with possible chondroplasty. We briefly discuss what the post of rehab course would look like. ie 4-6 weeks of avoiding high impact, deep squating activities. I discussed with her the role of PT to work on strength and conditioning exercises to help manage her instability and reduce load through the PF joint. I also discussed the role of a patellar stabilizing brace which she was fit for in the office today. I did place an order for PT so she can work with them. She will consider her options and if she is interested in discussing surgery she can contact our office , otherwise, f/u prn. Orders: Orders XR knee RT 3V Today M17.11 - Unilateral primary osteoarthritis, right knee Coding Level of Care Code Complex visit Add On G2211 Diagnoses Dislocation of right patella S83.004A
[2025-10-02 12:04] VITALS: BMI 34.1
--- OUTSIDE RECORDS SUMMARY | 2025-10-02 12:33 | XMS_ITS | Encounter Summary ---
Author Organization [employer] [facility] [employer] Address [address] [place] [address] Care Team Providers Care Straight Line Press Setter Name Role Phone Faviola Da Silva MD Primary Care Provider [phone] Encounter Details Date Type Department Care Team ([facility] Contact Info) Description 09/28/2025 Results Follow-Up [facility]S [address], [place] [phone] Charissa Wilson, SALES FORCE ADMINISTRATOR [address] [place] [address] MR Knee w/o Contrast Right Social History Tobacco Use Types Packs/Day Years Used Date Smoking Tobacco: Never Smokeless Tobacco: Never Alcohol Use Standard Drinks/Week Comments Never 0 (1 standard drink = 0.6 oz pur e alcohol) Depression Answer Date Recorded Patient Health Questionnaire-9 Score 5 09/18/2025 Patient Health Questionnaire-9 Score 5 09/18/2025 Last PHQ-9: Questionnaire Data Not on file 1 11/18/2024 Housing Stability Answer Date Recorded What is [...] Answer Date Recorded Patient Health Questionnaire-2 Score 2 09/18/2025 Comments No Sex and Gender Information Value [...] Assessment Noted Time PHQ-9 Depression Total Score: 5 09/18/20 25 8:44 AM EST documented as of this encounter Care Teams Straight Line Press Setter Relationship Specialty Start Date End Date Faviola Da Silva MD [address] [place] [address] PCP - General Family Medicine 09/23/20 documented as of this encounter
--- OUTSIDE RECORDS SUMMARY | 2025-10-02 12:33 | XMS_ITS | Encounter Summary ---
Author Organization [employer] Address [address] [place] [address] Care Team Providers Care Welfare Analyst Name Role Phone Faviola Da Silva MD Primary Care Provider [phone] Encounter Details Date Type Department Care Team ([facility] Contact Info) Description 09/03/2023 Orders Only [facility] MEDICINE [address] [place], [place] [phone] Faviola Da Silva MD [address] [place], [place] [phone] Social History Tobacco Use Types Packs/Day Years [...] on filedocumented in this encounter Care Teams Welfare Analyst Relationship Specialty Start Date End Date Faviola Da Silva MD [address] [place] [id number] PCP - General Family Medicine 09/23/20 documented as of this encounter
--- OUTSIDE RECORDS SUMMARY | 2025-10-02 12:33 | XMS_ITS | Encounter Summary ---
Author Organization [employer] Address [address] [place] [address] Care Team Providers Care Credit Relationship Manager Name Role Phone Faviola Da Silva MD Primary Care Provider [phone] Encounter Details Date Type Department Care Team ([facility] Contact Info) Description 08/24/2025 Orders Only [facility] MEDICINE [address] [place], [place] [phone] Faviola Da Silva MD [address] [place], [place] [phone] Social History Tobacco Use Types Packs/Day Years [...] documented as of this encounter Care Teams Credit Relationship Manager Relationship Specialty Start Date End Date Faviola Da Silva MD [address] [place] [id number] PCP - General Family Medicine 09/23/20 documented as of this encounter
--- OUTSIDE RECORDS SUMMARY | 2025-10-02 12:33 | XMS_ITS | Clinical Summary ---
Author Organization [employer] Address [address] [place] [address] Care Team Providers Care Hospital Orderly Name Role Phone Faviola Da Silva MD Primary Care Provider [phone] Surgical History Surgery Date Site/Laterality Comments OTHER [...] Screening 06/04/2024 Depression Screening 11/12/2024 COVID-19 Vaccine (1 - 2024-2 6 season) 2025 Influenza Vaccine (#1) 2025 RSV [...] age to complete this topic Care Teams Hospital Orderly Relationship Specialty Start Date End Date Faviola Da Silva MD [address] [place] [id number] PCP - General 06/27/24
--- OUTSIDE RECORDS SUMMARY | 2025-10-02 12:33 | XMS_ITS | Clinical Summary ---
Author Organization [employer] Address [address] [facility] 7t [place] [address] Care Team Providers Care Software Performance Engineer Name Role Phone Faviola Da Silva MD Primary Care Provider [phone] Allergies No known active allergies Medications * This document contains information received from the source organization and may not represent a complete record from that organization. buPROPion SR (Wellbutrin SR) 200 MG 12 hr tablet Take 1 tablet (200 mg) by mouth 2 times daily. Do not crush, chew, or split. 180 tablet 3 10/13/20 24 025 Active etonogestrel-elu ting (Nexplanon) 68 mg contraceptive implant 1 each by Implant route 1 (one) time. Active acetaminophen (Tylenol 8 Hour) 650 MG ER tabletIndication s:Pain in the coccyx Take 1 tablet (650 mg) by mouth every 8 (eight) hours if needed for mild pain. Do not crush, chew, or split. 60 tablet 02/19/20 25 Active hydrOXYzine HCl (Atarax) 25 MG tabletIndication s:Anxiety Take 1-2 tablets by oral route as needed up to four times daily for anxiety 90 tablet 1 02/26/20 25 Active loratadine (Claritin) 10 MG tablet Take 1 tablet (10 mg) by mouth Once per day. 90 tablet 3 04/17/20 25 026 Active Ibuprofen 200 MG/10ML suspensionIndica tions:Hand, foot and mouth disease Take 20 mL by mouth every 6 (six) hours if needed (pain). 273 mL 05/22/20 25 Active mineral oil-hydrophilic petrolatum (Aquaphor) ointment Apply topically if needed for dry skin. 396 g 05/22/20 25 026 Active cholecalciferol (Vitamin D-3) 25 MCG (1000 UT) tabletIndication s:Vitamin D deficiency Take 1 tablet (25 mcg) by mouth Once per day. 60 tablet 3 06/01/20 25 Active Diclofenac Sodium (Voltaren Arthritis Pain) 1 % gelIndications:C hronic pain of right knee Apply to affected areas twice daily. 150 g 1 09/01/20 25 Active neomycin-polymyx in-hydrocortison e (Cortisporin) 3.5-80849-[address] 3 DROPS IN THE LEFT EAR THREE TIMES DAILY FOR 7 DAYS 06/12/20 25 Active topiramate (Topamax) 50 MG tablet Take 1 tablet (50 mg) by mouth at bedtime. 90 tablet 1 09/16/20 25 Active phentermine 30 MG capsule Take 1 capsule (30 mg) by mouth before breakfast. 30 capsule 4:35 PM EST 09/16/20 25 025 Active topiramate (Topamax) 25 MG tablet Take 1 tablet (25 mg) by mouth at bedtime. 90 tablet 08/24/20 25 025 Discontinued phentermine 15 MG capsule Take 1 capsule (15 mg) by mouth before breakfast. 30 capsule 08/24/20 25 025 Discontinued ibuprofen 800 MG tabletIndication s:Chronic pain of right knee Take 1 tablet (800 mg) by mouth 3 times daily. 90 tablet 09/01/20 25 025 acetaminophen (Tylenol Extra Strength) 500 MG tabletIndication s:Chronic pain of right knee Take 1 tablet (500 mg) by mouth every 8 (eight) hours if needed for mild pain for up to 10 days. 30 tablet 09/01/20 25 025 Discontinued(T herapy completed) Active Problems Problem Noted Date Diagnosed Date [...] if become although insurance requests prescription from national facilities manager, there are none in our service area that are accepting referrals for weight management due to lack of availability Mass of lower inner quadrant of right [...] BID from 150mg BID Begin treatment at [facility] for OP Located PPD support group and [...] for help. PLAN: 1. Follow up with [facility]: Not recommended for follow-up 2. Patient goal is to engage in services. 3. Behavioral Recommendations a. Patient will communicate with psychiatrist b. Patient will utilize CB, if symptoms worsen c. 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 Overview (10/13/2022): Non immune to hepatitis B and non immune to hepatitis A per previous EHR Intermittent vertigo 04/05/2018 Resolved Problems Problem Noted Date Diagnosed Date Resolved Date Severe episode of recurrent major depressive disorder, without psychotic features (CMS/HCC) 08/21/2024 09/18/2025 Vaginal discharge 12/18/2023 05/22/2025 Routine physical examination 12/18/2023 05/22/2025 Weakness 11/27/2023 05/22/2025 Assessment & Plan (11/27/2023 1:36 PM EST): Likely due to Work up ordered today , patient will be contacted with results Candidal vulvovaginitis 11/01/202205/12 Bacterial vaginosis 10/24/2022 05/22/20 25 Overweight 12/09/2018 06/02/2025 Weight gain 04/05/2018 05/22/2025 Encounters Date Type Department Care Team Description 09/28/2025 Results Follow-Up [facility] MED & PEDS [address] [place] [address] Charissa Wilson CNP MR Knee w/o Contrast Right 09/15/2025 Telephone [facility] MEDICINE [address] [place] [address] Faviola Da Silva MD Call Back Request 09/14/2025 1:30 PM EST Office Visit [facility] [address] [place] [address] Faviola Da Silva MD Class 1 obesity due to excess calories with serious comorbidity and body mass index (BMI) of 34.0 to 34.9 in adult (Primary Dx); Screening for cervical cancer; Severe episode of recurrent major depressive disorder, without psychotic features (CMS/HCC) (HCC); Current severe episode of major depressive disorder without psychotic features without prior episode (CMS/HCC) (HCC) 09/14/2025 Travel 09/07/2025 Travel 09/07/2025 Patient Outreach [facility] MED[facility]INE [address] [place] [address] Faviola Da Silva MD Pre-visit Planning (Pre visit planning LVM ) 09/01/2025 4:40 PM EDT Office Visit [facility] [address] [place] [address] Charissa Wilson CNP Chronic pain of right knee (Primary Dx); Dislocation of right knee, initial encounter 09/01/2025 Travel 08/24/2025 Orders Only [facility] [address] [place] [address] Faviola Da Silva MD 08/21/2025 11:45 AM EDT Immunization [facility] [address] [place] [address] Janett Leija RN Encounter for immunization 08/21/2025 Travel 08/17/2025 Results Follow-Up [facility] PED[facility] [address] [place] [address] Denny Plascencia MD US Abdomen Limited 08/14/2025 Orders Only [facility] [address] [place] [address] Denny Plascencia MD from Last 3 Months Immunizations Immunization [...] Use Screening 2008 Family Planning (PISQ) 2011 SDOH Screening 12/18/2024 12/18/2023 COVID-19 Vaccine ( season) 2025 09/23/2021, 12/01/2020, 11/03/2020 Lipid Panel 07/16/2025 07/16/2020 Mammogram 03/25/2026 03/25/2025, 02/11, 09/08/2024, Additional history exists Disability Screening 09/07/2026 09/07/2025 Depression Screening 09/18/2026 09/18/2025, 07/31/20 24 Tobacco Screening 09/18/2026 09/18/2025 Pap Smear 09/14/2028 09/14/2025 DTaP/Tdap/Td Vaccines (10 - Td or Tdap) [...] Procedure Name Priority Date/Time Associated Diagnosis Comments MR KNEE WO CONTRAST RIGHT STAT 09/26/2025 3:48 PM EST Dislocation of right knee, initial encounter HPV DNA (16, 18, OTHER HIGH RISK), PCR, VAGINAL SELF-COL Routine 09/14/2025 2:04 PM EST Screening for cervical cancer US ABDOMEN LIMITED Routine 08/15/2025 9: 11 [...] Recently Relevant to Health Maintenance Results * MR Knee w/o Contrast Right (09/26/2025 3:48 PM EST) Anatomical Region Laterality Modality Magnetic Resonan ce 09/26/2025 3:48 PM EST Narrative 09/26/2025 3:50 PM EST [place] [address] Magnetic Resonance Report Signed with Jeri Patient: Abby Monte MR#: [id number] : 1995 Acct:[id number] Age/Sex: 30 / F ADM Date: 09/26/25 Loc: HO.MRI Attending Dr: Charissa Wilson TECHNICAL SUPPORT CONSULTANT Ordering Physician: Charissa Wilson NP Date of Service: 09/26/25 Procedure(s): MR knee RT wo con Accession Number(s): [id number] cc: Faviola Da Silva; Charissa Wilson NP Reason for Exam: s/p R knee dislocation ADDENDUM This document has been electronically signed by: Myles Alejandre MD on 09/26/2025 15:48:29 ADDENDUM: Addendum: In addition, there is a loose body within anterior knee joint space measuring 12 x 10 mm (15; 19), by 8 mm (16; 15 and 17; 15). This is nonspecific and could represent an osteochondral fragment, although no definable donor site identified. This document has been electronically signed by: Myles Alejandre MD on 09/26/2025 17:03:13 Addendum Dictated By: Myles Alejandre MD Addendum Signed By: <Electronically signed by Myles Alejandre MD in OV> 09/26/251703 Addendum Cosigned By: DD/ TD/TT: 09/26/25 CLINICAL HISTORY: s p R knee dislocation Exam: Nonenhanced MRI of the right knee. Comparison: None. Findings: Menisci: Meniscal signal intensities appear maintained, with no evidence of meniscal tears. Ligaments: Anterior and posterior cruciate ligaments appear intact. Medial and lateral collateral ligaments appear intact. Osseous structures: There is lateral patellar tilting or subluxation. There is reported history of knee dislocation. There is mild bone marrow edema involving the patella both at its medial aspect (15; 14-12), and centrally with subchondral cysts (15; 10). Findings compatible with sequela of patellar chondromalacia and likely transient lateral patellar dislocation. There is no definable impaction injury of the lateral margin of the lateral femoral condyle. Cartilage: There is cartilaginous irregularity and thinning involving the patellar cartilage, compatible with chondromalacia. Remaining cartilage thicknesses appear maintained. Joint space and soft tissues: Jfieugcf-ut-bzbkx joint effusion. The medial patellar retinaculum appears to be grossly intact. A popliteal fossa cyst extends over a craniocaudad distance of 3.9 cm and measures up to 15 mm cross-sectional dimension. Impression: 1. Likely sequela of mild transient lateral patellar dislocation or subluxation. No significant impaction injury of the lateral femoral condyle is appreciated. 2. Sequela of patellofemoral chondromalacia. Yuhtwwoi-eh-isohz joint effusion. This document has been electronically signed by: Myles Alejandre MD on 09/26/2025 15:48:29 Dictated By: Myles Alejandre MD Signed By: <Electronically signed by Myles Alejandre MD in OV> 09/26/251548 DD/ 47 TD/TT: 09/26/251547 Upholstery Restorer: Procedure Note Donotuseinterpreter, Image - 09/26/2025 [place] [address] Magnetic Resonance Report Signed with Addenda Patient: Abby Monte [facility]#: [id number] : 1995Acct:[id number] Age/Sex: 30 / FADM Date: 09/26/25 Loc: HO.MRI Attending Dr: Charissa Wilson TECHNICAL SUPPORT CONSULTANT Ordering Physician: Charissa Wilson NP Date of Service: 09/26/25 Procedure(s): MR knee RT wo con Accession Number(s): [id number] cc: Faviola Da Silva; Charissa Wilson NP Reason for Exam: s/p R knee dislocation ADDENDUM This document has been electronically signed by: Myles Alejandre MD on 09/26/2025 15:48:29 ADDENDUM: Addendum: In addition, there is a loose body within anterior knee joint space measuring 12 x 10 mm (15; 19), by 8 mm (16; 15 and 17; 15). This is nonspecific and could represent an osteochondral fragment, although no definable donor site identified. This document has been electronically signed by: Myles Alejandre MD on 09/26/2025 17:03:13 Addendum Dictated By: Myles Alejandre MD Addendum Signed By: <Electronically signed by Myles Alejandre MD in OV> 09/26/251703 Addendum Cosigned By: DD/ TD/TT: 09/26/25 CLINICAL HISTORY: s p R knee dislocation Exam: Nonenhanced MRI of the right knee. Comparison: None. Findings: Menisci: Meniscal signal intensities appear maintained, with no evidence of meniscal tears. Ligaments: Anterior and posterior cruciate ligaments appear intact. Medial and lateral collateral ligaments appear intact. Osseous structures: There is lateral patellar tilting or subluxation. There is reported history of knee dislocation. There is mild bone marrow edema involving the patella both at its medial aspect (15; 14-12), and centrally with subchondral cysts (15; 10). Findings compatible with sequela of patellar chondromalacia and likely transient lateral patellar dislocation. There is no definable impaction injury of the lateral margin of the lateral femoral condyle. Cartilage: There is cartilaginous irregularity and thinning involving the patellar cartilage, compatible with chondromalacia. Remaining cartilage thicknesses appear maintained. Joint space and soft tissues: Xkphgptl-gk-dalgw joint effusion. The medial patellar retinaculum appears to be grossly intact. A popliteal fossa cyst extends over a craniocaudad distance of 3.9 cm and measures up to 15 mm cross-sectional dimension. Impression: 1. Likely sequela of mild transient lateral patellar dislocation or subluxation. No significant impaction injury of the lateral femoral condyle is appreciated. 2. Sequela of patellofemoral chondromalacia. Wgfqcqor-ou-wxokv joint effusion. This document has been electronically signed by: Myles Alejandre MD on 09/26/2025 15:48:29 Dictated By: Myles Alejandre MD Signed By: <Electronically signed by Myles Alejandre MD in OV> 09/26/25 1549 DD/ 1548 TD/TT: 09/26/25 1548 Upholstery Restorer: Charissa [facility] MRI PROCEDURES Edited Result - Final * HPV DNA (16, 18, Other High Risk), PCR, Vaginal Self-Collected (09/14/2025 2:04 PM EST) HPV 16 DNA Not Detected Not Detected [facility] HPV 18 DNA Not Detected Not Detected [facility] HPV, Other Not Detected Not Detected [facility] Comment:Other HR HPV DNA inc ludes the following genotypes:31,33,35,39,45,51,52,56,58,59,66,68.Methodology: Polymerase Chain Reaction (PCR)THIS TEST WAS PERFORMED AT:[employer]/[id number] [place] [address]MCYBRQBLENIN GODINEZ MD,PHD ThinPrep vial Vaginal structure / Unknown 09/14/2025 2:04 PM EST 09/16/2025 11:33 AM EST us Faviola Da Silva MD LAB BODY FLUIDS AND STOOLS ORD ERABLES Final Result [facility] [address] [place] [phone] * US Abdomen Limited (08/15/2025 9:11 AM EDT) Anatomical Region Laterality Modality Abdomen Ultrasound 08/15/2025 9:11 AM EDT Narrative 08/15/2025 9:12 AM EDT [address] [address] Ultrasound Report Signed Patient: Abby Monte MR#: [id number] : 1995 Acct:[id number] Age/Sex: 30 / F ADM Date: 08/14/25 Loc: HO.US Attending Dr: Denny Plascencia MD Ordering Physician: Denny Plascencia MD Date of Service: 08/14/25 Procedure(s): US abdomen limited Accession Number(s): [id number] cc: Denny Plascencia MD; Faviola Da Silva [...] in OV> 08/15/25911 DD/ 0 TD/TT: 08/15/25910 Upholstery Restorer: Procedure Note Donotuseinterpreter, Image - 08/15/[address] [address] Ultrasound Report Signed Patient: Abby Monte MMR#: [id number] : 1995Acct:[id number] Age/Sex: 30 / FADM Date: 08/14/25 Loc: HO.US Attending Dr: Denny Plascencia MD Ordering Physician: Denny Plascencia MD Date of Service: 08/14/25 Procedure(s): US abdomen limited Accession Number(s): [id number] cc: Denny Plascencia MD; Faviola Da Silva [...] in OV> 08/15/25911 DD/ 0 TD/TT: 08/15/25910 Upholstery Restorer: Denny Plascencia MD IMG US PROCEDURES Edited Re sult - Final * BI Mammogram Diagnostic Tomosynthesis Right (03/25/2025 10:00 AM EDT) Anatomical Region Laterality Modality Breast Right Mammography 03/25/2025 10:0 0 AM EDT Narrative 03/25/2025 11:10 AM EDT [facility] [address] [place] [address] Mammography Report Signed with Jeri Patient: Abby Monte MR#: [id number] : 1995 Acct:[id number] Age/Sex: 29 / F ADM Date: 03/25/25 Loc: HO.MAMMO Attending Dr: Aden Fernández MD Ordering Physician: Aden Fernández MD Results: 1Neg ative Date of Service: 03/25/25 Follow Up: 1 Year From [facility] Mammogram Procedure(s): MM tomosynthesis diagnostic RT Accession Number(s): [id number] cc: Faviola Da Silva; Aden Fernández MD [...] 03/25/25 1107 DD/ 1000 TD/TT: 03/25/25 1040 Upholstery Restorer: Procedure Note Donotuseinterpreter, Image - 03/31/2025 [facility] [address] [place] [address] Mammography Report Signed with Jeri Patient: Abby Monte MMR#: [id number] : 1995Acct:[id number] Age/Sex: 29 FADM Date: 03/25/25 Loc: HO.MAMMO Attending Dr: Aden Fernández MD Ordering Physician: Aden Fernández MDResults: 1Neg ative Date of Service: 03/25/25Follow Up: 1 Year From Orig inal Mammogram Procedure(s): MM tomosynthesis diagnostic RT Accession Number(s): [id number] cc: Faviola Da Silva; Aden Fernández MD [...] DO 03/25/2025 11:07 AM EDT Dictated By: Krsy Garcia DO Signed By: <Electronically signed by Krys Garcia DO in OV> 03/25/25 1107 DD/ 1000 TD/TT: 03/25/25 1040 Upholstery Restorer: [facility] External Provider IMG BI PROCEDURES Edited Result - Final * Hepatitis C Antibody with Reflex to HCV, RNA, Quantitative, Real-Time PCR (10/21/2024 8:20 AM EST) Hepatitis C Antibody Nonreactive Nonreactive [facility] Comment:Antibodies to HCV no t detected; does not exclude early acuteHCV infection. Blood Venous blood specimen / Unknown 10/21/2024 8:20 AM EST 10/21/2024 11:46 AM EST Bon Arreaga MD LAB BLOOD ORDERABLES Final Resul t [facility] [address] [place] [phone] * HIV-1/2 Antigen and Antibodies, Fourth Generation, with Reflexes (10/21/2024 8:20 AM EST) Pathologist [facility] HIV AB/AG Nonreactive Nonreactive [facility] Comment:HIV-1 p24 Ag and/or HIV-1/HIV-2 Ab not detected.A test result that is nonreactive does not exclude thepossibility of exposure to or infection with HIV-1 and/orHIV-2. Nonreactive results in this assay for individualswith prior exposure to HIV-1 and/or HIV-2 may be due toantigen and antibody levels that are below the limit ofdetection of this assay.The [employer] HIV Ag/Ab Combo assay result andsupplemental assay results should be interpreted inconjunction with the patient's clinical presentation,history and other laboratory results. If the results areinconsistent with clinical evidence, additional testing issuggested to confirm the result. Blood Venous blood specimen / Unknown 10/21/2024 8:20 AM EST 10/21/2024 11:46 AM EST us Bon Arreaga MD LAB BLOOD ORDERABLES Final Resul t [facility] [address] [place] [phone] * (ABNORMAL) LIPID PANEL, STANDARD (07/16/2020 1:59 PM EDT) Pathologist [facility] LDL Cholesterol 60 mg/dL (calc) [facility] Comment: Reference range: <100 Desirable range <100 mg/dL for primary prevention; <70 mg/dL for patients with CHD or diabetic patients with > or = 2 CHD risk factors. LDL-C is now calculated using the Holger-Remington calculation, which is a validated novel method providing better accuracy than the Friedewald equation in the estimation of LDL-C. Holger ARREOLA et al. ALBERTO. 2013;310(19): 8932-7528 (http://education.[employer]/faq/GAJ376) Non-HDL Cholesterol 79 <130 mg/dL (calc) [facility] Comment: For patients with [...] factors. LDL-C is now calculated using the Holger-Remington calculation, which is a validated novel method providing better accuracy than the Friedewald equation in the estimation of LDL-C. Holger SS et al. ALBERTO. 2013;310(19): 6606-3738 (http://education.[employer].com/faq/UQL790) Triglycerides 105 <150 mg/dL [facility] HDL Cholesterol 42(L) > OR = 50 mg/dL [facility] 07/16/2020 1:59 PM EDT us Eduardo Wallace MD LAB BLOOD ORDERABLES Final Resul t [facility] [address] from Last 3 Months or Most Recently Relevant to Health Maintenance Insurance [employer] [id number] , [address] [place] [address] Care Teams Software Performance Engineer Relationship Specialty Start Date End Date Faviola Da Silva MD [address] [place] [address] PCP - General Family Medicine 09/23/20
--- OUTSIDE RECORDS SUMMARY | 2025-10-02 12:33 | XMS_ITS | Encounter Summary ---
Author Organization [employer] Address [address] [place] [address] 7 [place] [address] Care Team Providers Care Supervisor Bakery Sanitation Name Role Phone Faviola Da Silva MD Primary Care Provider [phone] Reason for Referral * Imaging (Routine) - Closed Specialty Diagnoses / Procedures Referred By Contnereyda franco Referred To Contact Radiology Diagnoses Elevated alkaline phosphatase level Procedures US LIVER Denny Plascencia MD [address] [place] [address] Phone: tel: fax: [address] [address] Phone: tel: fax: Referral ID Status Reason Start Date Expiration Date Visits Re quested Visits Authorized [id number] Closed 06/08/2025 06/08/2026 1 1 Encounter Details Date Type Department Care Team (Late st Contact Info) Description 06/08/2025 Orders Only [facility] MED & PEDS [address] [place], [place] [phone] Denny Plascencia MD [address] [place], [place] [phone] Dizziness (Primary Dx); Elevated alkaline phosphatase level [...] documented as of this encounter Care Teams Supervisor Bakery Sanitation Relationship Specialty Start Date End Date Faviola Da Silva MD [address] [place] [address] PCP - General Family Medicine 09/23/20 documented as of this encounter
--- OUTSIDE RECORDS SUMMARY | 2025-10-02 12:33 | XMS_ITS | Encounter Summary ---
Author Organization [employer] Address [address] [place] [address] Care Team Providers Care Entry Level Project Engineer Name Role Phone Faviola Da Silva MD Primary Care Provider [phone] Encounter Details Date Type Department Care Team ([facility] Contact Info) Description 08/27/2023 Abstract [facility] MEDICINE [address] [place], [place] [phone] Faviola Da Silva MD [address] [place], [place] [phone] Social History Tobacco Use Types Packs/Day Years [...] on filedocumented in this encounter Care Teams Entry Level Project Engineer Relationship Specialty Start Date End Date Faviola Da Silva MD [address] [place] [address] PCP - General Family Medicine 09/23/20 documented as of this encounter
--- OUTSIDE RECORDS SUMMARY | 2025-10-02 12:33 | XMS_ITS | Encounter Summary ---
Author Organization [employer] Address [address] [place] [address] 7 [place] [address] Care Team Providers Care Costume Specialist Name Role Phone Faviola Da Silva MD Primary Care Provider [phone] Reason for Visit * Reason Comments [facility] Encounter Details Date Type Department Care Team ([facility] Contact Info) Description 05/09/2023 Abstract [facility] MEDICINE [address] [place] [address] Faviola Da Silva MD [address] [place] [address] Social History Tobacco Use Types Packs/Day Years [...] on filedocumented in this encounter Care Teams Costume Specialist Relationship Specialty Start Date End Date Faviola Da Silva MD [address] [place] [address] PCP - General Family Medicine 09/23/20 documented as of this encounter
--- OUTSIDE RECORDS SUMMARY | 2025-10-02 12:33 | XMS_ITS | Encounter Summary ---
Author Organization [employer] Address [address] [place] [address] Care Team Providers Care Industrial Green Systems Designer Name Role Phone Faviola Da Silva MD Primary Care Provider [phone] Encounter Details Date Type Department Care Team ([facility] Contact Info) Description 10/01/2024 Orders Only [facility] MEDICINE [address] [place], [place] [phone] Faviola Da Silva MD [address] [place], [place] [phone] Social History Tobacco Use Types Packs/Day Years [...] documented as of this encounter Care Teams Industrial Green Systems Designer Relationship Specialty Start Date End Date Faviola Da Silva MD [address] [place] [phone] PCP - General Family Medicine 09/23/20 documented as of this encounter
--- OUTSIDE RECORDS SUMMARY | 2025-10-02 12:33 | XMS_ITS | Encounter Summary ---
Author Organization [employer] Address [address] [facility] [address] 7t [place] [address] Care Team Providers Care Boarder Steam Name Role Phone Faviola Da Silva MD Primary Care Provider [phone] Encounter Details Date Type Department Care Team ([facility] Contact Info) Description 04/17/2025 Orders Only [facility] MEDICINE [address] [place], [place] [phone] Faviola Da Silva MD 230 [place], [place] [phone] Social History Tobacco Use Types Packs/Day Years [...] documented as of this encounter Care Teams Boarder Steam Relationship Specialty Start Date End Date Faviola Da Silva MD [address] [place] [address] PCP - General Family Medicine 09/23/20 documented as of this encounter
--- OUTSIDE RECORDS SUMMARY | 2025-10-02 12:33 | XMS_ITS | Encounter Summary ---
Author Organization [employer] Address [address] 7t [place] [address] Care Team Providers Care Visual C Developer Name Role Phone Faviola Da Silva MD Primary Care Provider [phone] Encounter Details Date Type Department Care Team ([facility] Contact Info) Description 10/24/2024 Orders Only [facility] [address] [place] [address] Bon Arreaga MD [address] [place] [address] Elevated LFTs (Primary Dx) Social History Tobacco [...] Bilirubin, Direct 0.2 0.0 - 0.5 mg/dL [facility] Blood Venous blood specimen / Unknown 06/03/2025 1:28 PM EDT 06/03/2025 4:28 PM EDT us Bon Arreaga MD LAB BLOOD ORDERABLES Final Resul t [facility] [address] [place] [address] [phone] documented in this encounter Visit Diagnoses Diagnosis Elevated LFTs- Primary Other abnormal blood chemistry documented in this encounter Additional Health Concerns Assessment Noted Time PHQ-9 Depression Total Score: 11 024 2:36 PM EST documented as of this encounter Care Teams Visual C Developer Relationship Specialty Start Date End Date Faviola Da Silva MD [address] [place] [address] PCP - General Family Medicine 09/23/20 documented as of this encounter
--- OUTSIDE RECORDS SUMMARY | 2025-10-02 12:33 | XMS_ITS | Encounter Summary ---
Author Organization [employer] Address [address] [place] [address] 7 [place] [address] Care Team Providers Care Barrel Rifler Name Role Phone Faviola Da Silva MD Primary Care Provider [phone] Reason for Visit * Reason Comments Chart update mammo Encounter Details Date Type Department Care Team ([facility] Contact Info) Description 07/04/2023 Abstract [facility] MEDICINE [address] [place] [address] Lesly Win Social History Tobacco Use Types [...] on filedocumented in this encounter Care Teams Barrel Rifler Relationship Specialty Start Date End Date Faviola Da Silva MD [address] [place], [place] [phone] PCP - General Family Medicine 09/23/20 documented as of this encounter
--- OUTSIDE RECORDS SUMMARY | 2025-10-02 12:33 | XMS_ITS | Encounter Summary ---
Author Organization [employer] Address [address] [facility] 7t [place] [address] Care Team Providers Care Set Up Mechanic Coil Winding Machines Name Role Phone Faviola Da Silva MD Primary Care Provider [phone] Encounter Details Date Type Department Care Team ([facility] Contact Info) Description 11/01/2022 Orders Only [facility] MED & PEDS [address] [place] [address] Bon Arreaga MD [address] [place] [address] Bacterial vaginosis (Primary Dx); Candidal vulvovaginitis Social [...] vagina documented in this encounter Care Teams Set Up Mechanic Coil Winding Machines Relationship Specialty Start Date End Date Faviola Da Silva MD [address] [place] [address] PCP - General Family Medicine 09/23/20 documented as of this encounter
--- OUTSIDE RECORDS SUMMARY | 2025-10-02 12:33 | XMS_ITS | Encounter Summary ---
Author Organization [employer] Address [address] [facility] 7t [place] [address] Care Team Providers Care Trackman Name Role Phone Faviola Da Silva MD Primary Care Provider [phone] Encounter Details Date Type Department Care Team ([facility] Contact Info) Description 08/17/2025 Results Follow-Up [facility] CHC MED & PEDS [address] [place], [place] [phone] Denny Plascencia MD [address] [place] [address] US Abdomen Limited Social History Tobacco Use [...] documented as of this encounter Care Teams Trackman Relationship Specialty Start Date End Date Faviola Da Silva MD [address] [place] [address] PCP - General Family Medicine 09/23/20 documented as of this encounter
--- OUTSIDE RECORDS SUMMARY | 2025-10-02 12:33 | XMS_ITS | Encounter Summary ---
Author Organization [employer] Address [address] [place] [address] 7 [place] [address] Care Team Providers Care Pageant Director Name Role Phone Faviola Da Silva MD Primary Care Provider [phone] Encounter Details Date Type Department Care Team (Late st Contact Info) Description 06/05/2023 Abstract [facility] MEDICINE [address] [place], [place] [phone] Faviola Da Silva MD [address] [place], [place] [phone] Social History Tobacco Use Types Packs/Day Years [...] on filedocumented in this encounter Care Teams Pageant Director Relationship Specialty Start Date End Date Faviola Da Silva MD [address] [place], [place] [phone] PCP - General Family Medicine 09/23/20 documented as of this encounter
== END 2025-10-02 12:50 | disposition home or self-care (01) ==
LOC: HO.HOS 11:44
PROVIDERS: PCP General Practice; Visit Provider Physician Assistant
DX: S83.004A Unspecified dislocation of right patella, initial encounter (principal)
CPT/HCPCS: 99213; G2211

== ENCOUNTER → 2025-10-02 11:46 | Outpatient (BNV) | payer OTHER, SELFPAY | PROVIDERS: Visit Provider Radiology Diagnostic Radiology | DX: M17.11 Unilateral primary osteoarthritis, right knee (principal) | CPT/HCPCS: 73562 ==

== ENCOUNTER 2025-10-26 08:55 | Outpatient (AMB) | payer OTHER, SELFPAY ==
--- NOTE | 2025-10-26 08:59 | MHC.OFFVIS ---
Vital Signs 10/26/25 09:01 Height 5 ft 10 in Weight 238 lb BMI 34.1 Intake Visit Reasons: OV - Discuss RT Knee Surgery s/p dislocation Intake Note: Abby is a 30 year old female who presents today for a follow up of her Right Knee. She was last seen with Mimi Archibald where they discussed her recurring right knee dislocation and ongoing history of pain. They discussed the presence of a loose body in the knee which can cause sensations of locking and catching in the knee. She was referred to discuss removal of loose body with possible chondroplasty. Allergies No Known Allergies (No Known Allergies*) Allergy (Verified 10/02/25 12:07) HPI HPI OV - Discuss RT Knee Surgery s/p dislocation: Details: Abby is a 30 year old female who presents today for a follow up of her Right Knee. She was last seen with Mimi Archibald where they discussed her recurring right knee dislocation and ongoing history of pain. They discussed the presence of a loose body in the knee which can cause sensations of locking and catching in the knee. She was referred to discuss removal of loose body with possible chondroplasty. HPI Comments Details: Interval History The patient is a 30-year-old female presenting for follow-up regarding right knee post-dislocation. She reports experiencing increased pain in her right knee since the last dislocation in August, The patient has not experienced any further dislocations since August. She reports dislocating her knee over a dozen times She describes her pain as sometimes reaching a 10 out of 10, although it can decrease to a 5 out of 10 with rest. 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 She has been referred to physical therapy and is awaiting contact to begin sessions. Results - X-ray of the right knee shows a slightly abnormal appearance with a small piece of bone, possibly old, and the kneecap positioned far over. Bony fragment in the quad. She has an MRI which demonstrates severe patellofemoral OA and lateral subluxation of the patella [facility] Medical History Breast mass, right Family history of breast cancer Left breast mass No known health problems Social History Alcohol intake: never Female Reproductive History Menstrual Age of Menarche: 13 Physical Exam Exam Exam: Physical Exam On exam she has full range of motion with positive effusion. Positive apprehension. Positive patellofemoral grind. Positive lateral tilt right greater than left. On exam she has full range of motion with positive effusion. Positive apprehension. Positive patellofemoral grind. Vital Signs: BMI result Body Mass Index 34.1 Office Procedures Joint Inj/Aspir; Non-Pain Clin Joint Injection/Drain Details: Injected 1 mL of Decadron and 3 mL 1% lidocaine and 3 mL of 0.25% Marcaine. Site was prepped using aseptic technique. Patient tolerated the procedure well. Shoulders, Hips, Knees, Knee Large Joint Injection 10913: Right Knee Coding Procedure code (CPT) selection complete Assessment & Plan Assessment & Plan (1) Dislocation of right patella: Code(s): S83.004A - Unspecified dislocation of right patella, initial encounter Category: Medical Plan: (2) Patellofemoral arthritis of right knee: Code(s): M17.11 - Unilateral primary osteoarthritis, right knee Category: Medical Plan: Plan Plan 1. Recurrent Patellar Dislocation This is a young 30-year-old with recurrent patellar dislocation on the right and patellofemoral arthritis. Unfortunately, MPFL reconstruction or realignment of the patella is contraindicated in the presence of severe OA.I explained this to her. I think she would benefit from physical therapy and we discussed injection which she elected to undergo today. Discussion Notes Orders: Orders PT Evaluation and Treatment Today M17.11 - Unilateral primary osteoarthritis, right knee, S83.004A - Unspecified dislocation of right patella, initial encounter Coding Level of Care Code Est Pt Level 4 (18573) Diagnoses Dislocation of right patella S83.004A Patellofemoral arthritis of right knee M17.11 CPT Codes Shoulders, Hips, Knees, - Knee Large Joint Injection 34107: Right Knee ([id number])
[2025-10-26 09:01] VITALS: BMI 34.1
== END 2025-10-26 09:32 | disposition home or self-care (01) ==
LOC: HO.HOS 08:56
PROVIDERS: Visit Provider Orthopaedic Surgery
DX: S83.004A Unspecified dislocation of right patella, initial encounter (principal); M17.11 Unilateral primary osteoarthritis, right knee
CPT/HCPCS: 20610; 99214

== ENCOUNTER → 2025-10-26 08:55 | Outpatient (BNVA) | payer OTHER, SELFPAY | PROVIDERS: Visit Provider Orthopaedic Surgery | DX: M17.11 Unilateral primary osteoarthritis, right knee (principal); S83.004A Unspecified dislocation of right patella, initial encounter; M23.41 Loose body in knee, right knee; M22.01 Recurrent dislocation of patella, right knee | CPT/HCPCS: 20610; J0665; J1100; J2003 ==

== ENCOUNTER 2025-11-02 11:20 | Outpatient (REF) | payer OTHER, SELFPAY ==
--- OUTSIDE RECORDS SUMMARY | 2025-11-02 19:40 | XMS_ITS | Encounter Summary ---
Author Organization [employer] Address [address] [facility] 7t [place] [address] Care Team Providers Care Broadcast Technician Name Role Phone Faviola Da Silva MD Primary Care Provider [phone] Reason for Visit * Reason Comments Walk-In Yeast infection Encounter Details Date Type Department Care Team ([facility] Contact Info) Description 11/02/2025 7:40 PM EST Office Visit [facility] [address] [place] [address] Samia Vazquez FNP [address] [place] [address] Vaginal discharge (Primary Dx) Social History Tobacco Use Types [...] Sign Reading Time Taken Comments Blood Pressure 110/74 11/02/2025 6:46 PM EST Pulse 80 11/02/2025 6:46 PM EST Temperature 36.7 C (98 F) 11/02/2025 6:46 PM EST Respiratory Rate 18 11/02/2025 6:46 PM EST Oxygen Saturation - - Inhaled Oxygen Concentration - - Weight 104 kg (229 lb) 11/02/2025 6:46 PM EST Height - - Body Mass Index 32.86 09/14/2025 1:49 PM EST documented in this encounter Plan of Treatment Not on file documented as of this encounter Procedures Procedure Name Priority Date/Time Associated Diagnosis Comments BACTERIAL VAGINOSIS PANEL Routine 11/02/2025 6:45 PM EST Vaginal discharge documented in this encounter Results * (ABNORMAL) Bacterial Vaginosis Panel (11/02/2025 6:45 PM EST) TRICHOMONAS VAGINALIS DETECTION BY PCR NOT DETECTED Not Detect [facility] BACTERIAL VAGINOSIS DETECTION BY PCR POSITIVE(A) Negative [facility] Comment:The BV organism targ ets of the Xpert Xpress MVP test can becommensal in women; Xpert Xpress MVP positive results forbacterial vaginosis should be considered in conjunction withother clinical and patient information to determine thedisease status. Organisms that are not detected by the XpertXpress MVP test have also been reported to be associatedwith BV and aerobic vaginitis.The Xpert Xpress MVP test performance has not been evaluatedin patients under the age of 14. ELISE GROUP DETECTION BY PCR NOT DETECTED Not Detect [facility] Elise glab krusei PCR NOT DETECTED Not Detect [facility] Swab Vaginal structure / Unknown 11/02/2025 6:45 PM EST 11/03/2025 11:21 AM EST us Samia Vazquez [facility] MICROBIOLOGY - GENERAL ORD ERABLES Final Result [facility] [address] [place] [phone] documented in this encounter Visit Diagnoses Diagnosis Vaginal discharge- Primary Leukorrhea, not specified as infective documented in this encounter Additional Health Concerns Assessment Noted Time PHQ-9 Depression Total Score: 5 09/18/20 25 8:44 AM EST documented as of this encounter Care Teams Broadcast Technician Relationship Specialty Start Date End Date Faviola Da Silva MD [address] [place] [address] PCP - General Family Medicine 09/23/20 documented as of this encounter
[2025-11-03 12:34] LABS: Bacterial Vaginosis PCR POSITIVE (Negative); Candida Group PCR NOT DETECTED (Not Detect); Candida glab krusei PCR NOT DETECTED (Not Detect); Trichomonas vaginalis PCR NOT DETECTED (Not Detect)
--- OUTSIDE RECORDS SUMMARY | 2025-11-03 12:44 | XMS_ITS | Encounter Summary ---
Author Organization [employer] Address [address] [facility] [address] [place] [address] Care Team Providers Care Gift Shop Assistant Name Role Phone Faviola Da Silva MD Primary Care Provider [phone] Encounter Details Date Type Department Care Team ([facility] Contact Info) Description 08/24/2025 Orders Only [facility] [address] [place], [place] [phone] Faviola Da Silva MD [address] [place], [place] [phone] Social History Tobacco Use Types Packs/Day Years [...] documented as of this encounter Care Teams Gift Shop Assistant Relationship Specialty Start Date End Date Faviola Da Silva MD [address] [place] [address] PCP - General Family Medicine 09/23/20 documented as of this encounter
--- OUTSIDE RECORDS SUMMARY | 2025-11-03 12:44 | XMS_ITS | Encounter Summary ---
Author Organization [employer] Address [address] [facility] [address] [place] [address] Care Team Providers Care Butt Welder Name Role Phone Faviola Da Silva MD Primary Care Provider [phone] Encounter Details Date Type Department Care Team ([facility] Contact Info) Description 10/24/2024 Orders Only [facility] [address] [place] [address] Bon Arreaga MD [address] [place] [address] Elevated LFTs (Primary Dx) Social History Tobacco [...] Bilirubin, Direct 0.2 0.0 - 0.5 mg/dL [facility] Blood Venous blood specimen / Unknown 06/03/2025 1:28 PM EDT 06/03/2025 4:28 PM EDT us Bon Arreaga MD LAB BLOOD ORDERABLES Final Resul t [facility] [address] [place] [address] [phone] documented in this encounter Visit Diagnoses Diagnosis Elevated LFTs- Primary Other abnormal blood chemistry documented in this encounter Additional Health Concerns Assessment Noted Time PHQ-9 Depression Total Score: 11 024 2:36 PM EST documented as of this encounter Care Teams Butt Welder Relationship Specialty Start Date End Date Faviola Da Silva MD [address] [place] [address] PCP - General Family Medicine 09/23/20 documented as of this encounter
--- OUTSIDE RECORDS SUMMARY | 2025-11-03 12:44 | XMS_ITS | Clinical Summary ---
Author Organization [employer] Address [address] [place] [address] Care Team Providers Care Adoption Manager Name Role Phone Faviola Da Silva MD Primary Care Provider [phone] Surgical History Surgery Date Site/Laterality Comments OTHER [...] on file Sexual Orientation Not on file Plan of Treatment Health Maintenance Due Date [...] Depression Screening 11/12/2024 COVID-19 Vaccine ( - 2024-2 6 season) 2025 Influenza Vaccine [...] age to complete this topic Care Teams Adoption Manager Relationship Specialty Start Date End Date Faviola Da Silva MD [address] [place] [phone] PCP - General 06/27/24
--- OUTSIDE RECORDS SUMMARY | 2025-11-03 12:44 | XMS_ITS | Encounter Summary ---
Author Organization [employer] Address [address] [place] [address] 7 [place] [address] Care Team Providers Care Associate Professor Of Education Name Role Phone Faviola Da Silva MD Primary Care Provider [phone] Reason for Referral * Imaging (Routine) - Closed Specialty Diagnoses / Procedures Referred By Contnereyda franco Referred To Contact Radiology Diagnoses Elevated alkaline phosphatase level Procedures US LIVER Denny Plascencia MD [address] [place] [address] Phone: tel: fax: [address] [address] Phone: tel: fax: Referral ID Status Reason Start Date Expiration Date Visits Re quested Visits Authorized [id number] Closed 06/08/2025 06/08/2026 1 1 Encounter Details Date Type Department Care Team (Late st Contact Info) Description 06/08/2025 Orders Only [facility] [address] [place], [place] [phone] Denny Plascencia MD [address] [place], [place] [phone] Dizziness (Primary Dx); Elevated alkaline phosphatase level [...] documented as of this encounter Care Teams Associate Professor Of Education Relationship Specialty Start Date End Date Faviola Da Silva MD [address] [place] [address] PCP - General Family Medicine 09/23/20 documented as of this encounter
--- OUTSIDE RECORDS SUMMARY | 2025-11-03 12:44 | XMS_ITS | Encounter Summary ---
Author Organization [employer] Address [address] [facility] [address] 7t [place] [address] Care Team Providers Care Compress Machine Operator Name Role Phone Faviola Da Silva MD Primary Care Provider [phone] Encounter Details Date Type Department Care Team ([facility] Contact Info) Description 10/01/2024 Orders Only [facility] [address] [place], [place] [phone] Faviola Da Silva MD [address] [place], [place] [phone] Social History Tobacco Use Types Packs/Day Years [...] documented as of this encounter Care Teams Compress Machine Operator Relationship Specialty Start Date End Date Faviola Da Silva MD [address] [place] [address] PCP - General Family Medicine 09/23/20 documented as of this encounter
--- OUTSIDE RECORDS SUMMARY | 2025-11-03 12:44 | XMS_ITS | Encounter Summary ---
Author Organization [employer] Address [address] [place] [address] 7t [place] [address] Care Team Providers Care Resaw Machine Operator Name Role Phone Faviola Da Silva MD Primary Care Provider [phone] Reason for Visit * Reason Comments Chart update mammo Encounter Details Date Type Department Care Team ([facility] Contact Info) Description 07/04/2023 Abstract [facility] MED[facility] [address] [place] [address] Lesly Win Social History Tobacco Use Types [...] on filedocumented in this encounter Care Teams Resaw Machine Operator Relationship Specialty Start Date End Date Faviola Da Sliva MD [address] [place] [address] PCP - General Family Medicine 09/23/20 documented as of this encounter
--- OUTSIDE RECORDS SUMMARY | 2025-11-03 12:44 | XMS_ITS | Clinical Summary ---
Author Organization [employer] Address 75 [facility] 7t [place] [address] Care Team Providers Care Experimental Box Tester Name Role Phone Faviola Da Silva MD Primary Care Provider [phone] Allergies No known active allergies Medications * This document contains information received from the source organization and may not represent a complete record from that organization. buPROPion SR (Wellbutrin SR) 200 MG 12 hr tablet Take 1 tablet (200 mg) by mouth 2 times daily. Do not crush, chew, or split. 180 tablet 3 10/13/20 24 Active etonogestrel-elut ing (Nexplanon) 68 mg contraceptive [...] 1 09/01/20 25 Active neomycin-polymyxi n-hydrocortisone (Cortisporin) 3.5-07388-[address] 3 DROPS IN THE LEFT EAR THREE TIMES DAILY FOR 7 DAYS 06/12/20 25 Active topiramate (Topamax) 50 MG tablet Take 1 tablet (50 mg) by mouth at bedtime. 90 tablet 1 09/16/20 25 Active phentermine 30 MG capsule TAKE 1 CAPSULE BY MOUTH ONCE DAILY BEFORE BREAKFAST 30 capsule 5 4:57 PM EST 10/26/20 25 Active phentermine 30 MG capsule Take 1 capsule (30 mg) by mouth before breakfast. 30 capsule 5 4:35 PM EST 09/16/20 25 025 Discontinued Active Problems Problem Noted Date Diagnosed [...] if become although insurance requests prescription from [employer], there are none in our service area [...] 150mg BID Begin treatment at [facility] for OP Located PPD support group and [...] help. PLAN: 1. Follow up with [facility]: Not recommended for follow-up 2. Patient goal [...] Encounters Date Type Department Care Team Description 11/02/2025 7:40 PM EST Office Visit [facility] [address] [place] [address] Samia Vazquez FNP Vaginal discharge (Primary Dx) 10/26/2025 Refill [facility] [address] [place] [address] Faviola Da Silva MD 10/20/2025 7:40 PM EST Office Visit [facility] [address] [address] Christelle Jiménez MD Precordial catch syndrome (Primary Dx) 10/20/2025 Travel 09/28/2025 Results Follow-Up [facility] [address] [place], [place] [address] Charissa Wilson, JESSIE MR Knee w/o Contrast Right 09/15/[address] [address] Faviola Da Silva MD Call Back Request 09/14/2025 1:30 PM EST Office Visit [address] [address] Faviola Da Silva MD Class 1 obesity [...] 09/14/2025 Travel 09/07/2025 Travel 09/07/2025 Patient Outreach [facility] [address] [place] [address] Faviola Da Silva MD Pre-visit Planning (Pre visit planning LVM ) 09/01/2025 4:40 PM EDT Office Visit [facility] [address] [place] [address] Charissa Wilson CNP Chronic pain of right knee (Primary Dx); Dislocation of right knee, initial encounter 09/01/2025 Travel 08/24/2025 Orders Only [facility] [address] [place] [address] Faviola Da Silva MD 08/21/2025 11:45 AM EDT Immunization [facility] [address] [place] [address] Janett Leija, EARLENE Encounter for immunization 08/21/2025 Travel 08/17/2025 Results Follow-Up [facility] [address] [place] [address] Denny Plascencia MD US Abdomen Limited 08/14/2025 Orders Only [facility] 505 [place] [address] Denny Plascencia MD from Last 3 Months [...] 18 11/02/2025 6:46 PM EST Oxygen Saturation 98% 10/20/2025 7:06 PM EST Inhaled Oxygen Concentration - - Weight 104 kg (229 lb) 11/02/2025 6:46 PM EST Height 177.8 cm (5' 10 ) 09/14/2025 1:49 PM EST Body Mass Index 32.86 09/14/2025 1:49 PM EST Plan of Treatment [...] Routine 11/02/2025 6:45 PM EST Vaginal discharge MR KNEE WO CONTRAST RIGHT STAT 09/26/2025 [...] Relevant to Health Maintenance Results * (ABNORMAL) Bacterial Vaginosis Panel (11/02/2025 6:45 PM EST) TRICHOMONAS VAGINALIS DETECTION BY PCR NOT DETECTED Not Detect [facility] BACTERIAL VAGINOSIS DETECTION BY PCR POSITIVE(A) Negative [facility] Comment:The BV organism targ ets of [...] DETECTION BY PCR NOT DETECTED Not Detect [facility] Elise glab krusei PCR NOT DETECTED Not Detect [facility] Swab Vaginal structure / Unknown 11/02/2025 6:45 PM EST 11/03/2025 11:21 AM EST us Samia Vazquez SWITCHBOARD OPERATOR HELPER LAB MICROBIOLOGY - GENERAL ORD ERABLES Final Result [facility] [address] [place] [phone] * MR Knee w/o Contrast Right (09/26/2025 3:48 PM EST) Anatomical Region Laterality Modality Magnetic Resonan ce 09/26/2025 3:48 PM EST Narrative 09/26/2025 3:50 PM EST [address] [address] Magnetic Resonance Report Signed with Addenda Patient: Abby Monte MR#: [id number] : 1995 Acct:[id number] Age/Sex: 30 / F ADM Date: 09/26/25 Loc: HO.MRI Attending Dr: Charissa Wilson NP Ordering Physician: Charissa Wilson NP Date of Service: 09/26/25 Procedure(s): MR knee RT wo con Accession Number(s): [id number] cc: Faviola Da Silva; Charissa Wilson NP [...] appear maintained. Joint space and soft tissues: Psgsynzs-vi-yctzo joint effusion. The medial patellar retinaculum appears to be grossly intact. A popliteal fossa cyst extends over a craniocaudad distance of 3.9 cm and measures up to 15 mm cross-sectional dimension. Impression: 1. Likely sequela of mild transient lateral patellar dislocation or subluxation. No significant impaction injury of the lateral femoral condyle is appreciated. 2. Sequela of patellofemoral chondromalacia. Zldxooxt-hp-fpvdj joint effusion. This document has been electronically signed by: Myles Alejandre MD on 09/26/2025 15:48:29 Dictated By: Myles Alejandre MD Signed By: <Electronically signed by Myles Alejandre MD in OV> 09/26/25 1549 DD/ 1548 TD/TT: 09/26/25 1548 Wash Mill Operator: Procedure Note Donotuseinterpreter, Image - 09/26/2025 [place] [address] Magnetic Resonance Report Signed with Addenda Patient: Abby Monte [facility]#: [id number] : 1995Acct:[id number] Age/Sex: 30 / FADM Date: 09/26/25 Loc: HO.MRI Attending Dr: Charissa Wilson PROFESSOR OF POLITICAL SCIENCE Ordering Physician: Charissa Wilson NP Date of Service: 09/26/25 Procedure(s): MR knee RT wo con Accession Number(s): [id number] cc: Faviola Da Silva; Charissa Wilson NP [...] appear maintained. Joint space and soft tissues: Wfwlrfya-st-ourdk joint effusion. The medial patellar retinaculum appears to be grossly intact. A popliteal fossa cyst extends over a craniocaudad distance of 3.9 cm and measures up to 15 mm cross-sectional dimension. Impression: 1. Likely sequela of mild transient lateral patellar dislocation or subluxation. No significant impaction injury of the lateral femoral condyle is appreciated. 2. Sequela of patellofemoral chondromalacia. Fekauujc-jn-rgjio joint effusion. This document has been electronically signed by: Myles Alejandre MD on 09/26/2025 15:48:29 Dictated By: Myles Alejandre MD Signed By: <Electronically signed by Myles Alejandre MD in OV> 09/26/251548 DD/ 47 TD/TT: 09/26/25 1548 Wash Mill Operator: us Charissa Wilson IRRIGATIONIST IMG MRI PROCEDURES Edited Result - Final * HPV DNA (16, 18, Other High Risk), PCR, Vaginal Self-Collected (09/14/2025 2:04 PM EST) HPV 16 DNA Not Detected Not Detected [facility] HPV 18 DNA Not Detected Not Detected [facility] HPV, Other Not Detected Not Detected [facility] Comment:Other HR HPV DNA inc ludes the following genotypes:31,33,35,39,45,51,52,56,58,59,66,68.Methodology: Polymerase Chain Reaction (PCR)THIS TEST WAS PERFORMED AT:[facility] [id number] [place] [address]WEJVLEMLENIN GODINEZ MD,PHD ThinPrep vial Vaginal structure / Unknown 09/14/2025 2:04 PM EST 09/16/2025 11:33 AM EST us Faviola Da Silva MD LAB BODY FLUIDS AND STOOLS ORD ERABLES Final Result [facility] [address] [place] [address] [phone] * US Abdomen Limited (08/15/2025 9:11 AM EDT) Anatomical Region Laterality Modality Abdomen Ultrasound 08/15/2025 9:11 AM EDT Narrative 08/15/2025 9:12 AM EDT [address] [address] Ultrasound Report Signed Patient: Abby Monte MR#: [id number] : 1995 Acct:[id number] Age/Sex: 30 / F ADM Date: 08/14/25 Loc: HO.US Attending Dr: Denny Plascencia MD Ordering Physician: Denny Plascencia MD Date of Service: 08/14/25 Procedure(s): US abdomen limited Accession Number(s): [id number] cc: Denny Plascencia MD; Faviola Da Silva [...] Santoyo MD Signed By: <Electronically signed by Theorn Santoyo MD in OV> 08/15/25911 DD/ 0 TD/TT: 08/15/25910 Wash Mill Operator: Procedure Note Donotuseinterpreter, Image - 08/15/2025 [place] [address] Ultrasound Report Signed Patient: Abby Monte [facility]#: [id number] : 1995Acct:[id number] Age/Sex: 30 / FADM Date: 08/14/25 Loc: HO.US Attending Dr: Denny Plascencia MD Ordering Physician: Denny Plascencia MD Date of Service: 08/14/25 Procedure(s): US abdomen limited Accession Number(s): [id number] cc: Denny Plascencia MD; Faviola Da Silva [...] in OV> 08/15/25911 DD/ 0 TD/TT: 08/15/25910 Wash Mill Operator: us Denny Plascencia MD IMG US PROCEDURES Edited Re sult - Final * BI Mammogram Diagnostic Tomosynthesis Right (03/25/2025 10:00 AM EDT) Anatomical Region Laterality Modality Breast Right Mammography 03/25/2025 10:0 0 AM EDT Narrative 03/25/2025 11:10 AM EDT [facility] [address] [place] [address] Mammography Report Signed with Addenda Patient: Abby Monte MR#: [id number] : 1995 Acct:[id number] Age/Sex: 29 / F ADM Date: 03/25/25 Loc: HO.MAMMO Attending Dr: Aden Fernández MD Ordering Physician: Aden Fernández MD Results: 1Neg ative Date of Service: 03/25/25 Follow Up: 1 Year From Orig ina Mammogram Procedure(s): MM tomosynthesis diagnostic RT Accession Number(s): [id number] cc: Faviola Da Silva; Aden Fernández MD [...] 03/25/25 1107 DD/ 1000 TD/TT: 03/25/25 1040 Wash Mill Operator: Procedure Note Donotuseinterpreter, Image - 03/31/2025 [facility] [address] [place] [address] Mammography Report Signed with Addenda Patient: Abby Monte MMR#: [id number] : 1995Acct:[id number] Age/Sex: 29 FADM Date: 03/25/25 Loc: .MAMMO Attending Dr: Aden Fernández MD Ordering Physician: Aden Fernández MDResults: 1Neg ative Date of Service: 03/25/25Follow Up: 1 Year From Orig ina Mammogram Procedure(s): MM tomosynthesis diagnostic RT Accession Number(s): [id number] cc: Faviola Da Silva; Aden Fernández MD [...] 03/25/25 1107 DD/ 1000 TD/TT: 03/25/25 1040 Wash Mill Operator: [facility] External Provider IMG BI PROCEDURES Edited Result - Final * Hepatitis C Antibody with Reflex to HCV, RNA, Quantitative, Real-Time PCR (10/21/2024 8:20 AM EST) Hepatitis C Antibody Nonreactive Nonreactive [facility] Comment:Antibodies to HCV no t detected; does not exclude early acuteHCV infection. Blood Venous blood specimen / Unknown 10/21/2024 8:20 AM EST 10/21/2024 11:46 AM EST Bon Arreaga MD LAB BLOOD ORDERABLES Final Resul t [facility] [address] [place] [phone] * HIV-1/2 Antigen and Antibodies, Fourth Generation, with Reflexes (10/21/2024 8:20 AM EST) HIV AB/AG Nonreactive Nonreactive [facility] Comment:HIV-1 p24 Ag and/or HIV-1/HIV-2 Ab not detected.A test result that is nonreactive does not exclude thepossibility of exposure to or infection with HIV-1 and/orHIV-2. Nonreactive results in this assay for individualswith prior exposure to HIV-1 and/or HIV-2 may be due toantigen and antibody levels that are below the limit ofdetection of this assay.The [employer] HIV Ag/Ab Combo assay result andsupplemental assay results should be interpreted inconjunction with the patient's clinical presentation,history and other laboratory results. If the results areinconsistent with clinical evidence, additional testing issuggested to confirm the result. Blood Venous blood specimen / Unknown 10/21/2024 8:20 AM EST 10/21/2024 11:46 AM EST us Bon rAreaga MD LAB BLOOD ORDERABLES Final Resul t [facility] [address] [place] [phone] * (ABNORMAL) LIPID PANEL, STANDARD (07/16/2020 [...] LDL-C. Holger SS et al. ALBERTO. 2013;310(19): 9793-9872 (http://education.[employer]My[employer].com/faq/YRN001) Non-HDL Cholesterol 79 <130 mg/dL (calc) [facility] Comment: For patients with diabetes plus 1 major ASCVD risk factor, treating to a non-HDL-C goal of <100 mg/dL (LDL-C of <70 mg/dL) is considered a therapeutic option. Cholesterol, Total 121 <200 mg/dL [facility] Chol/HDLC Ratio 2.9 <5.0 (calc) [facility] Triglycerides 105 <150 mg/dL [facility] HDL Cholesterol 42(L) > OR [...] LDL-C. Holger SS et al. ALBERTO. 2013;310(19): 7950-7302 (http://education.[employer]MyHome.[employer]/faq/RHU469) Triglycerides 105 <150 mg/dL [facility] HDL Cholesterol 42(L) > OR = 50 mg/dL [facility] 07/16/2020 1:59 PM EDT us Eduardo Wallace MD LAB BLOOD ORDERABLES Final Resul t [facility] [address] from Last 3 Months or Most Recently Relevant to Health Maintenance Insurance # [address] [place] [address] [facility] Care Teams Experimental Box Tester Relationship Specialty Start Date End Date Faviola Da Silva MD [address] [place] [address] PCP - General Family Medicine 09/23/20
--- OUTSIDE RECORDS SUMMARY | 2025-11-03 12:44 | XMS_ITS | Encounter Summary ---
Author Organization [employer] Address [address] [facility] 7t [place] [address] Care Team Providers Care Referral Management Liaison Name Role Phone Faviola Da Silva MD Primary Care Provider [phone] Encounter Details Date Type Department Care Team ([facility] Contact Info) Description 11/01/2022 Orders Only [facility] [address] [place] [address] Bon Arreaga MD [address] [place] [address] Bacterial vaginosis (Primary Dx); Candidal vulvovaginitis Social [...] vagina documented in this encounter Care Teams Referral Management Liaison Relationship Specialty Start Date End Date Faviola Da Silva MD [address] [place] [address] PCP - General Family Medicine 09/23/20 documented as of this encounter
--- OUTSIDE RECORDS SUMMARY | 2025-11-03 12:44 | XMS_ITS | Encounter Summary ---
Author Organization [email or web address] Address [address] [place] [address] 7 [place] [address] Care Team Providers Care Truck Crane Operator Name Role Phone Faviola Da Silva MD Primary Care Provider [phone] Encounter Details Date Type Department Care Team ([facility] st Contact Info) Description 06/05/2023 Abstract [facility] [address] [place], [place] [phone] Faviola Da Silva MD [address] [place], [place] [phone] Social History Tobacco Use Types Packs/Day Years [...] on filedocumented in this encounter Care Teams Truck Crane Operator Relationship Specialty Start Date End Date Faviola Da Silva MD [address] [place], [place] [phone] PCP - General Family Medicine 09/23/20 documented as of this encounter
--- OUTSIDE RECORDS SUMMARY | 2025-11-03 12:44 | XMS_ITS | Encounter Summary ---
Author Organization [employer] Address [address] [facility] [address] 7[address] [place] [address] Care Team Providers Care Entry Level Software Developer Name Role Phone Faviola Da Silva MD Primary Care Provider [phone] Encounter Details Date Type Department Care Team ([facility] Contact Info) Description 08/27/2023 Abstract [facility] [address] [place] [address] Faviola Da Silva MD [address] [place], [place] [phone] Social History Tobacco Use Types Packs/Day Years [...] in this encounter Care Teams Entry Level Software Developer Relationship Specialty Start Date End Date Faviola Da Silva MD [address] [place] [address] PCP - General Family Medicine 09/23/20 documented as of this encounter
--- OUTSIDE RECORDS SUMMARY | 2025-11-03 12:44 | XMS_ITS | Encounter Summary ---
Author Organization [employer] Address [address] [place] [address] 7 [place] [address] Care Team Providers Care Distribution Sales Manager Name Role Phone Faviola Da Silva MD Primary Care Provider Reason for Visit * Reason Comments [facility] Encounter Details Date Type Department Care Team ([facility] Contact Info) Description 05/09/2023 Abstract [facility] [address] [place] [address] Faviola Da Silva MD [address] [place] [address] Social History Tobacco Use Types Packs/Day Years [...] on filedocumented in this encounter Care Teams Distribution Sales Manager Relationship Specialty Start Date End Date Faviola Da Silva MD [address] [place] [address] PCP - General Family Medicine 09/23/20 documented as of this encounter
--- OUTSIDE RECORDS SUMMARY | 2025-11-03 12:44 | XMS_ITS | Encounter Summary ---
Author Organization [employer] Address [address] [facility] [address] 7[address] [place] [address] Care Team Providers Care Autocad Designer Name Role Phone Faviola Da Silva MD Primary Care Provider [phone] Encounter Details Date Type Department Care Team ([facility] Contact Info) Description 04/17/2025 Orders Only [facility] [address] [place], [place] [phone] Faviola Da Silva MD [address] [place], [place] [phone] Social History Tobacco Use Types Packs/Day Years [...] documented as of this encounter Care Teams Autocad Designer Relationship Specialty Start Date End Date Faviola Da Silva MD [address] [place] [address] PCP - General Family Medicine 09/23/20 documented as of this encounter
--- OUTSIDE RECORDS SUMMARY | 2025-11-03 12:44 | XMS_ITS | Encounter Summary ---
Author Organization [employer] Address [address] [facility] [address] [place] [address] Care Team Providers Care Certified Midwife Name Role Phone Faviola Da Silva MD Primary Care Provider [phone] Encounter Details Date Type Department Care Team ([facility] Contact Info) Description 09/03/2023 Orders Only [facility] [address] [place], [place] [phone] Faviola Da Silva MD 230 [place], [place] [phone] Social History Tobacco Use Types Packs/Day Years [...] on filedocumented in this encounter Care Teams Certified Midwife Relationship Specialty Start Date End Date Faviola Da Silva MD [address] [place] [address] PCP - General Family Medicine 09/23/20 documented as of this encounter
== END 2025-11-02 11:21 | disposition home or self-care (01) ==
LOC: HO.HHCLNP 11:20
PROVIDERS: Visit Provider Nurse Practitioner Family
DX: Z01.419 Encounter for gynecological examination (general) (routine) without abnormal findings (principal); N89.8 Other specified noninflammatory disorders of vagina; Z98.51 Tubal ligation status
CPT/HCPCS: 81515